=== PATIENT | female | born 1985 | race Hispanic/Latino ===

== ENCOUNTER 2019-07-13 08:30 | Outpatient (CLI) | payer OTHER, SELFPAY ==
--- NOTE | ~2019-07-13 | US_ITS ---
EXAMINATION: US OB <= 14 weeks fetus DATE: 07/13/2019 09:09 INDICATION: First trimester dating TECHNIQUE: Real-time pelvic transabdominal and transvaginal ultrasound was performed. COMPARISON: None. FINDINGS: The uterus measures 11.1 x 7.2 x 6.0 cm. There is an intrauterine gestational sac. There i s a 1.8 x 2.0 x 1.7 cm hypoechoic area adjacent to the gestational sac. A yolk sac is identified. Fet al heart motion is identified measuring 159 beats per minute (bpm) by M-mode Doppler. The crown rump length measures 1.4 cm , which correlates with an estimated gestational age of 7 weeks and 4 da y(s) (+/-) 5 day(s). The right ovary measures 4.1 x 2.9 x 3.4 cm. The left ovary measures 2.7 x 3.1 x 2.6 cm. There is no free fluid in the pelvis. IMPRESSION: 1. Live intrauterine with an estimated gestational age of 7 weeks and 4 day(s) (+/-) 5 day( s) and an estimated delivery date of 02/25/2020. Reviewed, dictated and finalized at location A. ERN VAULT CLERK IMPRESSION: 1. Live intrauterine with an estimated gestational age of 7 weeks and 4 day(s) (+/-) 5 day(s) and an estimated delivery date of 02/25/2020.
== END 2019-07-13 08:31 | disposition home or self-care (01) ==
PROVIDERS: PCP Family Medicine; Visit Provider Student in an Organized Health Care Education/Training Program
DX: Z34.90 Encounter for supervision of normal pregnancy, unspecified, unspecified trimester (principal); Z3A.01 Less than 8 weeks gestation of pregnancy
CPT/HCPCS: 76801

== ENCOUNTER 2019-07-29 12:18 | Emergency (ER) | payer OTHER, SELFPAY ==
--- NOTE | ~2019-07-29 | US_ITS ---
EXAMINATION: US OB <= 14 weeks fetus DATE: 07/29/2019 15:33 INDICATION: Cramping. TECHNIQUE: Real-time transabdominal pelvic ultrasound was performed. COMPARISON: Ultrasound 07/13/2019 FINDINGS: The uterus measures 11.3 x 7.8 x 8.5 cm. There is an intrauterine gestational sac. A yolk sac is cheng ntified. The crown rump length measures 3.2 cm, which correlates with an estimated gestational age of 10 weeks and 1 day(s) (+/-) 6 day(s). heart motion is identified measuring 176 beats pe r minute (bpm) by M-mode Doppler. The right ovary measures 3.4 x 1.9 x 2.8 cm. There is a 3.3 cm cyst in right ovary, likely a follicular cyst. The left ovary measures 2.2 x 1.9 x 1.5 cm. There is no fr ee fluid in the pelvis. IMPRESSION: 1. Single living intrauterine gestation with estimated date of delivery of 02/25/2020 based on the ul trasound from 07/13/2019. Reviewed, dictated and finalized at location A. IMPRESSION: 1. Single living intrauterine gestation with estimated date of delivery of 02/25/2020 based on the ultrasound from 07/13/2019.
[2019-07-29 12:38] VITALS: BP 115/57; PULSE 73; RESP 18; TEMP 36.8; O2SAT 99
--- NOTE | 2019-07-29 12:49 | PC.NURSE ---
Pt states she has L lower abd cramping x 4 days. Pt states she has also had an upper respiratory infection that has no been treated. Pt states she has been taking Tylenol with no relief. Pt states OB told to come to ER for evaluation. Pt states she has no discharge or bleeding. Pt appears in NAD. Pt states she is 10 wks . Pt has family and call light in reach
--- NOTE | 2019-07-29 13:18 | ED.PREGNANCY ---
HPI - General Chief complaint: OB/Uterine Contractions Stated complaint: cramping/10 weeks Time Seen by Provider: 07/29/19 13:17 Source: patient Mode of arrival: ambulatory Limitations: no limitations History of Present Illness HPI Narrative: The pt is a 33 y/o female who presents to the ED c/o left-sided ABD pain onset one day ago. Pt describes it as a cramping pain. She notes that it was intermittent before, but has been constant for the past hour. Pt notes that she last took Tylenol one hour ago. Pt reports diarrhea and chills, but denies N/V, fever, vaginal bleeding, and vaginal discharge. Pt notes that she is 10 weeks , and has been seeing Dr. Kaykay Weiss. Pt states that she had a US performed at 7 weeks. Pt notes that she is with one . Pt states that she has a URI currently. Pt also reports a PSHx of cholecystectomy and appendectomy. MD Complaint: abdominal pain Onset (ago): day(s) (1) Pain Consistency: constant (Now, was intermittent before) Location: abdomen Quality: Cramping Associated symptoms: other (Diarrhea, chills) Vaginal discharge: none Vaginal bleeding: none OB History - Current : no complications Related Data Allergies Allergy/AdvReac Type Severity Reaction Status Date / Time acetaminophen [From Vicodin] AdvReac Other Verified 07/29/19 12:41 hydrocodone [From Vicodin] AdvReac Other Verified 07/29/19 12:41 Review of Systems Review of Systems: All systems reviewed & are unremarkable except as noted in HPI and below Constitutional: Constitutional: Reports chills and Denies fever(s) Gastrointestinal: Gastrointestinal: Reports abdominal pain (Left-sided, cramping, intermittent now), Reports diarrhea, Denies nausea and Denies vomiting Genitourinary: Genitourinary: Denies abnormal vaginal bleeding and Denies vaginal discharge [facility] Past Medical History Medical History (Updated 07/29/19 @ 15:27 by John Snider MD) Upper respiratory infection Surgical History Surgical History (Updated 07/29/19 @ 13:42 by Corby Medrano) History of appendectomy History of cholecystectomy Social History Social History (Updated 04/20/19 @ 17:10 by Barney Avalos) Additional occupation/education comments: Day care Gender identity (if verbalized by the patient): Female Comments PCP: Dr. Perez FLAKER TENDER: Dr. Weiss Exam Narrative: Exam Narrative: General appearance: Well-developed, well-nourished Skin: Normal color Head: Normocephalic, nontraumatic Eyes: Clear conjunctiva ENT: Oropharynx normal, ears normal, nose normal Neck: Supple, nontender Chest and respiratory: Airway patent, no respiratory distress, no accessory muscle use Heart: Regular rate/rhythm Abdomen: Soft, mild to moderate tenderness left lower quadrant r, no organomegaly, quiet bowel sounds Vascular: Normal peripheral pulses, normal capillary refill. Musculoskeletal: Normal range of motion, nontender back Neurologic: Alert and oriented ?3, VEHICLE FARE COLLECTOR is normal as tested, no gross motor deficit Course Course Emergency Course: Improving Vital Signs Vital signs: Vital Signs Temperature 36.8 C 07/29/19 12:38 Pulse Rate 73 07/29/19 12:38 Respiratory Rate 18 07/29/19 12:38 Blood Pressure 115/57 L 07/29/19 12:38 Pulse Oximetry 99 07/29/19 12:38 Temperature 36.8 C 07/29/19 12:38 Pulse Rate 73 07/29/19 12:38 Respiratory Rate 18 07/29/19 12:38 Blood Pressure 115/57 L 07/29/19 12:38 Pulse Oximetry 99 07/29/19 12:38 MDM - OB/Uterine Contractions MDM Narrative Medical decision making narrative: Left lower quadrant pain in a woman. My concern is urinar
[2019-07-29 13:41] LABS: Basophils Percent Auto 0.3 % (0.2-1.2); Eosinophils Absolute Auto 0.1 K/mm3 (0-0.3); Hematocrit 37.9 % (37.0-47.0); Hemoglobin 12.6 g/dL (12.0-15.0); Immature Granulocyte Absolute 0.02 K/mm3 (0.00-0.031); Immature Granulocyte Percent A 0.3 % (0-0.5); Lymphocytes Absolute Auto 1.81 K/mm3 (0.9-3.2); Mean Corpuscular HGB Conc 33.2 g/dl (32-36); Mean Corpuscular Hemoglobin 30.5 pg (26-34); Mean Corpuscular Volume 91.8 fl (80-100); Mean Platelet Volume 10.8 fl (7.4-10.4); Monocytes Absolute Auto 0.4 K/mm3 (0.1-0.6); Monocytes Percent Auto 5.1 % (2.6-8.5); Neutrophils Absolute Auto 4.9 K/mm3 (1.3-6.7); Neutrophils Percent Auto 68.3 % (45.5-73.1); Platelet Count Result 245 k/mm3 (150-375); Red Blood Count 4.13 M/mm3 (4.2-5.4); Red Cell Distribution Width 12.1 % (11.5-14.5); White Blood Count 7.2 K/mm3 (4.5-10.0)
[2019-07-29 13:54] LABS: Alanine Aminotransferase 19 U/L (4-35); Albumin Level 3.9 g/dL (3.5-5.1); Alkaline Phosphatase 51 U/L (38-126); Aspartate Amino Transferase 18 U/L (14-36); Bilirubin,Total 0.8 mg/dL (0.2-1.3); Blood Urea Nitrogen 5 mg/dL (7-17); Carbon Dioxide 25 mmol/L (22-30); Chloride 103 mmol/L (98-107); Estimated CRCL calculation 105 ml/min; Estimated Glomerular Filt Rate > 60; Glucose 81 mg/dL (65-105); Lipase 34 U/L (23-300); Potassium 3.6 mmol/L (3.4-5.0); Sodium 135 mmol/L (137-145)
[2019-07-29 15:22] LABS: Add Urine Microscopic? YES; Appearance Urine Clear (Clear); Bacteria Urine Trace /hpf; Bilirubin Urine Negative (Negative); Blood Urine Negative (Negative); Color Urine Yellow (Yellow); Glucose Urine UA Negative (Negative); Ketones Urine Negative (Negative); Leukocyte Esterase Ur Negative LEU/UL (Negative); Mucus Urine Rare /lpf; Nitrate Urine Negative (Negative); Protein Urine Negative (Negative); RBC Urine 0-2 /hpf (0-2); Specific Grav Ur 1.021 (1.001-1.035); Squamous Epithelial Cell Urine Few /hpf (Few); Urobilinogen Urine Negative mg/dL (<2.0); WBC Urine 0-3 /hpf
== END 2019-07-29 12:49 | disposition home or self-care (01) ==
PROVIDERS: Emergency Provider Emergency Medicine; PCP Family Medicine
DX: O26.891 Other specified pregnancy related conditions, first trimester (principal); R10.32 Left lower quadrant pain
CPT/HCPCS: 36415; 76801; 80053; 81001; 83690; 84702; 85025; 99284

== ENCOUNTER 2019-12-16 10:53 | Observation (INO) | payer OTHER, SELFPAY ==
[2019-12-16 12:14] LABS: Add Urine Microscopic? YES; Appearance Urine Clear (Clear); Bacteria Urine Trace /hpf; Bilirubin Urine Negative (Negative); Blood Urine Negative (Negative); Color Urine Yellow (Yellow); Glucose Urine UA Negative (Negative); Ketones Urine Negative (Negative); Leukocyte Esterase Ur Trace LEU/UL (Negative); Mucus Urine Rare /lpf; Nitrate Urine Negative (Negative); Protein Urine Negative (Negative); RBC Urine 0-2 /hpf (0-2); Specific Grav Ur 1.018 (1.001-1.035); Squamous Epithelial Cell Urine Many /hpf (Few); Urobilinogen Urine Negative mg/dL (<2.0)
[2019-12-16 12:40] LABS: Fetal Fibronectin Negative
[2019-12-16] MEDS: NIFEdipine 10 MG CAPSULE PO ×2 (13:59→15:56)
[2019-12-16 16:22] LABS: Basophils Percent Auto 0.3 % (0.2-1.2); Eosinophils Absolute Auto 0.1 K/mm3 (0-0.3); Hematocrit 36.7 % (37.0-47.0); Hemoglobin 12.2 g/dL (12.0-15.0); Immature Granulocyte Absolute 0.02 K/mm3 (0.00-0.031); Immature Granulocyte Percent A 0.3 % (0-0.5); Lymphocytes Percent Auto 22.6 % (18.3-44.2); Mean Corpuscular HGB Conc 33.2 g/dl (32-36); Mean Corpuscular Hemoglobin 30.6 pg (26-34); Mean Platelet Volume 11.2 fl (7.4-10.4); Monocytes Absolute Auto 0.4 K/mm3 (0.1-0.6); Monocytes Percent Auto 5.1 % (2.6-8.5); Neutrophils Percent Auto 70.7 % (45.5-73.1); Platelet Count Result 206 k/mm3 (150-375); Red Blood Count 3.99 M/mm3 (4.2-5.4); Red Cell Distribution Width 13.1 % (11.5-14.5); White Blood Count 7.1 K/mm3 (4.5-10.0)
[2019-12-16 16:32] LABS: Partial Thromboplastin Time 25.2 SECONDS (22.3-36.8)
[2019-12-16 16:34] LABS: Alanine Aminotransferase 9 U/L (4-35); Albumin Level 3.7 g/dL (3.5-5.1); Alkaline Phosphatase 82 U/L (38-126); Anion Gap 10.7 mmol/L (7-16); Aspartate Amino Transferase 14 U/L (14-36); Bilirubin,Total 0.8 mg/dL (0.2-1.3); Blood Urea Nitrogen 5 mg/dL (7-17); Calcium 8.8 mg/dL (8.4-10.2); Carbon Dioxide 23 mmol/L (22-30); Chloride 105 mmol/L (98-107); Estimated Glomerular Filt Rate > 60; Glucose 133 mg/dL (65-105); Potassium 3.7 mmol/L (3.4-5.0); Sodium 135 mmol/L (137-145)
[2019-12-16 16:46] VITALS: RESP 20; TEMP 36.6
[2019-12-16 17:04] LABS: INR 0.9; Prothrombin Time 11.9 Seconds (11.1-14.7)
[2019-12-16 17:10] LABS: Fibrinogen 283 mg/dl (215-510)
[2019-12-16 18:25] LABS: Amphetamine Screen Urine Negative (Negative); Barbiturate Screen Urine Negative (Negative); Benzodiazepines Screen Urine Negative (Negative); Cannabinoid Screen Urine Negative (Negative); Cocaine Screen Urine Negative (Negative); Methadone Screen Urine Negative (Negative); Opiate Screen Urine Negative (Negative); Phencyclidine Screen Urine Negative (Negative)
--- NOTE | 2020-01-19 12:38 | PM.OBTRLD ---
OB - Triage/Final Diagnosis Evaluation Laboratory results: Laboratory Tests 12/16/19 12/16/19 12/16/19 11:51 11:54 16:15 WBC RBC Hgb Hct MCV MCH MCHC RDW Plt Count MPV Immature Gran % (Auto) Neut % (Auto) Lymph % (Auto) [place] % (Auto) Eos % (Auto) Baso % (Auto) Lymph # (Auto) [place] # (Auto) Eos # (Auto) Baso # (Auto) Abs Immat Gran (auto) Absolute Neuts (auto) Absolute Nucleated RBC Nucleated RBC % PT INR APTT 25.2 Fibrinogen Sodium Potassium Chloride Carbon Dioxide Anion Gap BUN Creatinine Estim Creat Clear Calc Estimated GFR Glucose Calcium Total Bilirubin AST ALT Alkaline Phosphatase Total Protein Albumin Urine Color Yellow Urine Appearance Clear Urine pH 6.0 Ur Specific [place] 1.018 Urine Protein Negative Urine Glucose (UA) Negative Urine Ketones Negative Ur Blood (Man) Negative Urine Nitrate Negative Urine Bilirubin Negative Urine Urobilinogen Negative Leukocyte Esterase Rfl Trace H Urine RBC 0-2 Urine WBC 4-6 H Ur Squamous Epith Cells Many H Urine Bacteria Trace Urine Mucus Rare Urine Opiates Screen Urine Methadone Screen Ur Barbiturates Screen Ur Phencyclidine Scrn Ur Amphetamine Screen U Benzodiazepines Scrn Urine Cocaine Screen U Cannabinoids Screen Fibronectin Negative KB Hemoglobin 12/16/19 12/16/19 12/16/19 16:15 16:15 16:15 WBC 7.1 RBC 3.99 L Hgb 12.2 Hct 36.7 L MCV 92.0 MCH 30.6 MCHC 33.2 RDW 13.1 Plt Count 206 MPV 11.2 H Immature Gran % (Auto) 0.3 Neut % (Auto) 70.7 Lymph % (Auto) 22.6 [place] % (Auto) 5.1 Eos % (Auto) 1.0 Baso % (Auto) 0.3 Lymph # (Auto) 1.60 [place] # (Auto) 0.4 Eos # (Auto) 0.1 Baso # (Auto) 0.0 Abs Immat Gran (auto) 0.02 Absolute Neuts (auto) 5.0 Absolute Nucleated RBC 0.0 Nucleated RBC % 0.0 PT 11.9 INR 0.9 APTT Fibrinogen 283 Sodium Potassium Chloride Carbon Dioxide Anion Gap BUN Creatinine Estim Creat Clear Calc Estimated GFR Glucose Calcium Total Bilirubin AST ALT Alkaline Phosphatase Total Protein Albumin Urine Color Urine Appearance Urine pH Ur Specific [place] Urine Protein Urine Glucose (UA) Urine Ketones Ur Blood (Man) Urine Nitrate Urine Bilirubin Urine Urobilinogen Leukocyte Esterase Rfl Urine RBC Urine WBC Ur Squamous Epith Cells Urine Bacteria Urine Mucus Urine Opiates Screen Urine Methadone Screen Ur Barbiturates Screen Ur Phencyclidine Scrn Ur Amphetamine Screen U Benzodiazepines Scrn Urine Cocaine Screen U Cannabinoids Screen Fibronectin KB Hemoglobin Negative 12/16/19 12/16/19 16:15 17:32 WBC RBC Hgb Hct MCV MCH MCHC RDW Plt Count MPV Immature Gran % (Auto) Neut % (Auto) Lymph % (Auto) [place] % (Auto) Eos % (Auto) Baso % (Auto) Lymph # (Auto) [place] # (Auto) Eos # (Auto) Baso # (Auto) Abs Immat Gran (auto) Absolute Neuts (auto) Absolute Nucleated RBC Nucleated RBC % PT INR APTT Fibrinogen Sodium 135 L Potassium 3.7 Chloride 105 Carbon Dioxide 23 Anion Gap 10.7 BUN 5 L Creatinine 0.50 L Estim Creat Clear Calc Not Reportable Estimated GFR > 60 Glucose 133 H Calcium 8.8 Total Bilirubin 0.8 AST 14 ALT 9 Alkaline Phosphatase 82 Total Protein 7.0 Albumin 3.7 Urine Color Urine Appearance Urine pH Ur Specific [place] Urine Protein Urine Glucose (UA) Urine Ketones Ur Blood (Man) Urine Nitrate Urine Bilirubin Urine Urobilinogen Leukocyte Esterase Rfl Urine RBC Urine WBC Ur Squamous Epith Cells Urine Ba
== END 2019-12-16 17:53 | disposition home or self-care (01) ==
PROVIDERS: Admitting Provider Obstetrics & Gynecology; PCP Family Medicine; Visit Provider Obstetrics & Gynecology
DX: O99.89 Other specified diseases and conditions complicating pregnancy, childbirth and the puerperium (principal); M54.9 Dorsalgia, unspecified; Z3A.00 Weeks of gestation of pregnancy not specified
CPT/HCPCS: 36415; 80053; 80307; 81001; 82731; 85025; 85384; 85460; 85610; 85730; A9270; G0378; G0379

== ENCOUNTER 2020-01-13 15:01 | Observation (INO) | payer OTHER, SELFPAY ==
[2020-01-13] VITALS (11 sets, daily range): BP systolic 94–114; BP diastolic 34–61; PULSE 71–89; TEMP 36.3; BMI 31.1
[2020-01-13] MEDS: ONDANSETRON INJ 4 MG/2 ML VIAL IV PUSH (16:18)
[2020-01-13] MEDS: TERBUTALINE SULFATE 1 MG/ML VIAL 0.25 MG SUB-Q (16:20)
--- NOTE | 2020-01-13 16:26 | OBADM ---
This patient, Xiomara Gonsalves, admitted to the OB room OB Post 116 for observation. Patient/family oriented to hospital policies and general routines including ID bracelet, bed and alarms, visiting hours, pain management, procedures, bathroom and other care routines, personal items, smoking policy, room service/diet, and visiting hours. Patient/Family are encouraged to report perceived risks to care and to ask questions if they do not understand what they are told or what they should do. Pt. reports ctxns, h/a, dizziness, nausea, pelvic pain and back pain since approx. midnight last night. She reports that she takes procardia q 6h for ctxns, but then she started feeling really bad last night.
[2020-01-13] MEDS: ACETAMINOPHEN 500 MG TABLET 1000 MG PO (18:00)
--- NOTE | 2020-02-02 14:11 | PM.OBTRLD ---
OB - Triage/Final Diagnosis Final Diagnosis (1) contractions: Code(s): O47.9 - False labor, unspecified Status: Acute
== END 2020-01-13 18:23 | disposition home or self-care (01) ==
PROVIDERS: Admitting Provider Student in an Organized Health Care Education/Training Program; PCP Family Medicine; Visit Provider Student in an Organized Health Care Education/Training Program
DX: O47.03 False labor before 37 completed weeks of gestation, third trimester (principal); Z3A.34 34 weeks gestation of pregnancy
CPT/HCPCS: 96372; 96374; A9270; G0378; G0379; J2405; J3105

== ENCOUNTER 2020-01-28 10:29 | Outpatient (CLI) | payer OTHER, SELFPAY ==
--- NOTE | ~2020-01-28 | US_ITS ---
US breast LT complete 01/28/2020 10:54 Indication: Palpable left breast lump. Patient is 36 weeks . Procedure: High-resolution bilateral breast ultrasound. Comparison: No prior studies for comparison. Findings: At 4:00, 6 cm from the nipple, there is an oval circumscribed hypoechoic mass without poste rior features, internal vascularity. There is parallel orientation. The mass measures 6 x 5 x 3 mm. A t 9:00, 5 cm from the nipple, there is a slightly lobulated hypoechoic mass with parallel orientation , no significant posterior features or internal vascularity measuring 2.2 x 1.8 x 1.2 cm. Impression: 1: 2.2 cm left breast mass at 9:00, 5 cm from the nipple. Additional smaller 6 mm masses likely benig n. Six-month follow-up recommended. BI-RADS CATEGORY 4-SUSPICIOUS ABNORMALITY RECOMMENDATION: Ultrasound-guided left breast biopsy recommended. Reviewed, dictated and finalized at location A. Impression: 1: 2.2 cm left breast mass at 9:00, 5 cm from the nipple. Additional smaller 6 mm masses likely benign. Six-month follow-up recommended. BI-RADS CATEGORY 4-SUSPICIOUS ABNORMALITY RECOMMENDATION: Ultrasound-guided left breast biopsy recommended.
== END 2020-01-28 10:30 | disposition home or self-care (01) ==
PROVIDERS: PCP Family Medicine; Visit Provider Student in an Organized Health Care Education/Training Program
DX: O92.29 Other disorders of breast associated with pregnancy and the puerperium (principal); D24.2 Benign neoplasm of left breast
CPT/HCPCS: 76641

== ENCOUNTER 2020-02-09 10:40 | Observation (INO) | payer OTHER, SELFPAY ==
[2020-02-09] VITALS (41 sets, daily range): BP systolic 111–128; BP diastolic 62–75; PULSE 51–90; TEMP 36.4–36.9; O2SAT 93–100; BMI 31.8
--- NOTE | 2020-02-09 11:30 | OBADM ---
This patient, Xiomara Gonsalves, admitted to the OB room Labor/Delivery/Recovery 101 at 1040 for observation for contractions. Patient/family oriented to hospital policies and general routines including ID bracelet, bed and alarms, visiting hours, pain management, procedures, bathroom and other care routines, personal items, smoking policy, room service/diet, and visiting hours. Patient/Family are encouraged to report perceived risks to care and to ask questions if they do not understand what they are told or what they should do.
[2020-02-09] MEDS: hydrOXYzine HCl 50 MG/ML VIAL IM (15:27)
--- NOTE | 2020-03-03 14:11 | PM.OBTRLD ---
OB - Triage/Final Diagnosis Final Diagnosis (1) False labor: Code(s): O47.9 - False labor, unspecified Status: Acute
== END 2020-02-09 19:19 | disposition home or self-care (01) ==
PROVIDERS: Admitting Provider Student in an Organized Health Care Education/Training Program; PCP Family Medicine; Visit Provider Student in an Organized Health Care Education/Training Program
DX: O47.9 False labor, unspecified (principal); Z3A.00 Weeks of gestation of pregnancy not specified
CPT/HCPCS: 96372; G0378; G0379; J3410

== ENCOUNTER 2020-02-10 20:48 | Observation (INO) | payer OTHER, SELFPAY ==
--- NOTE | 2020-02-10 21:49 | LDADM ---
This patient, Xiomara Gonsalves, was admitted to Labor/Delivery/Recovery 108 on 02/10/20 at 20:48. Plans for labor, pain management and were discussed with patient. Patient/family oriented to hospital policies and general routines including ID bracelet, bed and alarms, visiting hours, pain management, procedures, bathroom and other care routines, personal items, smoking policy, room service/diet and guest tray routines, infant security routines, and visiting hours. Patient/Family are encouraged to report perceived risks to care and to ask questions if they do not understand what they are told or what they should do. See OBIX for further documentation.
--- NOTE | 2020-03-03 14:13 | PM.OBTRLD ---
OB - Triage/Final Diagnosis Final Diagnosis (1) False labor: Code(s): O47.9 - False labor, unspecified Status: Acute
== END 2020-02-10 21:40 | disposition home or self-care (01) ==
PROVIDERS: Admitting Provider Student in an Organized Health Care Education/Training Program; PCP Family Medicine; Visit Provider Student in an Organized Health Care Education/Training Program
DX: O47.9 False labor, unspecified (principal); Z3A.00 Weeks of gestation of pregnancy not specified
CPT/HCPCS: G0378; G0379

== ENCOUNTER 2020-02-13 03:41 | Inpatient (IN) | payer OTHER, SELFPAY ==
[2020-02-13] VITALS (57 sets, daily range): BP systolic 79–132; BP diastolic 31–103; PULSE 25–134; RESP 16–20; TEMP 36.4–37; O2SAT 91–100; BMI 31.8
--- NOTE | 2020-02-13 03:41 | LDADM ---
This patient, Xiomara Gonsalves, was admitted to Labor/Delivery/Recovery 105 on 02/13/20 at 03:41. Plans for labor, pain management and were discussed with patient. Patient/family oriented to hospital policies and general routines including ID bracelet, bed and alarms, visiting hours, pain management, procedures, bathroom and other care routines, personal items, smoking policy, room service/diet and guest tray routines, infant security routines, and visiting hours. Patient/Family are encouraged to report perceived risks to care and to ask questions if they do not understand what they are told or what they should do. See OBIX for further documentation.
[2020-02-13] MEDS: LACTATED RINGERS 1,000 ML 125 ML IV CONT ×3 (04:15→05:45)
[2020-02-13 04:27] LABS: Basophils Percent Auto 0.1 % (0.2-1.2); Eosinophils Absolute Auto 0.1 K/mm3 (0-0.3); Hematocrit 36.2 % (37.0-47.0); Hemoglobin 12.4 g/dL (12.0-15.0); Immature Granulocyte Absolute 0.02 K/mm3 (0.00-0.031); Immature Granulocyte Percent A 0.3 % (0-0.5); Lymphocytes Absolute Auto 2.84 K/mm3 (0.9-3.2); Lymphocytes Percent Auto 39.3 % (18.3-44.2); Mean Corpuscular HGB Conc 34.3 g/dl (32-36); Mean Corpuscular Hemoglobin 30.7 pg (26-34); Mean Corpuscular Volume 89.6 fl (80-100); Mean Platelet Volume 12.2 fl (7.4-10.4); Monocytes Absolute Auto 0.4 K/mm3 (0.1-0.6); Monocytes Percent Auto 5.7 % (2.6-8.5); Neutrophils Absolute Auto 3.9 K/mm3 (1.3-6.7); Neutrophils Percent Auto 53.6 % (45.5-73.1); Platelet Count Result 150 k/mm3 (150-375); Red Blood Count 4.04 M/mm3 (4.2-5.4); Red Cell Distribution Width 13.4 % (11.5-14.5); White Blood Count 7.2 K/mm3 (4.5-10.0)
--- NOTE | 2020-02-13 04:38 | WPDANESEPP ---
Anes - Eval Pre Procedure Procedure: labor pain Date/Time: 02/13/20 04:38 Surgeon: sherly Pre Op Diagnosis: CTX Patient Data Age: 34 Gender: F Height: Weight: Last Vital Signs Temp 37.0 C 02/13/20 03:50 Pulse 81 02/13/20 04:30 BP 132/73 02/13/20 04:30 Allergies Allergy/AdvReac Type Severity Reaction Status Date / Time hydrocodone Allergy Severe shortness Verified 02/10/20 10:42 of breath Home Medications Medication Instructions Recorded Confirmed Type vits 75-iron 28 mg-folic 1 pkg PO DAILY 07/02/19 02/09/20 History acid 800 mcg-omega-3 oral combo pack cholecalciferol (vitamin D3) 50 50 mcg PO DAILY #90 cap 09/16/19 02/09/20 Rx mcg (2,000 unit) capsule Laboratory Tests 02/13/20 02/13/20 04:17 04:17 WBC 7.2 K/mm3 K/mm3 (4.5-10.0) RBC 4.04 M/mm3 L M/mm3 (4.2-5.4) Hgb 12.4 g/dL g/dL (12.0-15.0) Hct 36.2 % L % (37.0-47.0) MCV 89.6 fl fl (80-100) MCH 30.7 pg pg (26-34) MCHC 34.3 g/dl g/dl (32-36) RDW 13.4 % % (11.5-14.5) Plt Count 150 k/mm3 k/mm3 (150-375) MPV 12.2 fl H fl (7.4-10.4) Immature Gran % (Auto) 0.3 % % (0-0.5) Neut % (Auto) 53.6 % % (45.5-73.1) Lymph % (Auto) 39.3 % % (18.3-44.2) [place] % (Auto) 5.7 % % (2.6-8.5) Eos % (Auto) 1.0 % % (0-4.4) Baso % (Auto) 0.1 % L % (0.2-1.2) Lymph # (Auto) 2.84 K/mm3 K/mm3 (0.9-3.2) [place] # (Auto) 0.4 K/mm3 K/mm3 (0.1-0.6) Eos # (Auto) 0.1 K/mm3 K/mm3 (0-0.3) Baso # (Auto) 0.0 K/mm3 K/mm3 (0.0-0.1) Abs Immat Gran (auto) 0.02 K/mm3 K/mm3 (0.00-0.031) Absolute Neuts (auto) 3.9 K/mm3 K/mm3 (1.3-6.7) Absolute Nucleated RBC 0.0 K/mm3 K/mm3 (0.0-0.012) Nucleated RBC % 0.0 % % (0.0-0.2) RPR Pending Patient hx anesthesia problems: none Family hx anesthesia problems: [facility] Social History Social History Social History: Smoking status: Never smoker Second hand tobacco smoke exposure: No Alcohol intake: former Substance use: never Substance use type: does not use Additional occupation/education comments: Day care Gender identity (if verbalized by the patient): Female Spiritual care concerns: No Exam Day of Procedure 02/13/20 04:38
--- NOTE | 2020-02-13 06:02 | PM.IMHP ---
H&P: HPI History of Present Illness Date/Time: 02/13/20 06:02 Pt is a 34yo with LMP 05/18/19. She is currently 38w4d with NICHOLAS 02/23/20. She is dated by LMP consistent with an US on 07/13/19 at 7w gestation. Pt has been experiencing contractions for past several weeks. Reports an increase in frequency and intensity of contractions a few hours ago. She denies any vaginal bleeding or leakage of fluid. Reports good movement. Pt has a history of delivery () at 36w following unexplained bleeding and IOL. Also had two uncomplicated full term NSVDs at 38w. She has a history of a missed ab at approx. 8 weeks gestation that she passed on her own without intervention. Chief complaint: CTX Narrative: Xiomara Gonsalves is a 34 year old female Review of Systems Review of Systems: All systems reviewed & are unremarkable except as noted in HPI and below Constitutional: Constitutional: Reports as per HPI, Reports no additional constitutional complaints, Denies chills, Denies fever(s), Denies headache(s) and Denies night sweats Eyes: Eyes: Reports as per HPI and Reports no additional eye complaints ENT: Reports system reviewed and no additional complaints, except as documented, Reports as per HPI, Reports Normal hearing present and Denies headache(s) Cardiovascular: Cardiovascular: Reports as per HPI, Reports no additional cardiovascular complaints, Denies chest pain and Denies dyspnea Respiratory: Respiratory: Reports as per HPI, Reports no additional respiratory complaints, Denies cough and Denies dyspnea Gastrointestinal: Gastrointestinal: Reports as per HPI, Reports no additional gastrointestinal complaints, Denies abdominal pain, Denies change in bowel habits, Denies change in stool character, Denies nausea and Denies vomiting Genitourinary: Genitourinary: Reports no additional female genitourinary complaints, Reports as per HPI, Denies abnormal vaginal bleeding, Denies genital lesions, Denies hot flashes, Denies dyspareunia, Denies pelvic pain, Denies sexual dysfunction, Denies urinary incontinence, Denies vaginal discharge, Denies vaginal dryness and Denies vaginal odor Musculoskeletal: Musculoskeletal: Reports no additional musculoskeletal complaints and Reports as per HPI Integumentary/Breasts: Skin/Breast: Reports system reviewed and no additional complaints, except as docu, Reports as per HPI, Denies breast pain and Denies nipple discharge Neurologic: Reports system reviewed and no additional complaints, except as documented, Reports as per HPI, Reports Normal hearing present and Denies headache(s) Psychiatric: Psychiatric: Reports no additional psychiatric complaints, Reports as per HPI, Denies anxiety and Denies depression Endocrine: Endocrine: Reports no additional endocrine complaints and Reports as per HPI Hematologic/Lymphatic: Hematologic/Lymphatic: Reports no additional hematologic/lymphatic complaints and Reports as per HPI Allergic/Immunologic: Allergic/Immunologic: Reports no additional allergic/immunologic complaints and Reports as per HPI PMFSH Past Medical History Medical History ASCUS (atypical squamous cells of undetermined significance) on gynecologic Papanicolaou smear complicating , antepartum HPV test positive Upper respiratory infection Vaginal delivery x 3 Surgical History Surgical History History of appendectomy History of appendectomy History of cholecystectomy History of cholecystectomy Family History Family History Mother Family history of hypercholesterolemia Family history of coronary artery disease Hypertension H/O: hysterectomy Social History Social History Social History: Smoking status: Never smoker Second hand tobacco smoke exposure: No Al
--- NOTE | 2020-02-13 06:09 | WPDHPUPDATE1 ---
History and Physical Update Update Date/Time: 02/13/20 06:09 History and Physical has been reviewed, including an updated exam of the patient. There are NO changes in the patient's condition. Risks, benefits, and alternatives have been discussed and questions answered. Patient agrees to proceed with procedure.
--- NOTE | 2020-02-13 06:30 | P.PCNOB_ITS ---
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 Patient was noted to be rose uncomfortably and was approximately 5 cm dilated upon presentation. She began making cervical change and was admitted to labor and delivery in active labor. Patient requested an epidural for pain management which was placed without difficulty. Patient continued to make cervical change on her own and was noted to be fully dilated at 5:57 a.m. Artificial rupture membranes was performed at this time. Clear amniotic fluid was noted. Patient was encouraged to push and found to be pushing well. She was prepped and draped in usual sterile fashion for delivery. At 6:14 a.m., infant's head was delivered in JATIN presentation atraumatically and without difficulty. Occiput restituted to maternal right side. With subsequent push, the infant's neck, shoulders, and rest of body were delivered without difficulty. was crying spontaneously. 's nose and mouth were suctioned with bulb suction. The was placed on maternal abdomen where care was assumed by awaiting nursing staff. Delayed cord clamping was performed for approximately 60 seconds. The cord was clamped and cut. A segment of cord was collected for cord gases. Cord blood was also obtained. The placenta was delivered spontaneously and intact. On inspection, no lacerations were noted. The uterus was noted to be firm with bimanual massage. The patient was cleansed and dried. Estimated blood loss for entire delivery was 200 cc. The infant was a live born male , Apgars 9 and 9, weighing 8 lb 2 oz. Both mother and baby doing well and delivered. Intrapartal events: None Delivery monitor: external FHT and external uterine Route of delivery: Episiotomy description: None Laceration description: None Specimen: No Estimated blood loss (mL): 200 Anesthesia type: Epidural Disposition: floor Complications: No immediate complications [place] Baby Date of : 02/13/20 Time of : 06:14 Weeks of gestation at delivery: 38 (38.4) gender: Male Weight (pounds): 8 Weight (ounces): 2 presentation: vertex position: Right Occiput Anterior Placenta delivery description: Spontaneous cord vessel description: 3 Vessels and Clamped/Cut score one minute: 9 score five minutes: 9
[2020-02-13] MEDS: OXYTOCIN 30 UNITS/NS 500 ML 30 UNITS/500 ML BAG 125 UNITS IV CONT (06:47)
[2020-02-13 07:26] LABS: HIV 1/2 Ab P24 Ag Result Negative (Negative)
--- NOTE | 2020-02-13 08:48 | PC.NURSE ---
Patient transferred to post room #290 per wheelchair from labor and delivery. Support person present. Oriented to unit, room, information board, rooming in, admission packet and security measures. Patient verbalizes understanding.
[2020-02-13] MEDS: MULTIVIT/MIN/PREN/FOL AC/IRON TABLET 1 TAB PO (10:03)
[2020-02-13] MEDS: ACETAMINOPHEN 325 MG TABLET 650 MG (10:03)
[2020-02-13] MEDS: IBUPROFEN 600 MG TABLET PO ×2 (11:46→18:46)
[2020-02-13] MEDS: ACETAMINOPHEN 325 MG TABLET 650 MG PO (18:46)
[2020-02-14] MEDS: ACETAMINOPHEN 325 MG TABLET 650 MG PO (03:59)
[2020-02-14] MEDS: IBUPROFEN 600 MG TABLET PO (03:59)
[2020-02-14 04:31] LABS: Hematocrit 27.9 % (37.0-47.0); Hemoglobin 9.1 g/dL (12.0-15.0)
[2020-02-14] MEDS: DOCUSATE SODIUM 100 MG CAPSULE PO (08:08)
[2020-02-14] MEDS: MULTIVIT/MIN/PREN/FOL AC/IRON TABLET 1 TAB PO (08:08)
[2020-02-14] MEDS: POLYSACCHARIDE IRON COMPLEX 150 MG CAPSULE PO (08:08)
[2020-02-14] MEDS: LANOLIN (LANSINOH) 7.5 GM CREAM 1 APPLIC TOPICAL (08:09)
[2020-02-14 08:20] VITALS: BP 107/56; PULSE 58; RESP 18; TEMP 37.2; O2SAT 100
--- NOTE | 2020-02-14 10:45 | P.PNOB_ITS ---
OB - PN: Subj Subjective Date/time seen: 02/14/20 10:45 Interval history: Doing well. Pain well controlled Tolerating regular diet Ambulating and urinating without difficulty Lochia less than her menses. Patient comments: no complaints, pain well controlled, tolerating diet and flatus present [place] baby status: doing well and nursing well feeding status: exclusively breast feeding OB - PN: Obj Data Labs CBC & Chem 7: 02/14/20 03:58 Labs: Laboratory Results - last 24 hr 02/14/20 03:58 Hgb 9.1 L D Hct 27.9 L OB - PN A/P Plan day: 1 Plan: routine care, discharge home and follow up 6 weeks Comments: Desires to go home later today Desires infant to be circumcised. Discussed procedure in detail as well as risk i.e infection/bleeding/injury to penis. pt voiced verbalized. Informed consent obtained. Time Spent With Patient Time: Total time spent is greater than 50% in coordination of care (as documented) at patient's floor/unit and/or counseling patient: Time with patient: 15 - 25 minutes Review of Systems Constitutional: Constitutional: Reports as per HPI, Reports no additional constitutional complaints, Denies chills and Denies headache(s) Cardiovascular: Cardiovascular: Reports as per HPI and Reports no additional cardiovascular complaints Respiratory: Respiratory: Reports as per HPI, Denies no additional respiratory complaints, Denies cough and Denies dyspnea Genitourinary: Genitourinary: Reports no additional female genitourinary complaints, Denies hematuria and Denies dysuria Exam 2 Const: General: comfortable, no acute distress, alert and awake Orientation/consciousness: patient oriented x3 Resp: Effort & Inspection: normal respiratory effort Auscultation: clear to auscultation bilaterally Cardio: Rate: regular rate GI: Auscultation: normal bowel sounds Psych: Appearance: grossly normal Mental Status: mental status grossly no rmal Affect: normal affect Attitude: cooperative Judgement: Good judgement present (Psych)
--- NOTE | 2020-02-14 10:48 | P.DS_ITS ---
DS: Admitting Diagnosis Admitting Diagnosis Admitting Diagnosis: CTX OB - DS: Summary OB Procedures : None OB Procedures Intrapartum: Spontaneous Vag Delivery OB Procedures: : None Peripartum Data Delivery Method: Natural Vaginal complications: none Status at Discharge Functional status at discharge: independent ambulation Overall status at discharge: patient is progressing back to baseline Time Spent with Patient Time attestation: Total time spent providing and/or coordinating discharge services: Time spent: Less than 30 minutes Exam Const: General: comfortable, no acute distress, alert and awake Orientation /consciousness: patient oriented x3 Limitations: no limitations Resp: Effort & Inspection: normal respiratory effort Auscultation: clear to auscultation bilaterally Cardio: Rate: regular rate GI: Inspection: non-distended GI Palp: Yes Soft to palpation, Yes Firmness to palpation present (GI) and No Tenderness to palpation present (GI) Auscultation: normal bowel sounds Other: Fundus firm below umbilicus Psych: Appearance: grossly normal Mental Status: mental status grossly normal Affect: normal affect Attitude: cooperative Thought content: Yes Normal thought content present Judgement: Good judgement present (Psych) DS: Data Data Completed and Pending Labs on day of discharge: Labs from last 24 hours 02/14/20 03:58 Hgb 9.1 L D Hct 27.9 L Discharge Plan Discharge Attending physician on discharge: Lolita Medina Discharging Clinician: Lolita Medina Patient Disposition: Home, Self-Care Activity: may drive after 2 weeks, as tolerated and pelvic rest Diet: regular Patient Instructions: Antibiotic Form Stand Alone Forms: General Discharge Information Follow-up/Referrals: Kaykay Weiss MD [Physician] - Discharge Medications: New docusate sodium 100 mg Capsule 100 mg PO BID PRN (Reason: Constipation) Qty: 60 RF: 0 ibuprofen 600 mg Tablet 600 mg PO Q6H PRN (Reason: Cramping) Qty: 60 RF: 0 Gsn-U-Sydtxd Cream 1 applic topical PRN PRN (Reason: Sore Nipples) Qty: 60 RF: 1 Continued One A Day Women's DHA 28 mg iron- 800 mcg combo pack 1 pkg PO DAILY RF: 0 cholecalciferol (vitamin D3) 50 mcg (2,000 unit) capsule 50 mcg PO DAILY Qty: 90 RF: 0 Date of admission: 02/13/20 03:41 Primary Care Provider: Lisa Perez Admitting Provider: Kaykay Weiss Attending physician on admission: Kaykay Weiss
[2020-02-14 11:43] LABS: Rapid Plasma Reagin Non-Reactive (NonReactive)
--- NOTE | 2020-02-14 14:35 | PC.NURSE ---
Patient instructed on viewing the discharge video Mother & Baby Care, The First Two Weeks online. Patient was given the opportunity and encouraged to ask questions. Patient verbalized understanding of information shared and has been given the mother/baby guide for home reference.
[2020-02-16 14:51] VITALS: BP 114/67; PULSE 82; RESP 20; O2SAT 99
== END 2020-02-14 14:35 | disposition home or self-care (01) | DRG 807 ==
LOC: ANHLDR 04:15 → ANHOB2 02-14 10:50 → ANHLDR 02-15 12:55 → ANHOB2 02-15 12:55
PROVIDERS: Admitting Provider Student in an Organized Health Care Education/Training Program; PCP Family Medicine; Visit Provider Obstetrics & Gynecology
DX: O80 Encounter for full-term uncomplicated delivery (principal); Z37.0 Single live birth; Z3A.38 38 weeks gestation of pregnancy
CPT/HCPCS: 36415; 85014; 85018; 85025; 86592; 86703; 86850; 86900; 86901; A9270; G0432; J2590; J2795; J7120

== ENCOUNTER 2021-06-29 08:47 | Outpatient (CLI) | payer OTHER, SELFPAY ==
--- NOTE | ~2021-06-29 | XR_ITS ---
EXAMINATION: XR chest 2V EXAM DATE: 06/29/2021 09:10 INDICATION: R05.9 - Persistent Cough. Covid 2 Wks Ago. Nonsmoker TECHNIQUE: Frontal and lateral projections of the chest obtained and reviewed. There is no prior pedro dy for comparison. FINDINGS: The lungs are clear. There are no pleural effusions. The cardiomediastinal silhouette is within normal limits. There is no pneumothorax suspected. The bones and soft tissues are unremarkab le. There are cholecystectomy clips. IMPRESSION: Normal chest x-ray exam. Reviewed, dictated and finalized at location B. [facility] LASTER IMPRESSION: Normal chest x-ray exam.
== END 2021-06-29 08:48 | disposition home or self-care (01) ==
LOC: ANHIMG 08:53
PROVIDERS: PCP Family Medicine; Visit Provider Family Medicine
DX: R05.9 Cough, unspecified (principal)
CPT/HCPCS: 71046

== ENCOUNTER 2021-10-31 15:37 | Emergency (ER) | payer OTHER, SELFPAY ==
--- NOTE | ~2021-10-31 | CT_ITS ---
EXAMINATION: CT abdomen pelvis wo con DATE: 10/31/2021 17:34 INDICATION: hematuria and abdominal pain TECHNIQUE: Computed tomography (CT) of the abdomen and pelvis was performed without intravenous contr ast. Automated exposure control and iterative reconstruction technique were employed. The dose-length product was 251.36 mGy-cm. COMPARISON: None FINDINGS: Lower thorax: Unremarkable Liver: Normal. Biliary/Gallbladder: Gallbladder is absent. No bile duct dilation. Pancreas: No mass or duct dilation. Spleen: Normal. Adrenals:No mass. Kidneys: No mass, stone, or hydronephrosis. GI tract: No small or large bowel dilation. Surgically absent. Mesentery/Peritoneum: No ascites, mass, or free air. Retroperitoneum: No mass. Pelvis: Pelvic organs are within normal limits. Distal ureters are poorly visualized. 5 mm coarse waylon culus in the right pelvis, most likely vascular and not related to the ureter. Soft Tissues: Soft tissues and body wall unremarkable. Bones: No acute osseous finding. IMPRESSION: No acute abdominopelvic process detected. Reviewed, dictated and finalized at location K.
[2021-10-31 15:40] VITALS: BP 112/58; PULSE 71; RESP 18; TEMP 36.7; O2SAT 100
[2021-10-31 15:57] VITALS: BP 109/62; PULSE 83; RESP 16; O2SAT 98
[2021-10-31 16:08] LABS: Basophils Percent Auto 0.3 % (0.2-1.2); Eosinophils Absolute Auto 0.1 K/mm3 (0-0.3); Eosinophils Percent Auto 1.9 % (0-4.4); Hematocrit 37.9 % (37.0-47.0); Hemoglobin 12.4 g/dL (12.0-15.0); Immature Granulocyte Absolute 0.01 K/mm3 (0.00-0.031); Immature Granulocyte Percent A 0.2 % (0-0.5); Lymphocytes Absolute Auto 2.03 K/mm3 (0.9-3.2); Lymphocytes Percent Auto 35.4 % (18.3-44.2); Mean Corpuscular HGB Conc 32.7 g/dl (32-36); Mean Corpuscular Hemoglobin 29.6 pg (26-34); Mean Corpuscular Volume 90.5 fl (80-100); Mean Platelet Volume 10.7 fl (7.4-10.4); Monocytes Absolute Auto 0.4 K/mm3 (0.1-0.6); Monocytes Percent Auto 6.4 % (2.6-8.5); Neutrophils Absolute Auto 3.2 K/mm3 (1.3-6.7); Neutrophils Percent Auto 55.8 % (45.5-73.1); Platelet Count Result 230 k/mm3 (150-375); Red Blood Count 4.19 M/mm3 (4.2-5.4); Red Cell Distribution Width 12.5 % (11.5-14.5); White Blood Count 5.7 K/mm3 (4.5-10.0)
--- NOTE | 2021-10-31 16:09 | ED.ABDPAIN ---
HPI - Abdominal Pain General Chief Complaint: Abdominal Pain Stated Complaint: ABD Pain Since Yesterday Time Seen by Provider: 10/31/21 15:54 Source: patient History of Present Illness HPI narrative: Patient presents with abdominal pain that started yesterday. Her symptoms are getting progressively worse so she came to the ER for evaluation. Her pain is primarily in her upper abdomen achy, constant, radiates across her entire upper abdomen, she reports her pain is improved after she urinates. Reports she is on her menses and is having some cramping but she does not typically have cramping in her upper abdomen. She denies any nausea vomiting or diarrhea. She denies any urinary symptoms such as dysuria or hematuria. Denies any fevers, cough, congestion. Patient reports a history of appendectomy and cholecystectomy Related Data Home Medications Medication Instructions Recorded Confirmed No Home Medications 10/23/21 10/31/21 Allergies Allergy/AdvReac Type Severity Reaction Status Date / Time hydrocodone Allergy Severe shortness Verified 10/31/21 15:49 of breath Review of Systems Review of Systems: CONSTITUTIONAL: Denies fever, chills, or sweats. EYES: Denies visual changes, redness, or discharge. ENT: Denies rhinorrhea, congestion, sore throat, or otalgia. CARDIOVASCULAR: Denies chest pain, palpitations, or edema. RESPIRATORY: Denies cough or dyspnea. GASTROINTESTINAL: Denies nausea, vomiting, or diarrhea. GENITOURINARY: Denies dysuria or hematuria. SKIN: Denies rash or itching. MUSCULOSKELETAL: Denies back pain, joint pain, or myalgia. NEUROLOGIC: Denies headache, numbness, dizziness, or weakness. PSYCHIATRIC: Denies anxiety or depression. All systems reviewed & are unremarkable except as noted in HPI and below PMFSH Past Medical History Medical History ASCUS (atypical squamous cells of undetermined significance) on gynecologic Papanicolaou smear complicating , antepartum HPV test positive Upper respiratory infection Vaginal delivery x 4 Surgical History Surgical History History of appendectomy History of appendectomy History of cholecystectomy History of cholecystectomy Family History Family History Mother Family history of hypercholesterolemia Family history of coronary artery disease Hypertension H/O: hysterectomy Social History Social History Social History: Smoking status: Never smoker Second hand tobacco smoke exposure: No Alcohol intake: former Substance use: never Substance use type: does not use Additional occupation/education comments: Day care Gender identity (if verbalized by the patient): Female Sexual Orientation (if Verbalized by the Patient): Straight or Heterosexual Spiritual care concerns: No Exam Narrative: GENERAL: Well-appearing, well-nourished, and in no acute distress. HEAD: Normocephalic, atraumatic. EYES: PERRLA and EOMI. ENT: Nares clear, no rhinorrhea or epistaxis. Mucous membranes moist. NECK: Supple. No masses. No JVD CHEST: Clear to auscultation. No respiratory distress. No wheezes rales or rhonchi HEART: Regular rate and rhythm. No murmur heard. Normal peripheral pulses. ABDOMEN: Pain most pronounced with palpation in the suprapubic area mild tenderness with palpation of the upper abdomen soft, nondistended, normal active bowel sounds. EXTREMITIES: Normal range of motion. No edema. SKIN: Warm, dry, no rash. NEURO: No focal deficits. Alert and oriented x3. PSYCH: Normal mood and affect. Course Reevaluation(s) Reevaluation #1: Patient feeling somewhat improved results and plan reviewed with patient. Patient is comfortable with outpatient plan. Date: 10/31/21 Time: 17:55 Vital Signs Cheryl
[2021-10-31 16:17] LABS: Alanine Aminotransferase 12 U/L (6-35); Albumin Level 4.5 g/dL (3.5-5.1); Alkaline Phosphatase 63 U/L (38-126); Anion Gap 7 mmol/L (8-16); Aspartate Amino Transferase 16 U/L (14-36); Bilirubin,Total 0.9 mg/dL (0.2-1.3); Blood Urea Nitrogen 12 mg/dL (7-17); Calcium 8.8 mg/dL (8.4-10.2); Carbon Dioxide 24 mmol/L (22-30); Chloride 107 mmol/L (98-107); Estimated CRCL calculation 97 ml/min; Estimated Glomerular Filt Rate > 60; Glucose 86 mg/dL (65-110); Lipase 44 U/L (23-300); Potassium 3.8 mmol/L (3.4-5.0); Sodium 138 mmol/L (137-145)
[2021-10-31 17:11] LABS: Appearance Urine Slightly Cloudy (Clear); Bilirubin Urine Negative (Negative); Blood Urine 3+ (Negative); Color Urine Yellow (Yellow); Glucose Urine UA Negative (Negative); Ketones Urine Negative (Negative); Leukocyte Esterase Ur Trace LEU/UL (Negative); Nitrate Urine Negative (Negative); Protein Urine Negative (Negative); Specific Grav Ur 1.015 (1.001-1.035); Urobilinogen Urine 0.2 mg/dL (<2.0); pH Urine 5.5 (5.0-9.0)
[2021-10-31 17:15] LABS: Add Urine Microscopic? YES; RBC Urine >75 /hpf (0-2)
[2021-10-31] MEDS: MAG HYDROX/AL HYDROX/SIMETH 30 ML UDC PO (17:38)
[2021-10-31] MEDS: LIDOCAINE HCL 2% VISC SOLN 15 ML UDC 20 ML PO (17:38)
== END 2021-10-31 18:05 | disposition home or self-care (01) ==
PROVIDERS: Emergency Provider Emergency Medicine; PCP Family Medicine
DX: R10.9 Unspecified abdominal pain (principal)
CPT/HCPCS: 36415; 74176; 80053; 81001; 81025; 83690; 85025; 99284; A9270

== ENCOUNTER 2022-03-05 12:31 | Emergency (ER) | payer OTHER, SELFPAY ==
[2022-03-05 13:53] VITALS: BP 109/53; PULSE 63; RESP 16; TEMP 36.3; O2SAT 100
--- NOTE | 2022-03-05 14:36 | ED.URI ---
HPI - URI/Sore Throat General Chief Complaint: Upper Respiratory Infection Stated Complaint: diarrhea,vomiting,headache Source: patient Mode of arrival: ambulatory Limitations: no limitations History of Present Illness HPI Narrative: This is a 36 year old that has been complaining of nausea and vomiting and headache. Patient denied taking anything for her symptoms today and she has not vomited today. No fever and no dizziness noted at this time. Related Data Allergies Allergy/AdvReac Type Severity Reaction Status Date / Time hydrocodone Allergy Severe shortness Verified 03/05/22 14:15 of breath Review of Systems Review of Systems: headache , diarrhea, fatigue All systems reviewed & are unremarkable except as noted in HPI and below PMFSH Past Medical History Medical History ASCUS (atypical squamous cells of undetermined significance) on gynecologic Papanicolaou smear complicating , antepartum HPV test positive Upper respiratory infection Vaginal delivery x 4 Surgical History Surgical History History of appendectomy History of appendectomy History of cholecystectomy History of cholecystectomy Family History Family History Mother Family history of hypercholesterolemia Family history of coronary artery disease Hypertension H/O: hysterectomy Social History Social History Social History: Smoking status: Never smoker Second hand tobacco smoke exposure: No Alcohol intake: former Substance use: never Substance use type: does not use Additional occupation/education comments: Day care Gender identity (if verbalized by the patient): Female Sexual Orientation (if Verbalized by the Patient): Straight or Heterosexual Spiritual care concerns: No Comments At time as signature, I have reviewed and agree with nursing past medical, social, surgical and family history. Please see nursing chart for further information. There is no relevant family history pertinent to the presenting complaint. Exam Narrative: GENERAL:Well-appearing, well-nourished, and in no acute distress. HEAD:Normocephalic, atraumatic. EYES: PERRLA ENT: Nares clear, no rhinorrhea or epistaxis. Mucous membranes moist. CHEST: Clear to auscultation. No respiratory distress. HEART: Regular rate and rhythm. Normal peripheral pulses. ABDOMEN: Soft, nontender, nondistended, normal active bowel sounds. EXTREMITIES: Normal range of motion. No edema. SKIN: Warm, dry, no rash. NEURO: No focal deficits. Alert and oriented x3. Course Course Level of Care: Express Care Visit Vital Signs Vital signs: Vital Signs Temperature 97.4 F L 03/05/22 13:53 Pulse Rate 63 03/05/22 13:53 Respiratory Rate 16 03/05/22 13:53 Blood Pressure 109/53 L 03/05/22 13:53 Pulse Oximetry 100 03/05/22 13:53 Oxygen Delivery Room Air 03/05/22 13:53 Temperature 97.4 F L 03/05/22 13:53 Pulse Rate 63 03/05/22 13:53 Respiratory Rate 16 03/05/22 13:53 Blood Pressure 109/53 L 03/05/22 13:53 Pulse Oximetry 100 03/05/22 13:53 Oxygen Delivery Room Air 03/05/22 13:53 MDM - URI/Sore Throat Differential Diagnosis Differential diagnosis: Likely upper respiratory infection, croup, otitis media, sinusitis, viral infection, bronchitis, influenza and pharyngitis Lab Data Labs: Lab Results 03/05/22 Range/Units 14:12 POC SARS CoV-2 Ag Negative (Negative) Influenza A Screen Negative Reference Range: Negative Influenza B Screen Negative Reference Range: Negative Discharge Plan Discharge Clinical Impression: URI (upper respiratory infec
== END 2022-03-05 14:53 | disposition home or self-care (01) ==
PROVIDERS: Emergency Provider Nurse Practitioner Family; PCP Family Medicine
DX: J06.9 Acute upper respiratory infection, unspecified (principal); B34.9 Viral infection, unspecified; Z20.822 Contact with and (suspected) exposure to COVID-19
CPT/HCPCS: 87426; 87804; 99213; C9803; G0463

== ENCOUNTER 2022-08-14 09:59 | Outpatient (CLI) | payer OTHER, SELFPAY ==
[2022-08-14 10:30] LABS: Alanine Aminotransferase 19 U/L (6-35); Albumin Level 4.5 g/dL (3.5-5.1); Alkaline Phosphatase 60 U/L (38-126); Anion Gap 8 mmol/L (8-16); Aspartate Amino Transferase 19 U/L (14-36); Bilirubin,Total 1.1 mg/dL (0.2-1.3); Blood Urea Nitrogen 10 mg/dL (7-17); Calcium 8.9 mg/dL (8.4-10.2); Carbon Dioxide 25 mmol/L (22-30); Chloride 106 mmol/L (98-107); Estimated Glomerular Filt Rate > 60; Glucose 88 mg/dL (65-110); Potassium 4.3 mmol/L (3.4-5.0); Sodium 139 mmol/L (137-145)
[2022-08-14 10:33] LABS: Basophils Percent Auto 0.4 % (0.2-1.2); Eosinophils Absolute Auto 0.1 K/mm3 (0-0.3); Eosinophils Percent Auto 1.7 % (0-4.4); Hematocrit 43.6 % (37.0-47.0); Hemoglobin 14.2 g/dL (12.0-15.0); Immature Granulocyte Absolute 0.01 K/mm3 (0.00-0.031); Immature Granulocyte Percent A 0.2 % (0-0.5); Lymphocytes Absolute Auto 1.97 K/mm3 (0.9-3.2); Lymphocytes Percent Auto 36.5 % (18.3-44.2); Mean Corpuscular HGB Conc 32.6 g/dl (32-36); Mean Corpuscular Hemoglobin 30.5 pg (26-34); Mean Corpuscular Volume 93.8 fl (80-100); Mean Platelet Volume 10.9 fl (7.4-10.4); Monocytes Absolute Auto 0.4 K/mm3 (0.1-0.6); Monocytes Percent Auto 6.5 % (2.6-8.5); Neutrophils Percent Auto 54.7 % (45.5-73.1); Platelet Count Result 253 k/mm3 (150-375); Red Blood Count 4.65 M/mm3 (4.2-5.4); Red Cell Distribution Width 12.3 % (11.5-14.5); White Blood Count 5.4 K/mm3 (4.5-10.0)
== END 2022-08-14 10:00 | disposition home or self-care (01) ==
LOC: ANHLAB 10:00
PROVIDERS: PCP Family Medicine; Visit Provider Physician Assistant
DX: R10.2 Pelvic and perineal pain (principal)
CPT/HCPCS: 36415; 80053; 85025

== ENCOUNTER 2022-08-14 11:41 | Emergency (ER) | payer OTHER, SELFPAY ==
--- NOTE | ~2022-08-14 | US_ITS ---
EXAMINATION: US pelvic complete w TV DATE: 08/14/2022 13:33 INDICATION: Left lower quadrant abdominal pain. Suprapubic pain. TECHNIQUE: Multiple transabdominal and transvaginal sonographic images of the pelvis were obtained. COMPARISON: CT abdomen and pelvis 10/31/2021 FINDINGS: TRANSABDOMINAL ULTRASOUND: The uterus measures 8.6 x 4.5 x 6.2 cm. There is no free fluid in the pelvis. TRANSVAGINAL ULTRASOUND: The endometrial complex measures 5 mm in thickness. There are small nabothian cysts in the cervix. Th e right ovary measures 3.4 x 1.9 x 2.1 cm. The left ovary measures 2.8 x 2.1 x 1.7 cm. There is tyrel l vascular flow in the ovaries. IMPRESSION: 1. No etiology for the patient's symptoms. Reviewed, dictated and finalized at location A.
[2022-08-14 11:45] VITALS: BP 103/59; PULSE 63; RESP 16; TEMP 36.5; O2SAT 100
--- NOTE | 2022-08-14 12:50 | ED.ABDPAIN ---
HPI - Abdominal Pain General Chief Complaint: Abdominal Pain Stated Complaint: abd pain Time Seen by Provider: 08/14/22 12:18 History of Present Illness HPI narrative: This is a 36-year-old female with no pertinent PMH who presents to the ED with chief complaint of abdominal pain x3 days. Abdominal pain is generalized in nature. She states it starts in the periumbilical region and radiates to the suprapubic region. Also notes some intermittent generalized pain. States the pain is worse with certain movements. She was seen in her PCP office today who ordered blood work and urinalysis. They also ordered an ultrasound for further evaluation. Patient was told to come to the ED for an ultrasound if her pain got worse. Patient states her pain worsened after her dog jumped on her stomach today. States she has felt a little bloated over the last couple days. Denies N/V/D. Denies fevers, chills, chest pain, shortness of breath, urinary symptoms, problems with bowel movements. States bowel movements are regular. Patient also states that she started her period a few days ago and felt like the pain may have come on with her period. States periods have been regular. Per chart review patient had a normal CT scan for similar pain last year. Normal laboratory work-up with PCP today including urinalysis, CBC, CMP, negative test. Past surgical history of appendectomy cholecystectomy. Related Data Allergies Allergy/AdvReac Type Severity Reaction Status Date / Time hydrocodone Allergy Severe shortness Verified 08/14/22 09:04 of breath Review of Systems Review of Systems: CONSTITUTIONAL: Denies fever, chills, or sweats. EYES: Denies visual changes, redness, or discharge. ENT: Denies rhinorrhea, congestion, sore throat, or otalgia. CARDIOVASCULAR: Denies chest pain, palpitations, or edema. RESPIRATORY: Denies cough or dyspnea. GASTROINTESTINAL: Endorses abdominal pain. Denies nausea, vomiting, or diarrhea. GENITOURINARY: Denies dysuria or hematuria. SKIN: Denies rash or itching. MUSCULOSKELETAL: Denies back pain, joint pain, or myalgia. NEUROLOGIC: Denies headache, numbness, dizziness, or weakness. PSYCHIATRIC: Denies anxiety or depression. [facility] Past Medical History Medical History ASCUS (atypical squamous cells of undetermined significance) on gynecologic Papanicolaou smear complicating , antepartum HPV test positive Upper respiratory infection Vaginal delivery x 4 Surgical History Surgical History History of appendectomy History of appendectomy History of cholecystectomy History of cholecystectomy Family History Family History Mother Family history of hypercholesterolemia Family history of coronary artery disease Hypertension H/O: hysterectomy Social History Social History Social History: Smoking status: Never smoker Second hand tobacco smoke exposure: No Alcohol intake: former Substance use: never Substance use type: does not use Living arrangements: with family 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 HEAD: Normocephalic, atraumatic. EYES: PERRLA and EOMI. ENT: Nares clear, no rhinorrhea or epistaxis. Mucous membranes moist. Oropharynx without tonsillar hypertrophy exudate or other lesions. NECK: Supple. No adenopathy or masses. CHEST: No respiratory distress. Clear to auscultation. No wheezes rales or rhonchi HEART: Regular rate and rhythm. N
[2022-08-14] MEDS: IBUPROFEN 600 MG TABLET PO (13:00)
[2022-08-14 14:38] VITALS: BP 114/63; PULSE 62; RESP 18; O2SAT 100
== END 2022-08-14 14:39 | disposition home or self-care (01) ==
PROVIDERS: Emergency Provider Physician Assistant; PCP Family Medicine
DX: N94.6 Dysmenorrhea, unspecified (principal)
CPT/HCPCS: 76830; 76856; 99284; A9270

== ENCOUNTER 2022-11-26 04:05 | Day surgery (SDC) | payer OTHER, SELFPAY ==
[2022-11-20 12:10] VITALS: BMI 30.2
--- NOTE | 2022-11-20 12:14 | PC.NURSE ---
Report to the Outpatient Waiting Room, entrance under the green pavilion located off [facility], at time 0715 on date 11/26/22. Planned Procedure Time: 0915. Time changes happen often and if your time is changed the preop area will call you the afternoon before. - You and your visitor will be asked to self-screen and do not enter if you have any COVID symptoms. - A mask is optional within the hospital at this time. Patients may have clear liquids (water, carbonated beverages, clear teas, apple juice) until 3 hours prior to surgery with a maximum of 20 ounces. - No food from midnight until time of surgery Take the following medications with a SIP of water the morning of surgery: TYLENOL IF NEEDED DO NOT STOP ANY OF YOUR OTHER PRESCRIPTION MEDICATIONS PRIOR TO SURGERY ?EXCEPT THE FOLLOWING Medications to discontinue per physician: N/A Date to take last dose: N/A Please no make-up, nail malagasy, hairspray, perfume, deodorant, or body powder the day of surgery. No jewelry (including any body piercings) or valuables the day of surgery, leave them at home. Please take a shower or bath the night before, or the morning of, surgery with an antibacterial soap. Wear comfortable, loose fitting clothing. - Jewelry must be removed prior to entering the operating room. Rings and piercings that are not removed may be cut off. - The hospital will not accept responsibility for valuables. - Please leave all valuables, including medications, at home the day of surgery. If you are going home after surgery, a licensed van driver helper must drive you home. - NO public transportation without another adult if you receive anesthesia. - We recommend that an adult stay with you for 24 hours following discharge. - We also recommend that you do not drive, make important decision, drink alcoholic beverages, or take any drugs that were not prescribed by your health care provider for at least 24 hours after your discharge time. Follow any additional instructions given to you from your surgeon. If you or anyone in your household have experienced Covid symptoms in the past week, please notify your surgeon or the nurse liaison at the phone number below for possible testing. Telephone instructions given to BERNARD BARFIELD and asked if any additional questions and then verbalized understanding. Patient advised to call surgeon office or pre surgery nurse liaison [phone] if any additional questions.
[2022-11-26 07:20] VITALS: BP 113/65; PULSE 66; RESP 20; TEMP 36.2; O2SAT 100
[2022-11-26] MEDS: ACETAMINOPHEN 500 MG TABLET 1000 MG PO (07:42)
[2022-11-26] MEDS: LACTATED RINGERS 1,000 ML 30 ML IV CONT ×2 (07:45→10:22)
--- NOTE | 2022-11-26 07:59 | P.PNAN_ITS ---
Anes - Initial Pre Proc Eval Procedure: Operation Date: 11/26/22 09:15 Proposed Procedures p Hysteroscopy with Milka Endometrial Ablation - Claudia Mojica MD Date/Time: 11/26/22 07:59 Surgeon: Claudia Mojica MD Pre Op Diagnosis: menorrhagia Patient Data Age: 37 Gender: F Height: 1.65 m Weight: 82.55 kg Allergies Allergy/AdvReac Type Severity Reaction Status Date / Time hydrocodone Allergy Severe shortness Verified 11/26/22 07:21 of breath Home Medications Medication Instructions Recorded Confirmed Type acetaminophen 650 mg 650 mg PO Q8H PRN Pain 11/20/22 11/20/22 History tablet,extended release (Tylenol 8 Hour) Patient hx anesthesia problems: none Family hx anesthesia problems: none Results Review: All pre-operative results and documents have been reviewed as part of the pre- operative evaluation. [facility] Past Medical History Medical History ASCUS (atypical squamous cells of undetermined significance) on gynecologic Papanicolaou smear complicating , antepartum HPV test positive Upper respiratory infection Vaginal delivery x 4 Surgical History Surgical History History of appendectomy History of appendectomy History of cholecystectomy History of cholecystectomy Family History Family History Mother Family history of hypercholesterolemia Family history of coronary artery disease Hypertension H/O: hysterectomy Social History Social History Social History: Smoking status: Never smoker Second hand tobacco smoke exposure: No Alcohol intake: current Alcohol use details: [place] Substance use: never Substance use type: does not use Living arrangements: with family 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al Spiritual care concerns: No Anes - Eval Final PreProcedure Day of Procedure 11/26/22 07:59 Patient weight: overweight Heart: regular rate and rhythm Lungs: clear to auscultation Airway: Mallampati scale class II Neurological: alert and oriented Last oral intake: >/= 8 hours ASA classification: II Emergent: no Anesthetic plan: proceed Anesthesia type and monitoring: general GIVS and standard monitoring Results Review: All pre-operative results and documents have been reviewed as part of the pre- operative evaluation. Informed Consent: The patient's anesthetic plan and its attendant risks and benefits were discussed with the patient/family/POA. Questions were solicited and answers provided to the satisfaction of the patient/family/POA.
--- NOTE | 2022-11-26 09:24 | PM.IMHP ---
H&P: HPI History of Present Illness Date/Time: 11/26/22 09:24 Chief Complaint: Heavy vaginal bleeding Narrative: the patient is a 37-year-old female with severe menorrhagia. We have agreed to perform hysteroscopy with endometrial ablation. She understands the procedure. It was explained to her in detail. She understands risks. She understands that injuries may occur the result in hospitalization, more surgery, and severe illness. She understands there is risk of hemorrhage and infection. She denies any chest pain shortness of breath. She denies any nausea, vomiting, fever and chills. Review of Systems Review of Systems: All systems reviewed & are unremarkable except as noted in HPI and below Constitutional: Constitutional: Denies chills, Denies fatigue, Denies fever(s) and Denies weakness Eyes: Eyes: Denies blurry vision, Denies change in vision, Denies loss of peripheral vision, Denies loss of vision, Denies other visual disturbances and Denies eye pain ENT: Denies vertigo, Denies dizziness, Denies hearing loss, Denies mouth pain, Denies nasal obstruction, Denies neck mass and Denies neck pain Cardiovascular: Cardiovascular: Denies chest pain, Denies diaphoresis, Denies syncope, Denies leg edema and Denies dyspnea Respiratory: Respiratory: Denies chest congestion, Denies cough, Denies hemoptysis, Denies dyspnea and Denies wheezing Gastrointestinal: Gastrointestinal: Denies abdominal pain, Denies constipation, Denies diarrhea, Denies nausea and Denies vomiting Genitourinary: Genitourinary: Denies hematuria, Denies change in libido, Denies nocturia, Denies genital lesions, Denies flank pain and Denies urinary urgency Musculoskeletal: Musculoskeletal: Denies abnormal gait, Denies back pain, Denies myalgias, Denies arthralgias, Denies joint swelling, Denies muscle weakness and Denies neck pain Integumentary/Breasts: Skin/Breast: Denies swelling, Denies breast pain, Denies breast mass, Denies dry skin, Denies nipple discharge, Denies unusual bruising and Denies jaundice Neurologic: Denies Neuro-related abnormal movements, Denies Abnormal speech present, Denies abnormal gait, Denies behavioral changes, Denies confusion, Denies vertigo, Denies dizziness, Denies syncope, Denies loss of vision, Denies memory loss, Denies convulsions and Denies weakness Psychiatric: Psychiatric: Denies abnormal sleep pattern, Denies behavioral changes, Denies change in libido, Denies confusion, Denies depression, Denies anhedonia and Denies memory loss Endocrine: Endocrine: Reports no additional endocrine complaints, Denies change in libido and Denies fatigue Hematologic/Lymphatic: Hematologic/Lymphatic: Reports no additional hematologic/lymphatic complaints Allergic/Immunologic: Allergic/Immunologic: Reports no additional allergic/immunologic complaints and Denies wheezing PMFSH Past Medical History Medical History ASCUS (atypical squamous cells of undetermined significance) on gynecologic Papanicolaou smear complicating , antepartum HPV test positive Upper respiratory infection Vaginal delivery x 4 Surgical History Surgical History History of appendectomy History of appendectomy History of cholecystectomy History of cholecystectomy Family History Family History Mother Family history of hypercholesterolemia Family history of coronary artery disease Hypertension H/O: hysterectomy Social History Social History Social History: Smoking status: Never smoker Second hand tobacco smoke exposure: No Alcohol intake: current Alcohol use details: HOL[place]YS Substance use: never Substance use type: does not use Living arrangements: with family Occupation/Education: occupation Additional occupa
--- NOTE | 2022-11-26 09:27 | WPDHPUPDATE1 ---
History and Physical Update Update Date/Time: 11/26/22 09:27 History and Physical has been reviewed, including an updated exam of the patient. There are NO changes in the patient's condition. Risks, benefits, and alternatives have been discussed and questions answered. Patient agrees to proceed with procedure.
[2022-11-26] MEDS: LIDOCAINE HCL 1% LOCAL INJ 10 ML VIAL INFILTRATE (09:49)
[2022-11-26] MEDS: KETOROLAC 30 MG/ML VIAL (*BKC) IV PUSH (10:05)
[2022-11-26 10:25] VITALS: BP 115/59; PULSE 59; RESP 12; O2SAT 100
--- NOTE | 2022-11-26 10:41 | W.PM.PROC2 ---
Procedure Note - Detailed Date of Procedure 11/26/22 Pre-op Diagnosis menorrhagia Post-op Diagnosis Same Procedure Performed endometrial ablation with hysteroscopy d&c , cervical biopsy Surgeon Claudia Mojica MD Anesthesia MAC Indications Severe menorrhagia Findings Normal vulva vagina and cervix. Normal endometrium. Description of Procedure The patient was taken to the operating room. She was prepped and draped in the dorsal lithotomy position after induction of mac anesthesia. A speculum was placed in the vagina. Cervix grasped with a tenaculum. The cervix was dilated to about 1 cm. The hysteroscope was inserted. The above findings were noted. Endometrial curettage was performed with a medium-size curette. All surfaces of the endometrium were affected by the curettage. The specimens were collected and sent to pathology. Measurements were taken of the uterus and cervix. The uterine length was then entered into the hand piece of the Milka device. The device was inserted into the intrauterine cavity. The array of the device was expanded. The balloon cuff was inflated. A good seal was achieved. The energy and safety cycles were initiated and completed. The array was collapsed and the instrument was withdrawn after deflating the balloon cuff. Hysteroscope was reinserted. Above findings were noted. The hysteroscope was removed. Cervical biopsies were performed. A cervical biopsy instrument was used. It was similar to a Tischler biopsy forceps. Two biopsies were taken in the anterior cervical transition zone. Monsel's was applied to make it hemostatic. 0 Vicryl suture [id number] was placed at the anterior cervix where the tenaculum grasped with the cervix. It was bleeding at the end of the procedure. The patient tolerated the procedure well. The speculum and tenaculum were removed. She was taken to recovery in stable condition. Sponge lap and needle counts were correct x2. Estimated Blood Loss 15 Pathology Yes Complications No immediate complications Condition Stable Disposition Same day
[2022-11-26 10:55] VITALS: BP 88/70
[2022-11-26 11:00] VITALS: BP 117/59; PULSE 62
[2022-11-26] MEDS: fentaNYL CITRATE INJ (*CRX) 100 MCG/2 ML VIAL 25 MCG IV PUSH ×4 (11:12→11:35)
[2022-11-26 11:30] VITALS: BP 115/60; PULSE 66
[2022-11-26 12:00] VITALS: BP 116/59
== END 2022-11-26 12:22 | disposition home or self-care (01) ==
PROVIDERS: PCP Family Medicine; Visit Provider Obstetrics & Gynecology
PROC: 0U5B8ZZ Destruction of Endometrium, Via Natural or Artificial Opening Endoscopic (ICD-10-PCS; CPT 58563; principal; 2022-11-26 09:15)
DX: N92.0 Excessive and frequent menstruation with regular cycle (principal); N88.8 Other specified noninflammatory disorders of cervix uteri
CPT/HCPCS: 58563; 88305; A9270; J1200; J1885; J2250; J2405; J2704; J3010; J7120

== ENCOUNTER 2023-09-24 21:38 | Emergency (ER) | payer OTHER, SELFPAY ==
--- NOTE | ~2023-09-24 | XR_ITS ---
EXAMINATION: XR ankle RT min 3V DATE: 09/24/2023 22:03 INDICATION: Ankle pain post injury TECHNIQUE: Anteroposterior, oblique, mortise, and lateral views of the right ankle were obtained. COMPARISON: None. FINDINGS: Alignment is normal. No fracture. Joint spaces are well maintained. No ankle joint effusion. The so ft tissues are unremarkable. IMPRESSION: 1. Negative right ankle radiographs. Reviewed, dictated and finalized at location A.
[2023-09-24 21:41] VITALS: BP 111/53; PULSE 67; RESP 18; TEMP 36.6; O2SAT 99
[2023-09-24] MEDS: IBUPROFEN 400 MG TABLET 800 MG PO (22:02)
--- NOTE | 2023-09-24 22:09 | ED.LOWEXIN ---
HPI - Extremity Injury (Lower) General Chief Complaint: Extremity Injury, Lower Stated Complaint: SPRAINED ANKLE Time Seen by Provider: 09/24/23 21:42 Source: patient Mode of arrival: ambulatory Limitations: no limitations History of Present Illness HPI Narrative: Patient is a 38-year-old female who presents the ED with report of right ankle pain. Patient reports she was playing basketball earlier this evening around 5:00 p.m. and rolled her right ankle. She feels as though it inverted and everted. Complains of pain to her anterior dorsal and lateral foot/ankle. She is able to ambulate, but has pain with this. Took Tylenol just prior to arrival. Denies numbness. Denies any other injuries. Related Data Home Medications Medication Instructions Recorded Confirmed acetaminophen 650 mg 650 mg PO Q8H PRN Pain 11/20/22 11/20/22 tablet,extended release (Tylenol 8 Hour) Allergies Allergy/AdvReac Type Severity Reaction Status Date / Time hydrocodone Allergy Severe shortness Verified 06/20/23 09:38 of breath Review of Systems Review of Systems: CONSTITUTIONAL: Denies fever, chills, or sweats. MUSCULOSKELETAL: See HPI. NEUROLOGIC: Denies headache, dizziness, numbness, or weakness. All systems reviewed & are unremarkable except as noted in HPI and below PMFSH Past Medical History Medical History Abnormal Pap smear of cervix Active labor at term Acute rhinosinusitis ASCUS (atypical squamous cells of undetermined significance) on gynecologic Papanicolaou smear complicating , antepartum ASCUS with positive high risk HPV cervical Breast lump Cough COVID Elevated random blood glucose level Encounter for confirmation of test result with physical examination Encounter for general adult medical examination without abnormal findings Encounter for visit Encounter for supervision of high risk in second trimester, antepartum Encounter for supervision of high risk in third trimester, antepartum Encounter for supervision of normal in multigravida in first trimester Encounter for supervision of normal in multigravida in second trimester False labor HPV test positive Left breast mass Left lower quadrant pain Menorrhagia Placenta previa antepartum in second trimester Polyp at cervical os Post-COVID chronic cough contractions Suprapubic pain Upper respiratory infection URI (upper respiratory infection) Vaginal delivery x 4 Well woman exam with routine gynecological exam Surgical History Surgical History History of appendectomy History of appendectomy History of cholecystectomy History of cholecystectomy Family History Family History Mother Family history of hypercholesterolemia Family history of coronary artery disease Hypertension H/O: hysterectomy Social History Social History Social History: Smoking status: Never smoker Second hand tobacco smoke exposure: No Alcohol intake: current Alcohol use details: [place] Substance use: never Substance use type: does not use Do You Feel Safe in your Home?: Yes Lack of Transportation: No Lack of Food: Never True Current Housing: I Have Housing Concerned About Future Housing: No Difficulty Paying Gas/Electric Bills: No Difficulty Paying for Meds: No Currently Unemployed: No Education: Don't Know Difficulty w/ Childcare or Family Care: No Living arrangements: with family 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
== END 2023-09-24 22:42 | disposition home or self-care (01) ==
PROVIDERS: Emergency Provider Physician Assistant; PCP Family Medicine
DX: S93.401A Sprain of unspecified ligament of right ankle, initial encounter (principal); S96.911A Strain of unspecified muscle and tendon at ankle and foot level, right foot, initial encounter; Z86.16 Personal history of COVID-19; Z90.49 Acquired absence of other specified parts of digestive tract; X50.9XXA Other and unspecified overexertion or strenuous movements or postures, initial encounter; Y93.67 Activity, basketball
CPT/HCPCS: 73610; 99283; A9270

== ENCOUNTER 2024-05-09 06:51 | Emergency (ER) | payer OTHER, SELFPAY ==
[2024-05-09 06:55] VITALS: BP 117/53; PULSE 93; RESP 15; TEMP 36.6; O2SAT 100
--- NOTE | 2024-05-09 08:11 | ED_ITS ---
HPI - General Adult General Chief complaint: Upper Respiratory Infection Stated complaint: bilateral ear pain, flu symptoms Time Seen by Provider: 05/09/24 07:58 History of Present Illness HPI narrative: patient is a 38-year-old female who presents ER with cold symptoms. She has been having cough with runny nose and sore throat for the last 5 days. She coughs up green sputum. No fevers or chills. Has pressure in her ears bilaterally. No dizziness. No nausea or vomiting. Has been taking [id number] cold medications without improvement. No known sick contacts. Related Data Home Medications ?Medication ?Instructions ?Recorded ?Confirmed ?Last Taken ?Type acetaminophen 650 mg 650 mg PO Q8H PRN Pain 11/20/22 12/25/23 Unknown History tablet,extended release (Tylenol 8 Hour) Allergies Allergy/AdvReac Type Severity Reaction Status Date / Time hydrocodone Allergy Severe shortness Verified 05/09/24 08:40 of breath Review of Systems Review of Systems: All systems reviewed & are unremarkable except as noted in HPI and below Constitutional: Constitutional: Reports no additional constitutional complaints ENT: Reports nasal congestion and Reports sore throat Cardiovascular: Cardiovascular: Reports no additional cardiovascular complaints Respiratory: Respiratory: Reports cough, Denies dyspnea and Denies wheezing Gastrointestinal: Gastrointestinal: Reports no additional gastrointestinal complaints [facility] Past Medical History Medical History (Updated 05/09/24 @ 09:41 by Delroy Mahoney MD) Abnormal drug screen Menorrhagia Left lower quadrant pain Suprapubic pain Well woman exam with routine gynecological exam Elevated random blood glucose level Encounter for general adult medical examination without abnormal findings Post-COVID chronic cough Acute rhinosinusitis Cough COVID Encounter for visit False labor Active labor at term Left breast mass Breast lump Upper respiratory infection contractions Encounter for supervision of high risk in third trimester, antepartum ASCUS with positive high risk HPV cervical Encounter for supervision of high risk in second trimester, antepartum Placenta previa antepartum in second trimester Encounter for supervision of normal in multigravida in first trimester Encounter for supervision of normal in multigravida in second trimester URI (upper respiratory infection) Encounter for confirmation of test result with physical examination HPV test positive Vaginal delivery x 4 Polyp at cervical os Abnormal Pap smear of cervix ASCUS (atypical squamous cells of undetermined significance) on gynecologic Papanicolaou smear complicating , antepartum Surgical History Surgical History History of cholecystectomy History of appendectomy History of cholecystectomy History of appendectomy Family History Family History Mother Family history of hypercholesterolemia Family history of coronary artery disease Hypertension H/O: hysterectomy Social History Social History Social History: Smoking status: Never smoker Second hand tobacco smoke exposure: No Alcohol intake: current Alcohol use details: [place] Substance use: never Substance use type: does not use Do You Feel Safe in your Home?: Yes Lack of Transportation: No Lack of Food: Never True Current Housing: I Have Housing Concerned About Future Housing: No Difficulty Paying Gas/Electric Bills: No Difficulty Paying for Meds: No Currently Unemployed: No Education: Don't Know Difficulty w/ Childcare or Family Care: No Living arrangements: with family 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 HEAD: Normocephalic, atraumatic. ENT: TMs normal bilaterally. NECK: Supple. CHEST: Clear to auscultation. No respiratory distress. HEART: Regular rate and rhythm. Normal peripheral pulses. EXTREMITIES: Normal range of motion. no deformity. NEURO: Alert and oriented x3. PSYCH: Normal mood and affect. Course Course Emergency Course: Patient with influenza B. She was treated here with fluids and Toradol. Outside the window for Tamiflu. Discharge. Vital Signs Vital signs: Vital Signs Temperature 97.9 F 05/09/24 06:55 Pulse Rate 93 05/09/24 06:55 Respiratory Rate 15 05/09/24 06:55 Blood Pressure 117/53 L 05/09/24 06:55 Pulse Oximetry 100 05/09/24 06:55 Oxygen Delivery Room Air 05/09/24 06:55 Temperature 97.9 F 05/09/24 06:55 Pulse Rate 93 05/09/24 06:55 Respiratory Rate 15 05/09/24 06:55 Blood Pressure 117/53 L 05/09/24 06:55 Pulse Oximetry 100 05/09/24 08:52 Oxygen Delivery Room Air 05/09/24 08:52 Medical Decision Making Vital Signs Vital Signs: Vital Signs Temperature 97.9 F 05/09/24 06:55 Pulse Rate 93 05/09/24 06:55 Respiratory Rate 15 05/09/24 06:55 Blood Pressure 117/53 L 05/09/24 06:55 Pulse Oximetry 100 05/09/24 06:55 Oxygen Delivery Room Air 05/09/24 06:55 Temperature 97.9 F 05/09/24 06:55 Pulse Rate 93 05/09/24 06:55 Respiratory Rate 15 05/09/24 06:55 Blood Pressure 117/53 L 05/09/24 06:55 Pulse Oximetry 100 05/09/24 08:52 Oxygen Delivery Room Air 05/09/24 08:52 Lab Data Labs: Lab Results 05/09/24 Range/Units 07:58 Influenza A (RT-PCR) Negative (Negative) Influenza B (RT-PCR) Positive A (Negative) RSV (RT-PCR) Negative (Negative) SARS-CoV-2 RNA (RT-PCR) Negative (Negative) Discharge Plan Discharge Clinical Impression: Influenza B Patient Disposition: Home, Self-Care Condition: Stable Instructions: Influenza (ED) Additional Instructions: As discussed you have a viral illness. Unfortunately there are no specific medications we can give you to make the illness end faster. Antibiotics do not work for viral illnesses. However, you can take Acetaminophen or Ibuprofen to help with fevers and pain. Stay well hydrated and rested. Return to the emergency department if your fevers and chills continue to worse after 5 days, if you develop worsening cough with thick sputum, or are unable to stay hydrated. Contact your primary care provider in the next few days for a re-evaluation and to make sure your symptoms are improving. Patient Language: Citizen Of [place] Prescriptions: No Action benzonatate 200 mg capsule 200 mg PO TID Qty: 90 0RF fexofenadine-pseudoephedrine [Linda-D 24 Hour] 180-240 mg tablet extended release 24 hr 1 tablet PO DAILY Qty: 30 0RF acetaminophen [Tylenol 8 Hour] 650 mg Tablet Extended Release 650 mg PO Q8H PRN (Reason: Pain) Follow-up/Referrals: Lisa Perez MD [Primary Care Provider] - 1 Week
[2024-05-09] MEDS: SODIUM CHLORIDE 0.9% IV 1,000 ML 999 ML IV CONT (08:41)
[2024-05-09] MEDS: KETOROLAC 30 MG/ML VIAL (*BKC) IV PUSH (08:41)
[2024-05-09 08:52] VITALS: O2SAT 100
[2024-05-09 09:38] LABS: Influenza A QL RT-PCR Negative (Negative); Influenza B QL RT-PCR Positive (Negative); RSV RNA, RT-PCR Negative (Negative); SARS-CoV-2 RNA PCR Negative (Negative)
[2024-05-09 09:55] VITALS: BP 109/67; PULSE 66; RESP 15; O2SAT 99
--- OUTSIDE RECORDS SUMMARY | 2024-05-16 04:38 | XMS_ITS | Continuity of Care Document ---
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 It does not include entries that were removed or entered in error. Problem Status Onset Date Problem Type Date of Resolution Comments Source indic for care/interven rel to labor/deliv antepartum compl Inactive 05/24/2009 Condition [facility] Headache, unspecified Active Condition DoD Unspecified lump in the right breast, unspecified quadrant Active Condition DoD Allergic rhinitis, unspecified Active Condition DoD gastritis Active Condition DoD headache syndromes Active Condition DoD Cervical Pap Smear Inactive Condition Do D urinary tract infection Active Condition [facility] visit for: administrative purpose Inactive Condition [facility] visit for: refer patient without exam or treatment Inactive Condition DoD vaginitis Inactive Condition DoD Aftercare Following Surgery Active Condition [facility] appendicitis acute Inactive Condition Do D visit for: postsurgical exam Active Condition [facility] visit for: screening exam depression Active Condition [facility] routine history and physical Active Condition [facility] Gynecologic Services Intrauterine Device (IUD) Insertion Inactive Condition DoD vaginal discharge Active Condition DoD cholelithiasis Active Condition DoD diarrhea Active Condition DoD nausea Inactive Condition DoD normal Inactive Condition DoD Need For Vaccination Against Influenza Inactive Condition [facility] insuff wt gain in preg - antepartum cond or prior comp deliv Active Condition [facility] complication: anemia, antepartum condition or prior complicated Active Condition DoD nonspecific abnormal findings screening Active Condition [facility] Supervision Of Normal Inactive Condition DoD constipation functional Inactive Condition DoD preg complications: antepartum cond or prior comp delivery Inactive Condition DoD hyperemesis gravidarum - antepartum cond or prior comp deliv Active Condition DoD visit for: initial exam (at ___ weeks) Inactive Condition [facility] Patient Counseling: Active Condition Do D Test Positive Inactive Condition DoD Medications Combined list of outpatient medications from Department of Defense and Veterans Affairs facilities.Medications provided include 1) outpatient medications from the last 15 months, and 2) patient-reported medications. Medication Details Route Status Patient Instructions Prescription Expires Prescription Number Last Dispense Date Ordering Provider Order Date Order Qty Source AMOXICILLIN (AMOXICILLI N), 875MG, TABLET, ORAL, [employer]UROB[employer]ARM, 100 ea. BOTTLE Active [id number] 2022 20 Pharmac y Data Transac tion Service Facilit y DICLOFENAC SODIUM (DICLOFENAC SODIUM), 75 MG, TABLET DR, ORAL, [place] TECH, 500 ea. BOTTLE Active [id number] 2023 20 Pharmac y Data Transac tion Service Facilit y Allergies, Adverse Reactions, Alerts Combined list of allergies from Department of Defense and Veterans Affairs facilities. It does not include entries that were removed or entered in error. Substance Category Reaction Severity Reaction type Status Date Reported Comments Source VICODIN (HYDROCODON E BIT/ACETAMI NOPHEN) Drug allergy (disorder) Anaphylaxis active 9 [employer] [facility] ([facility] Immunizations Combined list of available immunizations from the Department of Defense and Veterans Affairs facilities. Immunization Series Date Given Administered By Site Reaction Lot Number CVX Code Drug Haunted History Tour Guide Status Comments Source COVID-19, mRNA, LNP-S, PF, 100 mcg or 50 mcg dose 2021 [employer] (MOD) Not Given COVID-19, mRNA, LNP-S, PF, 100 mcg or 50 mcg dose DoD Influenza, injectable, MDCK, preservative free, quadrivalent 2020 ALUL, () Not Given Influenza , injectabl e, MDCK, preservat anny free, quadrival ent DoD Influenza, injectable, MDCK, preservative free, quadrivalent 2019 ALUL, () Not Given Influenza , injectabl e, MDCK, preservat anny free, quadrival ent DoD Influenza, injectable, MDCK, preservative free, quadrivalent 2018 ALUL, () Not Given Influenza , injectabl e, MDCK, preservat anny free, quadrival ent DoD Novel influenza-H1N 1-09, preservative- free, injectable 0 2008 [id number] 126 [employer] Jack. (NOV) complet ed Novel influenza -[id number], preservat anny-free, injectabl e DoD influenza virus vaccine, whole virus 0 2008 Unknown, Provider [id number] 16 Transcribed (TRS) complet ed influenza virus vaccine, whole virus DoD Encounters Combined list of: 1) Encounters from Department of Veterans Affairs facilities going back up to thelast 18 months. 2) Encounters from the Department of Defense facilities going back up to 280 months. Location Location Details Encounter Type Encounter Number Reason For Visit Attending Provider ADM Date DC Date Status Disposition Source [facility](MD Pruner Operation s Center) OUTPATIENT [id number] cg/po devorah ELOYYEHUDA Yemi 09/27 Released w/o Limitations [facility](S D Pruner Operati ons Center) [facility](SD Pruner Operation s Center) TELE CONSULT [id number] [facility] OBEY HOLGUIN Cheryl 10/25 [facility](S D Pruner Operati ons Center) [facility] Pruner Kick Plate Installer) OUTPATIENT [id number] nob 08/28/08 TED THOMAS 11/01 Released w/o Limitations [facility](N TC Pruner Kick Plate Installer ) [facility] Pruner Kick Plate Installer) OUTPATIENT [id number] david 13+week s TED THOMAS 11/29 Released w/o Limitations [facility](N TC Pruner Kick Plate Installer ) [facility] Pruner Kick Plate Installer) OUTPATIENT [id number] david 16wks TED THOMAS 12/21 Released w/o Limitations [facility](N TC Pruner Kick Plate Installer ) [facility] Pruner Kick Plate Installer) OUTPATIENT [id number] david 20 + wks TED THOMAS 01/18 Released w/o Limitations [facility](N TC Pruner Kick Plate Installer ) [facility] Pruner Kick Plate Installer) TELE CONSULT [id number] 24w pt wants to speak with nurse to ask what medicat ion she can take for a cold MARLI PASTOR 02/10 Referred for Appointment [facility](N TC Pruner Kick Plate Installer ) [facility] Pruner Kick Plate Installer) OUTPATIENT [id number] david 24 + wks TED THOMAS 02/15 Released w/o Limitations [facility](N TC Pruner Kick Plate Installer ) [facility] Pruner Kick Plate Installer) OUTPATIENT [id number] TED Triana 03/13 Released w/o Limitations [facility](N TC Pruner Kick Plate Installer ) [facility](NT Pruner Kick Plate Installer) TELE CONSULT [id number] f/u ogtt results TED THOMAS 03/14 [facility](N TC Pruner Kick Plate Installer ) [facility](PMT ) TELE CONSULT [id number] f/u ogtt cbc TED THOMAS 04/03 [facility](P MT) [facility] Pruner Kick Plate Installer) OUTPATIENT [id number] david 32 + wks TED THOMAS 04/11 Released w/o Limitations [facility](N TC Pruner Kick Plate Installer ) [facility](SD Preventiv e Med) OUTPATIENT [id number] H1N1 Vaccine 10 KRISTENTALISHA Jalil 04/26 Released w/o Limitations [facility](S D Prevent anny Med) [facility](SD Pruner L&D Triage) OUTPATIENT [id number] @ 37+5 c/o nausea/ diarrhe a/ headach e CJ, LAURE 05/19 Released w/o Limitations [facility](S D Pruner L&D Triage) [facility] Pruner Kick Plate Installer) OUTPATIENT [id number] david 38 + wks TED THOMAS 05/23 Released w/o Limitations [facility](N TC Pruner Kick Plate Installer ) [facility](NT Pruner Kick Plate Installer) TELE CONSULT [id number] bloody dischar ged, wants to speak with Ms. Thomas. TED THOMAS 05/23 [facility](N TC Pruner Kick Plate Installer ) [facility] DIRECT TO WVF FROM OTHER THAN ER OR APU [id number] SIN NINO W 05/23 DISCHARGED HOME [facility](SD Pruner L&D Triage) OUTPATIENT [id number] @ 38+2wks r/o labor MILI-BR ADDISON, BRISA C 05/24 Admitted [facility](S D Pruner L&D Triage) [facility] DIRECT TO MTF FROM OTHER THAN ER OR [facility] [id number] TOMMYGAGE CORDOVA D 06/29 DISCHARGED HOME 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) OUTPATIENT [id number] POST / IUD TED THOMAS Jalil 07/10 Released w/o Limitations [facility](N TC Casting Wheel Operator Helper Kick Plate Installer ) [facility](SD General Surg) OUTPATIENT [id number] follow up gallsto ne surgery TOMMY GAGE D 07/11 Released w/o Limitations [facility](S D General Surg) [facility](SD General Surg) OUTPATIENT [id number] follow up TOMMY GAGE D 07/12 Released w/o Limitations [facility](S D General Surg) [id number] LEELA BASILIO 08/21 DISCHARGED HOME [facility](SD General Surg) OUTPATIENT [id number] LEELA BASILIO 09/03 Released w/o Limitations [facility](S D General Surg) [facility](SD General Surg) OUTPATIENT [id number] follow up post op LEELA BASILIO 09/04 Released w/o Limitations [facility](S D General Surg) [facility] Family Practice Team 3) OUTPATIENT [id number] eval c/o vaginal burning post interco ANGELLA Cannon 09/21 Released w/o Limitations [facility](N TC Family Practic e Team 3) [facility](Fam Prac-Prim abdirahman Care Grp-[facility]) TELE CONSULT [id number] Results ALBERTA NICHOLE 10/03 Referred for Appointment [facility](F am Prac-Pr imary Care Grp-[facility] ) [facility] Family Practice Team 4) TELE CONSULT [id number] MEDICAL -- UTI S YMPTOMS ALBERTA NICHOLE 10/22 Referred for Appointment [facility](N TC Family Practic e Team 4) [facility] Family Practice Team 3) OUTPATIENT [id number] uti/vag anitis ANGELLA CONROY 10/23 Released w/o Limitations [facility](N Family Practic e Team 3) [facility](Fam Prac-Prim abdirahman Care [facility]) TELE CONSULT [id number] results JOEL MONTALVO 10/25 Referred for Appointment [facility](F am Prac-Pr imary Care [facility] ) [facility] Family Practice Team 3) OUTPATIENT [id number] repeat PAP ANGELLA CONROY 11/06 Released w/o Limitations [facility](N Family Practic e Team 3) [facility] [facility] ([facility]Sco tt Flight Medicine Tm) OUTPATIENT [id number] 5 Pre employm ent EMANUEL KRAFT 11/10 Released w/o Limitations [facility] [employer] [facility] ([facility])(S cott Flight Medicin e Tm) [facility] [employer] [facility] ([facility])(Fam kimi Med Tm B Non-AD BCC) OUTPATIENT [id number] [phone] [email or web address] new patient need referra JEFF Rizzo 05/23 Released w/o Limitations [facility] [employer] [facility] [facility] ([facility]F amily Med Tm B Non-AD BCC) [facility] [employer] [facility] ([facility]Fam kimi Med Tm B Non-AD BCC) TELE CONSULT [id number] 4 Notes Entered by: JEFF SIU 05 Jun 2021 1105 ------- ------- ------- ------- -- f/u TJ Rodriguez 06/05 Released to Self Care [facility] [employer] [facility] [facility] ([facility]F amily Med Tm B Non-AD BCC) Procedures Combined list of: 1) Procedures from Department of Veterans Affairs facilities going back up to thelast 18 months, not all VA non-surgical procedures are included; 2) All procedures from the Department of Defense facilities. Procedure Procedure Type Code Date Francisco Avendaño ngoc Obstetrical Services Care Visit Obstetrical Services Care Visit 0503F 07/10/19 10 TED THOMAS Test Test 98855 07/10/19 10 TED THOMAS Gynecologic Services Intrauterine Device (IUD) Insertion Gynecologic Services Intrauterine Device (IUD) Insertion [id number] 07/10/19 10 TED THOMAS Non-Stre Test (___ 0,2) Non-Stress Test (___ 0,2) 11074 05/24/19 10 ROLAND Doan, BRSIA C Reactive [facility] OB Services Antepartum Care Only Subsequent Single Visit OB Services Antepartum Care Only Subsequent Single Visit 0502F 05/23/19 10 TED THOMAS Non-Stre Test (___ 0,2) Non-Stress Test (___ 0,2) 66087 05/19/19 10 JACEY CORONA [facility] Immunization Administration By Injection, One Vaccine Immunization Administration By Injection, One Vaccine 79563 04/26/20 09 TALISHA PETERSON IM, L deltoid, Pt tolerated well [facility] Influenza Virus Vaccine Pandemic Formulation 04/26/20 09 TALISHA PETERSON Preservative Free [facility] OB Services Antepartum Care Only Subsequent Single Visit OB Services Antepartum Care Only Subsequent Single Visit 0502F 04/11/20 09 TED THOMAS OB Services Antepartum Care Only Subsequent Single Visit OB Services Antepartum Care Only Subsequent Single Visit 0502F 03/13/20 09 TED THOMAS Physician Supervised Injection Intramuscular Physician Supervised Injection Intramuscular 71825 03/13/20 TED THOMAS Immunization Administration By Injection, One Vaccine Immunization Administration By Injection, One Vaccine 34098 03/13/20 09 TED THOMAS Influenza Split Virus Vaccine 0.5mL Dosage Intramuscular 03/13/20 TED THOMAS OB Services Antepartum Care Only Subsequent Single Visit OB Services Antepartum Care Only Subsequent Single Visit 0502F 02/16/20 09 TED THOMAS Non-Physician Phone Call To Patient/Provider Brief (5-10min) Non-Physician Phone Call To Patient/Provider Brief (5-10min) 84953 02/14/20 09 MARLI PASTOR [facility] OB Services Antepartum Care Only Subsequent Single Visit OB Services Antepartum Care Only Subsequent Single Visit 0502F 01/19/20 09 ETD THOMAS OB Services Antepartum Care Only Subsequent Single Visit OB Services Antepartum Care Only Subsequent Single Visit 0502F 12/22/19 09 WILLIAM TED L [facility] Screening papanicolaou smear; obtaining, preparing and conveyance of cervical or vaginal smear to laboratory 11/02/19 WILLIAM TEDRUBEN Alfonso Ultrasound [place] [id number] 11/02/19 WILLIAM TED Jalil Alfonso OB Services Antepartum Care Only First Visit, With Report OB Services Antepartum Care Only First Visit, With Report 0500F 11/02/19 09 WILLIAM TEDRUBEN Alfonso Urine HCG, Test Urine HCG, Test [id number] 09/28/19 09 BUENROSTRO, FLORIJAY NATI DoD Waiver services; not otherwise specified (NOS) MARIERUMA RAMOSRICheryl OPENA DoD WAIVER SERVICES; NOT OTHERWISE SPECIFIED (NOS) 05/24/19 22 DoD LAPAROSCOPIC APPENDECTOMY 08/23/19 11 DoD POSTOPERATIVE FOLLOW-UP VISIT, NORMALLY INCLUDED IN THE SURGICAL PACKAGE, INDICATE THAT EVALUATION & MANAGEMENT SERVICE WAS PERFORMED DURING A POSTOPERATIVE PERIOD REASON RELATED ORIGINAL PROCEDURE 08/23/19 11 DoD LAPAROSCOPY, SURGICAL, APPENDECTOMY 08/22/19 11 DoD INJECTION, PIPERACILLIN SODIUM/TAZOBACTAM SODIUM, 1 GRAM/0.125 GRAMS (1.125 GRAMS) 08/22/19 11 DoD INJECTION, HYDROMORPHONE, UP TO 4 MG 08/21/19 11 [facility] CARE VISIT () 07/10/19 10 [facility] LAPAROSCOPIC CHOLECYSTECTOMY 06/30/19 10 DoD POSTOPERATIVE FOLLOW-UP VISIT, NORMALLY INCLUDED IN THE SURGICAL PACKAGE, INDICATE THAT EVALUATION & MANAGEMENT SERVICE WAS PERFORMED DURING A POSTOPERATIVE PERIOD REASON RELATED ORIGINAL PROCEDURE 06/30/19 10 DoD INJECTION, MORPHINE SULFATE, UP TO 10 MG 06/29/19 10 DoD LAPAROSCOPY, SURGICAL; CHOLECYSTECTOMY 06/29/19 10 DoD SERVICE(S) PROVIDED BETWEEN 10:00 PM AND 8:00 AM AT 24-HOUR FACILITY, IN ADDITION TO BASIC SERVICE 05/26/19 10 DoD OTHER MANUALLY ASSISTED DELIVERY 05/26/19 10 DoD POSTOPERATIVE FOLLOW-UP VISIT, NORMALLY INCLUDED IN THE SURGICAL PACKAGE, INDICATE THAT EVALUATION & MANAGEMENT SERVICE WAS PERFORMED DURING A POSTOPERATIVE PERIOD REASON RELATED ORIGINAL PROCEDURE 05/26/19 10 DoD POSTOPERATIVE FOLLOW-UP VISIT, NORMALLY INCLUDED IN THE SURGICAL PACKAGE, INDICATE THAT EVALUATION & MANAGEMENT SERVICE WAS PERFORMED DURING A POSTOPERATIVE PERIOD REASON RELATED ORIGINAL PROCEDURE 05/25/19 [facility] VAGINAL DELIVERY ONLY (WITH OR WITHOUT EPISIOTOMY AND/OR FORCEPS); 05/24/19 [facility] SUBSEQ CARE VISIT () [EXCLS:PATIENTS WHO ARE SEEN FOR A CONDITION UNREL TO / CARE (EG,AN UP RESPIR INFECT;PATIENTS SEEN FOR CONSULTATION ONLY,NOT FOR CONT CARE)] 05/23/19 [facility] NON-STRESS TEST 05/23/19 [facility] NON-STRESS TEST 05/18/20 [facility] IMMUNIZATION ADMINISTRATION (INCLUDES PERCUTANEOUS, INTRADERMAL, SUBCUTANEOUS, OR INTRAMUSCULAR INJECTIONS); 1 VACCINE (SINGLE OR COMBINATION VACCINE/TOXOID) 04/26/20 [facility] SUBSEQ CARE VISIT () [EXCLS:PATIENTS WHO ARE SEEN FOR A CONDITION UNREL TO / CARE (EG,AN UP RESPIR INFECT;PATIENTS SEEN FOR CONSULTATION ONLY,NOT FOR CONT CARE)] 04/11/20 [facility] SUBSEQ CARE VISIT () [EXCLS:PATIENTS WHO ARE SEEN FOR A CONDITION UNREL TO / CARE (EG,AN UP RESPIR INFECT;PATIENTS SEEN FOR CONSULTATION ONLY,NOT FOR CONT CARE)] 03/13/20 [facility] SUBSEQ CARE VISIT () [EXCLS:PATIENTS WHO ARE SEEN FOR A CONDITION UNREL TO / CARE (EG,AN UP RESPIR INFECT;PATIENTS SEEN FOR CONSULTATION ONLY,NOT FOR CONT CARE)] 02/16/20 [facility] TELE ASSESS & MGT SRV PROV QUAL NONPHYS HLTH CARE PRO TO EST PAT,PARENT,GUARD NOT ORIG REL ASSESS & MGT SRV PROV W/IN PREV 7 DAYS NOR LEAD ASSESS & MGT SRV/PX W/IN NXT 24 HR/SOON APT;5-10 MIN MED DIS 02/11/20 [facility] SUBSEQ CARE VISIT () [EXCLS:PATIENTS WHO ARE SEEN FOR A CONDITION UNREL TO / CARE (EG,AN UP RESPIR INFECT;PATIENTS SEEN FOR CONSULTATION ONLY,NOT FOR CONT CARE)] 01/19/20 [facility] SUBSEQ CARE VISIT () [EXCLS:PATIENTS WHO ARE SEEN FOR A CONDITION UNREL TO / CARE (EG,AN UP RESPIR INFECT;PATIENTS SEEN FOR CONSULTATION ONLY,NOT FOR CONT CARE)] 12/22/19 09 [facility] INITIAL CARE VISIT (REPORT AT 1ST ENCOUN W HEALTH INSURANCE FOLLOW UP SPECIALIST PROVIDING OBSTETRIC CARE. REPORT ALSO DATE OF VISIT &,IN A SEPARATE FIELD,THE DATE OF THE LAST MENSTRUAL PERIOD) 11/02/19 [facility] GONADOTROPIN, CHORIONIC (HCG); QUALITATIVE 09/28/19 [facility] Social History Combined list of available smoking, tobacco, and other social history from Department of Defense and Veterans Affairs facilities. Social History Type Response Date Comment [facility] This section is an empty social history section. DoD
--- OUTSIDE RECORDS SUMMARY | 2024-05-16 04:39 | XMS_ITS | Data Portability ---
Author Organization [facility] Address [address] [place] [address] Care Team Providers Care Mri Technologist Name Role Phone LIZETH VALLEJO Primary Care Provider Assessment No assessment recorded. Plan of Treatment Reminders Order Date Submit Date Provider Last Modified By Organization Details Last Modified Time Details Appointments None recorded. Lab None recorded. Referral None recorded. Procedures None recorded. Surgeries total hysterectom y, laparoscopi c, with bilateral salpingecto my (SURG) [id number] Surgery [facility], [facility] [address], [place], [address], 09:34:23 oophorectom y (SURG) [email or web address], [address], [place], [address], 4 09:34:24 Imaging US, pelvis 2023 [address], [address], [place], [address], 4 16:36:50 US, transvagina l 2023 [address], [address], [place], [address], 16:36:50 Medication Orders None recorded. Patient TargetsNo targets recorded. Patient InstructionsNo instructions recorded. Reason for Referral None Reported. Results Created Date Observation Date Name Description Value Unit Range Abnormal Flag Note LastModifiedBy Organization Detail LastModifiedTime 07/25/19 24 07/25/2023 US, pelvi s No observ ation record ed. [facility] [address], [place], [address], 07/25/2023 15:54:12 07/25/19 24 07/25/2023 US, trans vagin al No observ ation record ed. [facility] [address], [place], [address], 07/25/2023 15:54:22 07/25/19 24 07/25/2023 US, pelvi s No observ ation record ed. [email or web address], [place], [address], 07/25/2023 22:31:05 Result Notes None recorded. Problems Name Problem SNOMED Code Status Onset Date Resolution Date Notes Provider Name and Address Organization Details Recorded Time History of menorrhagia 967291194 [facility] [address], [place], [address], [facility] 3 10:53:37 History of dysmenorrhea 410614690 Active 2022 ALIX Laboy [address], [place], [address], [facility] 3 10:53:03 Problem Notes None recorded. Procedures Surgical History Date Name Laterality Status Provider Name and Address Organization Details Recorded Time 023 HYSTEROSCOPY, WITH ENDOMETRIAL ABLATION (SURG) completed [facility] 11/27/2022 10:12:58 023 HYSTEROSCOPY, WITH ENDOMETRIAL ABLATION (SURG) completed [facility] 11/27/2022 10:28:42 022 Date of Last Pap Smear completed Laury Sommer [facility] [address], [place], [address], [place] [facility] 08/29/2022 11:47:41 013 Cholecystectomy completed Ledy West [facility] 09/09/2022 15:02:05 010 Appendectomy completed Ledy West [facility] 08/29/2022 11:47:41 Imaging Results Imaging Date Name Status LastModified by Organization Details LastModified Time 07/25/2023 US, pelvis completed radha Obrien [address], [place], [address], 07/25/2023 15:54:12 07/25/2023 US, transvaginal completed radha grossman [address], [place], [address], 07/25/2023 15:54:22 07/25/2023 US, pelvis completed [email or web address], [place], [address], 07/25/2023 22:31:05 Procedure Notes None recorded. Medical Equipment None Reported. Allergies Allergen ID Allergen Name Allergen Category Reaction Reaction Severity Criticality Documentation Date Start Date Code Code System Note Provider Name and Address Organization Details Recorded Time acetamino phen / hydrocodo ne medicatio n Not available Not available Not available 08/29/2022 47840 2 RxNorm Ledy rios, [facility] 11:47:59 Medications Name Sig Start Date Stop Date Status Note LastModified by Organization Details LastModified Time celecoxib 200 mg capsule Take 1 tablet PO BID 3 days prior to onset of menses; then may continue 2 additiona l days with onset of menses. 10/03 completed Not Available Not Available Not Available clindamycin HCl 300 mg capsule TAKE 1 CAPSULE BY MOUTH THREE TIMES DAILY FOR 10 DAYS 06/27 completed Not Available Not Available Not Available ibuprofen 800 mg tablet TAKE 1 TABLET BY MOUTH THREE TIMES DAILY NEEDED FOR PAIN 08/29 completed Not Available Not Available Not Available benzonatate 200 mg capsule TAKE 1 CAPSULE BY MOUTH THREE TIMES DAILY 03/29 completed Not Available Not Available Not Available amoxicillin 875 mg tablet TAKE 1 TABLET BY MOUTH TWICE DAILY FOR 10 DAYS 06/27 completed Not Available Not Available Not Available benzonatate 100 mg capsule TAKE 1 CAPSULE BY MOUTH THREE TIMES DAILY NEEDED FOR COUGH 08/29 completed Not Available Not Available Not Available diclofenac sodium 75 mg tablet,raimundo yed release TAKE 1 TABLET BY MOUTH TWICE DAILY 03/29 completed Not Available Not Available Not Available codeine 10 mg-guaifene sin 100 mg/5 mL oral liquid TAKE 5 ML BY MOUTH EVERY 4 HOURS NEEDED 06/27 completed Not Available Not Available Not Available ibuprofen 600 mg tablet TAKE 1 TABLET BY MOUTH THREE TIMES DAILY NEEDED FOR FEVER OR PAIN 08/29 completed Not Available Not Available Not Available methylpredn isolone 4 mg tablets in a dose pack TAKE 6 TABLETS BY MOUTH THE FIRST DAY AND THE REMAINING DIRECTED 06/27 completed Not Available Not Available Not Available ondansetron 4 mg disintegrat ing tablet DISSOLVE 1 TABLET ON THE TONGUE EVERY 8 HOURS NEEDED 10/03 completed Not Available Not Available Not Available loratadine 10 mg tablet TAKE 1 TABLET BY MOUTH EVERY DAY NEEDED 08/29 completed Not Available Not Available Not Available amoxicillin 875 mg-nadia miranda clavulanate 125 mg tablet TAKE 1 TABLET BY MOUTH TWICE DAILY FOR 10 DAYS 06/27 completed Not Available Not Available Not Available ciprofloxac in 0.3 %-dexametha sone 0.1 % ear drops,suspe nsion SHAKE LIQUID AND INSTILL 4 DROPS TO AFFECTED EAR TWICE DAILY FOR 10 DAYS 08/29 completed Not Available Not Available Not Available Twirla 120 mcg-30 mcg/24 hr transdermal patch Apply 1 patch every week by transderm al route for 21 days. 06/27 completed Not Available Not Available Not Available Paxlovid 300 mg (150 mg x 2)-100 mg tablets in a dose pack TAKE 2 NIRMATREL VIR TABLETS AND 1 RITONAVIR TABLET TOGETHER BY MOUTH TWICE DAILY FOR 5 DAYS 03/29 completed Not Available Not Available Not Available Vitals Date Recorded Body height Body mass index (BMI) Body weight Systolic blood pressure Diastolic blood pressure Provider Name and Address Organization Details Last Updated DateTime 12/06/2022 162.56 cm 31.6 kg/m2 69052 g 109 mm[Hg] 69 mm[Hg] [facility] 3 12:09:50 Date Recorded Body height Body mass index (BMI) Body weight Systolic blood pressure Diastolic blood pressure Provider Name and Address Organization Details Last Updated DateTime 06/27/2023 162.56 cm 31.8 kg/m2 60858.59 g 110 mm[Hg] 72 mm[Hg] [facility] 4 10:33:05 Date Recorded Body height Body mass index (BMI) Body weight Systolic blood pressure Diastolic blood pressure Provider Name and Address Organization Details Last Updated DateTime 08/01/2023 162.56 cm 31.4 kg/m2 94749.4 g 109 mm[Hg] 78 mm[Hg] Aydee Vern [facility] 4 10:17:01 Date Recorded Body height Body mass index (BMI) Body weight Systolic blood pressure Diastolic blood pressure Provider Name and Address Organization Details Last Updated DateTime 03/29/2024 162.56 cm 31.6 kg/m2 41844 g 119 mm[Hg] 73 mm[Hg] Christal Mosqueda [facility] 4 15:37:30 Social History Question Answer Notes LastModified by Organizat ion Details LastModified Time Tobacco Smoking Status Never Smoker Erma rios [facility] 12/05/2022 14:41:24 What Is Your Level Of Alcohol Consumption? Occasional [email or web address] Information not available 09/09/2022 Are You Blind Or Do You Have Difficulty Seeing? No [email or web address] Information n ot available 09/09/2022 What Is Your Level Of Caffeine Consumption? Occasional [email or web address] Information not available 09/09/2022 How Much Tobacco Do You Chew? None Information not available 10/03/2022 In The 14 Days Before Symptom Onset, Have You Had Close Contact With A Laboratory-confirm ed COVID-19 While That Case Was Ill? No [email or web address] Information n ot available 09/09/2022 In The 14 Days Before Symptom Onset, Have You Had Close Contact With A Person Who Is Under Investigation For COVID-19 While That Person Was Ill? No [email or web address] Information not available 09/09/2022 Have You Been To An Area Known To Be High Risk For COVID-19? No [email or web address] Information not available 09/09/2022 Are You Deaf Or Do You Have Serious Difficulty Hearing? No [email or web address] Information not available 09/09/2022 What Type Of Diet Are You Following? REGULAR [email or web address] Information n ot available 09/09/2022 What Is The Highest Grade Or Level Of School You Have Completed Or The Highest Degree You Have Received? [id number] Information not available 10/03/2022 What Is Your Occupation? [employer] Information not available 10/03/2022 Are There Any Guns Present In Your Home? Yes Information not available 10/03/2022 Have You Ever Been Counseled For Unhealthy Alcohol Use? No [email or web address] Information not available 12/05/2022 Do You Use Protection During Sex? No Information not available 10/03/2022 Do You Use Your Seat Belt Or Car Seat Routinely? Yes [email or web address] Information not available 09/09/2022 Do You Have Smoke And Carbon Monoxide Detectors In Your Home? Yes [email or web address] Information not available 09/09/2022 How Much Tobacco Do You Smoke? No Information not available 10/03/2022 Do You Feel Stressed (tense, Restless, Nervous, Or Anxious, Or Unable To Sleep At Night)? [id number] [email or web address] Information not available 09/09/2022 Do You Use Any Illicit Or Recreational Drugs? No [email or web address] Information not available 09/09/2022 Do You Use Sunscreen Routinely? No [email or web address] Information not available 10/25/2022 Has Tobacco Cessation Counseling Been Provided? No [email or web address] Information not available 12/05/2022 Have You Used IV Drugs? No Information not available 10/03/2022 Do You Or Have You Ever Used Any Other Forms Of Tobacco Or Nicotine? No [email or web address] Information not available 12/05/2022 Sex: Unknown Functional Status Question Answer Note LastModified by Organizat ion Details LastModified Time Do you have difficulty walking or climbing stairs? No [email or web address] Information not available 12/05/2022 Are you able to walk? [email or web address] Information not available 09/09/2022 Are you able to care for yourself? Yes [email or web address] Information not available 12/05/2022 Do you have difficulty dressing or bathing? No [email or web address] Information not available 12/05/2022 What is your exercise level? Occasional [email or web address] Information not available 09/09/2022 Mental Status None recorded. Family History Nothing Reported. Medical History Condition Response Other N Blood Transfusion N Dermatologic Disorders N Gestational Diabetes N Anxiety Disorder N Autoimmune disease N Arthritis N Polyps N Infertility N Acid Reflux (GERD) N Cancer N Varicosities N Stroke N Neurologic/Epilepsy N Fibromyalgia N Headaches N Kidney Disease N Heart Problems N Kidney or Bladder Problems N Eating Disorder N Art (IVF or FET) N Hepatitis/Liver Disease N No Past Medical History N Urinary Tract Infection N Asthma N Trauma/Violence N Thrombophilias N Allergies (Food, seasonal, environmental ) N Breast Cancer N Drug/Latex Allergies/Reactions Y Lung Disease N Defects or Inherited Disease N Breast Problem N Hematologic disorders N Anesthesia Complications N History of STI Y Deep Vein Thrombosis N Polycystic ovary syndrome N History of abnormal pap N Endometriosis N High Cholesterol N Thyroid Problems N GI Problems N Anemia N Psychiatric Illness N Ovarian Cancer N Diabetes N Pulmonary (TB, Asthma) N Eczema N Abuse/Domestic Violence N Depression/ depression N Heart Disease N Pre-Eclampsia N Hypertension N Osteoporosis N Gynecological History Statement/Question Response Abnormal Pap Yes Date of Last Mammogram Flow Moderate Date of LMP 03/17/2024 Was last menstrual period normal N STIs/STDs Y HPV Vaccine N Duration of Flow (days) 5 Current Control Method Partner Vas ectomy Age at First Child 21 Are cycles usually normal N Frequency of Cycle (Q days) 34 Sexually Active? Y Menses Monthly Y Date of DEXA bone scan Age of first menstrual cycle 15 Date of Last Pap Smear 08/20/2021 Sexual Problems? N Desired Control Method Ablation LMP Definite N Obstetrics History GPAL:G 5 P 4 0 1 4 Type Value Full Term 4 Spontaneous 1 Living 4 Total 5 Past Encounters Encounter ID Performer Location Encounter Start Date Encounter Closed Date Diagnosis/Indication Diagnosis SNOMED-CT Code Diagnosis ICD10 Code [id number] Laury Sommer [facility] [address],[place] [address] 08/29/2022 11:20:09 08/30/2022 17:03:26 Secondary dysmenorrhea 39642828 N94.5 [id number] Laury Sommer [facility] [address],[place] [address] 10/03/2022 10:28:37 10/03/2022 10:54:33 Menorrhagia 109057601 N92.0 N94.5 History of menorrhagia 490201205 Z87.42 [id number] Ariel Mojica MD [facility] [address],[place] [address] 10/25/2022 11:48:53 10/25/2022 13:01:45 Menorrhagia 584494007 N92.0 [id number] Ariel Mojica MD [facility] [address],[place] [address] 12/06/2022 11:39:50 12/08/2022 00:12:44 [id number] Ariel Mojica MD [facility] [address],[place] [address] 06/27/2023 09:42:46 06/27/2023 11:23:46 Postcoital bleeding 12666153 N93.0 Dyspareunia 06903273 N94 .10 [id number] Daniela Patel [facility] [address],[place] [address] 07/25/2023 10:21:21 07/25/2023 11:14:25 Pain in pelvis 92645314 R10.2 N94.10 [id number] Ariel Mojica MD [facility] [address],[place] [address] 08/01/2023 10:08:14 08/04/2023 04:23:18 Dyspareunia 43712204 N94.10 Menorrhagia 685281971 N9 2.0 [id number] Ariel Mojica MD [facility] [address] [address] 03/29/2024 15:26:26 03/29/2024 16:25:44 Dysmenorrhea 816370888 N94.6 Postcoital bleeding 4888 0000 N93.0 Pain in pelvis 01464860 R10.2 N94.10 Dyspareunia 93081130 N94 .10 Menorrhagia 820272696 N9 2.0 Health Concerns Section Related Observation LastModified by Organization Detai ls LastModified Time None Recorded Concern Status LastModified by Organization Details LastModified Time None Recorded Advance Directives Directive None Recorded Payers Encounter Date Sequence Insurance Name Policy Number Policy Bergeron Covered Member ID Bergeron Member ID Guarantor Name 12/06/2022 1 [place] - DOS PRIOR TO 2024 - [employer] () [facility] [id number] [facility] 06/27/2023 1 [place] - DOS PRIOR TO 2024 - [employer] () [facility] [id number] [facility] 07/25/2023 1 [place] - DOS PRIOR TO 2024 - [employer] () [employer] [id number] [facility] 08/01/2023 1 [place] - DOS PRIOR TO 2024 - [employer] () [employer] [employer] [id number] [facility] 03/29/2024 1 [place] - DOS PRIOR TO 2024 - [employer] () [employer] [id number] [facility] Notes Date Note Type Note Provider Name and Address Organization Details Recorded Time 06/27/2023 text/html 37-year-old femcheryl gaspar who presents for postcoital bleeding and pain with intercourse. She has deep penetration pain with intercourse. She has bleeding after intercourse. She is light spotting that is persistent after intercourse. Examination revealed bleeding of the cervix. There was some small blood vessels on the front of the cervix. Abrasion of those lightly with a cotton tip applicator made them bleed. She is some tenderness with deep palpation included the uterus. Made recommendation cauterized in the small blood vessels on her Cervix. Will obtain pelvic ultrasound. She will return to discuss pain with intercourse and bleeding on the anterior cervix. Spent 40 minutes [id number]. Discussed 2 complex topics. Diagnose the postcoital bleeding. recommended treatment. To have ultrasound follow-up with phone call. Ariel Mojica MD [address], [place], [address], [facility] 06/27/2023 11:23:04 08/01/2023 text/html 37-year-old fema le with menorrhagia and dyspareunia. Patient had a recent endometrial ablation. The endometrial ablation appears to have failed. She is pain with intercourse. The pain is with deep penetration. Manipulation of the uterus causes her pain on exam. Patient would like definitive surgical treatment for this problem. The menorrhagia and dyspareunia. Patient initially wanted hysterectomy before the ablation. We intend to proceed with total laparoscopic hysterectomy bilateral salpingectomy. The patient We will contact us when she is ready to go ahead with it. We spent more than 40 minutes [id number] today. More than 50% was counseling. We made a decision to perform surgery. Talked about the details of the surgery. Talked about the recovery, efficacy, some complications. She will return for informed consent process. Ariel Mojica MD [address], [place], [address], [facility] 08/01/2023 17:42:40 03/29/2024 text/html 37-year-old fema le with menorrhagia and dyspareunia. Patient had a recent endometrial ablation. The endometrial ablation appears to have failed. She is pain with intercourse. The pain is with deep penetration. Manipulation of the uterus causes her pain on exam. Patient would like definitive surgical treatment for this problem. The menorrhagia and dyspareunia. Patient initially wanted hysterectomy before the ablation. We intend to proceed with total laparoscopic hysterectomy bilateral salpingectomy with left oophorectomy. The patient We will contact us when she is ready to go ahead with it. I spent more than 30 minutes on her care today More than 50% was counseling. We made a decision to perform surgery. Talked about the details of the surgery. Talked about the recovery, efficacy, some complications. She will return for informed consent process. Ariel Mojica MD [address], [place], [address], [facility] 03/29/2024 16:20:48 OBGyn Episode Ob Episode Information Episode Created Date Number of Fetuses Patient Bloodtype Patient rh Status Prepregnancy Weight lbs Domestic Partner Domestic Partner Phone Father Name Vacuum Kettle Cook Status 09/10/19 23 1 CLOSED Fetus Data First Name Last Name Admitted to NICU Weight (g) Sex Living Outcome Pediatric Complications Fetus ID Race Codes Race Delivery Type 2579.57 7704 F Full Term [id number] Vaginal Delivery Nicholas Calculation NICHOLAS Calculation Method Initial Nicholas Date Initial Exam Date Initial Exam Provider Initial Ultrasound Date Last Menstrual Period Date Ultra Sound Weeks Gestation Conception by IVF Embryo Age at Transfer Date of Transfer 0 Eighteen To Twenty Week Nicholas Update Ultra Sound Date Fundal Height At Umbil Quickening Date Ultra Sound Latest Weeks Gestation Final Nicholas Confirmed By Final Nicholas Confirmed Date Final Nicholas Date Ultra Sound Latest Days Gestation 0 0 Menstrual History Last Menstrual Date Menses Monthly On Bcp Conception Prior Menses Frequency Hcg Plus Date Menarche Onset Age Delivery Information Delivery Date Delivery Type Labor Anesthesia Weeks Gestation Incision Type Labor Labor Length Hrs Delivered By Post Complications Tubal Sterilization Discharge Date Comments 7 36 true Discharge Information Feeding Method Contraceptive Method Maternal HG B and HCT Levels Ob Episode Information Episode Created Date Number of Fetuses Patient Bloodtype Patient rh Status Prepregnancy Weight lbs Domestic Partner Domestic Partner Phone Father Name Vacuum Kettle Cook Status 09/10/19 23 1 CLOSED Fetus Data First Name Last Name Admitted to NICU Weight (g) Sex Living Outcome Pediatric Complications Fetus ID Race Codes Race Delivery Type 3685.43 5 M Full Term 24082 Vaginal Delivery Nicholas Calculation NICHOLAS Calculation Method Initial Nicholas Date Initial Exam Date Initial Exam Provider Initial Ultrasound Date Last Menstrual Period Date Ultra Sound Weeks Gestation Conception by IVF Embryo Age at Transfer Date of Transfer 0 Eighteen To Twenty Week Nicholas Update Ultra Sound Date Fundal Height At Umbil Quickening Date Ultra Sound Latest Weeks Gestation Final Nicholas Confirmed By Final Nicholas Confirmed Date Final Nicholas Date Ultra Sound Latest Days Gestation 0 0 Menstrual History Last Menstrual Date Menses Monthly On Bcp Conception Prior Menses Frequency Hcg Plus Date Menarche Onset Age Delivery Information Delivery Date Delivery Type Labor Anesthesia Weeks Gestation Incision Type Labor Labor Length Hrs Delivered By Post Complications Tubal Sterilization Discharge Date Comments 0 38 Discharge Information Feeding Method Contraceptive Method Maternal HG B and HCT Levels Ob Episode Information Episode Created Date Number of Fetuses Patient Bloodtype Patient rh Status Prepregnancy Weight lbs Domestic Partner Domestic Partner Phone Father Name Vacuum Kettle Cook Status 09/10/19 23 1 CLOSED Fetus Data First Name Last Name Admitted to NICU Weight (g) Sex Living Outcome Pediatric Complications Fetus ID Race Codes Race Delivery Type 3005.04 7 F Full Term 25807 Vaginal Delivery Nicholas Calculation NICHOLAS Calculation Method Initial Nicholas Date Initial Exam Date Initial Exam Provider Initial Ultrasound Date Last Menstrual Period Date Ultra Sound Weeks Gestation Conception by IVF Embryo Age at Transfer Date of Transfer 0 Eighteen To Twenty Week Nicholas Update Ultra Sound Date Fundal Height At Umbil Quickening Date Ultra Sound Latest Weeks Gestation Final Nicholas Confirmed By Final Nicholas Confirmed Date Final Nicholas Date Ultra Sound Latest Days Gestation 0 0 Menstrual History Last Menstrual Date Menses Monthly On Bcp Conception Prior Menses Frequency Hcg Plus Date Menarche Onset Age Delivery Information Delivery Date Delivery Type Labor Anesthesia Weeks Gestation Incision Type Labor Labor Length Hrs Delivered By Post Complications Tubal Sterilization Discharge Date Comments 0 38 Discharge Information Feeding Method Contraceptive Method Maternal HG B and HCT Levels Ob Episode Information Episode Created Date Number of Fetuses Patient Bloodtype Patient rh Status Prepregnancy Weight lbs Domestic Partner Domestic Partner Phone Father Name Vacuum Kettle Cook Status 09/10/19 23 1 CLOSED Fetus Data First Name Last Name Admitted to NICU Weight (g) Sex Living Outcome Pediatric Complications Fetus ID Race Codes Race Delivery Type 3005.04 7 F Full Term [id number] Vaginal Delivery Nicholas Calculation NICHOLAS Calculation Method Initial Nicholas Date Initial Exam Date Initial Exam Provider Initial Ultrasound Date Last Menstrual Period Date Ultra Sound Weeks Gestation Conception by IVF Embryo Age at Transfer Date of Transfer 0 Eighteen To Twenty Week Nicholas Update Ultra Sound Date Fundal Height At Umbil Quickening Date Ultra Sound Latest Weeks Gestation Final Nicholas Confirmed By Final Nicholas Confirmed Date Final Nicholas Date Ultra Sound Latest Days Gestation 0 0 Menstrual History Last Menstrual Date Menses Monthly On Bcp Conception Prior Menses Frequency Hcg Plus Date Menarche Onset Age Delivery Information Delivery Date Delivery Type Labor Anesthesia Weeks Gestation Incision Type Labor Labor Length Hrs Delivered By Post Complications Tubal Sterilization Discharge Date Comments 6 38 Discharge Information Feeding Method Contraceptive Method Maternal HG B and HCT Levels Ob Episode Information Episode Created Date Number of Fetuses Patient Bloodtype Patient rh Status Prepregnancy Weight lbs Domestic Partner Domestic Partner Phone Father Name Vacuum Kettle Cook Status 09/10/19 23 1 CLOSED Fetus Data First Name Last Name Admitted to NICU Weight (g) Sex Living Outcome Pediatric Complications Fetus ID Race Codes Race Delivery Type , Spontane ous [id number] Nicholas Calculation NICHOLAS Calculation Method Initial Nicholas Date Initial Exam Date Initial Exam Provider Initial Ultrasound Date Last Menstrual Period Date Ultra Sound Weeks Gestation Conception by IVF Embryo Age at Transfer Date of Transfer 0 Eighteen To Twenty Week Nicholas Update Ultra Sound Date Fundal Height At Umbil Quickening Date Ultra Sound Latest Weeks Gestation Final Nicholas Confirmed By Final Nicholas Confirmed Date Final Nicholas Date Ultra Sound Latest Days Gestation 0 0 Menstrual History Last Menstrual Date Menses Monthly On Bcp Conception Prior Menses Frequency Hcg Plus Date Menarche Onset Age Delivery Information Delivery Date Delivery Type Labor Anesthesia Weeks Gestation Incision Type Labor Labor Length Hrs Delivered By Post Complications Tubal Sterilization Discharge Date Comments 5 Discharge Information Feeding Method Contraceptive Method Maternal HG B and HCT Levels
--- OUTSIDE RECORDS SUMMARY | 2024-05-16 04:39 | XMS_ITS | Continuity of Care Document ---
Author Organization [facility] [place] Address [address] [place] [address] [place] [address] Care Team Providers Care Corn Detasseler Machine Operator Name Role Phone LIZETH VALLEJO Primary Care Provider Assessment No assessment recorded. Plan of Treatment Reminders Order Date Submit Date Provider Last Modified By Organization Details Last Modified Time Details Appointments None recorded. Lab None recorded. Referral None recorded. Procedures None recorded. Surgeries total hysterectom y, laparoscopi c, with bilateral salpingecto my (SURG) [address], [facility] [facility], [place], [address], 4 09:34:23 oophorectom y (SURG) 2023 024 [email or web address] [facility], [facility], [place], [address], 4 09:34:24 Imaging None recorded. Medication Orders None recorded. Patient TargetsNo targets recorded. Patient InstructionsNo instructions recorded. Reason for Referral None Reported. Problems Name Problem SNOMED Code Status Onset Date Resolution Date Notes Provider Name and Address Organization Details Recorded Time History of menorrhagia 132258961 Active 2022 Laury Sommer [facility]- [address], [place], [address], [facility] 3 10:53:37 History of dysmenorrhea 161426933 Active 2022 aLury Sommer [facility] [address], [place], [address], [facility] 10:53:03 Problem Notes None recorded. Procedures Surgical History Date Name Laterality Status Provider Name and Address Organization Details Recorded Time 023 HYSTEROSCOPY, WITH ENDOMETRIAL ABLATION (SURG) completed Replaced by [facility] 11/27/2022 10:12:58 023 HYSTEROSCOPY, WITH ENDOMETRIAL ABLATION (SURG) completed Replaced by [facility] 11/27/2022 10:28:42 022 Date of Last Pap Smear completed Laury Sommer [facility] [address], [place], [address], [facility] 08/29/2022 11:47:41 013 Cholecystectomy completed Ledy West [facility] 09/09/2022 15:02:05 010 Appendectomy completed Ledy West [facility] 08/29/2022 11:47:41 Imaging Results None recorded. Procedure Notes None recorded. Medical Equipment None Reported. Allergies Allergen ID Allergen Name Allergen Category Reaction Reaction Severity Criticality Documentation Date Start Date Code Code System Note Provider Name and Address Organization Details Recorded Time acetamino phen / hydrocodo ne medicatio n Not available Not available Not available 08/29/2022 86347 2 RxNorm Ledy rios, [facility] 11:47:59 Medications Name Sig Start Date [...] BY MOUTH TWICE DAILY FOR 5 DAYS 11/11 /2024 completed Not Available Not Available Not Available Vitals Date Recorded Body height Body mass index (BMI) Body weight Systolic blood pressure Diastolic blood pressure Provider Name and Address Organization Details Last Updated DateTime 03/29/2024 162.56 cm 31.6 kg/m2 17486 g 119 mm[Hg] 73 mm[Hg] Christal Mosqueda [facility] 4 15:37:30 Social History Question Answer Notes LastModified by Organizat ion Details LastModified Time Tobacco Smoking Status Never Smoker Erma Martin blanca, [facility] 12/05/2022 14:41:24 What Is Your Level Of Alcohol Consumption? Occasional [email or web address] Information not available 09/09/2022 Are You Blind Or Do You Have Difficulty Seeing? No [email or web address] Information n ot available 09/09/2022 What Is Your Level Of Caffeine Consumption? Occasional [email or web address] Information not available 09/09/2022 How Much Tobacco Do You Chew? None Information not available 10/03/2022 In The 14 Days Before Symptom Onset, Have You Had Close Contact With A Laboratory-confirm ed COVID-19 While That Case Was Ill? No [email or web address] Information n ot available 09/09/2022 In The 14 Days Before Symptom Onset, Have You Had Close Contact With A Person Who Is Under Investigation For COVID-19 While That Person Was Ill? No [email or web address] Information not available 09/09/2022 Have You Been To An Area Known To Be High Risk For COVID-19? No [email or web address] Information not available 09/09/2022 Are You Deaf Or Do You Have Serious Difficulty Hearing? No [email or web address] Information not available 09/09/2022 What Type Of Diet Are You Following? REGULAR [email or web address] Information n ot available 09/09/2022 What Is The Highest Grade Or Level Of School You Have Completed Or The Highest Degree You Have Received? [id number] Information not available 10/03/2022 What Is Your Occupation? [employer] Information not available 10/03/2022 Are There Any Guns Present In Your Home? Yes Information not available 10/03/2022 Have You Ever Been Counseled For Unhealthy Alcohol Use? No [email or web address] Information not available 12/05/2022 Do You Use Protection During Sex? No Information not available 10/03/2022 Do You Use Your Seat Belt Or Car Seat Routinely? Yes [email or web address] Information not available 09/09/2022 Do You Have Smoke And Carbon Monoxide Detectors In Your Home? Yes [email or web address] Information not available 09/09/2022 How Much Tobacco Do You Smoke? No Information not available 10/03/2022 Do You Feel Stressed (tense, Restless, Nervous, Or Anxious, Or Unable To Sleep At Night)? [id number] [email or web address] Information not available 09/09/2022 Do You Use Any Illicit Or Recreational Drugs? No [email or web address] Information not available 09/09/2022 Do You Use Sunscreen Routinely? No [email or web address] Information not available 10/25/2022 Has Tobacco Cessation Counseling Been Provided? No [email or web address] Information not available 12/05/2022 Have You Used IV Drugs? No Information not available 10/03/2022 Do You Or Have You Ever Used Any Other Forms Of Tobacco Or Nicotine? No [email or web address] Information not available 12/05/2022 Sex: Unknown Functional Status Question Answer Note LastModified by Organizat ion Details LastModified Time Do you have difficulty walking or climbing stairs? No [email or web address] Information not available 12/05/2022 Are you able to walk? YESWOREST [email or web address] Information not available 09/09/2022 Are you able to care for yourself? Yes [email or web address] Information not available 12/05/2022 Do you have difficulty dressing or bathing? No [email or web address] Information not available 12/05/2022 What is your exercise level? Occasional [email or web address] Information not available 09/09/2022 Mental Status None [...] Diagnosis/Indication Diagnosis SNOMED-CT Code Diagnosis ICD10 Code [id number] Ariel Mojica MD [facility] [address] [address] 03/29/2024 15:26:26 03/29/2024 16:25:44 Dysmenorrhea 928283278 N94.6 Postcoital bleeding 4888 0000 N93.0 Pain in pelvis 12502382 R10.2 N94.10 Dyspareunia 14625681 N94 .10 Menorrhagia 029101189 N9 2.0 Health Concerns Section Related Observation LastModified by Organization Detai ls LastModified Time None Recorded Concern Status LastModified by Organization Details LastModified Time None Recorded Payers Encounter Date Sequence Insurance Name Policy Number Policy Bergeron Covered Member ID Bergeron Member ID Guarantor Name 03/29/2024 1 EAST - DOS PRIOR TO 2024 - HUMAN () [facility] [id number] [facility] Notes Date Note Type Note Provider Name and Address Organization Details Recorded Time 03/29/2024 text/html 37-year-old fema le with menorrhagia [...] informed consent process. Ariel Mojica MD [address], [place], [address], [place] [facility] 03/29/2024 16:20:48 OBGyn Episode No OBEpisode recorded.
--- OUTSIDE RECORDS SUMMARY | 2024-05-16 04:40 | XMS_ITS | Encounter Summary ---
Author Organization [facility] Address [address] [place] [address] Phone Care Team Providers Care Wood Stock Blank Handler Name Role Phone Lisa Perez MD Primary Care Provider Encounter Details Date Type Department Care Team (Late st Contact Info) Description 09/26/2021 Telephone [facility] 5th [place] [address] [place] [address] Eufemia Barr RMA Social History Tobacco Use Types Packs/Day Years Used Date Smoking Tobacco: Never Comments Unknown Sex and Gender Information Value Date Recorded Sex Assigned at Not on file Legal Sex Female 2:58 PM CDT Gender Identity Not on file Sexual Orientation Not on file documented as of this encounter Miscellaneous Notes * Telephone Encounter - Eufemia Barr RMA - 09/26/2021 11:28 AM CDT I returned the pt's call and lmom documented in this encounter Plan of Treatment Not on file documented as of this encounter Visit Diagnoses Not on filedocumented in this encounter Care Teams Wood Stock Blank Handler Relationship Specialty Start Date End Date Lisa Perez MD [address] [facility] [address] [place] [address] PCP - General Family Medicine 02/01/20 documented as of this encounter
--- OUTSIDE RECORDS SUMMARY | 2024-05-16 04:40 | XMS_ITS | Encounter Summary ---
Author Organization [facility] Address [address] [place] [address] Care Team Providers Care Shower Doors And Panels Fabricator Name Role Phone Lisa Perez MD Primary Care Provider +1- [phone] Encounter Details Date Type Department Care Team (Late st Contact Info) Description 01/08/2024 External Device Data ST[facility] ABSTRACTION Provider, Abstract NO ADDRESS ON FILE Social History Tobacco Use Types Packs/Day Years Used Date Smoking Tobacco: Never Assessed Sex and Gender Information Value Date Recorded Sex Assigned at Not on file Gender Identity Not on file Sexual Orientation Not on file documented as of this encounter Plan of Treatment Not on file documented as of this encounter Visit Diagnoses Not on filedocumented in this encounter Care Teams Shower Doors And Panels Fabricator Relationship Specialty Start Date End Date Lisa Perez MD PCP - General Family Practice 10/04/19 documented as of this encounter
--- OUTSIDE RECORDS SUMMARY | 2024-05-16 04:40 | XMS_ITS | Referral Summary ---
Author Organization [facility] Address [address] [place] [address] Care Team Providers Care Salesperson Hosiery Name Role Phone Lisa Perez MD Primary Care Provider Allergies Active Allergy Reactions Criticality Noted Date Comments Hydrocodone-Acetaminophen Anaphylaxis High 0 Medications vit 59-ohxf-ffojg-dh a 27mg iron- 800 mcg-250 mg capsule Take by mouth Active vit D3-vit N-nowotyrjy-ursf [id number] sxqq-jji-js-mg tablet Take by mouth Active Active Problems Problem Noted Date Diagnosed Date Left breast lump 02/25/2020 Abnormal finding on breast imaging 02/25/2020 Social History Tobacco Use Types Packs/Day Years Used Date Smoking Tobacco: Never Personal Safety Answer Date Recorded Getting School Help Needed Not on file 08/02 Comments Unknown Sex and Gender Information Value Date Recorded Sex Assigned at Not on file Legal Sex Female 2:58 PM CDT Gender Identity Not on file Sexual Orientation Not on file Last Filed Vital Signs Vital Sign Reading Time Taken Comments Blood Pressure - - Pulse - - Temperature - - Respiratory Rate - - Oxygen Saturation - - Inhaled Oxygen Concentration - - Weight 78.9 kg (174 lb) 02/25/2020 8:38 AM CDT Height 165.1 cm (5' 5 ) 02/25/2020 8:38 AM CDT Body Mass Index 28.96 02/25/2020 8:38 AM CDT Plan of Treatment Not on file Insurance [facility] Care Teams Salesperson Hosiery Relationship Specialty Start Date End Date Lisa Perez MD [address] [facility] [address] [place] [address] PCP - General Family Medicine 02/01/20
--- OUTSIDE RECORDS SUMMARY | 2024-05-16 04:40 | XMS_ITS | Encounter Summary ---
Author Organization [facility] Address [address] Attn: Epic Prelude ADT [place] [address] Care Team Providers Care Civilian Jail Officer Name Role Phone Lisa Perez MD Primary Care Provider +1- [phone] Encounter Details Date Type Department Care Team (Latest Contact Info) Description 11/16/2019 Travel Social History Tobacco Use Types Packs/Day Years Used Date Smoking Tobacco: Never Assessed Sex and Gender Information Value Date Recorded Sex Assigned at Not on file Gender Identity Not on file Sexual Orientation Not on file COVID-19 Exposure Response Date Recorded In the last month, have you been in contact with someone who was confirmed or suspected to have Coronavirus / COVID-19? No / Unsure 11/16/2019 8:43 AM CDT documented as of this encounter Plan of Treatment Not on file documented as of this encounter Visit Diagnoses Not on filedocumented in this encounter Care Teams Civilian Jail Officer Relationship Specialty Start Date End Date Lisa Perez MD PCP - General Family Practice 10/04/19 documented as of this encounter
--- OUTSIDE RECORDS SUMMARY | 2024-05-16 04:40 | XMS_ITS | Encounter Summary ---
Author Organization [facility] Address [address] [place] [address] Care Team Providers Care Surveillance Operator Name Role Phone Lisa Perez MD Primary Care Provider +1- [phone] Encounter Details Date Type Department Care Team (Late st Contact Info) Description 11/18/2023 External Device Data [facility] ABSTRACTION Provider, Abstract [...] on filedocumented in this encounter Care Teams Surveillance Operator Relationship Specialty Start Date End Date Lisa Perez MD PCP - General Family Practice 10/04/19 documented as of this encounter
--- OUTSIDE RECORDS SUMMARY | 2024-05-16 04:40 | XMS_ITS | Encounter Summary ---
Author Organization [email or web address] Address [address] [place] [address] Care Team Providers Care Daycare Manager Name Role Phone Lisa Perez MD Primary Care Provider +1- [phone] Encounter Details Date Type Department Care Team [...] on filedocumented in this encounter Care Teams Daycare Manager Relationship Specialty Start Date End Date Lisa Perez MD PCP - General Family Practice 10/04/19 documented as of this encounter
--- OUTSIDE RECORDS SUMMARY | 2024-05-16 04:40 | XMS_ITS | Encounter Summary ---
Author Organization [facility] Address [address] [place] [address] Phone Care Team Providers Care Wallpaper Installer Name Role Phone Lisa Perez MD Primary Care Provider Encounter Details Date Type Department Care Team (Late st Contact Info) Description 09/24/2021 Telephone [facility] Surgery [facility] 5th [place] [address] [place] [address] Eufemia Barr RMA Social History Tobacco Use Types Packs/Day Years Used Date Smoking Tobacco: Never Comments Unknown Sex and Gender Information Value Date Recorded Sex Assigned at Not on file Legal Sex Female 2:58 PM CDT Gender Identity Not on file Sexual Orientation Not on file documented as of this encounter Miscellaneous Notes * Telephone Encounter - Eufemia Barr RMA - 09/24/2021 10:40 AM CDT I returned the pt's call and lmom documented in this encounter Plan of Treatment Not on file documented as of this encounter Visit Diagnoses Not on filedocumented in this encounter Care Teams Wallpaper Installer Relationship Specialty Start Date End Date Lisa Perez MD [address] [facility] [address] [place] [address] PCP - General Family Medicine 02/01/20 documented as of this encounter
--- OUTSIDE RECORDS SUMMARY | 2024-05-16 04:40 | XMS_ITS | Encounter Summary ---
Author Organization [facility] Address [address] [place] [address] Phone Care Team Providers Care Slip Dumper Name Role Phone Lisa Perez MD Primary Care Provider Encounter Details Date Type Department Care Team (Late st Contact Info) Description 08/25/2020 Telephone [facility] Surgery [facility] 5th [place] [address] [place] [address] Eufemia Barr RMA Social History Tobacco Use Types Packs/Day Years Used Date Smoking Tobacco: Never Comments Unknown Sex and Gender Information Value Date Recorded Sex Assigned at Not on file Legal Sex Female 2:58 PM CDT Gender Identity Not on file Sexual Orientation Not on file documented as of this encounter Miscellaneous Notes * Telephone Encounter - Eufemia Barr RMA - 08/25/2020 10:57 AM CDT The pt requested to rsc via my chart. I called her and lmom. documented in this encounter Plan of Treatment Not on file documented as of this encounter Visit Diagnoses Not on filedocumented in this encounter Care Teams Slip Dumper Relationship Specialty Start Date End Date Lisa Perez MD [address] [facility] [address] [place] [address] PCP - General Family Medicine 02/01/20 documented as of this encounter
--- OUTSIDE RECORDS SUMMARY | 2024-05-16 04:40 | XMS_ITS | Encounter Summary ---
Author Organization [facility] Address [address] [place] [address] Care Team Providers Care Chairman President And Chief Executive Officer Name Role Phone Lisa Perez MD Primary Care Provider +1- [phone] Encounter Details Date Type Department Care Team (Late st Contact Info) Description 09/02/2023 External Device Data [facility] ABSTRACTION Provider, Abstract [...] on filedocumented in this encounter Care Teams Chairman President And Chief Executive Officer Relationship Specialty Start Date End Date Lisa Perez MD PCP - General Family Practice 10/04/19 documented as of this encounter
--- OUTSIDE RECORDS SUMMARY | 2024-05-16 04:40 | XMS_ITS | Encounter Summary ---
Author Organization [facility] Address [address] [place] [address] Care Team Providers Care Seed And Fertilizer Specialist Name Role Phone Lisa Perez MD Primary Care Provider +1- [phone] Encounter Details Date Type Department Care Team (Late st Contact Info) Description 03/02/2024 External Device Data STL ABSTRACTION Provider, Abstract [...] on filedocumented in this encounter Care Teams Seed And Fertilizer Specialist Relationship Specialty Start Date End Date Lisa Perez MD PCP - General Family Practice 10/04/19 documented as of this encounter
--- OUTSIDE RECORDS SUMMARY | 2024-05-16 04:40 | XMS_ITS | Encounter Summary ---
Author Organization [facility] Address [address] [place] [address] Care Team Providers Care Slurry Man Name Role Phone Lisa Perez MD Primary Care Provider +1- [phone] Encounter Details Date Type Department Care Team (Late st Contact Info) Description 02/17/2024 External Device Data STL ABSTRACTION Provider, Abstract [...] on filedocumented in this encounter Care Teams Slurry Man Relationship Specialty Start Date End Date Lisa Perez MD PCP - General Family Practice 10/04/19 documented as of this encounter
--- OUTSIDE RECORDS SUMMARY | 2024-05-16 04:40 | XMS_ITS | Encounter Summary ---
Author Organization [facility] Address [address] [place] [address] Phone Care Team Providers Care Lab Animal Technician Name Role Phone Lisa Perez MD Primary Care Provider Reason for Visit * Consultation (Routine) - Closed Specialty Diagnoses / Procedures Referred By Contrick t Referred To Contact Surgery / Breast Surgery Diagnoses Abnormal mammogram Kaykay Weiss MD [address] [facility] [address] [place] [address] Phone: tel: fax: [facility] (All Locations) Referral ID Status Reason Start Date Expiration Date V isits Requested Visits Authorized [id number] Closed Specialty Services Required 02/01/2020 03/02/2021 99 99 Encounter Details Date Type Department Care Team (Late st Contact Info) Description 02/25/2020 8:45 AM CDT Office Visit [facility] Surgery [address] [facility] Advanced Medicine 5th [place] [address] [place] [address] Josie Leon NP [address] [place] [address] Left breast lump (Primary Dx); Abnormal finding on breast imaging Social History Tobacco Use Types Packs/Day Years Used Date Smoking Tobacco: Never Comments Unknown Sex and Gender Information Value Date Recorded Sex Assigned at Not on file Legal Sex Female 2:58 PM CDT Gender Identity Not on file Sexual Orientation Not on file documented as of this encounter Last Filed Vital Signs Vital Sign Reading Time Taken Comments Blood Pressure - - Pulse - - Temperature - - Respiratory Rate - - Oxygen Saturation - - Inhaled Oxygen Concentration - - Weight 78.9 kg (174 lb) 02/25/2020 8:38 AM CDT Height 165.1 cm (5' 5 ) 02/25/2020 8:38 AM CDT Body Mass Index 28.96 02/25/2020 8:38 AM CDT documented in this encounter Progress Notes * Josie Leon NP - 02/25/2020 8:45 AM CDT NAME: Xiomara Gonsalves : 1985 DATE: 02/25/2020 REFERRING MD: Kaykay Weiss MD CHIEF COMPLAINT: Evaluation of a left breast lump HISTORY OF PRESENT ILLNESS: Xiomara Gonsalves is a 34 y.o. woman referred by Kaykay Weiss MD whorequested that I evaluate her for her left breast lump. She first noted the lump approximately one month ago. She presented to her oil burner mechanic, who ordered imaging. She underwent a left breast ultrasound and ultimately was recommended to undergo a biopsy. She presents today for a second opinion regarding this. The patient states that she is currently lactating and she noticed that the mass became very prominent at one point when her breasts became engorged. She reports that the mass is now it is approximately the same size as when she first noted it. It is non-tender. She denies erythema. She denies any abnormal masses in the right breast. She denies any change in the appearance of her breasts other than those related to lactating. She denies any changes to the skin of her breasts. She denies abnormal nipple discharge bilaterally. She delivered a healthy full-term infant nearly two weeks ago. She has no other systemic complaints and otherwise feels well today. This is a pleasant 34 y.o. woman who underwent menarche at 14 years of age. She has had 5 pregnancies and 4 live births, the first of which was at age 21. She did breastfeed her children. She is currently lactating. Her last menstrual period was 05/18/2019. She has never been on hormone replacementtherapy. She has not used oral contraception in the past. She has not undergone any previous breastbiopsies. She has not had any breast surgeries. She denies family history of cancer. History reviewed. No pertinent past medical history. History reviewed. No pertinent surgical history. HOME MEDICATIONS : vit 18-wulr-yuoyy-dha 27mg iron- 800 mcg-250 mg capsule vit D3-vit F-dllilayji-bwdr [id number] eoxo-qgh-lg-mg tablet Allergies Allergen Reactions ??? Vicodin [Hydrocodone-Acetaminophen] Anaphylaxis Social History Socioeconomic History ??? Marital status: Spouse name: Not on file ??? Number of children: Not on file ??? Years of education: Not on file ??? Highest education level: Not on file Occupational History ??? Not on file Social Needs ??? Financial resource strain: Not on file ??? Food insecurity Worry: Not on file Inability: Not on file ??? Transportation needs Medical: Not on file Non-medical: Not on file Tobacco Use ??? Smoking status: Never Smoker Substance and Sexual Activity ??? Alcohol use: Not on file ??? Drug use: Not on file ??? Sexual activity: Not on file Lifestyle ??? Physical activity Days per week: Not on file Minutes per session: Not on file ??? Stress: Not on file Relationships ??? Social connections Talks on phone: Not on file Gets together: Not on file Attends hinduism service: Not on file Active member of club or organization: Not on file Attends meetings of clubs or organizations: Not on file Relationship status: Not on file ??? Intimate partner violence Fear of current or ex partner: Not on file Emotionally abused: Not on file Physically abused: Not on file Forced sexual activity: Not on file Other Topics Concern ??? Not on file Social History Narrative ??? Not on file History reviewed. No pertinent family history. The patient's review of systems were reviewed as per the chart today and no other findings were noted. The patient's past medical history, social history, and family history are listed on their questionnaire and has been reviewed and can be found in the chart. PHYSICAL EXAMINATION: GENERAL: She is a well-developed, well-nourished woman in no acute distress. HEENT: Within normal limits. NECK: Neck is supple without lymphadenopathy or thyromegaly. LUNGS: Clear. HEART: Regular. ABDOMEN: Soft without organomegaly. EXTREMITIES: Warm without edema. NEUROLOGICAL: She is alert and oriented x 3. BREAST EXAMINATION: Bilateral breast examination reveals normal breasts bilaterally. Generalized firmness noted bilaterally consistent with . Examination of the left breast reveals a 1 cm firm mass at the 10 o'clock position approximately 3 cm from the nipple areolar border. The left breast is without skin changes, abnormal nipple discharge, or axillary adenopathy. The right breast is without any dominant masses, skin changes, abnormal nipple discharge, or axillary adenopathy. IMAGING: I personally reviewed all of the imaging performed, including the left breast ultrasound performed at the outside facility. Today she underwent a bilateral diagnostic mammogram and a bilateral breast ultrasound. The left breast was given a 4A due to a 2.4 x 1.9 x 1.9 cm irregular, hypoechoic mass in the left breast correlating to the palpable area of concern. Ultrasound-guided biopsy is recommended. The right breast was given a category 3 due to a 3.9 x 2.9 x 2.2 cm oval, circumscribedhyperechoic mass, which is probably benign, possibly a lactating adenoma. Short interval follow up with a right breast ultrasound is also recommended. ?? IMPRESSION/RECOMMENDATION: Xiomara Gonsalves is a 34 y.o. woman who presents today for a consultation regarding a left breast lump. I reviewed the clinical and imaging findings with her today. We discussed the fact that this is an indeterminate finding and we would recommend a definitive tissue diagnosis. I have made arrangements for an ultrasound-guided left breast biopsy in our Radiology Department on 03/14/2020. I should have the final pathology approximately 2-3 days later, and I will contact her with these results. At that time, we will discuss the recommendations and plan going forward. She will also need to return in six months for short interval follow up with a right breast ultrasound for the category 3 finding in her right breast. I answered all of her and her 's questions today and she is in agreement with the plan. I encouraged her to contact me in the interim if any new questions or concerns arise. Josie Leon NP NOTE: I called the patient once she was home to review her imaging and recommendations, as I was needed at a different office location before she returned. We discussed the findings in detail and therecommendation for an ultrasound-guided biopsy of the left breast. We also discussed the likely bening finding in the right breast and the recommendation for follow up with right breast ultrasound insix months. I advised that I will contact her as soon as the biopsy results are back. She will callin the interim with any questions or concerns. ADDENDUM 03/15/2020: I called the patient and discussed with her the benign left breast biopsy results, which includes Nodular lactational hyperplasia (lactating adenoma) and was without malignancy or atypia. Dr. Nation reviewed the path for Xiomara Gonsalves as benign and concordant. I do want to see her back in August 2020 for short interval follow up for the right breast mass (category 3 finding). She is aware that our office will be calling to schedule this. documented in this encounter Miscellaneous Notes * Addendum Note - Josie Leon NP - 02/25/2020 8:45 AM CDTAddended by: JOSIE LEON on: 03/15/2020 03:09 PM Modules accepted: Orders documented in this encounter Plan of Treatment Not on file documented as of this encounter Visit Diagnoses Diagnosis Left breast lump- Primary Abnormal finding on breast imaging documented in this encounter Historical Medications * This list may reflect changes made after this encounter. vit D3-vit D-ncruevdee-rqky [id number] hduv-kcn-dt-mg tablet Take by mouth vit 38-eflt-knzzq-dha 27mg iron- 800 mcg-250 mg capsule Take by mouth added in this encounter Care Teams Lab Animal Technician Relationship Specialty Start Date End Date Lisa Perez MD [address] [facility] [address] [place], [place] [id number] PCP - General Family Medicine 02/01/20 documented as of this encounter
--- OUTSIDE RECORDS SUMMARY | 2024-05-16 04:40 | XMS_ITS | Encounter Summary ---
Author Organization [facility] Address [address] [place] [address] Care Team Providers Care Anesthesia Resident Name Role Phone Lisa Perez MD Primary Care Provider [phone] Encounter Details Date Type Department Care Team [...] on filedocumented in this encounter Care Teams Anesthesia Resident Relationship Specialty Start Date End Date Lisa Perez MD PCP - General Family Practice 10/04/19 documented as of this encounter
--- OUTSIDE RECORDS SUMMARY | 2024-05-16 04:40 | XMS_ITS | Encounter Summary ---
Author Organization [facility] Address [address] [place] [address] Care Team Providers Care Administrative Resident Name Role Phone Lisa Perez MD Primary Care Provider Encounter Details Date Type Department Care Team (Latest Contact Info) Description 02/24/2020 2:59 PM CDT - 02/24/2020 11:59 PM CDT Hospital Encounter [facility] [address] [place] [phone] Discharge Disposition: Discharge to home or self care Social History Tobacco Use Types Packs/Day Years Used Date Smoking Tobacco: Never Assessed Comments Unknown Sex and Gender Information Value Date Recorded Sex Assigned at Not on file Legal Sex Female 2:58 PM CDT Gender Identity Not on file Sexual Orientation Not on file documented as of this encounter Discharge Disposition Disposition Code Departure Means Destination Discharge to home or self care documented in this encounter Plan of Treatment Not on file documented as of this encounter Procedures Procedure Name Priority Date/Time Associated Diagnosis Comments BREAST IMAGING OUTSIDE REFERENCE Schedule Routine, Read Routine (OP Routine) 02/24/2020 2:59 PM CDT Breast lump in female documented in this encounter Results * Breast Imaging Outside Reference (02/24/2020 2:59 PM CDT) Impressions RAD_MAMMO[facility] - 02/24/2020 2:59 PM CDT These images are for Reference purposes only and have not been reviewed by [facility] Radiology. ??There will be no report generated by a [facility] Radiologist. Narrative RAD_MAMMO[facility] - 02/24/2020 2:59 PM CDT EXAMINATION: ??Images For Reference Purposes Only us Josie Leon AIRLINE MANAGERIAL SUPERVISOR IMG MAMMO PROCEDURES Fin al Result [facility]MO[facility] documented in this encounter Visit Diagnoses Not on filedocumented in this encounter Care Teams Administrative Resident Relationship Specialty Start Date End Date Lisa Perez MD [address] [facility] [address] [place] [id number] PCP - General Family Medicine 02/01/20 documented as of this encounter
--- OUTSIDE RECORDS SUMMARY | 2024-05-16 04:40 | XMS_ITS | Encounter Summary ---
Author Organization [facility] Healthcare Address [address] [place] [address] Care Team Providers Care Wafer Cutter Name Role Phone Lisa Perez MD Primary Care Provider Encounter Details Date Type Department Care Team (Late st Contact Info) Description 03/13/2020 Telephone [facility] Advanced Medicine Breast Imaging [facility] Advanced Medicine ([facility]) [address] [place] [address] [address] Social History Tobacco Use Types Packs/Day Years Used Date Smoking Tobacco: Never Comments Unknown Sex and Gender Information Value Date Recorded Sex Assigned at Not on file Legal Sex Female 2:58 PM CDT Gender Identity Not on file Sexual Orientation Not on file documented as of this encounter Miscellaneous Notes * Telephone Encounter - Nga Sabillon - 03/13/2020 1:33 PM CDT REVIEWED COVID SCREENING QUESTIONS AND APPT INFO WITH PT documented in this encounter Plan of Treatment Not on file documented as of this encounter Visit Diagnoses Not on filedocumented in this encounter Care Teams Wafer Cutter Relationship Specialty Start Date End Date Lisa Perez MD [address] [facility] [address] [place] [address] PCP - General Family Medicine 02/01/20 documented as of this encounter
--- OUTSIDE RECORDS SUMMARY | 2024-05-16 04:40 | XMS_ITS | Encounter Summary ---
Author Organization [facility] Address [address] [place] [address] Phone Care Team Providers Care Mechanical Systems Designer Name Role Phone Lisa Perez MD Primary Care Provider Encounter Details Date Type Department Care Team (Late st Contact Info) Description 02/24/2020 Telephone [facility] Surgery [id number] 5th [place] [address] [place] [address] Heidi Simpson Social History Tobacco Use Types Packs/Day Years Used Date Smoking Tobacco: Never Assessed Comments Unknown Sex and Gender Information Value Date Recorded Sex Assigned at Not on file Legal Sex Female 2:58 PM CDT Gender Identity Not on file Sexual Orientation Not on file documented as of this encounter Miscellaneous Notes * Telephone Encounter - Heidi Simpson - 02/24/2020 10:20 AM CDT confirmed mask protocol and neg for covid concerns. documented in this encounter Plan of Treatment Not on file documented as of this encounter Visit Diagnoses Not on filedocumented in this encounter Care Teams Mechanical Systems Designer Relationship Specialty Start Date End Date Lisa Perez MD [address] [place] [address] [place] [address] PCP - General Family Medicine 02/01/20 documented as of this encounter
--- OUTSIDE RECORDS SUMMARY | 2024-05-16 04:40 | XMS_ITS | Encounter Summary ---
Author Organization [facility] Address [address] [place] [address] Phone Care Team Providers Care Petroleum Refinery Laborer Name Role Phone Lisa Perez MD Primary Care Provider Reason for Referral * Diagnostic Imaging (Routine) - Closed Specialty Diagnoses / Procedures Referred By Ellie lopez Referred To Contact Diagnoses Breast lump in female Procedures Diagnostic Mammogram Bilateral W Josie Fajardo NP Phone: tel: fax: [facility] [address] [place] [address] Referral ID Status Reason Start Date Expiration Date Visits Re quested Visits Authorized [id number] Closed 02/14/2020 03/15/2021 1 1 Encounter Details Date Type Department Care Team (Late st Contact Info) Description 02/14/2020 Orders Only [facility] [address] [facility] Advanced Medicine 5th [place] [address] [place] [address] Josie Leon NP [address] [place], [place] [id number] Breast lump in female (Primary Dx) Social History Tobacco Use Types Packs/Day Years Used Date Smoking Tobacco: Never Assessed Comments Unknown Sex and Gender Information Value Date Recorded Sex Assigned at Not on file Legal Sex Female 2:58 PM CDT Gender Identity Not on file Sexual Orientation Not on file documented as of this encounter Plan of Treatment Not on file documented as of this encounter Results * Diagnostic Mammogram Bilateral [place] (02/25/2020 9:48 AM CDT) Anatomical Region Laterality Modality Breast Bilateral Mammography 02/25/2020 11:5 6 AM CDT Impressions 02/25/2020 12:27 PM CDT 1. ??Irregular, hypoechoic mass in the LEFT breast correlating to the palpable area of concern is at low suspicion for malignancy. Ultrasound-guided biopsy is recommended. 2. ??Oval, circumscribed mass in the RIGHT breast is probably benign, possible lactating adenoma. ??Recommend follow-up ultrasound in 6 months to assess for stability. ??This is similar in appearance to the left breast 4:00 mass seen on outside ultrasound for which short-term follow-up was recommended at the outside institution. OVERALL FINAL ASSESSMENT: SUSPICIOUS. ??BI-RADS Category 4A: Low suspicion for malignancy. Dr. Malone discussed the above findings and recommendations with the patient. ??She has been scheduled to return to the [facility] for biopsy on 03/14/2020 at 8:30 AM. ??This facility will contact the referring clinician's office for an order. Dictated by: Jeff Malone M.D. The radiology attending physician has personally reviewed this study, and had reviewed and/or edited this written report and agrees with it. Electronically signed by: Cristina Carbajal M.D. Narrative 02/25/2020 12:27 PM CDT EXAMINATION: 1. ??BILATERAL DIGITAL DIAGNOSTIC MAMMOGRAM INCLUDING CAD AND BILATERAL DIGITAL BREAST TOMOSYNTHESIS 2. ??BILATERAL BREAST SONOGRAM HISTORY: 34-year-old woman who is 2 weeks presenting with palpable area of concern in the LEFT breast for one month. ??This was evaluated at an outside hospital on 01/28/2020 with ultrasound reportedly showing a hypoechoic mass at the palpable area of concern that was assigned a BI-RADS Category 4. ??She is currently breast-feeding. COMPARISON: outside hospital ultrasound from 01/28/2020 TECHNIQUE: ?? Full field digital mammographic views of BOTH breasts were performed, including computer aided detection (CAD) and BILATERAL digital breast tomosynthesis (DBT). ??Directed ultrasound evaluation of BOTH breasts was performed. BREAST PARENCHYMAL COMPOSITION: The breasts are heterogenously dense, which may obscure small masses. MAMMOGRAM FINDINGS: At the site of the triangle skin marker denoting the palpable area of concern in the upper inner quadrant of the LEFT breast at anterior depth, there is an irregular, isodense mass. ?? In the lower central RIGHT breast, there is an oval isodense 3.7 cm mass with partially circumscribed and partially obscured margins mass. Multiple additional similar appearing masses are noted bilaterally. SONOGRAM FINDINGS: At the 10 o'clock position, 6 cm from the nipple correlating to the palpable area concern in the LEFT breast there is a irregular, hypoechoic mass with microlobulated margins in a parallel orientation. ??No significant internal vascularity or posterior features. ??The mass measures 2.4 x 1.9 x 1.9 cm, similar to the outside hospital ultrasound performed on 01/28/2020. At the 6 o'clock position, 3 cm from the nipple in the RIGHT breast and corresponding to the mammographic area of concern there is a 3.9 x 2.9 x 2.2 cm oval, circumscribed hyperechoic mass in a parallel orientation without significant internal vascularity. Procedure Note Cristina Carbajal MD - 02/25/2020 EXAMINATION: 1. BILATERAL DIGITAL DIAGNOSTIC MAMMOGRAM INCLUDING CAD AND BILATERAL DIGITAL BREAST TOMOSYNTHESIS 2. BILATERAL BREAST SONOGRAM HISTORY: 34-year-old woman who is 2 weeks presenting with palpable area of concern in the LEFT breast for one month. This was evaluated at an outside hospital on 01/28/2020 with ultrasound reportedly showing a hypoechoic mass at the palpable area of concern that was assigned a BI-RADS Category 4. She is currently breast-feeding. COMPARISON: outside hospital ultrasound from 01/28/2020 TECHNIQUE: Full field digital mammographic views of BOTH breasts were performed, including computer aided detection (CAD) and BILATERAL digital breast tomosynthesis (DBT). Directed ultrasound evaluation of BOTH breasts was performed. BREAST PARENCHYMAL COMPOSITION: The breasts are heterogenously dense, which may obscure small masses. MAMMOGRAM FINDINGS: At the site of the triangle skin marker denoting the palpable area of concern in the upper inner quadrant of the LEFT breast at anterior depth, there is an irregular, isodense mass. In the lower central RIGHT breast, there is an oval isodense 3.7 cm mass with partially circumscribed and partially obscured margins mass. Multiple additional similar appearing masses are noted bilaterally. SONOGRAM FINDINGS: At the 10 o'clock position, 6 cm from the nipple correlating to the palpable area concern in the LEFT breast there is a irregular, hypoechoic mass with microlobulated margins in a parallel orientation. No significant internal vascularity or posterior features. The mass measures 2.4 x 1.9 x 1.9 cm, similar to the outside hospital ultrasound performed on 01/28/2020. At the 6 o'clock position, 3 cm from the nipple in the RIGHT breast and corresponding to the mammographic area of concern there is a 3.9 x 2.9 x 2.2 cm oval, circumscribed hyperechoic mass in a parallel orientation without significant internal vascularity. IMPRESSION: 1. Irregular, hypoechoic mass in the LEFT breast correlating to the palpable area of concern is at low suspicion for malignancy. Ultrasound-guided biopsy is recommended. 2. Oval, circumscribed mass in the RIGHT breast is probably benign, possible lactating adenoma. Recommend follow-up ultrasound in 6 months to assess for stability. This is similar in appearance to the left breast 4:00 mass seen on outside ultrasound for which short-term follow-up was recommended at the outside institution. OVERALL FINAL ASSESSMENT: SUSPICIOUS. BI-RADS Category 4A: Low suspicion for malignancy. Dr. Malone discussed the above findings and recommendations with the patient. She has been scheduled to return to the [facility] for biopsy on 03/14/2020 at 8:30 AM. This facility will contact the referring clinician's office for an order. Dictated by: Jeff Malone M.D. The radiology attending physician has personally reviewed this study, and had reviewed and/or edited this written report and agrees with it. Electronically signed by: Cristina Carbajal M.D. Josie Leon NP IMG MAMMO PROCEDURES Fin al Result documented in this encounter Visit Diagnoses Diagnosis Breast lump in female- Primary Lump or mass in breast Breast lump in female Lump or mass in breast documented in this encounter Care Teams Petroleum Refinery Laborer Relationship Specialty Start Date End Date Lisa Perez MD [address] [facility] [address] [place] [address] PCP - General Family Medicine 02/01/20 documented as of this encounter
--- OUTSIDE RECORDS SUMMARY | 2024-05-16 04:40 | XMS_ITS | Clinical Summary ---
Author Organization [facility] Address [address] [place] [address] Phone Care Team Providers Care Kitchen Steward Name Role Phone Lisa Perez MD Primary Care Provider +1- [phone] Encounters Date Type Department Care Team Description 03/02/2024 External Device Data [facility] ABSTRACTION Provider, Abstract 02/17/2024 External Device Data [facility] ABSTRACTION Provider, Abstract from Last 3 Months Social History Tobacco Use Types Packs/Day Years Used Date Smoking Tobacco: Never Assessed Sex and Gender Information Value Date Recorded Sex Assigned at Not on file Gender Identity Not on file Sexual Orientation Not on file Plan of Treatment Health Maintenance Due Date Last Done Comments Pre-Diabetes and Diabetes Screening 1987 DTAP/TDAP/TD VACCINES (1 - Tdap) 08/31/2006 HEPATITIS B VACCINES (1 of 3 - 19+ 3-dose series) 08/31/2006 CERVICAL CANCER SCREENING 08/31/2017 INFLUENZA VACCINE (#1) 2023 HPV VACCINES Aged Out No longer eligi ble based on patient's age to complete this topic PNEUMOCOCCAL VACCINE 0-64 YEARS Aged Out No longer eligible based on patient's age to complete this topic Care Teams Kitchen Steward Relationship Specialty Start Date End Date Lisa Perez MD PCP - General Family Practice 10/04/19
--- OUTSIDE RECORDS SUMMARY | 2024-05-16 04:40 | XMS_ITS | Encounter Summary ---
Author Organization [facility] Address [address] [place] [address] Phone Care Team Providers Care Oven Stripper Name Role Phone Lisa Perez MD Primary Care Provider Encounter Details Date Type Department Care Team (Late st Contact Info) Description 03/13/2021 Telephone [facility] 5th [place] [address] [place] [address] Raine Thompson Social History Tobacco Use Types Packs/Day Years Used Date Smoking Tobacco: Never Comments Unknown Sex and Gender Information Value Date Recorded Sex Assigned at Not on file Legal Sex Female 2:58 PM CDT Gender Identity Not on file Sexual Orientation Not on file documented as of this encounter Miscellaneous Notes * Telephone Encounter - Raine Thompson - 03/13/2021 1:03 PM CDT I left a detailed voice message patient needs appointment with Josie Leon with imaging. Patient is overdue for her 6 moths follow up. documented in this encounter Plan of Treatment Not on file documented as of this encounter Visit Diagnoses Not on filedocumented in this encounter Care Teams Oven Stripper Relationship Specialty Start Date End Date Lisa Perez MD [address] [facility] [address] [place] [address] PCP - General Family Medicine 02/01/20 documented as of this encounter
--- OUTSIDE RECORDS SUMMARY | 2024-05-16 04:40 | XMS_ITS | Encounter Summary ---
Author Organization [facility] Address [address] [place] [address] Care Team Providers Care Cosmetic Sales Consultant Name Role Phone Lisa Perez MD Primary Care Provider +1- [phone] Encounter Details Date Type Department Care Team (Late st Contact Info) Description 11/25/2023 External Device Data [facility] ABSTRACTION Provider, Abstract [...] on filedocumented in this encounter Care Teams Cosmetic Sales Consultant Relationship Specialty Start Date End Date Lisa Perez MD PCP - General Family Practice 10/04/19 documented as of this encounter
--- OUTSIDE RECORDS SUMMARY | 2024-05-16 04:40 | XMS_ITS | Encounter Summary ---
Author Organization [facility] Address [address] [place] [address] Care Team Providers Care Office Workforce Planner Name Role Phone Lisa Perez MD Primary Care Provider +1- [phone] Encounter Details Date Type Department Care Team (Late st Contact Info) Description 12/23/2023 External Device Data [facility] ABSTRACTION Provider, Abstract [...] on filedocumented in this encounter Care Teams Office Workforce Planner Relationship Specialty Start Date End Date Lisa Perez MD PCP - General Family Practice 10/04/19 documented as of this encounter
--- OUTSIDE RECORDS SUMMARY | 2024-05-16 04:40 | XMS_ITS | Clinical Summary ---
Author Organization [facility] Address [address] [place] [address] Care Team Providers Care Barometers Calibrator Name Role Phone Lisa Perez MD Primary Care Provider Allergies Active Allergy Reactions Criticality Noted Date Comments Hydrocodone-Acetaminophen Anaphylaxis High 0 Medications vit 61-weuh-yqqdg-dh a 27mg iron- 800 mcg-250 mg capsule Take by mouth Active vit D3-vit M-odlqkontb-qqrc [id number] ktyh-tjp-dm-mg tablet Take by mouth Active Active Problems Problem Noted Date Diagnosed Date Left breast lump 02/25/2020 Abnormal finding on breast imaging 02/25/2020 Surgical History Surgery Date Site/Laterality Comments BREAST BIOPSY 03/14/2020 Left Social History Tobacco Use Types Packs/Day Years Used Date Smoking Tobacco: Never Personal Safety Answer Date Recorded Getting School Help Needed Not on file 08/02 Comments Unknown Sex and Gender Information Value Date Recorded Sex Assigned at Not on file Legal Sex Female 2:58 PM CDT Gender Identity Not on file Sexual Orientation Not on file Obstetrics History Last Filed Vital Signs Vital Sign Reading [...] Plan of Treatment Not on file Insurance [facility] CLAIMS Care Teams Barometers Calibrator Relationship Specialty Start Date End Date Lisa Perez MD [address] [facility] [address] [place] [address] PCP - General Family Medicine 02/01/20
--- OUTSIDE RECORDS SUMMARY | 2024-05-16 04:40 | XMS_ITS | Encounter Summary ---
Author Organization [facility] Address [address] [place] [address] Phone Care Team Providers Care International Controller Name Role Phone Lisa Perez MD Primary Care Provider Reason for Visit * Reason Onset Date Comments Appointment 09/20/2020 Encounter Details Date Type Department Care Team (Late st Contact Info) Description 09/20/2020 Telephone [facility] Surgery [address] [facility] [address]th [place] [address] [place] [id number] Josie Leon NP [address] [place] [address] Appointment Social History Tobacco Use Types Packs/Day Years Used Date Smoking Tobacco: Never Comments Unknown Sex and Gender Information Value Date Recorded Sex Assigned at Not on file Legal Sex Female 2:58 PM CDT Gender Identity Not on file Sexual Orientation Not on file documented as of this encounter Miscellaneous Notes * Telephone Encounter - Dallas Patel - 09/20/2020 8:58 AM CDT Per Marian Trevizo (pre arrival), Annemarie at [facility] office is unable to process a referral until patient contacts to update [facility] information on their end. Called patient and left a message, also reached out and spoke with her spouse. Spouse is aware we are canceling appointment until a referral has been processed. Patient to call back and reschedule at that time. documented in this encounter Plan of Treatment Not on file documented as of this encounter Visit Diagnoses Not on filedocumented in this encounter Care Teams International Controller Relationship Specialty Start Date End Date Lisa Perez MD [address] [facility] [address] [place] [address] PCP - General Family Medicine 02/01/20 documented as of this encounter
--- OUTSIDE RECORDS SUMMARY | 2024-05-16 04:40 | XMS_ITS | Encounter Summary ---
Author Organization [facility] Address [address] [place] [address] Care Team Providers Care Brazer Electronic Name Role Phone Lisa Perez MD Primary Care Provider Reason for Referral * Diagnostic Imaging (Routine) - Closed Specialty Diagnoses / Procedures Referred By Ellie lopez Referred To Contact Diagnoses Breast lump in female Procedures Diagnostic Mammogram Bilateral W Josie Fajardo NP Phone: tel: fax: [address] [address] Referral ID Status Reason Start Date Expiration Date Visits Re quested Visits Authorized [id number] Closed 02/14/2020 03/15/2021 1 1 Reason for Visit * Diagnostic Imaging (Routine) - Closed Specialty Diagnoses / Procedures Referred By Ellie lopez Referred To Contact Diagnoses Breast lump in female Procedures Diagnostic Mammogram Bilateral W Josie Fajardo NP Phone: tel: fax: [address] [address] Referral ID Status Reason Start Date Expiration Date Visits Re quested Visits Authorized [id number] Closed 02/14/2020 03/15/2021 1 1 Encounter Details Date Type Department Care Team (Late st Contact Info) Description 02/25/2020 9:00 AM CDT - 02/25/2020 11:59 PM CDT Hospital Encounter [facility] [address] [place] [address] Aft, Georgiana Ohara MD PhD [address] [place] [address] Josie Leon NP [address] [place] [address] Breast lump in female Discharge Disposition: Discharge to home or self care Social History Tobacco Use Types Packs/Day Years Used Date Smoking Tobacco: Never Comments Unknown Sex and Gender Information Value Date Recorded Sex Assigned at Not on file Legal Sex Female 2:58 PM CDT Gender Identity Not on file Sexual Orientation Not on file documented as of this encounter Medications at Time of Discharge vit 13-ywlm-rhdrp-dha 27mg iron- 800 mcg-250 mg capsule Take by mouth vit D3-vit P-bolpiqsum-bztj [phone] gbda-yhz-jy-mg tablet Take by mouth documented as of this encounter Discharge Disposition Disposition Code Departure Means Destination Discharge to home or self care documented in this encounter Plan of Treatment Not on file documented as of this encounter Procedures Procedure Name Priority Date/Time Associated Diagnosis Comments US BREAST BILATERAL LIMITED Schedule Routine, Read Routine (OP Routine) 02/25/2020 10:44 AM CDT Breast lump in female DIAGNOSTIC MAMMOGRAM BILATERAL W MANFRED Schedule Routine, Read Routine (OP Routine) 02/25/2020 9:48 AM CDT Breast lump in female documented in this encounter Results * US Breast Bilateral Limited (02/25/2020 10:44 AM CDT) Anatomical Region Laterality Modality Breast Bilateral Ultrasound 02/25/2020 11:5 6 AM CDT Impressions 02/25/2020 [...] has been scheduled to return to the [facility] for biopsy on 03/14/2020 at 8:30 AM. [...] has been scheduled to return to the [facility] for biopsy on 03/14/2020 at 8:30 AM. This facility will contact the referring clinician's office for an order. Dictated by: Jeff Malone M.D. The radiology attending physician has personally reviewed this study, and had reviewed and/or edited this written report and agrees with it. Electronically signed by: Cristina Carbajal M.D. us Josie Leon ASSISTANT OPERATIONS MANAGER IMG MAMMO PROCEDURES Fin al Result * Diagnostic Mammogram Bilateral W [place] (02/25/2020 [...] has been scheduled to return to the [facility] for biopsy on 03/14/2020 at 8:30 AM. [...] has been scheduled to return to the [facility] for biopsy on 03/14/2020 at 8:30 AM. This facility will contact the referring clinician's office for an order. Dictated by: Jeff Malone M.D. The radiology attending physician has personally reviewed this study, and had reviewed and/or edited this written report and agrees with it. Electronically signed by: Cristina Carbajal M.D. Josie Leon ASSISTANT OPERATIONS MANAGER IMG MAMMO PROCEDURES Fin al Result documented in this encounter Visit Diagnoses Diagnosis Breast lump in female Lump or mass in breast documented in this encounter Care Teams Brazer Electronic Relationship Specialty Start Date End Date Lisa Perez MD [address] [facility] [address] [place] [address] PCP - General Family Medicine 02/01/20 documented as of this encounter
--- OUTSIDE RECORDS SUMMARY | 2024-05-16 04:40 | XMS_ITS | Encounter Summary ---
Author Organization [facility] Address [address] [place] [id number] Care Team Providers Care Statistical Reporting Analyst Name Role Phone Lisa Perez MD Primary Care Provider Reason for Referral * Diagnostic Imaging (Routine) - Closed Specialty Diagnoses / Procedures Referred By Contac t Referred To Contact Diagnoses Abnormal ultrasound of breast Procedures Mammo Post Clip Placement Left Josie Leon NP Phone: tel: fax: [facility] Referral ID Status Reason Start Date Expiration Date Visits Re quested Visits Authorized [id number] Closed 03/14/2020 04/13/2021 1 1 * Diagnostic Imaging (Routine) - Closed Specialty Diagnoses / Procedures Referred By Contac t Referred To Contact Diagnoses Abnormal ultrasound of breast Procedures US Guided Breast Biopsy Left Josie Leon NP Phone: tel: fax: [address] [address] Referral ID Status Reason Start Date Expiration Date Visits Re quested Visits Authorized [id number] Closed 02/25/2020 03/26/2021 1 1 Reason for Visit * Diagnostic Imaging (Routine) - Closed Specialty Diagnoses / Procedures Referred By Contac t Referred To Contact Diagnoses Abnormal ultrasound of breast Procedures US Guided Breast Biopsy Left Josie Leon NP Phone: tel: fax: [facility] [address] [place] [address] Referral ID Status Reason Start Date Expiration Date Visits Re quested Visits Authorized [id number] Closed 02/25/2020 03/26/2021 1 1 Encounter Details Date Type Department Care Team (Late st Contact Info) Description 03/14/2020 8:14 AM CDT - 03/14/2020 11:59 PM CDT Hospital Encounter [facility] [address] [place] [address] Amanda Tran MD [address] [id number] Josie Leon NP [address] [place], [place] [id number] Abnormal ultrasound of breast Discharge Disposition: Discharge to home or self care Social History Tobacco Use Types Packs/Day Years Used Date Smoking Tobacco: Never Comments Unknown Sex and Gender Information Value Date Recorded Sex Assigned at Not on file Legal Sex Female 2:58 PM CDT Gender Identity Not on file Sexual Orientation Not on file documented as of this encounter Discharge Instructions * Discharge Instructions* Shantell Crockett RDMS - 03/14/2020 9:30 AM CDT [facility] Discharge Instructions Activity: ?? Avoid exercise for 24 hours after biopsy. ?? Do not lift objects heavier than 5-10 lbs for 24 hours after biopsy. ?? Other instructions: Medication: ?? Remain on your usual medications; check with your regualr doctor for any questions. ?? You may take Tylenol (acetaminophen) 500mg, 2 tablest aevery 6 hours fr pain of needed (and no allergy exists). You should avoid using Aspirin (Excedrin), Ibuprofen (Motrin, Advil)or Aleve for 48 hours after thebiopsy. ?? Other instructions Wound care: Wear your bra all day today, and consider sleeping in one tonight. You may take a bath or shower after on ?? Tegaderm Dressing: Remove the outer dressing after you bath or shower. Don ot remove the steri strips. They will fall off in 5-10 days. ?? Dermabond: Do not scratch, rub or pick at the wound adhesive. It will naturally fall off in 5-10days. Avoid swimming pools, hot tubs, and tub soaks for 7 days after biopsy. Apply an ice pack to the biopsy site every 2 hours today (for 20 minutes each time) until bedtime. Do not place ice directly on the skin. You will experience some bruising. Special instructions: Please call the [facility] nurses at [phone] or the [facility] at [phone] (8am to 5 pm*) if you experience: ?? Extreme redness, bruising, swelling, severe pain or unusual drainage at the biopsy site ?? Fever of 101.5 F ?? If there are any signs of bleeding, lie down and apply firm pressure for 20 minutes. If bleedingpersists call the [facility] or your physician. * If it is after hours, a weekend or holiday, please call your breast surgeon or referring physician. Results: You should receive your biopsy results within 3 working days. If you have not been informed of yourresults after this time please call: ?? The breast imaging nurse in the [facility] at [phone]. ?? The breast surgeon's office at . ?? The referring physicians office documented in this encounter Medications at Time of Discharge vit 61-spxy-ajdcr-dha 27mg iron- 800 mcg-250 mg capsule Take by mouth vit D3-vit Q-nvwlhslgp-jdqw [phone] cyca-lbm-hh-mg tablet Take by mouth documented as of this encounter Discharge Disposition Disposition Code Departure Means Destination Discharge to home or self care documented in this encounter Miscellaneous Notes * Post-Procedure Note - Vel Guerra MD - 03/14/2020 8:30 AM CDT Radiology Brief Post Procedure Note Attending: Dr. Nation Fine Grade Bulldozer Operator: Dr. Mari Richardson Sedation/Anesthesia: Local Pre-Op/Pre-Procedure Diagnosis: Left breast mass Post-Op/Post-Procedure Diagnosis: Left breast mass Procedure Performed: US guided left breast biopsy and clip placement Procedure Findings: Successful US guided left breast biopsy Complications: None Estimated Blood Loss: < 30 ml Specimens: 3 core specimens were obtained Condition: Stable Full report to follow. documented in this encounter Plan of Treatment Not on file documented as of this encounter Procedures Procedure Name Priority Date/Time Associated Diagnosis Comments MAMM POST CLIP PLACEMENT LEFT Schedule Routine, Read Routine (OP Routine) 03/14/2020 9:40 AM CDT Abnormal ultrasound of breast US GUIDED BREAST BIOPSY LEFT Schedule Routine, Read Routine (OP Routine) 03/14/2020 9:30 AM CDT Abnormal ultrasound of breast SURGICAL PATHOLOGY Routine 03/14/2020 9:18 AM CDT Abnormal ultrasound of breast documented in this encounter Results * Mammo Post Clip Placement Left (03/14/2020 9:40 AM CDT) Anatomical Region Laterality Modality Breast Left Mammography 03/14/2020 9:50 AM CDT Addenda Addendum by Jocy Nation MD on 03/17/2020 9:01 AM CDT ADDENDUM Addendum #1 issued at 03/16/2020 1:21 PM by LANA Stiles, RN for Dr. 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 ??There are no atypical or malignant findings. This is benign and concordant with image findings. It is recommended for patient to return in 6 months for RIGHT breast ultrasound. The patient was informed of the biopsy results and recommendations by referring provider Josie Leon APRN, [facility] on 03/15/20. Edited by: Briana Alcantar Correction to IMPRESSION: ??should say: Successful core needle biopsy of the LEFT breast. (not RIGHT) Dictated by: Mary Seo M.D. The radiology attending physician has personally reviewed this study, and had reviewed and/or edited this written report and agrees with it. Electronically signed by: Jocy Nation M.D. Impressions 03/14/2020 4:04 PM CDT Successful core needle biopsy of the RIGHT breast. ??Pathology is pending. Dictated by: Mary Seo M.D. The radiology attending physician has personally reviewed this study, and had reviewed and/or edited this written report and agrees with it. Electronically signed by: Jocy Nation M.D. Narrative 03/14/2020 4:04 PM CDT EXAMINATION: LEFT BREAST CORE BIOPSY UTILIZING SONOGRAPHIC GUIDANCE, PLACEMENT OF A BIOPSY TISSUE MARKER CLIP, AND LEFT FULL FIELD DIGITAL POST-PROCEDURE MAMMOGRAM HISTORY: ??Abnormal breast imaging. ??34-year-old lactating woman presented with palpable left breast abnormality which correlated to a 1.9 cm hypoechoic mass with microlobulated margins. ??Ultrasound guided core needle biopsy is requested to evaluate for malignancy. COMPARISON: 02/25/2020 PROCEDURE AND FINDINGS: The risks and potential benefits of the procedures were discussed with the patient and written informed consent was obtained. After sterile preparation of the skin, 1% lidocaine was utilized for local anesthesia. ??A small skin incision was made with a #11 scalpel blade. ??A 14-gauge spring-loaded ??biopsy needle was then advanced through the skin incision to the edge of the lesion of interest at the 10:00 location from a superolateral approach utilizing sonographic guidance. A total of 3 tissue cores were obtained through the lesion. ??An UltraClip ribbon-shaped tissue marker clip was then placed at the biopsy site. Hemostasis was achieved. ??Dermabond and an ice pack were applied. ??The tissue cores were submitted to surgical pathology in formalin for histologic analysis. The patient tolerated the procedure well and without evidence of significant immediate complication. The patient was given verbal as well as written post procedural instructions prior to release from the department. A two-view LEFT digital mammogram obtained post procedure demonstrates that the tissue marker clip is in expected position. The attending radiologist, Dr. Jocy Nation M.D. , was present throughout the entire procedure. ??Dr. Seo (breast imaging fellow) and Dr. Guerra (diagnostic radiology nurse) also participated in this examination. Procedure Note Jocy Nation MD - 03/14/2020 EXAMINATION: LEFT BREAST CORE BIOPSY UTILIZING SONOGRAPHIC GUIDANCE, PLACEMENT OF A BIOPSY TISSUE MARKER CLIP, AND LEFT FULL FIELD DIGITAL POST-PROCEDURE MAMMOGRAM HISTORY: Abnormal breast imaging. 34-year-old lactating woman presented with palpable left breast abnormality which correlated to a 1.9 cm hypoechoic mass with microlobulated margins. Ultrasound guided core needle biopsy is requested to evaluate for malignancy. COMPARISON: 02/25/2020 PROCEDURE AND FINDINGS: The risks and potential benefits of the procedures were discussed with the patient and written informed consent was obtained. After sterile preparation of the skin, 1% lidocaine was utilized for local anesthesia. A small skin incision was made with a #11 scalpel blade. A 14-gauge spring-loaded biopsy needle was then advanced through the skin incision to the edge of the lesion of interest at the 10:00 location from a superolateral approach utilizing sonographic guidance. A total of 3 tissue cores were obtained through the lesion. An UltraClip ribbon-shaped tissue marker clip was then placed at the biopsy site. Hemostasis was achieved. Dermabond and an ice pack were applied. The tissue cores were submitted to surgical pathology in formalin for histologic analysis. The patient tolerated the procedure well and without evidence of significant immediate complication. The patient was given verbal as well as written post procedural instructions prior to release from the department. A two-view LEFT digital mammogram obtained post procedure demonstrates that the tissue marker clip is in expected position. The attending radiologist, Dr. Jocy Nation M.D. , was present throughout the entire procedure. Dr. Seo (breast imaging fellow) and Dr. Guerra (diagnostic radiology nurse) also participated in this examination. IMPRESSION: Successful core needle biopsy of the RIGHT breast. Pathology is pending. Dictated by: Mary Seo M.D. The radiology attending physician has personally reviewed this study, and had reviewed and/or edited this written report and agrees with it. Electronically signed by: Jocy Nation M.D. us Josie Leon [facility] IMG MAMMO PROCEDURES Brett viki Result - Final * US Guided Breast Biopsy Left (03/14/2020 9:30 AM CDT) Anatomical Region Laterality Modality Breast Left Mammography 03/14/2020 9:50 AM CDT Addenda Addendum by Jocy Nation MD on 03/17/2020 9:01 AM CDT ADDENDUM Addendum #1 issued at 03/16/2020 1:21 PM by LANA Stiles, RN for Dr. 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 ??There are no atypical or malignant findings. This is benign and concordant with image findings. It is recommended for patient to return in 6 months for RIGHT breast ultrasound. The patient was informed of the biopsy results and recommendations by referring provider Josie Leon APRN, AGPCNP- on 03/15/20. Edited by: Briana Alcantar Correction to IMPRESSION: ??should say: Successful core needle biopsy of the LEFT breast. (not RIGHT) Dictated by: Mary Seo M.D. The radiology attending physician has personally reviewed this study, and had reviewed and/or edited this written report and agrees with it. Electronically signed by: Jocy Nation M.D. Impressions 03/14/2020 4:04 PM CDT Successful core needle biopsy of the RIGHT breast. ??Pathology is pending. Dictated by: Mary Seo M.D. The radiology attending physician has personally reviewed this study, and had reviewed and/or edited this written report and agrees with it. Electronically signed by: Jocy Nation M.D. Narrative 03/14/2020 4:04 PM CDT EXAMINATION: LEFT BREAST CORE BIOPSY UTILIZING SONOGRAPHIC GUIDANCE, PLACEMENT OF A BIOPSY TISSUE MARKER CLIP, AND LEFT FULL FIELD DIGITAL POST-PROCEDURE MAMMOGRAM HISTORY: ??Abnormal breast imaging. ??34-year-old lactating woman presented with palpable left breast abnormality which correlated to a 1.9 cm hypoechoic mass with microlobulated margins. ??Ultrasound guided core needle biopsy is requested to evaluate for malignancy. COMPARISON: 02/25/2020 PROCEDURE AND FINDINGS: The risks and potential benefits of the procedures were discussed with the patient and written informed consent was obtained. After sterile preparation of the skin, 1% lidocaine was utilized for local anesthesia. ??A small skin incision was made with a #11 scalpel blade. ??A 14-gauge spring-loaded ??biopsy needle was then advanced through the skin incision to the edge of the lesion of interest at the 10:00 location from a superolateral approach utilizing sonographic guidance. A total of 3 tissue cores were obtained through the lesion. ??An UltraClip ribbon-shaped tissue marker clip was then placed at the biopsy site. Hemostasis was achieved. ??Dermabond and an ice pack were applied. ??The tissue cores were submitted to surgical pathology in formalin for histologic analysis. The patient tolerated the procedure well and without evidence of significant immediate complication. The patient was given verbal as well as written post procedural instructions prior to release from the department. A two-view LEFT digital mammogram obtained post procedure demonstrates that the tissue marker clip is in expected position. The attending radiologist, Dr. Jocy Nation M.D. , was present throughout the entire procedure. ??Dr. Seo (breast imaging fellow) and Dr. Guerra (diagnostic radiology nurse) also participated in this examination. Procedure Note Jocy Nation MD - 03/14/2020 EXAMINATION: LEFT BREAST CORE BIOPSY UTILIZING SONOGRAPHIC GUIDANCE, PLACEMENT OF A BIOPSY TISSUE MARKER CLIP, AND LEFT FULL FIELD DIGITAL POST-PROCEDURE MAMMOGRAM HISTORY: Abnormal breast imaging. 34-year-old lactating woman presented with palpable left breast abnormality which correlated to a 1.9 cm hypoechoic mass with microlobulated margins. Ultrasound guided core needle biopsy is requested to evaluate for malignancy. COMPARISON: 02/25/2020 PROCEDURE AND FINDINGS: The risks and potential benefits of the procedures were discussed with the patient and written informed consent was obtained. After sterile preparation of the skin, 1% lidocaine was utilized for local anesthesia. A small skin incision was made with a #11 scalpel blade. A 14-gauge spring-loaded biopsy needle was then advanced through the skin incision to the edge of the lesion of interest at the 10:00 location from a superolateral approach utilizing sonographic guidance. A total of 3 tissue cores were obtained through the lesion. An UltraClip ribbon-shaped tissue marker clip was then placed at the biopsy site. Hemostasis was achieved. Dermabond and an ice pack were applied. The tissue cores were submitted to surgical pathology in formalin for histologic analysis. The patient tolerated the procedure well and without evidence of significant immediate complication. The patient was given verbal as well as written post procedural instructions prior to release from the department. A two-view LEFT digital mammogram obtained post procedure demonstrates that the tissue marker clip is in expected position. The attending radiologist, Dr. Jocy Nation M.D. , was present throughout the entire procedure. Dr. Seo (breast imaging fellow) and Dr. Guerra (diagnostic radiology nurse) also participated in this examination. IMPRESSION: Successful core needle biopsy of the RIGHT breast. Pathology is pending. Dictated by: Mary Seo M.D. The radiology attending physician has personally reviewed this study, and had reviewed and/or edited this written report and agrees with it. Electronically signed by: Jocy Nation M.D. Josie Leon NP IMG MAMMO PROCEDURES Brett viki Result - Final * Surgical pathology (03/14/2020 9:18 AM CDT) Tissue (Breast biopsy, needle core) 03/14/2020 9:18 AM CDT Comment:LEFT breast palpable mass, 10:00 6cmfn, BI-RADS 4A, 3 passes, ribbon clip Narrative PATHOLOGY [facility] - 03/15/2020 1:04 PM CDT EPIC results best viewed via link to PDF [facility] [place] [address] SURGICAL PATHOLOGY REPORT FINAL Patient Name: ?? XIOMARA BARFIELD Gender: ??F : ??1985 (Age: 34) Address: ??[address] [place] [id number] Hospital #: ??[id number] Taken:03/14/2020 Received:03/14/2020 Reported: 03/15/2020 Patient Type: [facility] Ancillary ?? Service: Radiology BJ Location: [facility] Physician(s): ??Jocy Nation M.D. Josie Leon, ANP Lisa Perez M.D. Diagnosis: A. ??Breast, left, ultrasound-guided needle core biopsy ? - Nodular lactational hyperplasia (lactating adenoma) - No atypical or malignant findings px/03/15/2020 10:20 By this signature, I attest that the above diagnosis is based upon my personal examination of the slides(and/or other material indicated in the diagnosis). Alma Puentes M.D., Ph.D. Report Electronically Reviewed and Signed Out By ??Alma Puentes M.D., Ph.D. 03/15/2020 13:04:40 Microscopic Description and Comment: Microscopic examination substantiates the above cited diagnosis. Saúl Sullivan M.D. History: The patient is a 34-year-old woman who presents with a left palpable breast mass, 10 o'clock 6 cm from nipple, BIRADS 4A, three passes, ribbon clip. ??Operative procedure: Left breast biopsy. Specimen(s) Received: A: Left breast at 10 o' clock, 6cm from nipple Gross Description: The specimen is received in a single formalin filled container labeled with the patient's name and left breast 10 o'clock 6 cm from nipple and consists of multiple jeff-pink to yellow core fragments of soft tissue ranging from 0.2-1.7 cm in greatest dimension. ??Labeled A1 and A2. ??Jar 0 Formalin fixation time: 8.5 hours sxb/03/14/2020 12:53 PA(s): Josie Munoz, MS, PA (ASCP) By this signature, I attest that the above diagnosis is based upon my personal examination of the slides(and/or other material). Addenda/Procedures The performance characteristics of some immunohistochemical stains, fluorescence in-situ hybridization tests and immunophenotyping by flow cytometry cited in this report (if any) were determined by the Surgical Pathology Department at [facility] as part of an ongoing quality assurance associate program and in compliance with federally mandated regulations drawn from the Clinical Laboratory Improvement Act of 1988 (CLIA '88). ??Some of these tests rely on the use of analyte specific reagents and are subject to specific labeling requirements by the US Food and Drug Administration. ??Such diagnostic tests may only be performed in a facility that is certified by the Department of Health and Human Services as a high complexity laboratory under CLIA '88. ??The FDA has determined that such clearance or approval is not necessary. ??This test is used for clinical purposes. ??It should not be regarded as investigational or for research. ??Nevertheless, federal rules concerning the medical use of analyte specific reagents require that the following disclaimer be attached to the report: This test was developed and its performance characteristics determined by the Surgical Pathology Department of [facility]. ??It has not been cleared or approved by the U. S. Food and Drug Administration. IMAGES AND SCANNED DOCUMENTS, IF INCLUDED, ONLY VIEWABLE IN PDF VERSION OF REPORT Josie Leon NP LAB PATHOLOGY ORDERABLES Final Result PATHOLOGY [facility] [address] Floor [place], [place] [phone] documented in this encounter Visit Diagnoses Diagnosis Abnormal ultrasound of breast documented in this encounter Administered Medications Inactive Administered Medications - up to 3 most recent administrations Medication Order MAR Action Action Date Dose Rate Site lidocaine (XYLOCAINE) 10 mg/mL (1 %) injection Code/trauma/sedation medication, Starting on Fri03/14/20 at 0917, Intra-Procedure (IR), Indications: Administration of Local AnesthesiaIndications:Administ ration of Local Anesthesia Given 03/14/2020 9:17 AM CDT 5 mL Left Breast documented in this encounter Orders Medications Ordered That Yovanny ht Not Have Been Administered Count Last Ordered Date First Ordered Date lidocaine (XYLOCAINE) 10 mg/ mL (1 %) injection 1 03/14/2020 documented in this encounter Care Teams Statistical Reporting Analyst Relationship Specialty Start Date End Date Lisa Perez MD [address] [facility] [address] [place] [address] PCP - General Family Medicine 02/01/20 documented as of this encounter
--- OUTSIDE RECORDS SUMMARY | 2024-05-16 04:40 | XMS_ITS | Encounter Summary ---
Author Organization [facility] Address [address] [facility] Attn: Epic Prelude ADT [place] [address] Care Team Providers Care Project Management Manager Name Role Phone Unavailable Primary Care Provider Unavailabl e Encounter Details Date Type Department Care Team (Latest Contact Info) Description 09/20/2019 Travel Social History Tobacco Use Types Packs/Day [...] have Coronavirus / COVID-19? No / Unsure 09/20/2019 9:58 AM CDT documented as of this encounter Plan of Treatment Not on file documented as of this encounter Visit Diagnoses Not on filedocumented in this encounter
--- OUTSIDE RECORDS SUMMARY | 2024-05-16 04:40 | XMS_ITS | Encounter Summary ---
Author Organization [facility] Address [address] [place] [address] Care Team Providers Care Label Coder Name Role Phone Lisa Perez MD Primary Care Provider [phone]- [phone] Encounter Details Date Type Department Care Team [...] on filedocumented in this encounter Care Teams Label Coder Relationship Specialty Start Date End Date Lisa Perez MD PCP - General Family Practice 10/04/19 documented as of this encounter
--- OUTSIDE RECORDS SUMMARY | 2024-05-16 04:40 | XMS_ITS | Encounter Summary ---
Author Organization [facility] Address [address] [place] [address] Care Team Providers Care Garment Form Assembler Name Role Phone Lisa Perez MD Primary Care Provider [phone]- [phone] Encounter Details Date Type Department Care Team [...] on filedocumented in this encounter Care Teams Garment Form Assembler Relationship Specialty Start Date End Date Lisa Perez MD PCP - General Family Practice 10/04/19 documented as of this encounter
--- OUTSIDE RECORDS SUMMARY | 2024-05-16 04:40 | XMS_ITS | Encounter Summary ---
Author Organization [facility] Address [address] [place] [address] Phone Care Team Providers Care Precision Instrument Maker Name Role Phone Lisa Perez MD Primary Care Provider Encounter Details Date Type Department Care Team (Late st Contact Info) Description 09/27/2021 Telephone [facility] Surgery [facility] 5th [place] [address] [place] [address] Eufemia Barr RMA Social History Tobacco Use Types Packs/Day Years Used Date Smoking Tobacco: Never Comments Unknown Sex and Gender Information Value Date Recorded Sex Assigned at Not on file Legal Sex Female 2:58 PM CDT Gender Identity Not on file Sexual Orientation Not on file documented as of this encounter Miscellaneous Notes * Telephone Encounter - Eufemia Barr RMA - 09/27/2021 4:00 PM CDT I returned the pt's call and the line was busy, tried several times documented in this encounter Plan of Treatment Not on file documented as of this encounter Visit Diagnoses Not on filedocumented in this encounter Care Teams Precision Instrument Maker Relationship Specialty Start Date End Date Lisa Perez MD [address] [place] [address] PCP - General Family Medicine 02/01/20 documented as of this encounter
--- OUTSIDE RECORDS SUMMARY | 2024-05-16 04:40 | XMS_ITS | Encounter Summary ---
Author Organization [employer] [facility] Address [address] [place] [address] Care Team Providers Care Visual Coordinator Name Role Phone Lisa Perez MD Primary Care Provider [phone]- [phone] Reason for Referral * Radiology Services (Routine) - Closed Specialty Diagnoses / Procedures Referred By Contac t Referred To Contact Diagnoses Encounter for ultrasound to assess growth Procedures US OB FOLLOW UP PER FETUS ~11/15 [facility] ko Kaykay García MD [address] [address] Referral ID Status Reason Start Date Expiration Date V isits Requested Visits Authorized [id number] Closed [facility] CTS 11/12/2019 12/12/2019 1 1 Reason for Visit * Auth/Cert Specialty Diagnoses / Procedures Referred By Contac t Referred To Contact Radiology [facility] [address] [place] [address] Referral ID Status Reason Start Date Expiration Date Visits Re quested Visits Authorized [id number] 1 1 Encounter Details Date Type Department Care Team (Latest Contact Info) Description 11/16/2019 8:44 AM CDT - 11/16/2019 11:59 PM CDT [facility] [address] [address] [place] [address] Kaykay García MD [address] [address] Discharge Disposition: Home or Self Care Social History Tobacco Use Types Packs/Day Years [...] Name Priority Date/Time Associated Diagnosis Comments US OB FOLLOW UP PER FETUS Routine 11/16/2019 9:44 AM CDT Encounter for ultrasound to assess growth documented in this encounter Results * US OB FOLLOW UP PER FETUS (11/16/2019 9:44 AM CDT) Anatomical Region Laterality Modality Pelvis Ultrasound 11/16/2019 9:14 AM CDT Impressions 11/16/2019 9:58 AM CDT IMPRESSION ----- 1. Single living fetus with a gestational age of 25 w 6 d, based on the reported clinical dates. 2. Current growth parameters are consistent with the stated EDC. The size is appropriate for gestational age at 73 rd percentile. 3. Unremarkable limited anatomy noted. A detailed anatomy cannot be performed secondary to advanced gestational age. However, there are no gross structural abnormalities noted. Previously unseen heart views appear normal. 4. The amniotic fluid is normal for gestational age. 5. Placenta is no longer low lying. Comments: I had the pleasure of seeing your patient in follow-up for the above mentioned indications. We reviewed the overall sonographic findings and the limitations associated with ultrasound evaluations. Recommendations: - Further ultrasounds as clinically indicated. Thank you for allowing us to participate in the care of this patient. Narrative 11/16/2019 9:58 AM CDT ST[facility] Follow Up ----- Pat. Name: ZACKARY BARFIELD Study Date: 11/16/2019 9:14am Pat. NO: [id number] Referring ??MD: KAYKAY GARCÍA MD Site: [facility] [employer] Panelboard Operator: JEANNE ANDERSON : 1985 Age: 34 ----- INDICATION ----- Placenta Previa without Hemorrhage CODING ----- Diagnosis ? O44.02: Placenta previa specified as without hemorrhage ?Z3A.25: Weeks Gestation of Procedures ?15514: OB follow-up/Target per fetus HISTORY ----- OB History ? 5. Para 3 ?Miscarriages 1 ?A1 MATERNAL ASSESSMENT ----- Physical Exam ? Weight 81 kg. BMI 29.62 kg/m?. Blood pressure 108 / 57 mmHg. Heart rate 69 bpm. METHOD ----- Transabdominal ultrasound examination ----- Gaines . Number of fetuses: 1. DATING ----- LMP on: 05/19/2019 Cycle: regular cycle GA by LMP 25 w + 6 d NICHOLAS by LMP: 02/23/2020 Ultrasound examination on: 11/16/2019 GA by U/S based upon: AC, BPD, EFW, Femur, HC GA by U/S 26 w + 4 d NICHOLAS by U/S: 02/18/2020 Method of dating: Restore dating from previous exam Assigned: Dating performed on 10/04/2019, based on the LMP Assigned GA 25 w + 6 d Assigned NICHOLAS: 02/23/2020 BIOMETRY ----- Main Biometry: BPD ? 66.5 ? mm ? 26w 6d ?73% ? Hadlock OFD ? 86.2 ? mm ? 27w 6d ?94% ? Misty HC ?243.9 ?mm ? 26w 3d ?48% ? Hadlock AC ?228.7 ?mm ? 27w 2d ?82% ? Hadlock Femur ? 47.5 ? mm ? 25w 6d ?36% ? Hadlock HC / AC ? 1.07 ?22% ? Nicolaides Weight Calculation: EFW ? 967 ?g ?26w 3d ?73% ? Hadlock EFW (lb,oz) ? 2 lb 2 ? oz EFW by ? Hadlock ([id number]-FL) Head / Face / Neck Biometry: Cephalic index ?0.77 ?34% ? Nicolaides Extremities / Bony Struc Biometry: FL / BPD ?0.71 ? FL / HC ? 0.19 ? FL / AC ? 0.21 ? Other Structures Biometry: AF MVP ?6.2 ?cm ? REX ? 22.0 ? cm ? 94% ? Crowley FHR ? 153 ?bpm ? GENERAL EVALUATION ----- Cardiac activity present. FHR 153 bpm. movements present. Presentation breech. Placenta Placental site: posterior. Umbilical cord Cord vessels: 3 vessel cord. Cord insertion: placental insertion: normal. Amniotic fluid Amount of AF: normal amount. MVP 6.2 cm. REX 22.0 cm. Q1 5.4 cm, Q2 5.7 cm, Q3 4.8 cm, Q4 6.2 cm. ANATOMY ----- The following structures appear normal: Head / Neck ? Cranium. Lateral ventricles. Choroid plexus. Midline falx. Cavum septi pellucidi. Cerebellum. Cisterna ?magna. Face ?Lips. Profile. Nose. Heart / Thorax ?4-chamber view. RVOT view. LVOT view. High short axis view. 4-djezte-vscrqme view. ?Diaphragm. Abdomen ? Stomach. Kidneys. Bladder. Gender: male. COMMENT ----- Patient's name and date of were verified by the casino investigator prior to the exam Procedure Note Cathleen Dietz MD - 11/16/[address] [facility] Follow Up ----- Pat. Name:Jeff BARFIELD Date:11/16/2019 9:14am Pat. NO: [id number] MD:AKYKAY GARCÍA MD [facility] AND[facility] :1985Age:34 ----- INDICATION ----- Placenta Previa without Hemorrhage CODING ----- Diagnosis O44.02: Placenta previa specified as withouthemorrhage Z3A.25: Weeks Gestation of Procedures 78455: OB follow-up/Target per fetus HISTORY ----- OB History 5. Para 3 Miscarriages 1 A1 MATERNAL ASSESSMENT ----- Physical Exam Weight 81 kg. BMI 29.62 kg/m?. Blood [id number] / 57 mmHg. Heart rate 69 bpm. METHOD ----- Transabdominal ultrasound examination ----- Gaines . Number of fetuses: 1. DATING ----- LMP on:05/19/2019 Cycle:regular cycle GA by LMP25 w + 6 d NICHOLAS by LMP:02/23/2020 Ultrasound examination on:11/16/2019 GA by U/S based upon:AC, BPD, EFW, Femur, HC GA by U/S26 w + 4 d NICHOLAS by U/S:02/18/2020 Method of dating:Restore dating from previous exam Assigned:Dating performed on 10/04/2019, based on the LMP Assigned GA25 w + 6 d Assigned NICHOLAS:02/23/2020 BIOMETRY ----- Main Biometry: BPD 66.5 mm 26w 6d73% Hadlock OFD 86.2 mm 27w 6d94% Misty HC 243.9 mm 26w 3d48% Hadlock AC 228.7 mm 27w 2d82% Hadlock Femur 47.5 mm 25w 6d36% Hadlock HC / AC 1.0722% Nicolaides Weight Calculation: EFW 967 g 26w 3d73% Hadlock EFW (lb,oz) 2 lb 2 oz EFW by Hadlock ([id number]) Head / Face / Neck Biometry: Cephalic index 0.7734% Nicolaides Extremities / Bony Struc Biometry: FL / BPD 0.71 FL / HC 0.19 FL / AC 0.21 Other Structures Biometry: AF MVP 6.2 cm REX 22.0 cm94% Crowley FHR 153 bpm GENERAL EVALUATION ----- Cardiac activity present. FHR 153 bpm. movements present. Presentation breech. Placenta Placental site: posterior. Umbilical cord Cord vessels: 3 vessel cord. Cord insertion: placentalinsertion: normal. Amniotic fluid Amount of AF: normal amount. MVP 6.2 cm. REX 22.0 cm. Q15.4 cm, Q2 5.7 cm, Q3 4.8 cm, Q4 6.2 cm. ANATOMY ----- The following structures appear normal: Head / Neck Cranium. Lateral ventricles. Choroid plexus.Midline falx. Cavum septi pellucidi. Cerebellum. Cisterna magna. Face Lips. Profile. Nose. Heart / Thorax 4-chamber view. RVOT view. LVOT view. High shortaxis view. 4-liiwcd-khlpmwp view. Diaphragm. Abdomen Stomach. Kidneys. Bladder. Gender: male. COMMENT ----- Patient's name and date of were verified by the casino investigator prior tothe exam IMPRESSION ----- 1. Single living fetus with a gestational age of 25 w 6 d, based on thereported clinical dates. 2. Current growth parameters are consistent with the stated EDC. The fetalsize is appropriate for gestational age at 73 rd percentile. 3. Unremarkable limited anatomy noted. A detailed anatomycannot be performed secondary to advanced gestational age. However, there are no gross structural abnormalities noted.Previously unseen heart views appear normal. 4. The amniotic fluid is normal for gestational age. 5. Placenta is no longer low lying. Comments: I had the pleasure of seeing your patient in follow-up for theabove mentioned indications. We reviewed the overall sonographic findings and the limitations associated with ultrasoundevaluations. Recommendations: - Further ultrasounds as clinically indicated. Thank you for allowing us to participate in the care of this patient. Kaykay García MD US ORDERABLES documented in this encounter Visit Diagnoses Diagnosis Encounter for ultrasound to assess growth documented in this encounter Care Teams Visual Coordinator Relationship Specialty Start Date End Date Lisa Perez MD PCP - General Family Practice 10/04/19 documented as of this encounter
--- OUTSIDE RECORDS SUMMARY | 2024-05-16 04:40 | XMS_ITS | Encounter Summary ---
Author Organization [facility] Address [address] [place] [address] Care Team Providers Care Food Preparer Name Role Phone Lisa Perez MD Primary Care Provider +1- [phone] Reason for Referral * Radiology Services (Routine) - Closed Specialty Diagnoses / Procedures Referred By Contac t Referred To Contact Diagnoses Encounter for anatomic survey Procedures US OB 14+ WKS SINGLE Kaykay Putnam MD [address] [address] Referral ID Status Reason Start Date Expiration Date V isits Requested Visits Authorized [id number] Closed [facility] CTS 09/20/2019 10/20/2020 1 1 Reason for Visit * Radiology Services (Routine) - Closed Specialty Diagnoses / Procedures Referred By Contac t Referred To Contact Diagnoses Encounter for anatomic survey Procedures US OB 14+ WKS SINGLE Kaykay Putnam MD [address] [address] Referral ID Status Reason Start Date Expiration Date V isits Requested Visits Authorized [id number] Closed [facility] CTS 09/20/2019 10/20/2020 1 1 Encounter Details Date Type Department Care Team (Latest Contact Info) Description 10/04/2019 8:54 AM CDT - 10/04/2019 11:59 PM CDT Hospital Encounter [facility] [address] [place] [address] Kaykay García MD [address] [place] [address] [address] [place] [address] Discharge Disposition: Home or Self Care [...] have Coronavirus / COVID-19? No / Unsure 10/04/2019 8:59 AM CDT documented as of this encounter Plan of Treatment Not on file documented as of this encounter Procedures Procedure Name Priority Date/Time Associated Diagnosis Comments US OB 14+ WKS SINGLE GEST Routine 10/04/2019 10:23 AM CDT Encounter for anatomic survey documented in this encounter Results * US OB 14+ WKS SINGLE GEST (10/04/2019 10:23 AM CDT) Anatomical Region Laterality Modality Pelvis Ultrasound 10/04/2019 9:17 AM CDT Impressions 10/04/2019 10:23 AM CDT IMPRESSION ----- Gaines intrauterine with positive cardiac activity. The fetus is in the transverse lie. The biometry is in the high normal range for the assigned gestational age. The anatomic survey is somewhat limited due to lie and position. The four-chamber view was suboptimally evaluated today due to position and lie. The amniotic fluid volume appears normal for gestational age. The posterior placental crosses the internal cervical os and reaches the anterior lower uterine segment. This will need to be followed in order to assess whether or not this resolves in order to provide for a trial of vaginal delivery. Discussion: The case management assistant did alert the patient to the placenta crossing the internal cervical os and need for a follow-up sonogram in approximately 6 weeks. At that time, the anatomic survey and growth will be reassessed. The patient has been asked to refrain from sexual intercourse until further notified. Narrative 10/04/2019 10:23 AM CDT STL Basic ----- Pat. Name: ZACKARY BARFIELD Study Date: 10/04/2019 9:17am Pat. NO: [id number] Referring ??MD: KAYKAY GARCÍA MD Site: [place] Account Financial Manager: Kadie Judd : 1985 Age: 34 ----- INDICATION ----- Encounter for anatomic survey ?Low Risk NIPT CODING ----- Diagnosis ? Z36: Encounter for screening of mother ?Z3A.19: Weeks Gestation of Procedures ?57308: OB greater than 14 wks (1st Basic) HISTORY ----- OB History ? 5. Para 3 ?Miscarriages 1 ?A1 MATERNAL ASSESSMENT ----- Physical Exam ? Weight 81 kg. BMI 29.62 kg/m?. METHOD ----- Transabdominal ultrasound examination ----- Gaines . Number of fetuses: 1. DATING ----- Method of dating: based on the LMP LMP on: 05/19/2019 Cycle: regular cycle GA by LMP 19 w + 5 d NICHOLAS by LMP: 02/23/2020 Ultrasound examination on: 10/04/2019 GA by U/S based upon: AC, BPD, EFW, Femur, HC GA by U/S 20 w + 0 d NICHOLAS by U/S: 02/21/2020 Assigned: Dating performed on 10/04/2019, based on the LMP Assigned GA 19 w + 5 d Assigned NICHOLAS: 02/23/2020 BIOMETRY ----- Main Biometry: BPD ? 45.6 ? mm ? 19w 5d ?53% ? Hadlock OFD ? 62.3 ? mm ? 21w 2d ?93% ? Misty HC ?173.3 ?mm ? 19w 6d ?50% ? Hadlock Cerebellum tr ? 20.4 ? mm ? 20w 1d ?65% ? Quiroz AC ?160.4 ?mm ? 21w 1d ?87% ? Hadlock Femur ? 29.8 ? mm ? 19w 1d ?25% ? Hadlock Humerus ? 33.1 ? mm ? 21w 1d ?93% ? Misty HC / AC ? 1.08 ?6% ?Nicolaides Weight Calculation: EFW ? 338 ?g ?20w 1d ?72% ? Hadlock EFW (lb,oz) ? 0 lb 12 ?oz EFW by ? Hadlock ([id number]-FL) Head / Face / Neck Biometry: Cephalic index ?0.73 ?5% ?Nicolaides Casino Operations Supervisor ?6.0 ?mm ? CM ?3.9 ?mm ? 18% ? Nicolaides Outer IOD ? 31.0 ? mm ? 20w 0d ?32% ? Misty Nuchal fold ? 4.7 ?mm ? Extremities / Bony Struc Biometry: FL / BPD ?0.65 ?16% ? Hadlock FL / HC ? 0.17 ?7% ?Hadlock FL / AC ? 0.19 ?<1% ? Hadlock Other Structures Biometry: AF MVP ?5.2 ?cm ? FHR ? 151 ?bpm ? GENERAL EVALUATION ----- Cardiac activity present. FHR 151 bpm. movements visualized. Presentation transverse. Placenta Placental site: posterior, previa. Umbilical cord Cord vessels: 3 vessel cord. Cord insertion: placental insertion: normal. Amniotic fluid Amount of AF: normal amount. MVP 5.2 cm. ANATOMY ----- The following structures appear normal: Head / Neck ? Cranium. Lateral ventricles. Choroid plexus. Midline falx. Cavum septi pellucidi. Cerebellum. Cisterna ?magna. ?Nuchal fold. Face ?Lips. Profile. Nose. Palate. Orbits. Heart / Thorax ?RVOT view. LVOT view. Situs. Aortic arch view. Ductal arch view. Superior vena cava. Inferior vena cava. ?3-vessel view. Cardiac rhythm. ?Diaphragm. Abdomen ? Abdominal wall. Stomach. Kidneys. Bladder. Spine ? Cervical spine. Thoracic spine. Lumbar spine. Sacral spine. Extremities / ? Right hand. Left hand. Right foot. Left foot. Skeleton The following structures could not be adequately visualized: Heart / Thorax ?4-chamber view. High short axis view. 9-zoxtny-zimtrfs view. Gender: male. MATERNAL STRUCTURES ----- Cervix ?Visualized ?Approach - Transabdominal: Cervical length 37.2 mm Right Ovary ? Normal ?Size 28 mm x 26 mm x 19 mm. Mean 2.4 cm. Vol 7.1 cm? Left Ovary ?Not visualized COMMENT ----- Patient's name and date of were confirmed by the case management assistant prior to the exam FOLLOW-UP ----- Recommendations: Consider a follow-up sonogram in approximately 6 weeks to reassess growth and reassess the location of the placenta. An earlier sonogram can be completed as clinically indicated. Procedure Note Jena Ugalde MD - 10/04/2019 [facility] Basic ----- Pat. Name:Jeff BARFIELD Date:10/04/2019 9:17am Pat. NO: [id number] :KAYKAY GARCÍA MD [facility]:Kadie Judd :1985Age:34 ----- INDICATION ----- Encounter for anatomic survey Low Risk NIPT CODING ----- Diagnosis Z36: Encounter for screening of mother Z3A.19: Weeks Gestation of Procedures 76518: OB greater than 14 wks (1st Basic) HISTORY ----- OB History 5. Para 3 Miscarriages 1 A1 MATERNAL ASSESSMENT ----- Physical Exam Weight 81 kg. BMI 29.62 kg/m?. METHOD ----- Transabdominal ultrasound examination ----- Gaines . Number of fetuses: 1. DATING ----- Method of dating:based on the LMP LMP on:05/19/2019 Cycle:regular cycle GA by LMP19 w + 5 d NICHOLAS by LMP:02/23/2020 Ultrasound examination on:10/04/2019 GA by U/S based upon:AC, BPD, EFW, Femur, HC GA by U/S20 w + 0 d NICHOLAS by U/S:02/21/2020 Assigned:Dating performed on 10/04/2019, based on the LMP Assigned GA19 w + 5 d Assigned NICHOLAS:02/23/2020 BIOMETRY ----- Main Biometry: BPD 45.6 mm 19w 5d53% Hadlock OFD 62.3 mm 21w 2d93% Misty HC 173.3 mm 19w 6d50% Hadlock Cerebellum tr 20.4 mm 20w 1d65% Quiroz AC 160.4 mm 21w 1d87% Hadlock Femur 29.8 mm 19w 1d25% Hadlock Humerus 33.1 mm 21w 1d93% Misty HC / AC 1.08 6%Nicolaides Weight Calculation: EFW 338 g 20w 1d72% Hadlock EFW (lb,oz) 0 lb 12 oz EFW by Hadlock ([id number]-FL) Head / Face / Neck Biometry: Cephalic index 0.73 5%Nicolaides Casino Operations Supervisor 6.0 mm CM 3.9 mm18% Nicolaides Outer IOD 31.0 mm 20w 0d32% Misty Nuchal fold 4.7 mm Extremities / Bony Struc Biometry: FL / BPD 0.6516% Hadlock FL / HC 0.17 7%Hadlock FL / AC 0.19<1% Hadlock Other Structures Biometry: AF MVP 5.2 cm FHR 151 bpm GENERAL EVALUATION ----- Cardiac activity present. FHR 151 bpm. movements visualized. Presentation transverse. Placenta Placental site: posterior, previa. Umbilical cord Cord vessels: 3 vessel cord. Cord insertion: placentalinsertion: normal. Amniotic fluid Amount of AF: normal amount. MVP 5.2 cm. ANATOMY ----- The following structures appear normal: Head / Neck Cranium. Lateral ventricles. Choroid plexus.Midline falx. Cavum septi pellucidi. Cerebellum. Cisterna magna. Nuchal fold. Face Lips. Profile. Nose. Palate. Orbits. Heart / Thorax RVOT view. LVOT view. Situs. Aortic arch view.Ductal arch view. Superior vena cava. Inferior vena cava. 3-vessel view. Cardiac rhythm. Diaphragm. Abdomen Abdominal wall. Stomach. Kidneys. Bladder. Spine Cervical spine. Thoracic spine. Lumbar spine.Sacral spine. Extremities / Right hand. Left hand. Right foot. Left foot. Skeleton The following structures could not be adequately visualized: Heart / Thorax 4-chamber view. High short axis view.4-nqwoax-zswrvyp view. Gender: male. MATERNAL STRUCTURES ----- Cervix Visualized Approach - Transabdominal: Cervical length 37.2mm Right Ovary Normal Size 28 mm x 26 mm x 19 mm. Mean 2.4 cm. Vol 7.1cm? Left Ovary Not visualized COMMENT ----- Patient's name and date of were confirmed by the case management assistant priorto the exam FOLLOW-UP ----- Recommendations: Consider a follow-up sonogram in approximately 6 weeks to reassess fetalgrowth and reassess the location of the placenta. An earlier sonogram can be completed as clinically indicated. IMPRESSION ----- Gaines intrauterine with positive cardiac activity. The fetus is in the transverse lie. The biometry is in the high normal range for the assignedgestational age. The anatomic survey is somewhat limited due to lie andposition. The four-chamber view was suboptimally evaluated today due to position and lie. The amniotic fluid volume appears normal for gestational age. The posterior placental crosses the internal cervical os and reaches theanterior lower uterine segment. This will need to be followed in order to assess whether or not thisresolves in order to provide for a trial of vaginal delivery. Discussion: The case management assistant did alert the patient to the placenta crossing theinternal cervical os and need for a follow-up sonogram in approximately 6 weeks. At that time, the anatomic survey and fetalgrowth will be reassessed. The patient has been asked to refrain from sexual intercourse untilfurther notified. Kaykay García MD US ORDERABLES documented in this encounter Visit Diagnoses Diagnosis Encounter for anatomic survey documented in this encounter Care Teams Food Preparer Relationship Specialty Start Date End Date Lisa Perez MD PCP - General Family Practice 10/04/19 documented as of this encounter
--- OUTSIDE RECORDS SUMMARY | 2024-05-16 04:40 | XMS_ITS | Encounter Summary ---
Author Organization [facility] Address [address] [place] [address] Care Team Providers Care Pipe Cleaning Machine Operator Name Role Phone Lisa Perez MD Primary Care Provider [phone]- [phone] Reason for Visit * MRI (Routine) - Closed Specialty Diagnoses / Procedures Referred By Ellie t Referred To Contact Diagnoses Strain of lumbar region, initial encounter Procedures MRI LUMBAR WO CONTRAST MRI LUMBAR W WO CONTRAST Vincent Frias MD [address] [place] [address] Referral ID Status Reason Start Date Expiration Date Visits Re quested Visits Authorized [id number] Closed 08/28/2023 08/28/2023 1 1 Encounter Details Date Type Department Care Team (Latest Contact Info) Description 08/28/2023 7:30 AM CDT Ancillary Procedure [employer] [address] [address] Vincent Frias MD [address] [place] [address] Strain of lumbar region, initial encounter Social History Tobacco Use Types Packs/Day Years Used Date Smoking Tobacco: Never Assessed Sex and Gender Information Value Date Recorded Sex Assigned at Not on file Gender Identity Not on file Sexual Orientation Not on file documented as of this encounter Plan of Treatment Not on file documented as of this encounter Procedures Procedure Name Priority Date/Time Associated Diagnosis Comments MRI LUMBAR WO CONTRAST Routine 08/28/2023 7:52 AM CDT Strain of lumbar region, initial encounter documented in this encounter Results * MRI LUMBAR WO CONTRAST (08/28/2023 7:52 AM CDT) Anatomical Region Laterality Modality Spine Magnetic Resonan ce 08/28/2023 7:52 AM CDT Impressions 08/28/2023 8:03 AM CDT IMPRESSION: No focal disc herniation in the lumbar spine. Narrative 08/28/2023 8:03 AM CDT EXAM: MRI LUMBAR WO CONTRAST STUDY DATE: 08/28/2023 7:52 AM CLINICAL INDICATION: Low back pain for the past three months COMPARISON: None CONTRAST: None PROCEDURE: Axial and sagittal MR images of the lumbar spine are obtained without intravenous contrast. FINDINGS: The lumbar vertebral bodies demonstrate satisfactory height. ??There is normal alignment of the lumbar spine with no significant anterior or posterior subluxation of the vertebral bodies. No acute fracture. No abnormal signal in the bone marrow. The disc heights are well maintained in the lumbar spine. The sagittal sequences extend medially up to T11 vertebral body and demonstrate no significant spinal canal stenosis and incidentally visualized lower thoracic spine. At L1-L2, there is no focal disc herniation, spinal canal stenosis or neural foraminal narrowing At L2-L3, there is no focal disc herniation, spinal canal stenosis or neural foraminal narrowing. At L3-L4, there is no focal disc herniation, spinal canal stenosis or neural foraminal narrowing. At L4-L5, there is no focal disc herniation, spinal canal stenosis or neural foraminal narrowing. At L5-S1, there is no focal disc herniation, spinal canal stenosis or neural foraminal narrowing. The conus medullaris terminates at L1-L2. There are Tarlov cysts in the sacrum. Procedure Note Kaye Frias MD - 08/28/2023 EXAM: MRI LUMBAR WO CONTRAST STUDY DATE: 08/28/2023 7:52 AM CLINICAL INDICATION: Low back pain for the past three months COMPARISON: None CONTRAST: None PROCEDURE: Axial and sagittal MR images of the lumbar spine are obtained without intravenous contrast. FINDINGS: The lumbar vertebral bodies demonstrate satisfactory height. There is normal alignment of the lumbar spine with no significant anterior or posterior subluxation of the vertebral bodies. No acute fracture. No abnormal signal in the bone marrow. The disc heights are well maintained in the lumbar spine. The sagittal sequences extend medially up to T11 vertebral body and demonstrate no significant spinal canal stenosis and incidentally visualized lower thoracic spine. At L1-L2, there is no focal disc herniation, spinal canal stenosis or neural foraminal narrowing At L2-L3, there is no focal disc herniation, spinal canal stenosis or neural foraminal narrowing. At L3-L4, there is no focal disc herniation, spinal canal stenosis or neural foraminal narrowing. At L4-L5, there is no focal disc herniation, spinal canal stenosis or neural foraminal narrowing. At L5-S1, there is no focal disc herniation, spinal canal stenosis or neural foraminal narrowing. The conus medullaris terminates at L1-L2. There are Tarlov cysts in the sacrum. IMPRESSION: No focal disc herniation in the lumbar spine. Vincent Frias MD MR ORDERABLES documented in this encounter Visit Diagnoses Diagnosis Strain of lumbar region, initial encounter documented in this encounter Care Teams Pipe Cleaning Machine Operator Relationship Specialty Start Date End Date Lisa Perez MD PCP - General Family Practice 10/04/19 documented as of this encounter
--- OUTSIDE RECORDS SUMMARY | 2024-05-16 04:40 | XMS_ITS | Encounter Summary ---
Author Organization [facility] Address [address] Attn: Epic Prelude ADT [place] [address] Care Team Providers Care Industrial Arts Teacher Name Role Phone Lisa Perez MD Primary Care Provider [phone]- [phone] Encounter Details Date Type Department Care Team (Latest Contact Info) Description 10/04/2019 Travel Social History Tobacco Use Types Packs/Day [...] on filedocumented in this encounter Care Teams Industrial Arts Teacher Relationship Specialty Start Date End Date Lisa Perez MD PCP - General Family Practice 10/04/19 documented as of this encounter
--- OUTSIDE RECORDS SUMMARY | 2024-05-16 06:38 | XMS_ITS | Continuity of Care Document ---
Author Name [facility] Organization [facility] Care Team Providers Care Gasoline Plant Operator Name Role Phone [facility] Unavailable Unavailable Problems Combined list of problems from Department of Defense and Veterans Affairs facilities. It does not include entries that were removed or entered in error. Problem Status Onset Date Problem Type Date of Resolution Comments Source indic for care/interven rel to labor/deliv antepartum compl Inactive 05/24/2009 Condition [facility] Headache, unspecified Active Condition DoD Unspecified lump in the right breast, unspecified quadrant Active Condition DoD Allergic rhinitis, unspecified Active Condition DoD gastritis Active Condition DoD headache syndromes Active Condition DoD Cervical Pap Smear Inactive Condition Do D urinary tract infection Active Condition [facility] visit for: administrative purpose Inactive Condition [facility] visit for: refer patient without exam or treatment Inactive Condition DoD vaginitis Inactive Condition DoD Aftercare Following Surgery Active Condition [facility] appendicitis acute Inactive Condition Do D visit for: postsurgical exam Active Condition [facility] visit for: screening exam depression Active Condition [facility] routine history and physical Active Condition [facility] Gynecologic Services Intrauterine Device (IUD) Insertion Inactive Condition DoD vaginal discharge Active Condition DoD cholelithiasis Active Condition DoD diarrhea Active Condition DoD nausea Inactive Condition DoD normal Inactive Condition DoD Need For Vaccination Against Influenza Inactive Condition [facility] insuff wt gain in preg - antepartum cond or prior comp deliv Active Condition [facility] complication: anemia, antepartum condition or prior complicated Active Condition DoD nonspecific abnormal findings screening Active Condition [facility] Supervision Of Normal Inactive Condition DoD constipation functional Inactive Condition DoD preg complications: antepartum cond or prior comp delivery Inactive Condition DoD hyperemesis gravidarum - antepartum cond or prior comp deliv Active Condition DoD visit for: initial exam (at ___ weeks) Inactive Condition [facility] Patient Counseling: Active Condition Do D [...] ORAL, AUROBINDO PHARM, 100 ea. BOTTLE Active [id number] 2022 20 Pharmac y Data Transac tion Service Facilit y DICLOFENAC SODIUM (DICLOFENAC SODIUM), 75 MG, TABLET DR, ORAL, [place] TECH, 500 ea. BOTTLE Active [id number] 2023 20 Pharmac y Data Transac [...] active 9 [employer] Balta CALIX ([facility]) Immunizations Combined list of available immunizations from the Department of Defense and Veterans Affairs facilities. Immunization Series Date Given Administered By Site Reaction Lot Number CVX Code Drug Site Monitor Status Comments Source COVID-19, mRNA, LNP-S, PF, 100 mcg or 50 mcg dose 2021 [employer] (MOD) Not Given COVID-19, mRNA, LNP-S, [...] influenza-H1N 1-09, preservative- free, injectable 0 2008 [id number] P 126 [employer] (NOV) complet ed Novel influenza -X0R1-88, preservat anny-free, injectabl e DoD influenza virus vaccine, whole virus 0 2008 Unknown, Provider [id number] 16 Transcribed (TRS) complet ed influenza [...] ADM Date DC Date Status Disposition Source [facility]([place] [facility]) OUTPATIENT [id number] cg/po devorah ELOYYEHUDA Yemi 09/27 Released w/o Limitations [facility](S D [facility] Operati ons Center) [facility]([place] [facility]) TELE CONSULT [id number] [facility] OBEY HOLGUIN Cheryl 10/25 [facility](S D [facility] Operati ons Center) [facility] Ply Bander Hogshead Mat Inspector) OUTPATIENT [id number] nob 08/28/08 TED THOMAS 11/01 Released w/o Limitations [facility](N TC [employer]ander Hogshead Mat Inspector ) [facility] Ply Bander Hogshead Mat Inspector) OUTPATIENT [id number] david 13+week s TED THOMAS 11/29 Released w/o Limitations [facility](N TC [employer] Hogshead Mat Inspector ) [facility] Ply Bander Hogshead Mat Inspector) OUTPATIENT [id number] david 16wks TED THOMAS 12/21 Released w/o Limitations [facility](N TC [employer] Hogshead Mat Inspector ) [facility] Ply Bander Hogshead Mat Inspector) OUTPATIENT [id number] david 20 + wks TED THOMAS 01/18 Released w/o Limitations [facility](N TC [employer] Hogshead Mat Inspector ) [facility] Ply Bander Hogshead Mat Inspector) TELE CONSULT [id number] 24w pt wants to speak with nurse to ask what medicat ion she can take for a cold MARLI PASTOR 02/10 Referred for Appointment [facility](N TC [employer] Hogshead Mat Inspector ) [facility] Ply Bander Hogshead Mat Inspector) OUTPATIENT [id number] david 24 + wks TED THOMAS 02/15 Released w/o Limitations [facility](N TC [employer] Hogshead Mat Inspector ) [facility] Ply [employer]ander Hogshead Mat Inspector) OUTPATIENT [id number] TED Triana 03/13 Released w/o Limitations [facility](N TC [employer] Hogshead Mat Inspector ) [facility]([place] [employer] Hogshead Mat Inspector) TELE CONSULT [id number] f/u ogtt results TED THOMAS 03/14 [facility](N TC [employer] Hogshead Mat Inspector ) [facility](PMT ) TELE CONSULT [id number] f/u ogtt cbc TED THOMAS 04/03 [facility](P MT) [facility] Ply Bander Hogshead Mat Inspector) OUTPATIENT [id number] david 32 + wks TED THOMAS 04/11 Released w/o Limitations [facility](N TC [employer] Hogshead Mat Inspector ) [facility](SD Preventiv e Med) OUTPATIENT [id number] H1N1 Vaccine 10 KRISTENTALISHA Jalil 04/26 Released w/o Limitations [facility](S D Prevent anny Med) [facility]([place] [employer] Bander L&D Triage) OUTPATIENT [id number] @ 37+5 c/o nausea/ diarrhe a/ headach e CJ, LAURE 05/19 Released w/o Limitations [facility](S D Ply Bander L&D Triage) [facility] Ply [employer]ander Hogshead Mat Inspector) OUTPATIENT [id number] david 38 + wks TED THOMAS 05/23 Released w/o Limitations [facility](N TC [employer] Hogshead Mat Inspector ) [facility]([place] [employer] Hogshead Mat Inspector) TELE CONSULT [id number] bloody dischar ged, wants to speak with Ms. Thomas. TED THOMAS 05/23 [facility](N TC [employer] Hogshead Mat Inspector ) [facility] DIRECT TO NYF FROM OTHER THAN ER OR [facility] [id number] SIN NINO W 05/23 DISCHARGED HOME [facility]([place] [employer] [facility]ander L&D Triage) OUTPATIENT [id number] @ 38+2wks r/o labor MILI-BR ADDISON, BRISA C 05/24 Admitted [facility](S D [employer] Bander L&D Triage) [facility] DIRECT TO MTF FROM OTHER THAN ER OR [facility] [id number] TOMMYGAGE CORDOVA D 06/29 DISCHARGED HOME [facility] Solar Pool Heating Installer Hogshead Mat Inspector) OUTPATIENT [id number] POST / IUD TED THOMAS Jalil 07/10 Released w/o Limitations [facility](N TC Solar Pool Heating Installer Hogshead Mat Inspector ) [facility](SD General Surg) OUTPATIENT [id number] follow up gallsto ne surgery TOMMY GAGE D 07/11 Released w/o Limitations [facility](S D General Surg) [facility](SD General Surg) OUTPATIENT [id number] follow up TOMMY GAGE D 07/12 Released w/o Limitations [facility](S D General Surg) [id number] LEELA BASILIO 08/21 DISCHARGED HOME [facility](SD General Surg) OUTPATIENT [id number] LEELA BASILIO 09/03 Released w/o Limitations [facility](S D General Surg) [facility](SD General Surg) OUTPATIENT [id number] follow up post op LEELA BASILIO 09/04 Released w/o Limitations [facility](S D General Surg) [facility] Family Practice Team 3) OUTPATIENT [id number] eval c/o vaginal burning post interco ANGELLA Cannon 09/21 Released w/o Limitations [facility](N TC Family Practic e Team 3) [facility](Fam Prac-Prim abdirahman Care Grp-[facility]) TELE CONSULT [id number] Results ALBERTA NICHOLE 10/03 Referred for Appointment [facility](F am Prac-Pr imary Care Grp-[facility] ) [facility] Family Practice Team 4) TELE CONSULT [id number] MEDICAL -- UTI S YMPTOMS ALBERTA NICHOLE 10/22 Referred for Appointment [facility](N TC Family Practic e Team 4) [facility] Family Practice Team 3) OUTPATIENT [id number] uti/vag anitis ANGELLA CONROY 10/23 Released w/o Limitations [facility](N Family Practic e Team 3) [facility](Fam Prac-Prim abdirahman Care [facility]) TELE CONSULT [id number] results JOEL MONTALVO 10/25 Referred for Appointment [facility](F am Prac-Pr imary Care [facility] ) [facility] Family Practice Team 3) OUTPATIENT [id number] repeat PAP ANGELLA CONROY 11/06 Released w/o Limitations [facility](N Family Practic e Team 3) [facility] [employer] [facility] ([facility])(Sco tt Flight Medicine Tm) OUTPATIENT [id number] 5 Pre employm ent EMANUEL KRAFT 11/10 Released w/o Limitations [facility] [employer] [facility] ([facility])(S cott Flight Medicin e Tm) [facility] [employer] ([facility])(Fam kimi Med Tm B Non-AD BCC) OUTPATIENT [id number] [phone] [email or web address] need referra JEFF Rizzo 05/23 Released w/o Limitations [facility] [employer] [facility] ([facility])(F amily Med Tm B Non-AD BCC) [facility] [employer] ([facility])(Fam kimi Med Tm B Non-AD BCC) TELE CONSULT [id number] 4 Notes Entered by: JEFF SIU 05 Jun 2021 1105 ------- ------- ------- ------- -- f/u TJ Rodriguez 06/05 Released to Self Care [facility] [employer] [facility] ([facility])(F amily Med Tm B Non-AD BCC) Procedures [...] 0503F 07/10/19 10 TED THOMAS Test Test 12620 07/10/19 10 TED THOMAS Gynecologic Services Intrauterine Device (IUD) Insertion Gynecologic Services Intrauterine Device (IUD) Insertion 92010 07/10/19 10 TED THOMAS Non-Stre Test (___ 0,2) Non-Stress Test (___ 0,2) 23939 05/24/19 10 ROLAND Doan, BRISA C Reactive [facility] OB Services Antepartum Care Only Subsequent Single Visit OB Services Antepartum Care Only Subsequent Single Visit 0502F 05/23/19 10 TED THOMAS Non-Stre Test (___ 0,2) Non-Stress Test (___ 0,2) 73645 05/19/19 10 JACEY CORONA [facility] Immunization Administration By Injection, One Vaccine Immunization Administration By Injection, One Vaccine 62643 04/26/20 09 TALISHA PETERSON IM, L deltoid, Pt tolerated well [facility] Influenza Virus Vaccine Pandemic Formulation 04/26/20 09 TALISHA PETERSON Preservative Free [facility] OB Services Antepartum Care Only Subsequent Single Visit OB Services Antepartum Care Only Subsequent Single Visit 0502F 04/11/20 09 TED THOMAS OB Services Antepartum Care Only Subsequent Single Visit OB Services Antepartum Care Only Subsequent Single Visit 0502F 03/13/20 09 TED THOMAS Physician Supervised Injection Intramuscular Physician Supervised Injection Intramuscular 11105 03/13/20 TED THOMAS Immunization Administration By Injection, One Vaccine Immunization Administration By Injection, One Vaccine 50901 03/13/20 09 TED THOMAS Influenza Split Virus Vaccine 0.5mL Dosage Intramuscular 03/13/20 TED THOMAS OB Services Antepartum Care Only Subsequent Single Visit OB Services Antepartum Care Only Subsequent Single Visit 0502F 02/16/20 09 TED THOMAS Non-Physician Phone Call To Patient/Provider Brief (5-10min) Non-Physician Phone Call To Patient/Provider Brief (5-10min) 10479 02/14/20 09 MARLI PASTOR [facility] OB Services Antepartum Care Only Subsequent Single Visit OB Services Antepartum Care Only Subsequent Single Visit 0502F 01/19/20 09 TED THOMAS OB Services Antepartum Care Only Subsequent Single Visit OB Services Antepartum Care Only Subsequent Single Visit 0502F 12/22/19 09 WILLIAM TED L [facility] Screening papanicolaou smear; obtaining, preparing and conveyance of cervical or vaginal smear to laboratory 11/02/19 WILLIAM TEDRUBEN Alfonso Ultrasound [place] [address] 11/02/19 WILLIAM TED Jalil Alfonso OB Services Antepartum Care Only First Visit, With Report OB Services Antepartum Care Only First Visit, With Report 0500F 11/02/19 09 WILLIAM TEDRUBEN Alfonso Urine HCG, Test Urine HCG, Test 35056 09/28/19 09 BUENROSTRO, FLORIJAY NATI DoD Waiver [...] HYDROMORPHONE, UP TO 4 MG 08/21/19 11 [facility] CARE VISIT () 07/10/19 10 [facility] LAPAROSCOPIC CHOLECYSTECTOMY 06/30/19 10 DoD POSTOPERATIVE [...] POSTOPERATIVE PERIOD REASON RELATED ORIGINAL PROCEDURE 05/25/19 [facility] VAGINAL DELIVERY ONLY (WITH OR WITHOUT EPISIOTOMY AND/OR FORCEPS); 05/24/19 [facility] SUBSEQ CARE VISIT () [EXCLS:PATIENTS WHO ARE SEEN FOR A CONDITION UNREL TO / CARE (EG,AN UP RESPIR INFECT;PATIENTS SEEN FOR CONSULTATION ONLY,NOT FOR CONT CARE)] 05/23/19 [facility] NON-STRESS TEST 05/23/19 [facility] NON-STRESS TEST 05/18/20 [facility] IMMUNIZATION ADMINISTRATION (INCLUDES PERCUTANEOUS, INTRADERMAL, SUBCUTANEOUS, OR INTRAMUSCULAR INJECTIONS); 1 VACCINE (SINGLE OR COMBINATION VACCINE/TOXOID) 04/26/20 [facility] SUBSEQ CARE VISIT () [EXCLS:PATIENTS WHO ARE SEEN FOR A CONDITION UNREL TO / CARE (EG,AN UP RESPIR INFECT;PATIENTS SEEN FOR CONSULTATION ONLY,NOT FOR CONT CARE)] 04/11/20 [facility] SUBSEQ CARE VISIT () [EXCLS:PATIENTS WHO ARE SEEN FOR A CONDITION UNREL TO / CARE (EG,AN UP RESPIR INFECT;PATIENTS SEEN FOR CONSULTATION ONLY,NOT FOR CONT CARE)] 03/13/20 [facility] SUBSEQ CARE VISIT () [EXCLS:PATIENTS WHO ARE SEEN FOR A CONDITION UNREL TO / CARE (EG,AN UP RESPIR INFECT;PATIENTS SEEN FOR CONSULTATION ONLY,NOT FOR CONT CARE)] 02/16/20 [facility] TELE ASSESS & MGT SRV PROV QUAL NONPHYS HLTH CARE PRO TO EST PAT,PARENT,GUARD NOT ORIG REL ASSESS & MGT SRV PROV W/IN PREV 7 DAYS NOR LEAD ASSESS & MGT SRV/PX W/IN NXT 24 HR/SOON APT;5-10 MIN MED DIS 02/11/20 [facility] SUBSEQ CARE VISIT () [EXCLS:PATIENTS WHO ARE SEEN FOR A CONDITION UNREL TO / CARE (EG,AN UP RESPIR INFECT;PATIENTS SEEN FOR CONSULTATION ONLY,NOT FOR CONT CARE)] 01/19/20 [facility] SUBSEQ CARE VISIT () [EXCLS:PATIENTS WHO ARE SEEN FOR A CONDITION UNREL TO / CARE (EG,AN UP RESPIR INFECT;PATIENTS SEEN FOR CONSULTATION ONLY,NOT FOR CONT CARE)] 12/22/19 09 [facility] INITIAL CARE VISIT (REPORT AT 1ST ENCOUN W HEALTH CURTAIN MENDER PROVIDING OBSTETRIC CARE. REPORT ALSO DATE OF VISIT &,IN A SEPARATE FIELD,THE DATE OF THE LAST MENSTRUAL PERIOD) 11/02/19 [facility] GONADOTROPIN, CHORIONIC (HCG); QUALITATIVE 09/28/19 [facility] Social History Combined list of available smoking, tobacco, and other social history from Department of Defense and Veterans Affairs facilities. Social History Type Response Date Comment [facility] e This section is an empty social history section. DoD
--- OUTSIDE RECORDS SUMMARY | 2024-05-16 06:39 | XMS_ITS | Encounter Summary ---
Author Organization [facility] Address [address] [place] [address] Care Team Providers Care Worm Raiser Name Role Phone Lisa Perez MD Primary Care Provider +1- [phone] Encounter Details Date Type Department Care Team [...] on filedocumented in this encounter Care Teams Worm Raiser Relationship Specialty Start Date End Date Lisa Perez MD PCP - General Family Practice 10/04/19 documented as of this encounter
--- OUTSIDE RECORDS SUMMARY | 2024-05-16 06:39 | XMS_ITS | Encounter Summary ---
Author Organization [facility] Address [address] [place] [address] Phone Care Team Providers Care Lithography Contact Worker Name Role Phone Lisa Perez MD Primary Care Provider Encounter Details Date Type Department Care Team (Late st Contact Info) Description 09/26/2021 Telephone [facility] 5th [place] [address] [place] [address] Eufemia Barr RMA Social History [...] on filedocumented in this encounter Care Teams Lithography Contact Worker Relationship Specialty Start Date End Date Lisa Perez MD [address] [facility] [address] [place] [address] PCP - General Family Medicine 02/01/20 documented as of this encounter
--- OUTSIDE RECORDS SUMMARY | 2024-05-16 06:39 | XMS_ITS | Encounter Summary ---
Author Organization [facility] Address [address] [facility] Attn: Epic Prelude ADT KHARI WALL [address] Care Team Providers Care Warehouse Guard Name Role Phone Unavailable Primary Care Provider [...]
--- OUTSIDE RECORDS SUMMARY | 2024-05-16 06:39 | XMS_ITS | Encounter Summary ---
Author Organization [facility] Address [address] [place] [address] Care Team Providers Care Bottle Assembler Name Role Phone Lisa Perez MD Primary Care Provider +1- [phone] Encounter Details Date Type Department Care Team [...] on filedocumented in this encounter Care Teams Bottle Assembler Relationship Specialty Start Date End Date Lisa Perez MD PCP - General Family Practice 10/04/19 documented as of this encounter
--- OUTSIDE RECORDS SUMMARY | 2024-05-16 06:39 | XMS_ITS | Encounter Summary ---
Author Organization [facility] Address [address] [place] [address] Care Team Providers Care Dye Operator Name Role Phone Lisa Perez MD Primary Care Provider +1- [phone] Encounter Details Date Type Department Care Team [...] on filedocumented in this encounter Care Teams Dye Operator Relationship Specialty Start Date End Date Lisa Perez MD PCP - General Family Practice 10/04/19 documented as of this encounter
--- OUTSIDE RECORDS SUMMARY | 2024-05-16 06:39 | XMS_ITS | Encounter Summary ---
Author Organization [facility] Address [address] [place] [address] Care Team Providers Care Tooling Mechanic Name Role Phone Lisa Perez MD Primary Care Provider +1- [phone] Encounter Details Date Type Department Care Team [...] on filedocumented in this encounter Care Teams Tooling Mechanic Relationship Specialty Start Date End Date Lisa Perez MD PCP - General Family Practice 10/04/19 documented as of this encounter
--- OUTSIDE RECORDS SUMMARY | 2024-05-16 06:39 | XMS_ITS | Encounter Summary ---
Author Organization [facility] Address [address] [place] [address] Care Team Providers Care Historical Records Administrator Name Role Phone Lisa Perez MD Primary Care Provider +1- [phone] Encounter Details Date Type Department Care Team [...] on filedocumented in this encounter Care Teams Historical Records Administrator Relationship Specialty Start Date End Date Lisa Perez MD PCP - General Family Practice 10/04/19 documented as of this encounter
--- OUTSIDE RECORDS SUMMARY | 2024-05-16 06:39 | XMS_ITS | Clinical Summary ---
Author Organization [facility] Address [address] [place] [address] Phone Care Team Providers Care Roller Gold Leaf Name Role Phone Lisa Perez MD Primary Care Provider +1- [phone] Encounters Date Type Department Care Team Description [...] age to complete this topic Care Teams Roller Gold Leaf Relationship Specialty Start Date End Date Lisa Perez MD PCP - General Family Practice 10/04/19
--- OUTSIDE RECORDS SUMMARY | 2024-05-16 06:39 | XMS_ITS | Encounter Summary ---
Author Organization [facility] Address [address] [place] [address] Phone Care Team Providers Care Contract Management Specialist Name Role Phone Lisa Perez MD Primary Care Provider Reason for Visit * Reason Onset Date Comments Appointment 09/20/2020 Encounter Details Date Type Department Care Team (Late st Contact Info) Description 09/20/2020 Telephone [facility] Surgery [address] [facility] 5th [place] [address] [place] [address] Josie Leon NP [address] [place] [address] Appointment Social History Tobacco Use Types Packs/Day [...] on filedocumented in this encounter Care Teams Contract Management Specialist Relationship Specialty Start Date End Date Lisa Perez MD [address] [facility] [address] [place] [address] PCP - General Family Medicine 02/01/20 documented as of this encounter
--- OUTSIDE RECORDS SUMMARY | 2024-05-16 06:39 | XMS_ITS | Encounter Summary ---
Author Organization [facility] Address [address] [place] [address] Care Team Providers Care Criminal Investigator Name Role Phone Lisa Perez MD Primary Care Provider +1- [phone] Encounter Details Date Type Department Care Team [...] on filedocumented in this encounter Care Teams Criminal Investigator Relationship Specialty Start Date End Date Lisa Perez MD PCP - General Family Practice 10/04/19 documented as of this encounter
--- OUTSIDE RECORDS SUMMARY | 2024-05-16 06:39 | XMS_ITS | Encounter Summary ---
Author Organization [facility] Address [address] [place] [address] Care Team Providers Care Costume Specialist Name Role Phone Lisa Perez MD Primary Care Provider Reason for Referral * Diagnostic Imaging (Routine) - Closed Specialty Diagnoses / Procedures Referred By Ellie lopez Referred To Contact Diagnoses Breast lump in female Procedures Diagnostic Mammogram Bilateral W Josie Fajardo NP Phone: tel: fax: [address] [address] Referral ID Status Reason Start Date Expiration Date Visits Re quested Visits Authorized [id number] Closed 02/14/2020 03/15/2021 1 1 Reason for Visit * Diagnostic Imaging (Routine) - Closed Specialty Diagnoses / Procedures Referred By Ellie lopez Referred To Contact Diagnoses Breast lump in female Procedures Diagnostic Mammogram Bilateral W Josie Fajardo NP Phone: tel: fax: [address] [address] Referral ID Status Reason Start Date Expiration Date Visits Re quested Visits Authorized [id number] Closed 02/14/2020 03/15/2021 1 1 Encounter Details Date Type Department Care Team (Late st Contact Info) Description 02/25/2020 9:00 AM CDT - 02/25/2020 11:59 PM CDT Hospital Encounter [facility] [address] [place] [address] Aft, Georgiana Ohara MD PhD [address] [place] [address] Josie Leon NP [address] [place] [address] Breast lump in female Discharge Disposition: Discharge [...] encounter Medications at Time of Discharge vit 27-dvjx-gohau-dha 27mg iron- 800 mcg-250 mg capsule Take by mouth vit D3-vit S-rwwszwncp-jqak [id number] eefa-xqk-pm-mg tablet Take by mouth documented as of [...] has been scheduled to return to the [facility] for biopsy on 03/14/2020 at 8:30 AM. [...] has been scheduled to return to the [facility] for biopsy on 03/14/2020 at 8:30 AM. This facility will contact the referring clinician's office for an order. Dictated by: Jeff Malone M.D. The radiology attending physician has personally reviewed this study, and had reviewed and/or edited this written report and agrees with it. Electronically signed by: Cristina Carbajal M.D. us Josie Leon SENIOR ENGINEERING SPECIALIST IMG MAMMO PROCEDURES Fin al Result * [...] has been scheduled to return to the [facility] for biopsy on 03/14/2020 at 8:30 AM. [...] has been scheduled to return to the [facility] for biopsy on 03/14/2020 at 8:30 AM. This facility will contact the referring clinician's office for an order. Dictated by: Jeff Malone M.D. The radiology attending physician has personally reviewed this study, and had reviewed and/or edited this written report and agrees with it. Electronically signed by: Cristina Carbajal M.D. Josie Leon SENIOR ENGINEERING SPECIALIST IMG MAMMO PROCEDURES Fin al Result documented in this encounter Visit Diagnoses Diagnosis Breast lump in female Lump or mass in breast documented in this encounter Care Teams Costume Specialist Relationship Specialty Start Date End Date Lisa Perez MD [address] [facility] [address] [place] [address] PCP - General Family Medicine 02/01/20 documented as of this encounter
--- OUTSIDE RECORDS SUMMARY | 2024-05-16 06:39 | XMS_ITS | Encounter Summary ---
Author Organization [facility] Address [address] [facility] Attn: Epic Prelude ADT [place] [address] Care Team Providers Care Manager Health Name Role Phone Lisa Perez MD Primary Care Provider +1- [phone] Encounter Details Date Type Department Care Team [...] on filedocumented in this encounter Care Teams Manager Health Relationship Specialty Start Date End Date Lisa Perez MD PCP - General Family Practice 10/04/19 documented as of this encounter
--- OUTSIDE RECORDS SUMMARY | 2024-05-16 06:39 | XMS_ITS | Clinical Summary ---
Author Organization [facility] Address [address] [place] [address] Care Team Providers Care Research Kennel Supervisor Name Role Phone Lisa Perez MD Primary Care Provider Allergies Active Allergy Reactions Criticality Noted Date Comments Hydrocodone-Acetaminophen Anaphylaxis High 0 Medications vit 65-ixnb-gjtxs-dh a 27mg iron- 800 mcg-250 mg capsule Take by mouth Active vit D3-vit Q-bxfgwdhga-svdu [id number] roki-dpj-ix-mg tablet Take by mouth Active Active Problems [...] Plan of Treatment Not on file Insurance [facility] CLAIMS Care Teams Research Kennel Supervisor Relationship Specialty Start Date End Date Lisa Perez MD [address] [facility] [address] [place] [address] PCP - General Family Medicine 02/01/20
--- OUTSIDE RECORDS SUMMARY | 2024-05-16 06:39 | XMS_ITS | Encounter Summary ---
Author Organization [facility] Address [address] [place] [address] Phone Care Team Providers Care Ambulatory Nurse Name Role Phone Lisa Perez MD Primary Care Provider Encounter Details Date Type Department Care Team (Late st Contact Info) Description 08/25/2020 Telephone [facility] 5th [place] [address] [place] [address] Eufemia Barr RMA Social History [...] on filedocumented in this encounter Care Teams Ambulatory Nurse Relationship Specialty Start Date End Date Lisa Perez MD [address] [facility] [address] [place] [address] PCP - General Family Medicine 02/01/20 documented as of this encounter
--- OUTSIDE RECORDS SUMMARY | 2024-05-16 06:39 | XMS_ITS | Encounter Summary ---
Author Organization [facility] Address [address] [place] [address] Phone Care Team Providers Care Esthetician/Skin Therapist Name Role Phone Lisa Perez MD Primary Care Provider Encounter Details Date Type Department Care Team (Late st Contact Info) Description 09/24/2021 Telephone [facility] 5th [place] [address] [place] [address] Eufemia Barr RMA Social History [...] on filedocumented in this encounter Care Teams Esthetician/Skin Therapist Relationship Specialty Start Date End Date Lisa Perez MD [address] [facility] [address] [place] [address] PCP - General Family Medicine 02/01/20 documented as of this encounter
--- OUTSIDE RECORDS SUMMARY | 2024-05-16 06:39 | XMS_ITS | Encounter Summary ---
Author Organization [facility] Address [address] [place] [address] Care Team Providers Care Experimental Machinist Name Role Phone Lisa Perez MD Primary Care Provider +1- [phone] Encounter Details Date Type Department Care Team [...] on filedocumented in this encounter Care Teams Experimental Machinist Relationship Specialty Start Date End Date Lisa Perez MD PCP - General Family Practice 10/04/19 documented as of this encounter
--- OUTSIDE RECORDS SUMMARY | 2024-05-16 06:39 | XMS_ITS | Encounter Summary ---
Author Organization [facility] Address [address] [facility] Attn: Epic Prelude ADT [place] [address] Care Team Providers Care Director Broadcast Name Role Phone Lisa Perez MD Primary Care Provider +1- [phone] Encounter Details Date Type Department Care Team [...] on filedocumented in this encounter Care Teams Director Broadcast Relationship Specialty Start Date End Date Lisa Perez MD PCP - General Family Practice 10/04/19 documented as of this encounter
--- OUTSIDE RECORDS SUMMARY | 2024-05-16 06:39 | XMS_ITS | Referral Summary ---
Author Organization [facility] Address [address] [place] [address] Care Team Providers Care Cigarette Book Maker Name Role Phone Lisa Perez MD Primary Care Provider Allergies Active Allergy Reactions Criticality Noted Date Comments Hydrocodone-Acetaminophen Anaphylaxis High 0 Medications vit 44-armm-ntkpr-dh a 27mg iron- 800 mcg-250 mg capsule Take by mouth Active vit D3-vit M-grdhrjtnk-kkkw [phone] ctnh-djf-rm-mg tablet Take by mouth Active Active Problems [...] Plan of Treatment Not on file Insurance [facility] CLAIMS Care Teams Cigarette Book Maker Relationship Specialty Start Date End Date Lisa Perez MD [address] [facility] [address] [place] [address] PCP - General Family Medicine 02/01/20
--- OUTSIDE RECORDS SUMMARY | 2024-05-16 06:39 | XMS_ITS | Encounter Summary ---
Author Organization [facility] Address [address] [place] [address] Phone Care Team Providers Care Information Resources Manager Name Role Phone Lisa Perez MD Primary Care Provider Encounter Details Date Type Department Care Team (Late st Contact Info) Description 09/27/2021 Telephone [facility] Surgery [facility] 5th [place] [address] [place] [address] Eufemia Barr RMA Social History [...] on filedocumented in this encounter Care Teams Information Resources Manager Relationship Specialty Start Date End Date Lisa Perez MD [address] [facility] [address] [place] [address] PCP - General Family Medicine 02/01/20 documented as of this encounter
--- OUTSIDE RECORDS SUMMARY | 2024-05-16 06:39 | XMS_ITS | Encounter Summary ---
Author Organization [employer] [facility] Address [address] [place] [address] Care Team Providers Care Potato Sorter Name Role Phone Lisa Perez MD Primary Care Provider +1- [phone] Reason for Referral * Radiology Services (Routine) - Closed Specialty Diagnoses / Procedures Referred By Contac t Referred To Contact Diagnoses Encounter for ultrasound to assess growth Procedures US OB FOLLOW UP PER FETUS ~11/15 [facility] ko Kaykay García MD [address] [address] Referral ID Status Reason Start Date Expiration Date V isits Requested Visits Authorized [id number] Closed [facility] CTS 11/12/2019 12/12/2019 1 1 Reason for Visit * Auth/Cert Specialty Diagnoses / Procedures Referred By Contac t Referred To Contact [facility]iology [facility] [address] [place] [address] Referral ID Status Reason Start Date Expiration Date Visits Re quested Visits Authorized [id number] 1 1 Encounter Details Date Type Department Care Team (Latest Contact Info) Description 11/16/2019 8:44 AM CDT - 11/16/2019 11:59 PM CDT [facility] [address] [place] [address] [place] [address] Kaykay García MD [address] [address] Discharge Disposition: Home or Self [...] [place] Study Date: 11/16/2019 9:14am Pat. NO: [id number] Referring ??MD: KAYKAY GARCÍA MD Site: [facility] Stencil Machine Operator: JEANNE ANDERSON : 1985 Age: 34 ----- INDICATION ----- Placenta Previa without Hemorrhage CODING ----- Diagnosis ? O44.02: Placenta previa specified as without hemorrhage ?Z3A.25: Weeks Gestation of Procedures ?52032: OB follow-up/Target per fetus HISTORY ----- OB [...] 2 ? oz EFW by ? Hadlock ([id number]) Head / Face / Neck Biometry: Cephalic [...] view. LVOT view. High short axis view. 5-okhovq-wqtcfrc view. ?Diaphragm. Abdomen ? Stomach. Kidneys. Bladder. Gender: male. COMMENT ----- Patient's name and date of were verified by the case management specialist prior to the exam Procedure Note Cathleen Dietz MD - 11/16/2019 [facility] Follow Up ----- Pat. Name:Jeff BARFIELD Date:11/16/2019 9:14am Pat. NO: [id number] MD:KAYKAY GARCÍA MD [facility]:JEANNE ANDERSON :1985Age:34 ----- INDICATION ----- Placenta Previa without Hemorrhage CODING ----- Diagnosis O44.02: Placenta previa specified as withouthemorrhage Z3A.25: Weeks Gestation of Procedures 13422: OB follow-up/Target per fetus HISTORY ----- OB History 5. Para 3 Miscarriages 1 A1 MATERNAL ASSESSMENT ----- Physical Exam Weight 81 kg. BMI 29.62 kg/m?. Blood cjxtksid932 / 57 mmHg. Heart rate 69 bpm. [...] 2 lb 2 oz EFW by Hadlock ([id number]-QD-FL) Head / Face / Neck Biometry: Cephalic [...] RVOT view. LVOT view. High shortaxis view. 3-yvdepv-gjxvder view. Diaphragm. Abdomen Stomach. Kidneys. Bladder. Gender: male. COMMENT ----- Patient's name and date of were verified by the case management specialist prior tothe exam IMPRESSION ----- 1. Single [...] growth documented in this encounter Care Teams Potato Sorter Relationship Specialty Start Date End Date Lisa Perez MD PCP - General Family Practice 10/04/19 documented as of this encounter
--- OUTSIDE RECORDS SUMMARY | 2024-05-16 06:39 | XMS_ITS | Encounter Summary ---
Author Organization [facility] Address [address] [place] [address] Care Team Providers Care Commercial Artist Lettering Name Role Phone Lisa Perez MD Primary Care Provider +1- [phone] Encounter Details Date Type Department Care Team [...] on filedocumented in this encounter Care Teams Commercial Artist Lettering Relationship Specialty Start Date End Date Lisa Perez MD PCP - General Family Practice 10/04/19 documented as of this encounter
--- OUTSIDE RECORDS SUMMARY | 2024-05-16 06:39 | XMS_ITS | Encounter Summary ---
Author Organization [employer] Address [address] [place] [address] Care Team Providers Care Cma Name Role Phone Lisa Perez MD Primary Care Provider +1- [phone] Reason for Visit * MRI (Routine) - Closed Specialty Diagnoses / Procedures Referred By Ellie t Referred To Contact Diagnoses Strain of lumbar region, initial encounter Procedures MRI LUMBAR WO CONTRAST MRI LUMBAR W WO CONTRAST Vincent Frias MD [address] [place] [address] Referral ID Status Reason Start Date Expiration Date Visits Re quested Visits Authorized [id number] Closed 08/28/2023 08/28/2023 1 1 Encounter Details Date Type Department Care Team (Latest Contact Info) Description 08/28/2023 7:30 AM CDT Ancillary Procedure [facility] [address] [address] Vincent Frias MD [address] [place] [address] Strain of lumbar region, initial [...] encounter documented in this encounter Care Teams Cma Relationship Specialty Start Date End Date Lisa Perez MD PCP - General Family Practice 10/04/19 documented as of this encounter
--- OUTSIDE RECORDS SUMMARY | 2024-05-16 06:39 | XMS_ITS | Encounter Summary ---
Author Organization [facility] Address [address] [place] [address] Care Team Providers Care Data Communications Software Consultant Name Role Phone Lisa Perez MD Primary Care Provider +1- [phone] Encounter Details Date Type Department Care Team [...] on filedocumented in this encounter Care Teams Data Communications Software Consultant Relationship Specialty Start Date End Date Lisa Perez MD PCP - General Family Practice 10/04/19 documented as of this encounter
--- OUTSIDE RECORDS SUMMARY | 2024-05-16 06:39 | XMS_ITS | Encounter Summary ---
Author Organization [facility] Healthcare Address [address] [place] [address] Care Team Providers Care Bookseamer Blindstitch Name Role Phone Lisa Perez MD Primary Care Provider Reason for Referral * Diagnostic Imaging (Routine) - Closed Specialty Diagnoses / Procedures Referred By Contac t Referred To Contact Diagnoses Abnormal ultrasound of breast Procedures Mammo Post Clip Placement Left Josie Leon NP Phone: tel: fax: [facility] Referral ID Status Reason Start Date Expiration Date Visits Re quested Visits Authorized [id number] Closed 03/14/2020 04/13/2021 1 1 * Diagnostic Imaging (Routine) - Closed Specialty Diagnoses / Procedures Referred By Contac t Referred To Contact Diagnoses Abnormal ultrasound of breast Procedures US Guided Breast Biopsy Left Josie Leon NP Phone: tel: fax: [address] [address] Referral ID Status Reason Start Date Expiration Date Visits Re quested Visits Authorized [id number] Closed 02/25/2020 03/26/2021 1 1 Reason for Visit * Diagnostic Imaging (Routine) - Closed Specialty Diagnoses / Procedures Referred By Contac t Referred To Contact Diagnoses Abnormal ultrasound of breast Procedures US Guided Breast Biopsy Left Josie Leon NP Phone: tel: fax: [facility] [address] [place] [address] Referral ID Status Reason Start Date Expiration Date Visits Re quested Visits Authorized [id number] Closed 02/25/2020 03/26/2021 1 1 Encounter Details Date Type Department Care Team (Late st Contact Info) Description 03/14/2020 8:14 AM CDT - 03/14/2020 11:59 PM CDT Hospital Encounter [facility] [address] [place] [address] Amanda Tran MD [address] [phone] Josie Leon NP [address] [place], [place] [phone] Abnormal ultrasound of breast Discharge Disposition: Discharge [...] some bruising. Special instructions: Please call the [facility] nurses at [phone] or the [facility] at [phone] (8am to 5 pm*) if you experience: ?? Extreme redness, bruising, swelling, severe pain or unusual drainage at the biopsy site ?? Fever of 101.5 F ?? If there are any signs of bleeding, lie down and apply firm pressure for 20 minutes. If bleedingpersists call the [facility] or your physician. * If it is after hours, a weekend or holiday, please call your breast surgeon or referring physician. Results: You should receive your biopsy results within 3 working days. If you have not been informed of yourresults after this time please call: ?? The breast imaging nurse in the [facility] at [phone]. ?? The breast surgeon's office at . ?? The referring physicians office documented in this encounter Medications at Time of Discharge vit 27-nwuz-ljjno-dha 27mg iron- 800 mcg-250 mg capsule Take by mouth vit D3-vit B-nlggqrryc-yvdx [id number] dnhz-lho-zz-mg tablet Take by mouth documented as of this encounter Discharge Disposition Disposition Code Departure Means Destination Discharge to home or self care documented in this encounter Miscellaneous Notes * Post-Procedure Note - Vel Guerra MD - 03/14/2020 8:30 AM CDT Radiology Brief Post Procedure Note Attending: Dr. Nation Wool And Pelt Grader: Dr. Mari Richardson Sedation/Anesthesia: Local Pre-Op/Pre-Procedure Diagnosis: [...] recommendations by referring provider Josie Leon APRN, [facility] on 03/15/20. Edited by: Briana Alcantar Correction [...] imaging fellow) and Dr. Guerra (diagnostic radiology physician assistant) also participated in this examination. Procedure Note [...] imaging fellow) and Dr. Guerra (diagnostic radiology physician assistant) also participated in this examination. IMPRESSION: Successful core needle biopsy of the RIGHT breast. Pathology is pending. Dictated by: Mary Seo M.D. The radiology attending physician has personally reviewed this study, and had reviewed and/or edited this written report and agrees with it. Electronically signed by: Jocy Nation M.D. us Josie Leon TRAVELING CRANE OPERATOR IMG MAMMO PROCEDURES Brett viki Result - [...] imaging fellow) and Dr. Guerra (diagnostic radiology physician assistant) also participated in this examination. Procedure Note [...] imaging fellow) and Dr. Guerra (diagnostic radiology physician assistant) also participated in this examination. IMPRESSION: Successful [...] 4A, 3 passes, ribbon clip Narrative PATHOLOGY [facility] - 03/15/2020 1:04 PM CDT EPIC results best viewed via link to PDF [facility] [place] [address] SURGICAL PATHOLOGY REPORT FINAL Patient Name: ?? XIOMARA BARFIELD Gender: ??F : ??1985 (Age: 34) Address: ??[address] [place] [address] Hospital #: ??[id number] Taken:03/14/2020 Received:03/14/2020 Reported: 03/15/2020 Patient Type: [facility] Ancillary ?? Service: Radiology BJ Location: [facility] Physician(s): ??Jocy Nation M.D. Josie Leon, [...] determined by the Surgical Pathology Department at [facility] as part of an ongoing director quality systems program and in compliance with federally mandated [...] determined by the Surgical Pathology Department of [facility]. ??It has not been cleared or approved by the U. S. Food and Drug Administration. IMAGES AND SCANNED DOCUMENTS, IF INCLUDED, ONLY VIEWABLE IN PDF VERSION OF REPORT Josie Leon NP LAB PATHOLOGY ORDERABLES Final Result PATHOLOGY [facility] 3rd Floor [place], [place] [phone] documented in this encounter Visit Diagnoses Diagnosis [...] 03/14/2020 documented in this encounter Care Teams Bookseamer Blindstitch Relationship Specialty Start Date End Date Lisa Perez MD [address] [facility] [address] [place] [address] PCP - General Family Medicine 02/01/20 documented as of this encounter
--- OUTSIDE RECORDS SUMMARY | 2024-05-16 06:39 | XMS_ITS | Encounter Summary ---
Author Organization [facility] Address [address] [place] [address] Care Team Providers Care Liability Analyst Name Role Phone Lisa Perez MD Primary Care Provider +1- [phone] Encounter Details Date Type Department Care Team [...] on filedocumented in this encounter Care Teams Liability Analyst Relationship Specialty Start Date End Date Lisa Perez MD PCP - General Family Practice 10/04/19 documented as of this encounter
--- OUTSIDE RECORDS SUMMARY | 2024-05-16 06:39 | XMS_ITS | Encounter Summary ---
Author Organization [facility] Address [address] [place] [address] Care Team Providers Care Oil Refinery Operator Name Role Phone Lisa Perez MD Primary Care Provider +1- [phone] Reason for Referral * Radiology Services (Routine) - Closed Specialty Diagnoses / Procedures Referred By Contac t Referred To Contact Diagnoses Encounter for anatomic survey Procedures US OB 14+ WKS SINGLE Kaykay Putnam MD [address] [address] Referral ID Status Reason Start Date Expiration Date V isits Requested Visits Authorized [id number] Closed [facility] 09/20/2019 10/20/2020 1 1 Reason for Visit * Radiology Services (Routine) - Closed Specialty Diagnoses / Procedures Referred By Contac t Referred To Contact Diagnoses Encounter for anatomic survey Procedures US OB 14+ WKS SINGLE Kaykay Putnam MD [address] [address] Referral ID Status Reason Start Date Expiration Date V isits Requested Visits Authorized [id number] Closed [facility] 09/20/2019 10/20/2020 1 1 Encounter Details Date Type Department Care Team (Latest Contact Info) Description 10/04/2019 8:54 AM CDT - 10/04/2019 11:59 PM CDT Hospital Encounter [facility] M[facility] and [facility] [address] [place] [address] Kaykay García MD [address] [place] [address] [address] [place] [address] Discharge Disposition: Home or Self [...] a trial of vaginal delivery. Discussion: The exhibitions curator did alert the patient to the placenta [...] BARFIELD Study Date: 10/04/2019 9:17am Pat. NO: [id number] Referring ??MD: KAYKAY GARCÍA MD Site: [place] Procurement Engineer: Kadie Judd : 1985 Age: 34 ----- INDICATION ----- Encounter for anatomic survey ?Low Risk NIPT CODING ----- Diagnosis ? Z36: Encounter for screening of mother ?Z3A.19: Weeks Gestation of Procedures ?49461: OB greater than 14 wks (1st Basic) [...] lb 12 ?oz EFW by ? Hadlock (CRY-JQ-FB-FL) Head / Face / Neck Biometry: Cephalic index ?0.73 ?5% ?Nicolaides Tire Builder Heavy Service ?6.0 ?mm ? CM ?3.9 ?mm ? [...] Thorax ?4-chamber view. High short axis view. 6-ibvhqc-nrpgyog view. Gender: male. MATERNAL STRUCTURES ----- Cervix ?Visualized ?Approach - Transabdominal: Cervical length 37.2 mm Right Ovary ? Normal ?Size 28 mm x 26 mm x 19 mm. Mean 2.4 cm. Vol 7.1 cm? Left Ovary ?Not visualized COMMENT ----- Patient's name and date of were confirmed by the exhibitions curator prior to the exam FOLLOW-UP ----- Recommendations: Consider a follow-up sonogram in approximately 6 weeks to reassess growth and reassess the location of the placenta. An earlier sonogram can be completed as clinically indicated. Procedure Note Jena Ugalde MD - 10/04/2019 [facility] Basic ----- Pat. Name:Jeff BARFIELD Date:10/04/2019 9:17am Pat. NO: [id number] :KAYKAY GARCÍA MD [facility]Kadie Judd :1985Age:34 ----- INDICATION ----- Encounter for anatomic survey Low Risk NIPT CODING ----- Diagnosis Z36: Encounter for screening of mother Z3A.19: Weeks Gestation of Procedures 20696: OB greater than 14 wks (1st Basic) [...] 0 lb 12 oz EFW by Hadlock (HSQ-CF-DU-FL) Head / Face / Neck Biometry: Cephalic index 0.73 5%Nicolaides [employer] Builder Heavy Service 6.0 mm CM 3.9 mm18% Nicolaides Outer [...] / Thorax 4-chamber view. High short axis view.6-lporxt-xswthkl view. Gender: male. MATERNAL STRUCTURES ----- Cervix Visualized Approach - Transabdominal: Cervical length 37.2mm Right Ovary Normal Size 28 mm x 26 mm x 19 mm. Mean 2.4 cm. Vol 7.1cm? Left Ovary Not visualized COMMENT ----- Patient's name and date of were confirmed by the exhibitions curator priorto the exam FOLLOW-UP ----- Recommendations: Consider [...] a trial of vaginal delivery. Discussion: The exhibitions curator did alert the patient to the placenta [...] survey documented in this encounter Care Teams Oil Refinery Operator Relationship Specialty Start Date End Date Lisa Perez MD PCP - General Family Practice 10/04/19 documented as of this encounter
--- OUTSIDE RECORDS SUMMARY | 2024-05-16 06:39 | XMS_ITS | Encounter Summary ---
Author Organization [facility] Address [address] [place] [address] Phone Care Team Providers Care Farm Machinery Engine Mechanic Name Role Phone Lisa Perez MD Primary Care Provider Encounter Details Date Type Department Care Team (Late st Contact Info) Description 03/13/2021 Telephone [facility] Surgery [facility] 5th [place] [address] [place] [address] Raine Thompson Social History Tobacco [...] on filedocumented in this encounter Care Teams Farm Machinery Engine Mechanic Relationship Specialty Start Date End Date Lisa Perez MD [address] [facility] [address] [place] [address] PCP - General Family Medicine 02/01/20 documented as of this encounter
--- OUTSIDE RECORDS SUMMARY | 2024-05-16 06:39 | XMS_ITS | Encounter Summary ---
Author Organization [facility] Healthcare Address [address] [place] [address] Care Team Providers Care Mattress Spring Encaser Name Role Phone Lisa Perez MD Primary Care Provider Encounter Details Date Type Department Care Team (Late st Contact Info) Description 03/13/2020 Telephone [facility] Advanced Medicine Breast Imaging [facility] ([facility]) [address] [place] [address] N[address] Mcclendon Social History Tobacco Use Types [...] on filedocumented in this encounter Care Teams Mattress Spring Encaser Relationship Specialty Start Date End Date Lisa Perez MD [address] [facility] [address] [place] [address] PCP - General Family Medicine 02/01/20 documented as of this encounter
--- OUTSIDE RECORDS SUMMARY | 2024-05-16 06:39 | XMS_ITS | Encounter Summary ---
Author Organization [facility] Address [address] [place] [address] Care Team Providers Care Supervisor Correspondence Section Name Role Phone Lisa Perez MD Primary Care Provider +1- [phone] Encounter Details Date Type Department Care Team [...] on filedocumented in this encounter Care Teams Supervisor Correspondence Section Relationship Specialty Start Date End Date Lisa Perez MD PCP - General Family Practice 10/04/19 documented as of this encounter
--- OUTSIDE RECORDS SUMMARY | 2024-05-16 06:40 | XMS_ITS | Encounter Summary ---
Author Organization [facility] Address [address] [place] [address] Phone Care Team Providers Care Iron Pellet Tester Name Role Phone Lisa Perez MD Primary Care Provider Encounter Details Date Type Department Care Team (Late st Contact Info) Description 02/24/2020 Telephone [facility] Surgery [facility] 5th [place] [address] [place] [address] Heidi Simpson Social History Tobacco [...] on filedocumented in this encounter Care Teams Iron Pellet Tester Relationship Specialty Start Date End Date Lisa Perez MD [address] [place] [address] [place] [address] PCP - General Family Medicine 02/01/20 documented as of this encounter
--- OUTSIDE RECORDS SUMMARY | 2024-05-16 06:40 | XMS_ITS | Encounter Summary ---
Author Organization [facility] Address [address] [place] [address] Phone Care Team Providers Care Oncology Admin Name Role Phone Lisa Perez MD Primary Care Provider Reason for Referral * Diagnostic Imaging (Routine) - Closed Specialty Diagnoses / Procedures Referred By Ellie lopez Referred To Contact Diagnoses Breast lump in female Procedures Diagnostic Mammogram Bilateral W Josie Fajardo NP Phone: tel: fax: [facility] 1 [place] [address] Referral ID Status Reason Start Date Expiration Date Visits Re quested Visits Authorized [id number] Closed 02/14/2020 03/15/2021 1 1 Encounter Details Date Type Department Care Team (Late st Contact Info) Description 02/14/2020 Orders Only [facility] Surgery [address] [facility] Advanced Medicine 5th [place] [address] [place] [address] Josie Leon NP [address] [place], [place] [phone] Breast lump in female (Primary Dx) Social [...] has been scheduled to return to the [facility] for biopsy on 03/14/2020 at 8:30 AM. [...] has been scheduled to return to the [facility] for biopsy on 03/14/2020 at 8:30 AM. [...] breast documented in this encounter Care Teams Oncology Admin Relationship Specialty Start Date End Date Lisa Perez MD [address] [facility] [address] [place] [address] PCP - General Family Medicine 02/01/20 documented as of this encounter
--- OUTSIDE RECORDS SUMMARY | 2024-05-16 06:40 | XMS_ITS | Encounter Summary ---
Author Organization [facility] Address [address] [place] [address] Phone Care Team Providers Care Addictions Counselor Name Role Phone Lisa Perez MD Primary Care Provider Reason for Visit * Consultation (Routine) - Closed Specialty Diagnoses / Procedures Referred By Contrick t Referred To Contact Surgery / Breast Surgery Diagnoses Abnormal mammogram Kaykay Weiss MD [address] [facility] [address] [place] [address] Phone: tel: fax: [facility] (All Locations) Referral ID Status Reason Start Date Expiration Date V isits Requested Visits Authorized [id number] Closed Specialty Services Required 02/01/2020 03/02/2021 99 99 Encounter Details Date Type Department Care Team (Late st Contact Info) Description 02/25/2020 8:45 AM CDT Office Visit [facility] Surgery [address] [facility] Advanced Medicine 5th [place] [address] [place] [address] Josie Leon NP [address] [place] [address] Left breast lump (Primary Dx); Abnormal finding [...] one month ago. She presented to her director of photography, who ordered imaging. She underwent a left [...] pertinent surgical history. HOME MEDICATIONS : vit 59-rwtd-msdst-dha 27mg iron- 800 mcg-250 mg capsule vit D3-vit N-ladrjbgpd-uguo [id number] mbts-dbt-ym-mg tablet Allergies Allergen Reactions ??? Vicodin [Hydrocodone-Acetaminophen] [...] file Gets together: Not on file Attends scientology service: Not on file Active member of [...] changes made after this encounter. vit D3-vit S-ogithembx-bcru [id number] iqoy-uom-qn-mg tablet Take by mouth vit 99-uidj-yfnwl-dha 27mg iron- 800 mcg-250 mg capsule Take by mouth added in this encounter Care Teams Addictions Counselor Relationship Specialty Start Date End Date Lisa Perez MD [address] [facility] [address] [place], [place] [phone] PCP - General Family Medicine 02/01/20 documented as of this encounter
--- OUTSIDE RECORDS SUMMARY | 2024-05-16 06:40 | XMS_ITS | Encounter Summary ---
Author Organization [facility] Healthcare Address [address] [place] [address] Care Team Providers Care Food Aide Name Role Phone Lisa Perez MD Primary Care Provider Encounter Details Date Type Department Care Team (Latest Contact Info) Description 02/24/2020 2:59 PM CDT - 02/24/2020 11:59 PM CDT Hospital Encounter [facility] Radiology [facility]) [address] [place] [phone] Discharge Disposition: Discharge to home or self [...] only and have not been reviewed by [facility] Radiology. ??There will be no report generated by a [facility] Radiologist. Narrative RAD_MAMMO_[facility] - 02/24/2020 2:59 PM CDT EXAMINATION: ??Images For Reference Purposes Only us Josie Leon JOURNEYMAN ELECTRICIAN IMG MAMMO PROCEDURES Fin al Result RAD_MAMMO[facility] documented in this encounter Visit Diagnoses Not on filedocumented in this encounter Care Teams Food Aide Relationship Specialty Start Date End Date Lisa Perez MD [address] [facility] [address] [place] [id number] PCP - General Family Medicine 02/01/20 documented as of this encounter
== END 2024-05-09 09:56 | disposition home or self-care (01) ==
PROVIDERS: Emergency Provider Emergency Medicine; PCP Family Medicine
DX: J10.1 Influenza due to other identified influenza virus with other respiratory manifestations (principal); Z20.822 Contact with and (suspected) exposure to COVID-19
CPT/HCPCS: 87637; 96361; 96374; 99284; J1885; J7030

== ENCOUNTER 2024-08-13 19:29 | Emergency (ER) | payer OTHER, SELFPAY ==
--- NOTE | ~2024-08-13 | CT_ITS ---
EXAMINATION: CTA chest abdomen pelvis DATE: 08/14/2024 00:16 INDICATION: Shortness of breath. Abdominal pain. TECHNIQUE: Computed tomographic angiography (CTA) of the chest, abdomen, and pelvis was performed wit h 100 mL Omnipaque-350 intravenous contrast. Automated exposure control and iterative reconstruction technique were employed. The dose-length product was 862.22 mGy-cm. Maximum intensity projection 3D-r econstructions of the aorta and other arteries were constructed by the technologist on a separate wor kstation. COMPARISON: CT abdomen and pelvis 10/31/2021 FINDINGS: CHEST CTA: The lungs demonstrate mild atelectasis. No pleural effusion. The heart size is normal. No pericardial effusion. Thoracic aorta is normal. There is no pulmonary embolus. There is mild thoracic spondylosi s. ABDOMEN AND PELVIS CTA: There is diffuse hepatic steatosis. There are changes of cholecystectomy. The spleen, pancreas, and a drenal glands are normal. The kidneys are normal. There are no dilated loops of bowel. There are godwin ges of appendectomy. Abdominal aorta is normal. There is no significant stenosis of celiac axis, supe rior mesenteric artery, the renal arteries, or inferior mesenteric artery. There are no pathologicall y enlarged lymph nodes. There is no free intraperitoneal fluid. IMPRESSION: 1. Normal arteries. 2. Diffuse hepatic steatosis. Reviewed, dictated and finalized at location A.
--- NOTE | ~2024-08-13 | XR_ITS ---
XR chest 2V Ordering provider: Amrik Balbuena MD History: 38 years Female with . SOB, CP . Comparison: June 29, 2021 FINDINGS: MEDIASTINUM: The cardiac silhouette is not enlarged. LUNGS: No infiltrates, effusions or pneumothorax. OTHER: No free air under the diaphragm. IMPRESSION: No acute cardiopulmonary pathology. Reviewed, dictated and finalized at location A.
[2024-08-13 19:30] VITALS: BP 121/53; PULSE 96; RESP 18; TEMP 36.6; O2SAT 100
--- NOTE | 2024-08-13 19:30 | ECG_ITS ---
Test Date: 2024-08-13 19:37:02 Measurements Intervals [place] Rate: 91 P: 35 GA: 142 QRS: 19 QRSD: 76 T: 17 QT: 339 QTc: 417 Interpretive Statements SINUS RHYTHM NONSPECIFIC ST ABNORMALITY ABNORMAL ECG Electronically Signed On 08-14-2024 10:00:04 CDT by Nomi Waters M.D.
--- OUTSIDE RECORDS SUMMARY | 2024-08-13 19:32 | XMS_ITS | Clinical Summary ---
Author Organization [facility] Address [address] [place] [id number] Care Team Providers Care Data Processing Operator Name Role Phone Loretta Guerrero MD Primary Care Provider + Allergies Active Allergy Reactions Criticality Noted Date Comments Hydrocodone-Acetaminophen Anaphylaxis High 9 Medications traZODone (DESYREL) 50 MG tabletIndicatio ns:Primary insomnia Take 1 tablet (50 mg total) by mouth nightly at bedtime for 30 days. 30 tablet 07/15/2024 5 Active Active Problems Problem Noted Date Diagnosed Date ASCUS with positive high risk HPV cervical 06/30 Encounters Date Type Department Care Team Description 07/22/2024 12:06 PM BLANKBOOK FORWARDER - 07/22/2024 11:59 PM [facility] Hospital Encounter [facility] Ultrasound [address] [place] [address] Loretta Guerrero MD Discharge Disposition: Home or Self Care (Routine Discharge) 07/22/2024 Travel 07/15/2024 8:30 AM BLANKBOOK FORWARDER Office Visit [facility] Family Medicine - Be [address] [place] [address] Loretta Guerrero MD New Patient (Here to get established. 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 L ovary pain onset- 2 yrs. Had ablation. Still having pain with intercourse. ); Headache 07/15/2024 Travel 06/30/2024 Scan [facility] Scanned, [facility] from Last 3 Months Immunizations Name Administration Dates Next Due H1N1 Injectable 2009 Influenza 04/11/2009 Influenza (Generic) 02/25/2021,03/13/2009 Influenza Adult (Generic) 03/16/2023,02/20/2020, 02/24/2019 Tdap (Generic) 09/24/2018 Family History * Patient is adopted Medical History Relation Comments No Known Problems Daughter 1 No Known Problems Daughter 2 Autism Daughter 3 No Known Problems Sister 1 No Known Problems Sister 2 No Known Problems Sister 3 No Known Problems Sister 4 Autism Son Relation Status Comments Daughter 1 Alive Daughter 2 Alive Daughter 3 Alive Father Unknown Mother Unknown Sister 1 Alive Sister 2 Alive Sister 3 Alive Sister 4 Alive Son Alive Social History Tobacco Use Types Packs/Day Years Used Date Smoking Tobacco: Never Passive Smoke Exposure: Never Smokeless Tobacco: Never Tobacco Cessation:Counseling Given: No Alcohol Use Standard Drinks/Week Comments Not Currently 1.7 (1 standard drink = 0.6 oz p ure alcohol) rare PHQ-2 Answer Date Recorded Patient Health Questionnaire-2 Score 3 07/15/2024 Comments Unknown Sex and Gender Information Value Date Recorded Sex Assigned at Not on file Legal Sex Female 11:00 AM BLANKBOOK FORWARDER Gender Identity Not on file Sexual Orientation Not on file Last Filed Vital Signs Vital Sign Reading Time Taken Comments Blood Pressure 113/66 07/15/2024 8:36 AM BLANKBOOK FORWARDER Pulse 66 07/15/2024 8:36 AM BLANKBOOK FORWARDER Temperature 35.9 C (96.7 F) 07/15/2024 8:36 AM BLANKBOOK FORWARDER Respiratory Rate - - Oxygen Saturation 99% 07/15/2024 8:36 AM BLANKBOOK FORWARDER Inhaled Oxygen Concentration - - Weight 82.2 kg (181 lb 3.2 oz) 07/15/2024 8:36 A M BLANKBOOK FORWARDER Height 165.1 cm (5' 5 ) 07/15/2024 8:36 AM BLANKBOOK FORWARDER Body Mass Index 30.15 07/15/2024 8:36 AM BLANKBOOK FORWARDER Plan of Treatment Upcoming Encounters Date Type Department Care Team (Late st Contact Info) Description 07/21/2025 8:50 AM BLANKBOOK FORWARDER Office Visit [facility] Medical [facility] Family Medicine - Be [address] [place] [address] [phone] Loretta Guerrero MD [address] [place] [phone] Health Maintenance Due Date Last Done Comments Cervical Cancer Screening Pap Smear (Age 30 to 64) Every 3 Years 1987 Hepatitis C 08/31/2005 Hepatitis B Vaccines (1 of 3 - 19+ 3-dose series) 08/31/2006 COVID-19 Vaccine (3 - season) 2024 07/27/2021, 08/26/2020 Influenza Adult (#1) 2024 03/16/2023, 02/25/2021, 02/20/2020, Additional history exists Cervical Cancer Screening Pap with HPV Testing (Age 30 to 64) Every 5 Years 05/23/2025 05/23/2020 Cervical Cancer Screening with HPV 05/23/2025 Annual Physical 07/15/2025 07/15/2024 DTaP, Tdap and Td Vaccines (2 - Td or Tdap) 09/24/2028 09/24/2018 PHQ-2 (Physician [place]) Completed 07/15/2024 HPV Vaccines Aged Out No longer eligi ble based on patient's age to complete this topic Meningococcal B Vaccine Aged Out No l onger eligible based on patient's age to complete this topic Meningococcal Vaccine Aged Out No mary ann dylon eligible based on patient's age to complete this topic Pneumococcal Vaccine: Pediatrics (0 to 5 Years) and At-Risk Patients (6 to 64 Years) Aged Out No longer eligible based on patient's age to complete this topic RSV Immunizations Under 20 Months Aged Out No longer eligible based on patient's age to complete this topic Procedures Procedure Name Priority Date/Time Associated Diagnosis Comments US PELVIC NON OB COMP TA+TV Routine 07/22/2024 1:00 PM BLANKBOOK FORWARDER Pelvic pain COLLECTION VENOUS BLOOD VENIPUNCTURE Routine 07/15/2024 9:25 AM BLANKBOOK FORWARDER Routine general medical examination at a health care facility HEMOGLOBIN, GLYCOSYLATED Routine 07/15/2024 9:25 AM BLANKBOOK FORWARDER Routine general medical examination at a health care facility LIPID PANEL Routine 07/15/2024 9:25 AM BLANKBOOK FORWARDER Routine general medical examination at a health care facility COMPREHENSIVE METABOLIC PANEL Routine 07/15/2024 9:25 AM BLANKBOOK FORWARDER Pelvic pain CBC W/DIFF AUTOMATED Routine 07/15/2024 9:25 AM BLANKBOOK FORWARDER Pelvic pain TSH W/REFLEX Routine 07/15/2024 9:25 AM BLANKBOOK FORWARDER Pelvic pain OUTSIDE CYTOPATH CERV/VAG INTERPRET (PAP) 05/23/2020 from Last 3 Months or Most Recently Relevant to Health Maintenance Results * US PELVIC NON OB COMP TA+TV (07/22/2024 1:00 PM BLANKBOOK FORWARDER) Anatomical Region Laterality Modality Pelvis Ultrasound 07/27/2024 12:3 0 PM CDT Impressions 07/27/2024 12:38 PM CDT IMPRESSION: 1. Slightly complex left ovarian cyst. Follow-up in 6 weeks.. 2. Grossly normal appearance to the right ovary. No endometrial or myometrial mass. Ordered By: LORETTA GUERRERO Interpreted By: David Cooper, 07/27/2024 12:30 PM Narrative 07/27/2024 12:38 PM CDT [place] [id number] [facility] [place] [address] EXAMINATION: US PELVIC NON OB COMP TA+TV EXAM DATE: 07/22/2024 12:17 PM COMPARISON STUDIES: None CLINICAL HISTORY: pelvic pain, dyspareaunia . Ablation in 2022. Left-sided pelvic pain.. LMP June 24, 2024 FINDINGS: Real time ultrasound examination performed by the electronic assembler of the pelvis through transabdominal and transvaginal approach. The uterus demonstrate normal shape and configuration without evidence of focal lesions. Measures 8.3 x 4.5 x 5.7 cm. Heterogeneous echotexture to the myometrium. with an endometrial lining of 1 cm.. No endometrial mass. No abnormal color flow to the endometrium.. Nabothian cysts within the cervix. The right ovary measures 2.7 x 1.3 x 1.2 cm without evidence of focal lesions. Normal follicles and flow noted. Normal color flow Doppler with spectral and waveform analysis. Few hyperechoic probable calcifications. The left ovary measures 2.6 x 2.4 x 2.2 cm. . Contains a slightly ill-defined complex cyst. Measures 1.4 x 1.2 x 1.3 cm. No abnormal color flow.. Normal color flow Doppler with spectral and waveform analysis. No free fluid noted in the cul-de-sac. Procedure Note Christopher Cooper MD - 07/27/2024 [facility] [address] [place] [address] EXAMINATION: US PELVIC NON OB COMP TA+TV EXAM DATE: 07/22/2024 12:17 PM COMPARISON STUDIES: None CLINICAL HISTORY: pelvic pain, dyspareaunia . Ablation in 2022.Left-sided pelvic pain.. LMP June 24, 2024 FINDINGS: Real time ultrasound examination performed by the electronic [facility] through transabdominal and transvaginal approach. The uterus demonstrate normal shape and configuration without evidence offocal lesions. Measures 8.3 x 4.5 x 5.7 cm. Heterogeneous echotexture tothe myometrium. with an endometrial lining of 1 cm.. No endometrial mass. No abnormalcolor flow to the endometrium.. Nabothian cysts within the cervix. The right ovary measures 2.7 x 1.3 x 1.2 cm without evidence of focallesions. Normal follicles and flow noted. Normal color flow Doppler withspectral and waveform analysis. Few hyperechoic probable calcifications. The left ovary measures 2.6 x 2.4 x 2.2 cm. . Contains a slightlyill-defined complex cyst. Measures 1.4 x 1.2 x 1.3 cm. No abnormal colorflow.. Normal color flow Doppler with spectral and waveform analysis. No free fluid noted in the cul-de-sac. IMPRESSION: 1. Slightly complex left ovarian cyst. Follow-up in 6 weeks.. 2. Grossly normal appearance to the right ovary. No endometrial ormyometrial mass. Ordered By: LORETTA GUERRERO Interpreted By: David Cooper, 07/27/2024 12:30 PM us Loretta Guerrero MD ULTRASOUND Final Re sult * TSH W/REFLEX (07/15/2024 9:25 AM BLANKBOOK FORWARDER) TSH 1.029 0.358 - 3.740 uIU/ML 07/15/2024 3:39 PM BLANKBOOK FORWARDER [facility] 07/15/2024 9:25 AM BLANKBOOK FORWARDER Loretta Guerrero MD LABORATORY Final Re sult Performing Organization Address [facility] Co de Phone Number [address] [address], [place] [phone] * HEMOGLOBIN, GLYCOSYLATED (07/15/2024 9:25 AM BLANKBOOK FORWARDER) HGB A1C 5.3 4.5 - 6.2 % 07/15/2024 3:38 PM BLANKBOOK FORWARDER [facility] ESTIMATED AVG GLUCOSE 105 74 - 106 MG/DL 07/15/2024 3:38 PM BLANKBOOK FORWARDER [facility] 07/15/2024 9:25 AM BLANKBOOK FORWARDER Loretta Guerrero MD LABORATORY Final Re sult Performing Organization Address [facility] Co de Phone Number [address] [address], [place] [phone] * (ABNORMAL) COMPREHENSIVE METABOLIC PANEL (07/15/2024 9:25 AM BLANKBOOK FORWARDER) Pathologist [facility] SODIUM S/P/B 140 136 - 145 MMOL/L 07/15/2024 3:39 PM BLANKBOOK FORWARDER [facility] POTASSIUM S/P/B 4.3 3.5 - 5.1 MMOL/L 07/15/2024 3:39 PM BLANKBOOK FORWARDER [facility] CHLORIDE S/P/B 104 98 - 107 MMOL/L 07/15/2024 3:39 PM BLANKBOOK FORWARDER [facility] CO2 27.3 21 - 32 MMOL/L 07/15/2024 3:39 PM [facility] GLUCOSE 87 70 - 99 MG/DL 07/15/2024 3:39 PM [facility] BUN 10 7 - 18 MG/DL 07/15/2024 3:39 PM [facility] CREATININE S/P/B 0.73 0.55 - 1.02 MG/DL 07/15/2024 3:39 PM [facility] CALCIUM S/P/B 9.3 8.4 - 10.5 MG/DL 07/15/2024 3:39 PM [facility] BILIRUBIN TOTAL S/P/B 1.0 0.2 - 1.0 MG/DL 07/15/2024 3:39 PM [facility] ALKALINE PHOSPHATASE S/P/B 56 37 - 98 U/L 07/15/2024 3:39 PM [facility] AST 13(L) 15 - 37 U/L 07/15/2024 3:39 PM [facility] ALT 18 14 - 59 U/L 07/15/2024 3:39 PM [facility] TOTAL PROTEIN S/P/B 6.9 6.4 - 8.2 G/DL 07/15/2024 3:39 PM [facility] ALBUMIN S/P/B 3.9 3.4 - 5.0 G/DL 07/15/2024 3:39 PM [facility] ANION GAP 8.7 5 - 15 MMOL/L 07/15/2024 3:39 PM [facility] Comment:REFERENCE RANGE NOT ESTABLISHED OSMOLALITY (CALC) 288 MOSM/KG 025 3:39 PM [facility] Comment:REFERENCE RANGE NOT ESTABLISHED GFR ESTIMATE >90 >90 ML/MIN/1. 73 M2 07/15/2024 3:39 PM [facility] GFR NOTES GFR REFERENCE S: 07/15/2024 3:39 PM BLANKBOOK FORWARDER [facility] Comment: THE ESTIMATED GFR IS CALCULATED USING THE 2020 CKD-EPI EQUATION. THE FOLLOWING CATEGORIES FOR GRADING RENAL FUNCTION ARE RECOMMENDED BY THE INTERNATIONAL SOCIETY OF NEPHROLOGY (KDIGO 2012 CLINICAL PRACTICE GUIDELINE). G1,NORMAL OR HIGH: >89 ml/min/1.73 m2 G2,MILDLY DECREASED: 60-89 ml/min/1.73 m2 G3A,MILDLY TO MODERATELY DECREASED: 45-59 ml/min/1.73 m2 G3B,MODERATELY TO SEVERELY DECREASED: 30-44 ml/min/1.73 m2 G4,SEVERELY DECREASED: 15-29 ml/min/1.73 m2 G5,KIDNEY FAILURE: <15 ml/min/1.73 m2 07/15/2024 9:25 AM BLANKBOOK FORWARDER us Loretta Guerrero MD LABORATORY Final Re sult [facility] [address] [place] [address], * LIPID PANEL (07/15/2024 9:25 AM BLANKBOOK FORWARDER) CHOLESTEROL 163 <200 MG/DL 07/15/2024 3:39 PM [facility] TRIGLYCERIDES 117 <150 MG/DL 07/15/2024 3:39 PM [facility] HDL 46 >40 MG/DL 07/15/2024 3:39 PM [facility] LDL-C 94 <100 MG/DL 07/15/2024 3:39 PM [facility] VLDL CALCULATION 23 5 - 28 MG/DL 07/15/2024 3:39 PM [facility] CHOL/HDL RATIO 3.5 0.0 - 4.0 07/15/2024 3:39 PM [facility] LDL/HDL 2.0 0.41 - 2.13 07/15/2024 3:39 PM [facility] NON HDL CHOLESTEROL 117 <140 MG/DL 07/15/2024 3:39 PM [facility]OOK FOR[facility] 07/15/2024 9:25 AM BLANKBOOK FORWARDER Loretta Guerrero MD LABORATORY Final Re sult [facility] [place], [place] [address] [place] [address], * (ABNORMAL) CBC W/DIFF AUTOMATED (07/15/2024 9:25 AM BLANKBOOK FORWARDER) WBC 5.15 4.00 - 10.80 x10'3/uL 07/15/2024 2:44 PM BLANKBOOK FORWARDER [facility] RBC 4.58 4.10 - 5.40 x10'6/uL 07/15/2024 2:44 PM BLANKBOOK FORWARDER [facility] HGB 13.7 12.0 - 16.0 G/DL 07/15/2024 2:44 PM BLANKBOOK FORWARDER [facility] HCT 41.3 36.0 - 47.0 % 07/15/2024 2:44 PM BLANKBOOK FORWARDER [facility] MCV 90.2 78.0 - 100.0 FL 07/15/2024 2:44 PM [facility] MCH 29.9 27.0 - 31.0 PG 07/15/2024 2:44 PM BLANKBOOK FORWARDER [facility] MCHC 33.2 33.0 - 36.0 G/DL 07/15/2024 2:44 PM BLANKBOOK FORWARDER [facility] RDW 12.6 11.5 - 14.5 % 07/15/2024 2:44 PM BLANKBOOK FORWARDER [facility] PLT 267 150 - 350 x10'3/uL 07/15/2024 2:44 PM [facility] MPV 11.3(H) 7.4 - 10.4 FL 07/15/2024 2:44 PM [facility] DIFFERENTIAL TYPE AUTOMATED DIFFERENTIAL 07/15/2024 2:44 PM BLANKBOOK FORWARDER [facility] NEUTROPHILS % 61.4 % 07/15/2024 2:44 PM [facility] LYMPHOCYTES % 30.9 % 07/15/2024 2:44 PM [facility] MONOCYTES % 5.6 % 07/15/2024 2:44 PM [facility] EOSINOPHILS % 1.7 % 07/15/2024 2:44 PM BLANKBOOK FORWARDER [facility] BASOPHILS % 0.2 % 07/15/2024 2:44 PM [facility] IMMATURE GRANS % 0.2 % 07/15/2024 2:44 PM BLANKBOOK FORWARDER [facility] ABS. NEUTROPHILS 3.16 1.60 - 8.30 x10'3/uL 07/15/2024 2:44 PM [facility] ABS. LYMPHOCYTES 1.59 0.80 - 4.70 x10'3/uL 07/15/2024 2:44 PM BLANKBOOK FORWARDER [facility] ABS. MONOCYTES 0.29 0.00 - 1.50 x10'3/uL 07/15/2024 2:44 PM [facility] ABS. EOSINOPHILS 0.09 0.00 - 0.40 x10'3/uL 07/15/2024 2:44 PM [facility] ABS. BASOPHILS 0.01 0.00 - 0.20 x10'3/uL 07/15/2024 2:44 PM [facility] ABS. IMMATURE GRANULOCYTES 0.01 0.00 - 0.03 x10'3/uL 07/15/2024 2:44 PM [facility] 07/15/2024 9:25 AM [facility] us Loretta Guerrero MD LABORATORY Final [facility] [address] [place] [address], * PAP SMEAR WITH HPV (05/23/2020) 05/23/2020 us [facility] Scanned SCANNING Final Resu lt from Last 3 Months or Most Recently Relevant to Health Maintenance Insurance Care Teams Data Processing Operator Relationship Specialty Start Date End Date Loretta Guerrero MD [address] [facility] [place] [id number] PCP - General FAMILY PRACTICE 06/03/24
--- OUTSIDE RECORDS SUMMARY | 2024-08-13 19:32 | XMS_ITS | Referral Summary ---
Author Organization [facility] Address [address] [place] [address] Care Team Providers Care Manufacturing Plant Controller Name Role Phone Lisa Perez MD Primary Care Provider Allergies Active Allergy Reactions Criticality Noted Date Comments Hydrocodone-Acetaminophen Anaphylaxis High 0 Medications vit 30-vssx-zagie-dh a 27mg iron- 800 mcg-250 mg capsule Take by mouth Active vit D3-vit K-lpahhtqul-fzab [phone] ezql-iel-sf-mg tablet Take by mouth Active Active Problems [...] Plan of Treatment Not on file Insurance [facility] CLAIMS Care Teams Manufacturing Plant Controller Relationship Specialty Start Date End Date Lisa Perez MD [address] [facility] [address] [place] [address] PCP - General Family Medicine 02/01/20
--- OUTSIDE RECORDS SUMMARY | 2024-08-13 19:32 | XMS_ITS | Data Portability ---
Author Organization [facility], [id number] Address [address] [place] [address] Assessment Encounter Date Assessment Date Assessment LastModified by Organization Details LastModified Time 08/13/2024 08/13/2024 agrees to EMB in 2w, handout provided. she'll CALL if period is late, as anticipates in 1wk. [email or web address] Not available 08/13/2024 09:52:47 Plan of Treatment Reminders Order Date Submit Date Provider Last Modified By Organization Details Last Modified Time Details Appointments CONSULT 2024 08:45A Lynette DORANTES MD Not available Not available Not available Endo BX 2024 08:45A Lynette DORANTES MD Not available Not available Not available Lab HPV DNA, high-risk - Reflex to genotypin g if HPV Detected 2024 025 [facility] ([facility]), [facility] , [address], [place], [address], 08/13/2024 09:54:59 pap, LB 2024 025 [facility] ([facility]), [facility] , [address], [place], [address], 08/13/2024 09:55:31 Referral None recorded. Procedures None recorded. Surgeries None recorded. Imaging None recorded. Medication Orders None recorded. Patient TargetsNo targets recorded. Patient InstructionsNo instructions recorded. Reason for Referral None Reported. Problems Name Problem SNOMED Code Status Onset Date Resolution Date Notes Provider Name and Address Organization Details Recorded Time Dysmenorrhea 593780977 Active 2024 on this date w 8.3cm ut, 1cm ems, NL ovaries and 1.4cm L ov cyst FLOR DORANTES MD [address], [place], [address], [facility] 5 10:38:00 Low back pain 731645541 Active 2023 MRI on this date, for 3mos of pain, w NL findings /discs. FLOR DORANTES MD [address], [place], [address], [facility] 5 10:39:38 Problem Notes None recorded. Procedures Surgical History Date Name Laterality Status Provider Name and Address Organization Details Recorded Time 05/19/19 23 Date of Last Pap Smear completed Kate Gage [facility] 08/13/2024 09:37:06 05/19/19 21 Date of Last Mammogram completed Kate Gage [facility] 08/13/2024 09:28:11 endometrial ablation completed FLOR DORANTES MD [address], [place], [address], [facility] 08/12/2024 10:37:16 Endometrial Ablation completed [facility]age [facility] 08/13/2024 09:28:17 Other completed [facility] Sowers [facility] 08/13/2024 09:28:17 Appendectomy completed Kate Gage [facility] 08/13/2024 09:28:17 Cholecystectomy completed Kate Gage [facility] 08/13/2024 09:35:47 Imaging Results None recorded. Procedure Notes None recorded. Medical Equipment None Reported. Allergies Allergen ID Allergen Name Allergen Category Reaction Reaction Severity Criticality Documentation Date Start Date Code Code System Note Provider Name and Address Organization Details Recorded Time 868286 hydrocodo ne Not available anaphylax is Not available high 08/10/2024 5489 RxNorm Kateshelby Gage [facility] 15:10:13 Medications Name Sig Start Date Stop Date Status Note LastModified by Organization Details LastModified Time benzonatate 200 mg capsule TAKE 1 CAPSULE BY MOUTH THREE TIMES DAILY 08/13 completed Not Available Not Available Not Available Paxlovid 300 mg (150 mg x 2)-100 mg tablets in a dose pack TAKE 2 NIRMATREL VIR TABLETS AND 1 RITONAVIR TABLET TOGETHER BY MOUTH TWICE DAILY FOR 5 DAYS 08/13 completed Not Available Not Available Not Available Vitals Date Recorded Body weight Body mass index (BMI) Body height Systolic blood pressure Diastolic blood pressure Provider Name and Address Organization Details Last Updated DateTime 08/13/2024 72075.63 g 30 kg/m2 165.1 cm 128 mm[Hg] 76 mm[Hg] Kate Gage [facility] 09:36:56 Social History Question Answer Notes LastModified by Organizat ion Details LastModified Time Tobacco Smoking Status Never Smoker Kate Gage [facility] 08/10/2024 15:14:26 Do You Have An Advance Directive? No [email or web address] Information not available 08/13/2024 What Is Your Level Of Alcohol Consumption? Occasional [email or web address] Information not available 08/13/2024 If You Are , What Was Your Level Of Alcohol Consumption Prior To ? None [email or web address] Information not available 08/13/2024 What Is Your Level Of Caffeine Consumption? Moderate Information not available 08/13/2024 Are You Currently Employed? Yes [email or web address] Information not available 08/13/2024 What Type Of Diet Are You Following? REGULAR [email or web address] Information not available 08/13/2024 What Is Your Relationship Status? [email or web address] Information not available 08/10/2024 Do You Use Any Illicit Or Recreational Drugs? No [email or web address] Information not available 08/10/2024 Sex: Unknown Functional Status None recorded. Mental Status None recorded. Family History Relationship Description Onset Age of this Age Resolved Age Notes LastModified by Organization Details LastModified Time Daughter Autism spectrum disorder [email or web address] Not available 2024 15:14:52 Son Autism spectrum disorder Not available 2024 15:14:56 Medical History Condition Response No diseases or conditions Y Gynecological History Statement/Question Response Date of Last Mammogram 05/19/2020 Flow Moderate History of Fibroids N Date of LMP 07/25/2024 Current Control Method: Vasectomy - Partner History of Recurrent Ovarian Cysts Y Cologuard Testing N Age at first intercourse 20 Date of Last Cholesterol Screening 07/16 12 History of PCOS N History of Infertility N History of Cervical Dysplasia N History of Vulvar Dysplasia N Duration of Flow (days) 5 History of Endometriosis N Sexually Active? Y History of Abnormal PAP Y History of Dysmenorrhea N Menses Monthly Y Date of Last Pap Smear 05/19/2022 Sexual Problems? Y History of Sexually Transmitted Infectio n N Obstetrics History GPAL:G 4 P 4 0 1 4 Type Value Multiple Births 0 Full Term 4 Induced 0 Spontaneous 1 Premature 0 Living 4 Ectopics 0 Total 4 Past Encounters Encounter ID Performer Location Encounter Start Date Encounter Closed Date Diagnosis/Indication Diagnosis SNOMED-CT Code Diagnosis ICD10 Code Diagnosis Note [id number] FLOR DORANTES MD [id number] [facility] [address] [place] [address] 08/13/2024 09:26:01 08/13/2024 09:55:30 Screening for malignant neoplasm of cervix 963707467 Z12.4 Human sayra lloma virus screening 712393584 Z11.51 Dysmenorrhea 445799338 N 94.6 Health Concerns Section Related Observation LastModified by Organization Detai ls LastModified Time None Recorded Concern Status LastModified by Organization Details LastModified Time None Recorded Advance Directives Directive N: Payers Encounter Date Sequence Insurance Name Policy Number Policy Bergeron Covered Member ID Bergeron Member ID Guarantor Name 08/13/2024 1 [facility] () [facility] [id number] [facility] Notes Date Note Type Note Provider Name and Address Organization Details Recorded Time 08/13/2024 text/html mother had hysterectomy for a cyst, but doesn't know more. states asked last gas engine repairer for a hysterectomy for heavy painful periods, but was encoaurged to do ablation instead. did not help. periods monthly, pain can extend to upper abdomen and chest. agrees had abn pap w HPV in past and knows did not have one at last visit, agreed to do one today and included STI screen. vasectomy, but pain and bleeding w sex too. 4 and largest was 8#2, her appendectomy was not ruptured, and both appy and tawnya were Lscope. agrees to EMB after next menses, then may consider eval w ADP for possible robotic hysterectomy. her recent US was NL except for tiny L cyst, which is where she often has pain per pt. no fam hx endometriosis that she's aware of, but states was told her recent US was to investigate that; explained US does not show it, that eosis is pathological diagnosis. FLOR DORANTES MD [address] [facility] [address], [place], [address], [facility] 08/13/2024 09:54:00 OBGyn Episode No OBEpisode recorded.
--- OUTSIDE RECORDS SUMMARY | 2024-08-13 19:32 | XMS_ITS | Clinical Summary ---
Author Organization [facility] Address [address] [place] [address] Care Team Providers Care Digital Marketing Coordinator Name Role Phone Lisa Perez MD Primary Care Provider Allergies Active Allergy Reactions Criticality Noted Date Comments Hydrocodone-Acetaminophen Anaphylaxis High 0 Medications vit 62-byji-qoneg-dh a 27mg iron- 800 mcg-250 mg capsule Take by mouth Active vit D3-vit U-prxogjtvq-flok [id number] vfbw-oky-dn-mg tablet Take by mouth Active Active Problems [...] Plan of Treatment Not on file Insurance [facility] CLAIM[facility] Care Teams Digital Marketing Coordinator Relationship Specialty Start Date End Date Lisa Perez MD [address] [facility] [address] [place] [address] PCP - General Family Medicine 02/01/20
--- OUTSIDE RECORDS SUMMARY | 2024-08-13 19:32 | XMS_ITS | Clinical Summary ---
Author Organization [facility] Address [address] [place] [address] Phone Care Team Providers Care Track Grinder Operator Name Role Phone Lisa Perez MD Primary Care Provider [phone]- [phone] Encounters Date Type Department Care Team Description 08/04/2024 External Device Data [facility]STRACTION Provider, Abstract 08/04/2024 External Device Data [facility] Provider, Abstract 07/24/2024 External Device Data [facility] Provider, Abstract 07/23/2024 External Device Data [facility] Provider, Abstract 07/20/2024 External Device Data [facility] Provider, Abstract 07/06/2024 External Device Data [facility] Provider, Abstract 06/10/2024 External Device Data [facility] Provider, Abstract 06/08/2024 External Device Data [facility] Provider, Abstract 06/01/2024 External Device Data [facility] Provider, Abstract from Last 3 Months Social History Tobacco Use Types Packs/Day Years Used Date Smoking Tobacco: Never Assessed Comments Unknown Sex and Gender Information Value Date Recorded Sex Assigned at Not on file Legal Sex Female 9:56 AM CDT Gender Identity Not on file Sexual Orientation Not on file Plan of Treatment Health Maintenance Due Date Last Done Comments Pre-Diabetes and Diabetes Screening 1987 DTAP/TDAP/TD VACCINES (1 - Tdap) 08/31/2006 HEPATITIS B VACCINES (1 of 3 - 19+ 3-dose series) 08/31/2006 PAP SMEAR 08/31/2008 CERVICAL CANCER SCREENING 08/31/2017 HPV/Cotest (30-65) 08/31/2017 PAP SMEAR 08/31/2017 INFLUENZA VACCINE (#1) 2023 HPV VACCINES Aged Out No longer eligi ble based on patient's age to complete this topic Insurance [facility] * Guarantor: [employer] Account Type Relation to Patient Date of Phone Billing Address [employer] [place] [phone] [employer] Care Teams Track Grinder Operator Relationship Specialty Start Date End Date Lisa Perez MD PCP - General Family Practice 10/04/19
--- OUTSIDE RECORDS SUMMARY | 2024-08-13 19:32 | XMS_ITS | Continuity of Care Document ---
Author Organization [facility], [id number] [facility] Address [address] [place] [address] Assessment Encounter Date Assessment Date Assessment LastModified by Organization Details LastModified Time 08/13/2024 08/13/2024 agrees to EMB in 2w, handout provided. she'll CALL if period is late, as anticipates in 1wk. [email or web address] Not available 08/13/2024 09:52:47 Plan of Treatment Reminders Order Date Submit Date Provider Last Modified By Organization Details Last Modified Time Details Appointments CONSULT 30 2024 08:45A Lynette DORANTES MD Not available Not available Not available Endo BX 2024 08:45A Lynette DORANTES MD Not available Not available Not available Lab HPV DNA, high-risk - Reflex to genotypin g if HPV Detected 2024 025 [facility] ([facility]), [address] [facility] [address] , [address], [place], [address], 08/13/2024 09:54:59 pap, LB 2024 025 [facility] ([facility]), [address] [facility] , [address], [place], [address], 08/13/2024 09:55:31 Referral None recorded. Procedures None recorded. Surgeries None recorded. Imaging None recorded. Medication Orders None recorded. Patient TargetsNo targets recorded. Patient InstructionsNo instructions recorded. Reason for Referral None Reported. Problems Name Problem SNOMED Code Status Onset Date Resolution Date Notes Provider Name and Address Organization Details Recorded Time Dysmenorrhea 958356679 Active 2024 on this date w 8.3cm ut, 1cm ems, NL ovaries and 1.4cm L ov cyst FLOR DORANTES MD [address], [place], [address], [facility] 5 10:38:00 Low back pain 111596517 Active 2023 MRI on this date, for 3mos of pain, w NL findings /discs. FLOR DORANTES MD [address], [place], [address], [facility] 5 10:39:38 Problem Notes None recorded. Procedures Surgical History Date Name Laterality Status Provider Name and Address Organization Details Recorded Time 05/19/19 23 Date of Last Pap Smear completed Kate Gage [facility] 08/13/2024 09:37:06 05/19/19 21 Date of Last Mammogram completed Kate Gage [facility] 08/13/2024 09:28:11 endometrial ablation completed FLOR DORANTES MD [address], [place], [address], [facility] 08/12/2024 10:37:16 Endometrial Ablation completed [facility] 08/13/2024 09:28:17 Other completed [facility] 08/13/2024 09:28:17 Appendectomy completed Kate Gage [facility] 08/13/2024 09:28:17 Cholecystectomy completed Kate Too [facility] 08/13/2024 09:35:47 Imaging Results None recorded. Procedure Notes None recorded. Medical Equipment None Reported. Allergies Allergen ID Allergen Name Allergen Category Reaction Reaction Severity Criticality Documentation Date Start Date Code Code System Note Provider Name and Address Organization Details Recorded Time 245324 hydrocodo ne Not available anaphylax is Not available high 08/10/2024 5489 RxNorm Kate Gage [facility] 15:10:13 Medications Name Sig Start Date Stop [...] Address Organization Details Last Updated DateTime 08/13/2024 95442.63 g 30 kg/m2 165.1 cm 128 mm[Hg] 76 mm[Hg] Kate Gage [facility] 09:36:56 Social History Question Answer Notes LastModified by Organizat ion Details LastModified Time Tobacco Smoking Status Never Smoker Kate Gage [facility] 08/10/2024 15:14:26 Do You Have An Advance Directive? No [email or web address] Information not available 08/13/2024 What Is Your Level Of Alcohol Consumption? Occasional [email or web address] Information not available 08/13/2024 If You Are , What Was Your Level Of Alcohol Consumption Prior To ? None [email or web address] Information not available 08/13/2024 What Is Your Level Of Caffeine Consumption? Moderate [email or web address] Information not available 08/13/2024 Are You Currently Employed? Yes Information not available 08/13/2024 What Type Of Diet Are You Following? REGULAR [email or web address] Information not available 08/13/2024 What Is Your Relationship Status? [email or web address] Information not available 08/10/2024 Do You Use Any Illicit Or Recreational Drugs? No [email or web address] Information not available 08/10/2024 Sex: Unknown Functional Status None recorded. Mental Status None recorded. Family History Relationship Description Onset Age of this Age Resolved Age Notes LastModified by Organization Details LastModified Time Daughter Autism spectrum disorder [email or web address] Not available 2024 15:14:52 Son Autism spectrum disorder [email or web address] Not available 2024 15:14:56 Medical History Condition [...] SNOMED-CT Code Diagnosis ICD10 Code Diagnosis Note [id number] FLOR DORANTES MD [id number] [facility] [address] [place] [address] 08/13/2024 09:26:01 08/13/2024 09:55:30 Screening for malignant neoplasm of cervix 880337393 Z12.4 Human sayra lloma virus screening 593951394 Z11.51 Dysmenorrhea 129699122 N 94.6 Health Concerns Section Related Observation LastModified by Organization Detai ls LastModified Time None Recorded Concern Status LastModified by Organization Details LastModified Time None Recorded Payers Encounter Date Sequence Insurance Name Policy Number Policy Bergeron Covered Member ID Bergeron Member ID Guarantor Name 08/13/2024 1 [facility] () [facility] [id number] [facility] Notes Date Note Type Note Provider Name and Address Organization Details Recorded Time 08/13/2024 text/html mother had hysterectomy for a cyst, but doesn't know more. states asked last tire mold engraver for a hysterectomy for heavy painful periods, [...] is pathological diagnosis. FLOR DORANTES MD [address] [facility] [address], [place], [address], [facility] 08/13/2024 09:54:00 OBGyn Episode No OBEpisode recorded.
--- OUTSIDE RECORDS SUMMARY | 2024-08-13 19:32 | XMS_ITS | Data Portability ---
Author Organization [facility] Address [address] [place] [address] [place] [address] Care Team Providers Care Fiscal Specialist Name Role Phone DAYTON VALLEJOIA Primary Care Provider Assessment No assessment recorded. Plan of Treatment Reminders Order Date Submit Date Provider Last Modified By Organization Details Last Modified Time Details Appointments None recorded. Lab None recorded. Referral None recorded. Procedures None recorded. Surgeries total hysterectom y, laparoscopi c, with bilateral salpingecto my (SURG) [id number] [facility], [facility] [address], [place], [address], 09:34:23 oophorectom y (SURG) [email or web address], [address], [place], [address], 4 09:34:24 Imaging US, pelvis 2023 [address], [address], [place], [address], 4 16:36:50 US, transvagina l [address]23 [address], [address], [place], [address], 16:36:50 Medication Orders None recorded. Patient TargetsNo targets recorded. Patient InstructionsNo instructions recorded. Reason for Referral None Reported. Results Created Date Observation Date Name Description Value Unit Range Abnormal Flag Note LastModifiedBy Organization Detail LastModifiedTime 07/25/19 24 07/25/2023 US, pelvi s No observ ation record ed. [facility] [address], [place], [address], 07/25/2023 15:54:12 07/25/19 24 07/25/2023 US, trans vagin al No observ ation record ed. [facility] [address], [place], [address], 07/25/2023 15:54:22 07/25/19 24 07/25/2023 US, pelvi s No observ ation record ed. [email or web address] [address], [place], [address], 07/25/2023 22:31:05 Result Notes None recorded. Problems Name Problem SNOMED Code Status Onset Date Resolution Date Notes Provider Name and Address Organization Details Recorded Time History of menorrhagia 586553029 [address] [facility] [address], [place], [address], [facility] 3 10:53:37 History of dysmenorrhea 348746533 Active 2022 ALIX Laboy [address], [place], [address], [facility] 3 10:53:03 Problem Notes None recorded. Procedures Surgical History Date Name Laterality Status Provider Name and Address Organization Details Recorded Time 023 HYSTEROSCOPY, WITH ENDOMETRIAL ABLATION (SURG) completed [facility] 11/27/2022 10:12:58 023 HYSTEROSCOPY, WITH ENDOMETRIAL ABLATION (SURG) completed [facility] 11/27/2022 10:28:42 022 Date of Last Pap Smear completed Laury Sommer [facility]- [address], [place], [address], [place] [facility] 08/29/2022 11:47:41 013 Cholecystectomy completed Ledy West [facility] 09/09/2022 15:02:05 010 Appendectomy completed Ledy West [facility] 08/29/2022 11:47:41 Imaging Results Imaging Date Name Status LastModified by Organization Details LastModified Time 07/25/2023 US, pelvis completed radha Obrien [address], [place], [address], 07/25/2023 15:54:12 07/25/2023 US, transvaginal completed radha grossman [address], [place], [address], 07/25/2023 15:54:22 07/25/2023 US, pelvis completed [email or web address] [address], [place], [address], 07/25/2023 22:31:05 Procedure Notes None recorded. Medical Equipment None Reported. Allergies Allergen ID Allergen Name Allergen Category Reaction Reaction Severity Criticality Documentation Date Start Date Code Code System Note Provider Name and Address Organization Details Recorded Time acetamino phen / hydrocodo ne medicatio n Not available Not available Not available 08/29/2022 87635 2 RxNorm Ledy rios, [facility] 11:47:59 Medications Name Sig Start Date [...] Updated DateTime 12/06/2022 162.56 cm 31.6 kg/m2 26790 g 109 mm[Hg] 69 mm[Hg] [facility] 3 12:09:50 Date Recorded Body height Body mass index (BMI) Body weight Systolic blood pressure Diastolic blood pressure Provider Name and Address Organization Details Last Updated DateTime 06/27/2023 162.56 cm 31.8 kg/m2 04927.59 g 110 mm[Hg] 72 mm[Hg] Marian [facility] 4 10:33:05 Date Recorded Body height Body mass index (BMI) Body weight Systolic blood pressure Diastolic blood pressure Provider Name and Address Organization Details Last Updated DateTime 08/01/2023 162.56 cm 31.4 kg/m2 76535.4 g 109 mm[Hg] 78 mm[Hg] Aydee Vern [facility] 4 10:17:01 Date Recorded Body height Body mass index (BMI) Body weight Systolic blood pressure Diastolic blood pressure Provider Name and Address Organization Details Last Updated DateTime 03/29/2024 162.56 cm 31.6 kg/m2 15116 g 119 mm[Hg] 73 mm[Hg] Christal Mosqueda [facility] 4 15:37:30 Social History Question Answer Notes LastModified by Organizat ion Details LastModified Time Tobacco Smoking Status Never Smoker Erma rios [facility] 12/05/2022 14:41:24 What Is Your Level Of Alcohol Consumption? Occasional [email or web address] Information not available 09/09/2022 Are You Blind Or Do You Have Difficulty Seeing? No [email or web address] Information n ot available 09/09/2022 What Is Your Level Of Caffeine Consumption? Occasional [email or web address] Information not available 09/09/2022 How Much Tobacco Do You Chew? None Information not available 10/03/2022 In The 14 Days Before Symptom Onset, Have You Had Close Contact With A Laboratory-confirm ed COVID-19 While That Case Was Ill? No [email or web address] Information n ot available 09/09/2022 In The 14 Days Before Symptom Onset, Have You Had Close Contact With A Person Who Is Under Investigation For COVID-19 While That Person Was Ill? No [email or web address] Information not available 09/09/2022 Have You Been To An Area Known To Be High Risk For COVID-19? No [email or web address] Information not available 09/09/2022 Are You Deaf Or Do You Have Serious Difficulty Hearing? No [email or web address] Information not available 09/09/2022 What Type Of Diet Are You Following? REGULAR [email or web address] Information n ot available 09/09/2022 What Is The Highest Grade Or Level Of School You Have Completed Or The Highest Degree You Have Received? [id number] Information not available 10/03/2022 What Is Your Occupation? [employer] Information not available 10/03/2022 Are There Any Guns Present In Your Home? Yes Information not available 10/03/2022 Have You Ever Been Counseled For Unhealthy Alcohol Use? No [email or web address] Information not available 12/05/2022 Do You Use Protection During Sex? No Information not available 10/03/2022 Do You Use Your Seat Belt Or Car Seat Routinely? Yes [email or web address] Information not available 09/09/2022 Do You Have Smoke And Carbon Monoxide Detectors In Your Home? Yes [email or web address] Information not available 09/09/2022 How Much Tobacco Do You Smoke? No Information not available 10/03/2022 Do You Feel Stressed (tense, Restless, Nervous, Or Anxious, Or Unable To Sleep At Night)? [id number] [email or web address] Information not available 09/09/2022 Do You Use Any Illicit Or Recreational Drugs? No [email or web address] Information not available 09/09/2022 Do You Use Sunscreen Routinely? No [email or web address] Information not available 10/25/2022 Has Tobacco Cessation Counseling Been Provided? No [email or web address] Information not available 12/05/2022 Have You Used IV Drugs? No Information not available 10/03/2022 Do You Or Have You Ever Used Any Other Forms Of Tobacco Or Nicotine? No [email or web address] Information not available 12/05/2022 Sex: Unknown Functional Status Question Answer Note LastModified by Organizat ion Details LastModified Time Do you have difficulty walking or climbing stairs? No [email or web address] Information not available 12/05/2022 Are you able to walk? YESWOREST [email or web address] Information not available 09/09/2022 Are you able to care for yourself? Yes [email or web address] Information not available 12/05/2022 Do you have difficulty dressing or bathing? No [email or web address] Information not available 12/05/2022 What is your exercise level? Occasional [email or web address] Information not available 09/09/2022 Mental Status None recorded. Family History Nothing Reported. Medical History Condition Response Allergies (Food, seasonal, environmental ) N Other N Drug/Latex Allergies/Reactions Y Breast Cancer N Blood Transfusion N Lung Disease N Dermatologic Disorders N Defects or Inherited Disease N Breast Problem N Gestational Diabetes N Hematologic disorders N Anesthesia Complications N History of STI Y Deep Vein Thrombosis N Polycystic ovary syndrome N Anxiety Disorder N Autoimmune disease N Arthritis N Polyps N Infertility N History of abnormal pap N Acid Reflux (GERD) N Cancer N Varicosities N Stroke N Neurologic/Epilepsy N Endometriosis N High Cholesterol N Headaches N Fibromyalgia N Kidney Disease N Heart Problems N Thyroid Problems N Kidney or Bladder Problems N GI Problems N Eating Disorder N Anemia N Art (IVF or FET) N Psychiatric Illness N Ovarian Cancer N Diabetes N Pulmonary (TB, Asthma) N Hepatitis/Liver Disease N No Past Medical History N Eczema N Urinary Tract Infection N Abuse/Domestic Violence N Asthma N Trauma/Violence N Depression/ depression N Heart Disease N Pre-Eclampsia N Hypertension N Osteoporosis N Thrombophilias N Gynecological History Statement/Question Response Abnormal Pap [...] SNOMED-CT Code Diagnosis ICD10 Code Diagnosis Note [id number] Laury Sommer [facility] [address],[place] [address] 08/29/2022 11:20:09 08/30/2022 17:03:26 Secondary dysmenorrhea 95053043 N94.5 Today we discussed trial of Twirla BC patch for assistance with dysmenorrh ea/period regulation . Discussed all control options in great detail. Pt would like to start xulane/Twi rla patch. She is aware of the risks and benefits. Informed her it may not be as effective for contracept ion since her weight is over 198 lbs. She does not have any medical condition that is contraindi cated with the use of estrogen containing control. Pt will place the patch on the first friday following the start of her period and then replace weekly x 2 (total of 3 patches over 3 weeks) and week 4 no patch. She is aware it is not effective for control the first month and may be less effective d/t her weight. She is also aware that she will need to check placement daily to ensure it has not come off. Encouraged use of condoms as the nuvaring does not protect against STD's. Will return in 3 months for med check. Consent was read and signed. Pt verbalized understand ing. We discussed trial of Celebrex during menses for dysmenorrh ea while therapy is being initiated. Time spent in visit is a total of 30 mins with at least 50% of visit consisting of counseling and review of plan of care. [id number] Laury Sommer [facility] [address],[place] [address] 10/03/2022 10:28:37 10/03/2022 10:54:33 Menorrhagia 258984788 N92.0 N94.5 Today we discussed Twirla.She feels it has decreased the flow/dysme norrhea by 50% in 1mo.She feels bloated, gama & jessenia gross. She requests consult for endometria l ablation since her spouse has a vasectomy and she is done having children.H /O given for add'l home review on ablations. consult/Up dated US to be scheduled. Time spent in visit is a total of 15 mins with at least 50% of visit consisting of counseling and review of plan of care. History of menorrhagia 736881499 Z87.42 [id number] Ariel Mojica MD [facility] [address],[place] [address] 10/25/2022 11:48:53 10/25/2022 13:01:45 Menorrhagia 439353489 N92.0 This patient is a 37-year-ol d female presents for heavy vaginal bleeding. She has longstandi ng very heavy bleeding. Her menses are regular. However, they require double protection . Patient has accidents, getting blood on her bedding and clothing. Is affected work. She changes a pad or tampon every hour. She leaks blood around the pad and tampon. This bleeding has a profound impact on her quality of life and her activities of daily living. \ test treatment options in detail. Spent over 40 minutes with the patient. More than 50% was counseling . We agreed to perform surgery. To move forward with endometria l ablation. She has failed combined oral contracept anny pills. [id number] Christal Panda [facility] [address],[place] [address] 11/27/2022 10:34:22 11/27/2022 10:38:17 [id number] Ariel Mojica MD [facility] [address],[place] [address] 12/06/2022 11:39:50 12/08/2022 00:12:44 [id number] Ariel Mojica MD [facility] [address],[place] [address] 06/27/2023 09:42:46 06/27/2023 11:23:46 Postcoital bleeding 70361035 N93.0 Dyspareunia 54007286 N94 .10 37-year-ol d female who presents for postcoital bleeding and pain with intercours e. She has deep penetratio n pain with intercours e. She has bleeding after intercours e. She is light spotting that is persistent after intercours e. Examinatio n revealed bleeding of the cervix. There was some small blood vessels on the front of the cervix. Abrasion of those lightly with a cotton tip applicator made them bleed. She is some tenderness with deep palpation included the uterus. Made recommenda tion cauterized in the small blood vessels on her Cervix. Will obtain pelvic ultrasound . She will return to discuss pain with intercours e and bleeding on the anterior cervix. Spent 40 minutes face-to-fa ce. Discussed 2 complex topics. Diagnose the postcoital bleeding. recommende d treatment. To have ultrasound follow-up with phone call. [id number] [facility] [address],[place] [address] 07/25/2023 10:21:21 07/25/2023 11:14:25 Pain in pelvis 71801819 R10.2 N94.10 [id number] Ariel Mojica MD [facility] [address],[place] [address] 08/01/2023 10:08:14 08/04/2023 04:23:18 Dyspareunia 62331213 N94.10 Menorrhagia 304563647 N9 2.0 37-year-ol d female with menorrhagi a and dyspareuni a. Patient had a recent endometria l ablation. The endometria l ablation appears to have failed. She is pain with intercours e. The pain is with deep penetratio n. Manipulati on of the uterus causes her pain on exam. Patient would like definitive surgical treatment for this problem. The menorrhagi a and dyspareuni a. Patient initially wanted hysterecto my before the ablation. We intend to proceed with total laparoscop ic hysterecto my bilateral salpingect liliane. The patient We will contact us when she is ready to go ahead with it. We spent more than 40 minutes face-to-fa ce today. More than 50% was counseling . We made a decision to perform surgery. Talked about the details of the surgery. Talked about the recovery, efficacy, some complicati ons. She will return for informed consent process. [id number] Ariel Mojica MD [facility] [address] [address] 03/29/2024 15:26:26 03/29/2024 16:25:44 Dysmenorrhea 593322234 N94.6 Postcoital bleeding 4888 0000 N93.0 Pain in pelvis 49592819 R10.2 N94.10 Dyspareunia 82909568 N94 .10 Menorrhagia 048619698 N9 2.0 37-year-ol d female with menorrhagi a and dyspareuni a. Patient had a recent endometria l ablation. The endometria l ablation appears to have failed. She is pain with intercours e. The pain is with deep penetratio n. Manipulati on of the uterus causes her pain on exam. Patient would like definitive surgical treatment for this problem. The menorrhagi a and dyspareuni a. Patient initially wanted hysterecto my before the ablation. We intend to proceed with total laparoscop ic hysterecto my bilateral salpingect liliane with left oophorecto my. The patient We will contact us when she is ready to go ahead with it. I spent more than 30 minutes on her care today More than 50% was counseling . We made a decision to perform surgery. Talked about the details of the surgery. Talked about the recovery, efficacy, some complicati ons. She will return for informed consent process. Health Concerns Section Related Observation LastModified by Organization Detai ls LastModified Time None Recorded Concern Status LastModified by Organization Details LastModified Time None Recorded Advance Directives Directive None Recorded Payers Encounter Date Sequence Insurance Name Policy Number Policy Bergeron Covered Member ID Bergeron Member ID Guarantor Name 12/06/2022 1 [place] - DOS PRIOR TO 2024 - [employer] () [facility] [id number] [facility] 06/27/2023 1 [place] - DOS PRIOR TO 2024 - [employer] () [facility] [id number] [facility] 07/25/2023 1 [place] - DOS PRIOR TO 2024 - [employer] () [facility] [id number] [facility] 08/01/2023 1 [facility] PRIOR TO 05/19/2024 - [employer] () [facility] [id number] [facility] 03/29/2024 1 [facility] PRIOR TO 05/19/2024 - [employer] () [facility] [id number] [facility] Notes Date Note Type Note Provider Name and Address Organization Details Recorded Time 06/27/2023 text/html 37-year-old ivana gaspar who presents for postcoital bleeding and [...] on the anterior cervix. Spent 40 minutes [id number]. Discussed 2 complex topics. Diagnose the postcoital bleeding. recommended treatment. To have ultrasound follow-up with phone call. Ariel Mojica MD [address], [place], [address], [facility] 06/27/2023 11:23:04 08/01/2023 text/html 37-year-old ivana gaspar with menorrhagia and dyspareunia. Patient had a [...] it. We spent more than 40 minutes [id number] today. More than 50% was counseling. We made a decision to perform surgery. Talked about the details of the surgery. Talked about the recovery, efficacy, some complications. She will return for informed consent process. Ariel Mojica MD [address], [place], [address], [facility] 08/01/2023 17:42:40 03/29/2024 text/html 37-year-old fema [...] process. Ariel Mojica MD [address], [place], [address], [facility] 03/29/2024 16:20:48 OBGyn Episode Ob Episode Information Episode Created Date Number of Fetuses Patient Bloodtype Patient rh Status Prepregnancy Weight lbs Domestic Partner Domestic Partner Phone Father Name Art Dealer Status 09/10/19 23 1 CLOSED Fetus Data First Name Last Name Admitted to NICU Weight (g) Sex Living Outcome Pediatric Complications Fetus ID Race Codes Race Delivery Type 2579.57 7704 F Full Term 32421 Vaginal Delivery David Calculation Initial David Date Initial Exam Date Initial Exam Provider Initial Ultrasound Date Last Menstrual Period Date Ultra Sound Weeks Gestation 0 Eighteen To Twenty Week David Update Ultra Sound Date Fundal Height At Umbil Quickening Date Ultra Sound Latest Weeks Gestation Final David Confirmed By Final David Confirmed Date Final David Date Ultra Sound Latest Days Gestation 0 [...] Domestic Partner Domestic Partner Phone Father Name Art Dealer Status 09/10/19 23 1 CLOSED Fetus Data First Name Last Name Admitted to NICU Weight (g) Sex Living Outcome Pediatric Complications Fetus ID Race Codes Race Delivery Type 3685.43 5 M Full Term 06038 Vaginal Delivery David Calculation Initial David Date Initial Exam Date Initial Exam Provider Initial Ultrasound Date Last Menstrual Period Date Ultra Sound Weeks Gestation 0 Eighteen To Twenty Week David Update Ultra Sound Date Fundal Height At Umbil Quickening Date Ultra Sound Latest Weeks Gestation Final David Confirmed By Final David Confirmed Date Final David Date Ultra Sound Latest Days Gestation 0 [...] Domestic Partner Domestic Partner Phone Father Name Art Dealer Status 09/10/19 23 1 CLOSED Fetus Data First Name Last Name Admitted to NICU Weight (g) Sex Living Outcome Pediatric Complications Fetus ID Race Codes Race Delivery Type 3005.04 7 F Full Term 14278 Vaginal Delivery David Calculation Initial David Date Initial Exam Date Initial Exam Provider Initial Ultrasound Date Last Menstrual Period Date Ultra Sound Weeks Gestation 0 Eighteen To Twenty Week David Update Ultra Sound Date Fundal Height At Umbil Quickening Date Ultra Sound Latest Weeks Gestation Final David Confirmed By Final David Confirmed Date Final David Date Ultra Sound Latest Days Gestation 0 [...] Domestic Partner Domestic Partner Phone Father Name Art Dealer Status 09/10/19 23 1 CLOSED Fetus Data First Name Last Name Admitted to NICU Weight (g) Sex Living Outcome Pediatric Complications Fetus ID Race Codes Race Delivery Type 3005.04 7 F Full Term 49646 Vaginal Delivery David Calculation Initial David Date Initial Exam Date Initial Exam Provider Initial Ultrasound Date Last Menstrual Period Date Ultra Sound Weeks Gestation 0 Eighteen To Twenty Week David Update Ultra Sound Date Fundal Height At Umbil Quickening Date Ultra Sound Latest Weeks Gestation Final David Confirmed By Final David Confirmed Date Final David Date Ultra Sound Latest Days Gestation 0 [...] Domestic Partner Domestic Partner Phone Father Name Art Dealer Status 09/10/19 23 1 CLOSED Fetus Data First Name Last Name Admitted to NICU Weight (g) Sex Living Outcome Pediatric Complications Fetus ID Race Codes Race Delivery Type , Spontane ous [id number] David Calculation Initial David Date Initial Exam Date Initial Exam Provider Initial Ultrasound Date Last Menstrual Period Date Ultra Sound Weeks Gestation 0 Eighteen To Twenty Week David Update Ultra Sound Date Fundal Height At Umbil Quickening Date Ultra Sound Latest Weeks Gestation Final David Confirmed By Final David Confirmed Date Final David Date Ultra Sound Latest Days Gestation 0 [...]
[2024-08-13 20:06] LABS: Basophils Percent Auto 0.2 % (0.2-1.2); Eosinophils Absolute Auto 0.1 K/mm3 (0-0.3); Eosinophils Percent Auto 0.7 % (0-4.4); Hematocrit 42.3 % (37.0-47.0); Immature Granulocyte Absolute 0.03 K/mm3 (0.00-0.031); Immature Granulocyte Percent A 0.3 % (0-0.5); Lymphocytes Percent Auto 13.1 % (18.3-44.2); Mean Corpuscular HGB Conc 33.1 g/dl (32-36); Mean Corpuscular Hemoglobin 29.2 pg (26-34); Mean Corpuscular Volume 88.3 fl (80-100); Mean Platelet Volume 10.7 fl (7.4-10.4); Monocytes Absolute Auto 0.6 K/mm3 (0.1-0.6); Monocytes Percent Auto 6.2 % (2.6-8.5); Neutrophils Absolute Auto 7.3 K/mm3 (1.3-6.7); Neutrophils Percent Auto 79.5 % (45.5-73.1); Platelet Count Result 251 k/mm3 (150-375); Red Blood Count 4.79 M/mm3 (4.2-5.4); Red Cell Distribution Width 12.6 % (11.5-14.5); White Blood Count 9.1 K/mm3 (4.5-10.0)
[2024-08-13 20:17] LABS: Prothrombin Time 13.2 Seconds (11.1-14.7)
[2024-08-13 20:18] LABS: Partial Thromboplastin Time 24.9 Seconds (22.3-36.8)
[2024-08-13 20:26] LABS: Alanine Aminotransferase 22 U/L (6-35); Albumin Level 4.6 g/dL (3.5-5.1); Alkaline Phosphatase 58 U/L (38-126); Anion Gap 14 mmol/L (4-12); Aspartate Amino Transferase 16 U/L (14-36); Bilirubin,Total 1.5 mg/dL (0.2-1.3); Blood Urea Nitrogen 15 mg/dL (7-17); Calcium 9.3 mg/dL (8.4-10.2); Carbon Dioxide 19 mmol/L (22-30); Chloride 103 mmol/L (98-107); Estimated CRCL calculation 88 ml/min; Estimated Glomerular Filt Rate > 60; Glucose 120 mg/dL (65-110); Lipase 44 U/L (23-300); Potassium 3.8 mmol/L (3.4-5.0); Sodium 136 mmol/L (137-145)
[2024-08-13 20:38] LABS: Troponin I < 0.012 ng/mL (0.000-0.034)
[2024-08-13 22:20] VITALS: BP 119/61; PULSE 91; RESP 20; TEMP 36.3; O2SAT 100
--- NOTE | 2024-08-13 22:21 | ECG_ITS ---
Test Date: 2024-08-13 22:29:42 Measurements Intervals Lyman Rate: 90 P: 42 [place]: 148 QRS: 29 QRSD: 78 T: 20 QT: 346 QTc: 424 Interpretive Statements SINUS RHYTHM NONSPECIFIC ST ABNORMALITY ABNORMAL ECG Electronically Signed On 08-14-2024 10:01:16 CDT by Nomi Waters M.D.
--- OUTSIDE RECORDS SUMMARY | 2024-08-13 22:52 | XMS_ITS | Clinical Summary ---
Author Organization [facility] Address [address] [place] [address] Phone Care Team Providers Care Professional Bass Fisher Name Role Phone Lisa Perez MD Primary Care Provider [phone] Encounters Date Type Department Care Team Description [...] patient's age to complete this topic Insurance [facility] * Guarantor: AMAZON Account Type Relation to Patient Date of Phone Billing [place] [address] [employer] Care Teams Professional Bass Fisher Relationship Specialty Start Date End Date Lisa Perez MD PCP - General Family Practice 10/04/19
--- OUTSIDE RECORDS SUMMARY | 2024-08-13 22:52 | XMS_ITS | Referral Summary ---
Author Organization [facility] Address [address] [place] [address] Care Team Providers Care Cut Off Operator Scorer Name Role Phone Lisa Perez MD Primary Care Provider Allergies Active Allergy Reactions Criticality Noted Date Comments Hydrocodone-Acetaminophen Anaphylaxis High 0 Medications vit 29-pdrw-gmzez-dh a 27mg iron- 800 mcg-250 mg capsule Take by mouth Active vit D3-vit X-gcsuljhol-vtlx [id number] fnkq-ryc-yf-mg tablet Take by mouth Active Active Problems [...] Treatment Not on file Insurance [facility] CLAIMS Care Teams Cut Off Operator Scorer Relationship Specialty Start Date End Date Lisa Perez MD [address] [facility] [address] [place] [address] PCP - General Family Medicine 02/01/20
--- OUTSIDE RECORDS SUMMARY | 2024-08-13 22:52 | XMS_ITS | Clinical Summary ---
Author Organization [facility] Address [address] [place] [address] Care Team Providers Care Information Technology Professor Name Role Phone Lisa Perez MD Primary Care Provider Allergies Active Allergy Reactions Criticality Noted Date Comments Hydrocodone-Acetaminophen Anaphylaxis High 0 Medications vit 56-fort-tvvjy-dh a 27mg iron- 800 mcg-250 mg capsule Take by mouth Active vit D3-vit U-gwzkndlni-hjrp [id number] zdyt-rdc-qz-mg tablet Take by mouth Active Active Problems [...] Plan of Treatment Not on file Insurance [facility] CLAIMS Care Teams Information Technology Professor Relationship Specialty Start Date End Date Lisa Perez MD [address] [facility] [address] [place] [address] PCP - General Family Medicine 02/01/20
--- OUTSIDE RECORDS SUMMARY | 2024-08-13 22:52 | XMS_ITS | Clinical Summary ---
Author Organization [facility] Address [address] [place] [address] Care Team Providers Care Parking Lot Chauffeur Name Role Phone Loretta Guerrero MD Primary [...] Department Care Team Description 07/22/2024 12:06 PM [employer] - 07/22/2024 11:59 PM [facility] Hospital Encounter [facility] Ultrasound [address] [place] [address] Loretta Guerrero MD Discharge Disposition: Home or Self Care (Routine Discharge) 07/22/2024 Travel 07/15/2024 8:30 AM [employer] Office Visit [facility] Family Medicine - Be [address] [place] [address] Loretta Guerrero MD New Patient (Here to get established. 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 L ovary pain onset- 2 yrs. Had [...] on file Legal Sex Female 11:00 AM [employer] Gender Identity Not on file Sexual Orientation Not on file Last Filed Vital Signs Vital Sign Reading Time Taken Comments Blood Pressure 113/66 07/15/2024 8:36 AM [employer] Pulse 66 07/15/2024 8:36 AM [employer] Temperature 35.9 C (96.7 F) 07/15/2024 8:36 AM [employer] Respiratory Rate - - Oxygen Saturation 99% 07/15/2024 8:36 AM [employer] Inhaled Oxygen Concentration - - Weight 82.2 kg (181 lb 3.2 oz) 07/15/2024 8:36 A M [employer] Height 165.1 cm (5' 5 ) 07/15/2024 8:36 AM [employer] Body Mass Index 30.15 07/15/2024 8:36 AM [employer] Plan of Treatment Upcoming Encounters Date Type Department Care Team (Late st Contact Info) Description 07/21/2025 8:50 AM [employer] Office Visit [facility] Family Medicine - Be [address] [place] [phone] Loretta Guerrero MD [address] [place] [phone] Health Maintenance Due Date Last Done [...] Td or Tdap) 09/24/2028 09/24/2018 PHQ-2 (Physician [place]) Completed 07/15/2024 HPV Vaccines Aged Out No [...] OB COMP TA+TV Routine 07/22/2024 1:00 PM [employer] Pelvic pain COLLECTION VENOUS BLOOD VENIPUNCTURE Routine 07/15/2024 9:25 AM [employer] Routine general medical examination at a health care facility HEMOGLOBIN, GLYCOSYLATED Routine 07/15/2024 9:25 AM [employer] Routine general medical examination at a health care facility LIPID PANEL Routine 07/15/2024 9:25 AM [employer] Routine general medical examination at a health care facility COMPREHENSIVE METABOLIC PANEL Routine 07/15/2024 9:25 AM [employer] Pelvic pain CBC W/DIFF AUTOMATED Routine 07/15/2024 9:25 AM [employer] Pelvic pain TSH W/REFLEX Routine 07/15/2024 9:25 AM [employer] Pelvic pain OUTSIDE CYTOPATH CERV/VAG INTERPRET (PAP) 05/23/2020 from Last 3 Months or Most Recently Relevant to Health Maintenance Results * US PELVIC NON OB COMP TA+TV (07/22/2024 1:00 PM [employer]) Anatomical Region Laterality Modality Pelvis Ultrasound 07/27/2024 12:3 0 PM CDT Impressions 07/27/2024 12:38 PM CDT IMPRESSION: 1. Slightly complex left ovarian cyst. Follow-up in 6 weeks.. 2. Grossly normal appearance to the right ovary. No endometrial or myometrial mass. Ordered By: LORETTA GUERRERO Interpreted By: David Cooper, 07/27/2024 12:30 PM Narrative 07/27/2024 12:38 PM CDT [place] [id number] [facility] [place] [address] EXAMINATION: US PELVIC NON OB COMP TA+TV EXAM DATE: 07/22/2024 12:17 PM COMPARISON STUDIES: None CLINICAL HISTORY: pelvic pain, dyspareaunia . Ablation in 2022. Left-sided pelvic pain.. LMP June 24, 2024 FINDINGS: Real time ultrasound examination performed by the solar sales estimator of the pelvis through transabdominal and transvaginal [...] Procedure Note Christopher Cooper MD - 07/27/2024 [facility] [address] [place] [address] EXAMINATION: US PELVIC NON OB COMP TA+TV EXAM DATE: 07/22/2024 12:17 PM COMPARISON STUDIES: None CLINICAL HISTORY: pelvic pain, dyspareaunia . Ablation in 2022.Left-sided pelvic pain.. LMP June 24, 2024 FINDINGS: Real time ultrasound examination performed [facility] solar sales estimator [facility] and transvaginal approach. The uterus [...] sult * TSH W/REFLEX (07/15/2024 9:25 AM [employer]) TSH 1.029 0.358 - 3.740 uIU/ML 07/15/2024 3:39 PM [employer] [facility] 07/15/2024 9:25 AM [employer] Loretta Guerrero MD LABORATORY Final Re sult Performing Organization Address [facility] Co de Phone Number [address] [address], [place] [phone] * HEMOGLOBIN, GLYCOSYLATED (07/15/2024 9:25 AM [employer]) HGB A1C 5.3 4.5 - 6.2 % 07/15/2024 3:38 PM [employer] [facility] ESTIMATED AVG GLUCOSE 105 74 - 106 MG/DL 07/15/2024 3:38 PM [employer] [facility] 07/15/2024 9:25 AM [employer] Loretta Guerrero MD LABORATORY Final Re sult Performing Organization Address [facility] Co de Phone Number [address] [address], [place] [phone] * (ABNORMAL) COMPREHENSIVE METABOLIC PANEL (07/15/2024 9:25 AM [employer]) Pathologist [facility] SODIUM S/P/B 140 136 - 145 MMOL/L 07/15/2024 3:39 PM [employer] [facility] POTASSIUM S/P/B 4.3 3.5 - 5.1 MMOL/L 07/15/2024 3:39 PM [employer] [facility] CHLORIDE S/P/B 104 98 - 107 MMOL/L 07/15/2024 3:39 PM [employer] [facility] CO2 27.3 21 - 32 MMOL/L 07/15/2024 3:39 PM [facility] GLUCOSE 87 70 - 99 MG/DL 07/15/2024 3:39 PM [facility] BUN 10 7 - 18 MG/DL 07/15/2024 3:39 PM [facility] CREATININE S/P/B 0.73 0.55 - 1.02 MG/DL 07/15/2024 3:39 PM [facility] CALCIUM S/P/B 9.3 8.4 - 10.5 MG/DL 07/15/2024 3:39 PM [facility] BILIRUBIN TOTAL S/P/B 1.0 0.2 - 1.0 MG/DL 07/15/2024 3:39 PM [facility] ALKALINE PHOSPHATASE S/P/B 56 37 - 98 U/L 07/15/2024 3:39 PM [facility] AST 13(L) 15 - 37 U/L 07/15/2024 3:39 PM [facility] ALT 18 14 - 59 U/L 07/15/2024 3:39 PM [facility] TOTAL PROTEIN S/P/B 6.9 6.4 - 8.2 G/DL 07/15/2024 3:39 PM [facility] ALBUMIN S/P/B 3.9 3.4 - 5.0 G/DL 07/15/2024 3:39 PM [facility] ANION GAP 8.7 5 - 15 MMOL/L 07/15/2024 3:39 PM [facility] Comment:REFERENCE RANGE NOT ESTABLISHED OSMOLALITY (CALC) 288 MOSM/KG 025 3:39 PM [facility] Comment:REFERENCE RANGE NOT ESTABLISHED GFR ESTIMATE >90 >90 ML/MIN/1. 73 M2 07/15/2024 3:39 PM [facility] GFR NOTES GFR REFERENCE S: 07/15/2024 3:39 PM [employer] [facility] Comment: THE ESTIMATED GFR IS CALCULATED USING [...] FAILURE: <15 ml/min/1.73 m2 07/15/2024 9:25 AM [employer] us Loretta Guerrero MD LABORATORY Final Re sult [facility] [address] [place] [address], * LIPID PANEL (07/15/2024 9:25 AM [employer]) CHOLESTEROL 163 <200 MG/DL 07/15/2024 3:39 PM [facility] TRIGLYCERIDES 117 <150 MG/DL 07/15/2024 3:39 PM [facility] HDL 46 >40 MG/DL 07/15/2024 3:39 PM [facility] LDL-C 94 <100 MG/DL 07/15/2024 3:39 PM [facility] VLDL CALCULATION 23 5 - 28 MG/DL 07/15/2024 3:39 PM [facility] CHOL/HDL RATIO 3.5 0.0 - 4.0 07/15/2024 3:39 PM [facility] LDL/HDL 2.0 0.41 - 2.13 07/15/2024 3:39 PM [facility] NON HDL CHOLESTEROL 117 <140 MG/DL 07/15/2024 3:39 PM [employer] [facility] 07/15/2024 9:25 AM [employer] Loretta Guerrero MD LABORATORY Final Re sult [facility] [place], [address] [address] [place] [address], * (ABNORMAL) CBC W/DIFF AUTOMATED (07/15/2024 9:25 AM [employer]) WBC 5.15 4.00 - 10.80 x10'3/uL 07/15/2024 2:44 PM [employer] [facility] RBC 4.58 4.10 - 5.40 x10'6/uL 07/15/2024 2:44 PM [employer] [facility] HGB 13.7 12.0 - 16.0 G/DL 07/15/2024 2:44 PM [employer] [facility] HCT 41.3 36.0 - 47.0 % 07/15/2024 2:44 PM [employer] [facility] MCV 90.2 78.0 - 100.0 FL 07/15/2024 2:44 PM [facility] MCH 29.9 27.0 - 31.0 PG 07/15/2024 2:44 PM [employer] [facility] MCHC 33.2 33.0 - 36.0 G/DL 07/15/2024 2:44 PM [employer] [facility] RDW 12.6 11.5 - 14.5 % 07/15/2024 2:44 PM [employer] [facility] PLT 267 150 - 350 x10'3/uL 07/15/2024 2:44 PM [facility] MPV 11.3(H) 7.4 - 10.4 FL 07/15/2024 2:44 PM [facility] DIFFERENTIAL TYPE AUTOMATED DIFFERENTIAL 07/15/2024 2:44 PM [employer] [facility] NEUTROPHILS % 61.4 % 07/15/2024 2:44 PM [facility] LYMPHOCYTES % 30.9 % 07/15/2024 2:44 PM [facility] MONOCYTES % 5.6 % 07/15/2024 2:44 PM [facility] EOSINOPHILS % 1.7 % 07/15/2024 2:44 PM [employer] [facility] BASOPHILS % 0.2 % 07/15/2024 2:44 PM [facility] IMMATURE GRANS % 0.2 % 07/15/2024 2:44 PM [employer] [facility] ABS. NEUTROPHILS 3.16 1.60 - 8.30 x10'3/uL 07/15/2024 2:44 PM [facility] ABS. LYMPHOCYTES 1.59 0.80 - 4.70 x10'3/uL 07/15/2024 2:44 PM [employer] [facility] ABS. MONOCYTES 0.29 0.00 - 1.50 x10'3/uL 07/15/2024 2:44 PM [facility] ABS. EOSINOPHILS 0.09 0.00 - 0.40 x10'3/uL 07/15/2024 2:44 PM [facility] ABS. BASOPHILS 0.01 0.00 - 0.20 x10'3/uL 07/15/2024 2:44 PM [facility] ABS. IMMATURE GRANULOCYTES 0.01 0.00 - 0.03 x10'3/uL 07/15/2024 2:44 PM [facility] 07/15/2024 9:25 AM [facility] us Loretta Guerrero MD LABORATORY Final Re sult [facility] [address] [facility] [place] [address], * PAP SMEAR WITH HPV (05/23/2020) 05/23/2020 us [facility] Scanned SCANNING Final Resu lt from Last 3 Months or Most Recently Relevant to Health Maintenance Insurance Care Teams Parking Lot Chauffeur Relationship Specialty Start Date End Date Loretta Guerrero MD [address] [facility] [place] [address] PCP - General FAMILY PRACTICE 06/03/24
[2024-08-13 23:02] LABS: Troponin I < 0.012 ng/mL (0.000-0.034)
[2024-08-13] MEDS: ASPIRIN 81 MG CHEWABLE TABLET 324 MG PO (23:22)
[2024-08-13] MEDS: KETOROLAC 15 MG/ML VIAL (*BKC) IV PUSH (23:22)
--- NOTE | 2024-08-13 23:33 | ED.SOB ---
HPI - SOB/Dyspnea General Chief Complaint: Shortness of Breath/Dyspnea Stated Complaint: chest pain, SOB Time Seen by Provider: 08/13/24 22:42 History of Present Illness HPI Narrative: Patient is a 38-year-old female who presents to the ER with complaints of shortness of breath, abdominal pain, and headache. She reports earlier today she donated blood and became lightheaded afterwards. Patient reports she sat down but then lost consciousness. She reports staff at the blood donation center cared for her and allowed her to leave after she felt better. This afternoon patient reports she has continued to feel lightheaded but her other symptoms began mid afternoon in the shortness of breath started around 6:00 p.m. She reports it is hard to take a deep breath. Patient denies any recent sick contacts, fevers, chest pain, or lower extremity edema. Patient denies any pertinent medical history relevant this ER visit. Related Data Home Medications ?Medication ?Instructions ?Recorded ?Confirmed ?Last Taken ?Type acetaminophen 650 mg 650 mg PO Q8H PRN Pain 11/20/22 12/25/23 Unknown History tablet,extended release (Tylenol 8 Hour) Allergies Allergy/AdvReac Type Severity Reaction Status Date / Time hydrocodone Allergy Severe shortness Verified 08/13/24 19:31 of breath Review of Systems Review of Systems: All systems reviewed & are unremarkable except as noted in HPI and below PMFSH Past Medical History Medical History Abnormal drug screen Menorrhagia Left lower quadrant pain Suprapubic pain Well woman exam with routine gynecological exam Elevated random blood glucose level Encounter for general adult medical examination without abnormal findings Post-COVID chronic cough Acute rhinosinusitis Cough COVID Encounter for visit False labor Active labor at term Left breast mass Breast lump Upper respiratory infection contractions Encounter for supervision of high risk in third trimester, antepartum ASCUS with positive high risk HPV cervical Encounter for supervision of high risk in second trimester, antepartum Placenta previa antepartum in second trimester Encounter for supervision of normal in multigravida in first trimester Encounter for supervision of normal in multigravida in second trimester URI (upper respiratory infection) Encounter for confirmation of test result with physical examination HPV test positive Vaginal delivery x 4 Polyp at cervical os Abnormal Pap smear of cervix ASCUS (atypical squamous cells of undetermined significance) on gynecologic Papanicolaou smear complicating , antepartum Surgical History Surgical History History of cholecystectomy History of appendectomy History of cholecystectomy History of appendectomy Family History Family History Mother Family history of hypercholesterolemia Family history of coronary artery disease Hypertension H/O: hysterectomy Social History Social History Social History: Smoking status: Never smoker Second hand tobacco smoke exposure: No Alcohol intake: current Alcohol use details: HOL[place] Substance use: never Substance use type: does not use Do You Feel Safe in your Home?: Yes Lack of Transportation: No Lack of Food: Never True Current Housing: I Have Housing Concerned About Future Housing: No Difficulty Paying Gas/Electric Bills: No Difficulty Paying for Meds: No Currently Unemployed: No Education: Don't Know Difficulty w/ Childcare or Family Care: No Living arrangements: with family 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 HEAD: Normocephalic, atraumatic. NECK: Supple. No adenopathy, no masses. RESPIRATORY: Airway patent, respirations nonlabored. Clear to auscultation bilaterally, no rales, rhonchi, wheezing. CARDIOVASCULAR: Regular rate and rhythm without murmurs, rubs, or gallops. Peripheral pulses 2+ and equal bilaterally. ABDOMINAL: Soft, tender LUQ, nondistended, no hepatosplenomegaly. Normoactive BS. MUSCULOSKELETAL: Moves all extremities. Strength/ROM intact without gross deformities. SKIN: Warm, dry, normal color. No rashes. NEURO: A&O X3. Speech clear. Cranial nerves II-XII intact. No ataxic movements. PSYCHIATRIC: Appropriate mood and affect. Normal interaction. Course Vital Signs Vital signs: Vital Signs Temperature 36.6 C 08/13/24 19:30 Pulse Rate 96 08/13/24 19:30 Respiratory Rate 18 08/13/24 19:30 Blood Pressure 121/53 L 08/13/24 19:30 Pulse Oximetry 100 08/13/24 19:30 Temperature 36.3 C L 08/13/24 22:20 Pulse Rate 76 08/14/24 00:51 Respiratory Rate 14 08/14/24 00:51 Blood Pressure 115/61 08/14/24 00:51 Pulse Oximetry 100 08/14/24 00:51 Oxygen Delivery Room Air 08/14/24 00:50 MDM - SOB/Dyspnea MDM Narrative Medical decision making narrative: Patient is a 38-year-old female who presents to the ER with complaints of shortness of breath, abdominal pain, and headache. She reports earlier today she donated blood and became lightheaded afterwards. Patient reports she sat down but then lost consciousness. She reports staff at the blood donation center cared for her and allowed her to leave after she felt better. This afternoon patient reports she has continued to feel lightheaded but her other symptoms began mid afternoon in the shortness of breath started around 6:00 p.m. She reports it is hard to take a deep breath. Patient denies any recent sick contacts, fevers, chest pain, or lower extremity edema. Patient denies any pertinent medical history relevant this ER visit. Labs Ordered: CBC, CMP, lipase, PTT, INR, troponin Imaging Ordered: CTA chest abdomen pelvis, chest x-ray Medications Ordered: Toradol 15 mg IV, 1 L normal saline IV bolus Results: Patient's chemistry indicates a sodium of 136, carbon dioxide of 19, anion gap of 14, glucose of 120, bilirubin of 1.5. Her chest x-ray indicates No acute cardiopulmonary pathology. Patient's CTA chest abdomen pelvis indicates no evidence of pulmonary emboli or acute cardiopulmonary process. She does have fatty infiltration of the liver, but no focal hepatic lesion. Diagnosis: Atypical chest pain, mild dehydration, fatty infiltration of liver Risks: HEART score: low risk HEART Score for Major Cardiac Events from [email or web address] on 08/14/2024 All calculations should be rechecked by clinician prior to use RESULT SUMMARY: 0 points Low Score (0-3 points) Risk of MACE of 0.9-1.7%. INPUTS: History ?> 0 = Slightly suspicious EKG ?> 0 = Normal Age ?> 0 = <45 Risk factors ?> 0 = No known risk factors Initial troponin ?> 0 = <=Normal limit Patient Education/Shared MDM: Results shared with patient. She endorses improvement following medication administration. Patient strongly advised to maintain hydration status upon discharge and follow-up with her PCP as soon as possible. She will be discharged home with no new prescriptions at this time. Strict return precautions provided. Patient verbalized understanding is in agreement with plan. Vital signs stable at time of discharge. All questions answered. Differential Diagnosis Differential diagnosis: Likely community acquired pneumonia and other (Atypical chest pain, mild dehydration, pulmonary embolism ) Lab Data Attestation: I reviewed the patient's lab results. 08/13/24 19:43 08/13/24 19:43 Labs: Lab Results 08/13/24 08/13/24 Range/Units 19:43 22:34 WBC 9.1 (4.5-10.0) K/mm3 RBC 4.79 (4.2-5.4) M/mm3 Hgb 14.0 (12.0-15.0) g/dL Hct 42.3 (37.0-47.0) % MCV 88.3 (80-100) fl MCH 29.2 (26-34) pg MCHC 33.1 (32-36) g/dl RDW 12.6 (11.5-14.5) % Plt Count 251 (150-375) k/mm3 MPV 10.7 H (7.4-10.4) fl Immature Gran % (Auto) 0.3 (0-0.5) % Neut % (Auto) 79.5 H (45.5-73.1) % Lymph % (Auto) 13.1 L (18.3-44.2) % [place] % (Auto) 6.2 (2.6-8.5) % Eos % (Auto) 0.7 (0-4.4) % Baso % (Auto) 0.2 (0.2-1.2) % Lymph # (Auto) 1.20 (0.9-3.2) K/mm3 [place] # (Auto) 0.6 (0.1-0.6) K/mm3 Eos # (Auto) 0.1 (0-0.3) K/mm3 Baso # (Auto) 0.0 (0.0-0.1) K/mm3 Abs Immat Gran (auto) 0.03 (0.00-0.031) K/mm3 Absolute Neuts (auto) 7.3 H (1.3-6.7) K/mm3 Absolute Nucleated RBC 0.000 (0.0-0.012) K/mm3 Nucleated RBC % 0.0 (0.0-0.2) % PT 13.2 (11.1-14.7) Seconds INR 1.0 APTT 24.9 (22.3-36.8) Seconds Sodium 136 L (137-145) mmol/L Potassium 3.8 (3.4-5.0) mmol/L Chloride 103 (98-107) mmol/L Carbon Dioxide 19 L (22-30) mmol/L Anion Gap 14 H (4-12) mmol/L BUN 15 D (7-17) mg/dL Creatinine 0.81 (0.7-1.0) mg/dL Estim Creat Clear Calc 88 ml/min Estimated GFR > 60 (59 - ) Glucose 120 H (65-110) mg/dL Calcium 9.3 (8.4-10.2) mg/dL Total Bilirubin 1.5 H (0.2-1.3) mg/dL AST 16 (14-36) U/L ALT 22 (6-35) U/L Alkaline Phosphatase 58 (38-126) U/L Troponin I < 0.012 < 0.012 (0.000-0.034) ng/mL Total Protein 8.0 (6.3-8.2) g/dL Albumin 4.6 (3.5-5.1) g/dL Lipase 44 (23-300) U/L Imaging Data Attestation: I personally reviewed and interpreted this imaging study as follows: Radiologist's impression: Impressions Chest X-Ray 08/13/24 20:13 IMPRESSION: No acute cardiopulmonary pathology. Discharge Plan Discharge Clinical Impression: Atypical chest pain, Dehydration, mild, Fatty infiltration of liver Patient Disposition: Home, Self-Care Condition: Stable Instructions: Antibiotic Form, Dehydration (ED), Non-Alcoholic Fatty Liver Disease (ED), Noncardiac Chest Pain (ED) Additional Instructions: Please return to the ER with any worsening symptoms. Follow-up with primary care provider as soon as possible. Take all regularly scheduled medications as prescribed. Patient Language: Samoan Prescriptions: No Action benzonatate 200 mg capsule 200 mg PO TID Qty: 90 0RF fexofenadine-pseudoephedrine [Linda-D 24 Hour] 180-240 mg tablet extended release 24 hr 1 tablet PO DAILY Qty: 30 0RF acetaminophen [Tylenol 8 Hour] 650 mg Tablet Extended Release 650 mg PO Q8H PRN (Reason: Pain) Follow-up/Referrals: Carlton,Loretta Reilly MD [Primary Care Provider] - Stand Alone Forms: Work/School Release IP Time of Disposition: 02:36
[2024-08-13 23:52] VITALS: PULSE 87; RESP 16; O2SAT 100
--- NOTE | 2024-08-13 23:57 | PC.NURSE ---
Patient taken to CT at this time.
[2024-08-14] MEDS: SODIUM CHLORIDE 0.9% IV 1,000 ML 999 ML IV CONT (00:40)
[2024-08-14 00:50] VITALS: O2SAT 100
[2024-08-14 00:51] VITALS: BP 115/61; PULSE 76; RESP 14; O2SAT 100
[2024-08-14 03:07] VITALS: BP 115/58; PULSE 81; RESP 17; TEMP 36.4; O2SAT 98
== END 2024-08-14 03:09 | disposition home or self-care (01) ==
PROVIDERS: Emergency Medicine; Emergency Provider Registered Nurse; PCP Student in an Organized Health Care Education/Training Program
DX: R07.89 Other chest pain (principal); E86.0 Dehydration; K76.0 Fatty (change of) liver, not elsewhere classified
CPT/HCPCS: 36415; 71046; 71275; 74174; 80053; 83690; 84484; 85025; 85610; 85730; 93005; 96361; 96374; 99284; A9270; J1885; J7030; Q9967

== ENCOUNTER 2025-01-15 21:01 | Emergency (ER) | payer OTHER, SELFPAY ==
[2025-01-15 21:02] VITALS: BP 124/63; PULSE 64; RESP 16; TEMP 36.4; O2SAT 100
--- OUTSIDE RECORDS SUMMARY | 2025-01-15 21:02 | XMS_ITS | Continuity of Care Document ---
Author Name [facility] Organization [facility] Care Team Providers Care Coin Counter And Wrapper Name Role Phone [facility] Unavailable Unavailable Problems Combined list of problems from Department of Defense and Veterans Affairs facilities. It does not include entries that were removed or entered in error. Problem Status Onset Date Problem Type Date of Resolution Comments Source INDIC FOR CARE/INTERVEN REL TO LABOR/DELIV ANTEPARTUM COMPL Inactive 05/24/2009 Condition DoD Headache, unspecified Active Condition DoD Unspecified lump in the right breast, unspecified quadrant Active Condition DoD Allergic rhinitis, unspecified Active Condition DoD GASTRITIS Active Condition DoD HEADACHE SYNDROMES Active Condition DoD Cervical Pap Smear Inactive Condition Do D URINARY TRACT INFECTION Active Condition DoD visit for: administrative purpose Inactive Condition [facility] visit for: refer patient without exam or treatment Inactive Condition DoD VAGINITIS Inactive Condition DoD Aftercare Following Surgery Active Condition DoD APPENDICITIS ACUTE Inactive Condition Do D visit for: postsurgical exam Active Condition [facility] visit for: screening exam depression Active Condition DoD NORMAL ROUTINE HISTORY AND PHYSICAL - Active Condition [facility] Gynecologic Services Intrauterine Device (IUD) Insertion Inactive Condition DoD VAGINAL DISCHARGE Active Condition DoD CHOLELITHIASIS Active Condition DoD diarrhea Active Condition DoD nausea Inactive Condition DoD NORMAL Inactive Condition DoD Vaccines Prophylactic Need Against Influenza Inactive Condition DoD INSUFF WT GAIN IN PREG - ANTEPARTUM COND OR PRIOR COMP DELIV Active Condition [facility] PREG COMP: ANEMIA- ANTEPARTUM CONDITION OR PRIOR COMPLICATED Active Condition DoD NONSPECIFIC ABNORMAL FINDINGS SCREENING Active Condition DoD Supervision Of Normal Inactive Condition DoD CONSTIPATION FUNCTIONAL Inactive Condition DoD PREG COMPLICATIONS: ANTEPARTUM COND OR PRIOR COMP DELIVERY Inactive Condition DoD HYPEREMESIS GRAVIDARUM - ANTEPARTUM COND OR PRIOR COMP DELIV Active Condition DoD visit for: initial exam (at ____weeks) Inactive Condition [facility] Patient Counseling: Active Condition Do D Test Positive Inactive Condition DoD Allergies, Adverse Reactions, Alerts Combined list of allergies from Department of Defense and Veterans Affairs facilities. It does not include entries that were removed or entered in error. Substance Category Reaction Severity Reaction type Status Date Reported Comments Source VICODIN (HYDROCODON E BIT/ACETAMI NOPHEN) Drug allergy (disorder) Anaphylaxis active [address] [place] [address] Group [facility] [place] [place] Immunizations Combined list of available immunizations from the Department of Defense and Veterans Affairs facilities. Immunization Series Date Given Administered By Site Reaction Lot Number CVX Code Drug Court Crier Status Comments Source COVID-19, mRNA, LNP-S, PF, 100 mcg or 50 mcg dose 2021 [employer] (MOD) Not Given COVID-19, mRNA, LNP-S, [...] influenza-H1N 1-09, preservative- free, injectable 0 2008 [id number] P 126 [employer] aaTag l Jack. (NOV) complet ed Novel influenza -[id number], preservat anny-free, injectabl e DoD influenza virus vaccine, whole virus 0 2008 Unknown, Provider [id number] A 16 Transcribed (TRS) complet ed influenza virus vaccine, whole virus DoD Encounters Combined list of: 1) Encounters from Department of Veterans Affairs facilities going backup to the last 18 months, not all VA inpatient encounters are included; 2) Encounters from the Department of Defense facilities going backup to 280 months. Location Location Details Encounter Type Encounter Number Reason For Visit Attending Provider ADM Date DC Date Status Disposition Source [facility]([place] [facility] OUTPATIENT [id number] cg/po YEHUDA Harrison 09/27 Released w/o Limitations [facility](S D Ophthalmology Technician Operati ons Center) [facility]([place] [facility] TELE CONSULT [id number] [facility] OBEY HOLGUIN 10/25 [facility](S D Ophthalmology Technician Operati ons Center) [facility] Ophthalmology Technician Log Buncher) OUTPATIENT [id number] nob 08/28/08 WILLIAM TED L 11/01 Released w/o Limitations [facility](N TC Ophthalmology Technician Log Buncher ) [facility] Ophthalmology Technician Log Buncher) OUTPATIENT [id number] david 13+week s WILLIAM TED L 11/29 Released w/o Limitations [facility](N TC Ophthalmology Technician Log [employer]uncher ) [facility] Ophthalmology Technician Log Buncher) OUTPATIENT [id number] david 16wks WILLIAM TED L 12/21 Released w/o Limitations [facility](N TC Ophthalmology Technician Log [employer]uncher ) [facility] Ophthalmology Technician Log Buncher) OUTPATIENT [id number] david 20 + wks WILLIAM TED L 01/18 Released w/o Limitations [facility](N TC Ophthalmology Technician Log [employer]uncher ) [facility] Ophthalmology Technician Log [employer]uncher) TELE CONSULT [id number] 24w pt wants to speak with nurse to ask what medicat ion she can take for a cold AFRICATANISHA MARLI 02/10 Referred for Appointment [facility](N TC Ophthalmology Technician Log Buncher ) [facility] Ophthalmology Technician Log Buncher) OUTPATIENT [id number] david 24 + wks WILLIAM TED L 02/15 Released w/o Limitations [facility](N TC Ophthalmology Technician Log [employer]uncher ) [facility] Ophthalmology Technician Log [employer]uncher) OUTPATIENT [id number] david WILLIAM TED L 03/13 Released w/o Limitations [facility](N TC Ophthalmology Technician Log Buncher ) [facility] Ophthalmology Technician Log Buncher) TELE CONSULT [id number] f/u ogtt results WILLIAM TED L 03/14 [facility](N TC Ophthalmology Technician Log Buncher ) [facility](PMT ) TELE CONSULT [id number] f/u ogtt cbc WILLIAM TED L 04/03 [facility](P MT) [facility] Ophthalmology Technician Log Buncher) OUTPATIENT [id number] david 32 + wks WILLIAM TED L 04/11 Released w/o Limitations [facility](N TC Ophthalmology Technician Log [employer]uncher ) [facility](SD Preventiv e Med) OUTPATIENT [id number] H1N1 Vaccine 10 TALISHA PETERSON 04/26 Released w/o Limitations [facility](S D Prevent anny Med) [facility]([place] Ophthalmology Technician L&D Triage) OUTPATIENT [id number] @ 37+5 c/o nausea/ diarrhe a/ headach e CJ LAURE 05/19 Released w/o Limitations [facility](S D Ophthalmology Technician L&D Triage) [facility] Ophthalmology Technician Log Buncher) OUTPATIENT [id number] david 38 + wks TED THOMAS 05/23 Released w/o Limitations [facility](N TC Ophthalmology Technician Log Buncher ) [facility] Ophthalmology Technician Log Buncher) TELE CONSULT [id number] bloody dischar henrik, wants to speak with Montse Thomas. TED THOMAS 05/23 [facility](N TC Ophthalmology Technician Log Buncher ) [facility] DIRECT TO MTF FROM OTHER THAN ER OR APU [id number] SIN NINO 05/23 DISCHARGED HOME [facility]([place] Ophthalmology Techn[place] L&D Triage) OUTPATIENT [id number] @ 38+2wks r/o labor MILI-BRISA RENE 05/24 Admitted [facility](S D Ophthalmology Technician L&D Triage) [facility] DIRECT TO MTF FROM OTHER THAN ER OR APU [id number] GAGE SANDERS 06/29 DISCHARGED HOME [facility] General Assignment Reporter Log Buncher) OUTPATIENT [id number] POST / IUD TED THOMAS 07/10 Released w/o Limitations [facility](N TC General Assignment Reporter Log [employer]uncher ) [facility]([place] General Surg[place] OUTPATIENT [id number] follow up gallsto ne surgery GAGE SANDERS 07/11 Released w/o Limitations [facility](S D General Surg) [facility]([place] General Surg) OUTPATIENT [id number] follow up GAGE SANDERS Yemi 07/12 Released w/o Limitations [facility](S D General Surg) [facility] ER, DIRECT TO [facility] [id number] CHETNA, LAURAGATHA Preciado 08/21 DISCHARGED HOME [facility]([place] General Surg) OUTPATIENT [id number] LEELA BASILIO 09/03 Released w/o Limitations [facility](S D General Surg) [facility]([place] General Surg[place] OUTPATIENT [id number] follow up post op LEELA BASILIO 09/04 Released w/o Limitations [facility](S D General Surg) [facility] Family Practice Team 3) OUTPATIENT [id number] eval c/o vaginal burning post interco urse ANGELLA CONROY 09/21 Released w/o Limitations [facility](N TC Family Practic e Team 3) [facility](Fam Prac-Prim abdirahman Care Grp-[facility]) TELE CONSULT [id number] Results ALBERTA NICHOLE 10/03 Referred for Appointment [facility](F am Prac-Pr imary Care Grp-[facility] ) [facility] Family Practice Team 4) TELE CONSULT [id number] MEDICAL -- UTI S YMPTOMS ALBERTA NICHOLE 10/22 Referred for Appointment [facility](N TC Family Practic e Team 4) [facility] Family Practice Team 3) OUTPATIENT [id number] uti/vag anitis ANGELLA CONROY 10/23 Released w/o Limitations [facility](N TC Family Practic e Team 3) [facility](Fam Prac-Prim abdirahman Care Grp-[facility]) TELE CONSULT [id number] results JOEL MONTALVO 10/25 Referred for Appointment [facility](F am Prac-Pr imary Care Grp-[facility] ) [facility] Family Practice Team 3) OUTPATIENT [id number] repeat PAP ANGELLA CONROY 11/06 Released w/o Limitations [facility](N TC Family Practic e Team 3) [facility] [place] [place]Sco tt Flight Medicine Tm[place] OUTPATIENT [id number] 5 Pre employm ent EMANUEL KRAFT 11/10 Released w/o Limitations [employer] [facility] [place] [place] cott Flight Medicin e Tm[place] [employer] [facility])(Fam kimi Med Tm B Non-AD BCC) OUTPATIENT [id number] [phone] yomi [email or web address] need referra JEFF Rizzo 05/23 Released w/o Limitations [employer])(F amily Med Tm B Non-AD BCC) [employer] [facility])(Fam kimi Med Tm B Non-AD BCC) TELE CONSULT [id number] Notes Entered by: JEFF SIU 05 Jun 2021 1105 ------- ------- ------- ------- -- f/u TJ Rodriguez 06/05 Released to Self [employer] [facility])(F amily Med Tm B Non-AD BCC) Procedures Combined list of: 1) Procedures from Department of Veterans Affairs facilities going back up to thelast 18 months, not all VA non-surgical procedures are included; 2) All procedures from the Department of Defense facilities. Procedure Procedure Type Code Date Perfomer Comments Sour e Obstetrical Services Care Visit Obstetrical Services Care Visit 0503F 07/10/19 10 TED THOMAS Test Test 16174 07/10/19 10 TED THOMAS Gynecologic Services Intrauterine Device (IUD) Insertion Gynecologic Services Intrauterine Device (IUD) Insertion [id number] 07/10/19 10 TED THOMAS Non-Stre Test (___ 0,2) Non-Stress Test (___ 0,2) 74678 05/24/19 10 BRISA CONWAY OB Services Antepartum Care Only Subsequent Single Visit OB Services Antepartum Care Only Subsequent Single Visit 0502F 05/23/19 10 TED THOMAS Non-Stre Test (___ 0,2) Non-Stress Test (___ 0,2) 43244 05/19/19 10 JACEY CORONA E [facility] Immunization Administration One Vaccine Immunization Administration One Vaccine 67795 04/26/20 09 TALISHA PETERSON IM, L deltoid, Pt tolerated well [facility] Influenza Virus Vaccine Pandemic Formulation 04/26/20 09 TALISHA PETERSON Preservative Free Kaden OB Services Antepartum Care Only Subsequent Single Visit OB Services Antepartum Care Only Subsequent Single Visit 0502F 04/11/20 09 TED THOMAS OB Services Antepartum Care Only Subsequent Single Visit OB Services Antepartum Care Only Subsequent Single Visit 0502F 03/13/[address] Supervised Injection Intramuscular Supervised Injection Intramuscular 39956 03/13/20 TED THOMAS Immunization Administration One Vaccine Immunization Administration One Vaccine 69898 03/13/20 TED THOMAS Influenza Split Virus Vaccine Age 3+ Years Intramuscular 03/13/20 TED THOMAS OB Services Antepartum Care Only Subsequent Single Visit OB Services Antepartum Care Only Subsequent Single Visit 0502F 02/16/20 09 TED THOMAS Non-Physician Phone Call To Patient/Provider Brief (5-10min) Non-Physician Phone Call To Patient/Provider Brief (5-10min) 58550 02/14/20 09 MARLI PASTOR [facility] OB Services Antepartum Care Only Subsequent Single Visit OB Services Antepartum Care Only Subsequent Single Visit 0502F 01/19/20 09 TED THOMAS OB Services Antepartum Care Only Subsequent Single Visit OB Services Antepartum Care Only Subsequent Single Visit 0502F 12/22/19 TED THOMAS Screening papanicolaou smear; obtaining, preparing and conveyance of cervical or vaginal smear to laboratory 11/02/19 TED THOMAS Ultrasound [place] [id number] 11/02/19 TED THOMAS OB Services Antepartum Care Only First Visit, With Report OB Services Antepartum Care Only First Visit, With Report 0500F 11/02/19 09 TED THOMAS Urine HCG, Test Urine HCG, Test [id number] 09/28/19 09 BUENROSTROSIMON REIS NATI DoD Waiver services; not otherwise specified (NOS) MARIE, ALRIA OPENA DoD LAPAROSCOPIC APPENDECTOMY 08/23/19 11 DoD POSTOPERATIVE FOLLOW-UP VISIT, NORMALLY INCLUDED IN THE SURGICAL PACKAGE, INDICATE THAT EVALUATION & MANAGEMENT SERVICE WAS PERFORMED DURING A POSTOPERATIVE PERIOD REASON RELATED ORIGINAL PROCEDURE 08/23/19 11 DoD LAPAROSCOPY, SURGICAL, APPENDECTOMY 08/22/19 11 DoD INJECTION, PIPERACILLIN SODIUM/TAZOBACTAM SODIUM, 1 GRAM/0.125 GRAMS (1.125 GRAMS) 08/22/19 11 DoD INJECTION, HYDROMORPHONE, UP TO 4 MG 08/21/19 11 DoD CARE VISIT () 07/10/19 10 DoD LAPAROSCOPIC CHOLECYSTECTOMY 06/30/19 10 DoD POSTOPERATIVE FOLLOW-UP [...] POSTOPERATIVE PERIOD REASON RELATED ORIGINAL PROCEDURE 05/25/19 10 DoD VAGINAL DELIVERY ONLY (WITH OR WITHOUT EPISIOTOMY AND/OR FORCEPS); 05/24/19 10 [facility] SUBSEQ CARE VISIT () [EXCLS:PATIENTS WHO ARE SEEN FOR A CONDITION UNREL TO / CARE (EG,AN UP RESPIR INFECT;PATIENTS SEEN FOR CONSULTATION ONLY,NOT FOR CONT CARE)] 05/23/19 10 DoD NON-STRESS TEST 05/23/19 10 [facility] NON-STRESS TEST 05/18/20 09 DoD IMMUNIZATION ADMINISTRATION (INCLUDES PERCUTANEOUS, INTRADERMAL, SUBCUTANEOUS, OR INTRAMUSCULAR INJECTIONS); 1 VACCINE (SINGLE OR COMBINATION VACCINE/TOXOID) 04/26/20 09 DoD SUBSEQ CARE VISIT () [EXCLS:PATIENTS WHO ARE SEEN FOR A CONDITION UNREL TO / CARE (EG,AN UP RESPIR INFECT;PATIENTS SEEN FOR CONSULTATION ONLY,NOT FOR CONT CARE)] 04/11/20 09 [facility] SUBSEQ CARE VISIT () [EXCLS:PATIENTS WHO ARE SEEN FOR A CONDITION UNREL TO / CARE (EG,AN UP RESPIR INFECT;PATIENTS SEEN FOR CONSULTATION ONLY,NOT FOR CONT CARE)] 03/13/20 [facility] SUBSEQ CARE VISIT () [EXCLS:PATIENTS WHO ARE SEEN FOR A CONDITION UNREL TO / CARE (EG,AN UP RESPIR INFECT;PATIENTS SEEN FOR CONSULTATION ONLY,NOT FOR CONT CARE)] 02/16/20 09 [facility] TELE ASSESS & MGT SRV PROV QUAL NONPHYS HLTH CARE PRO TO EST PAT,PARENT,GUARD NOT ORIG REL ASSESS & MGT SRV PROV W/IN PREV 7 DAYS NOR LEAD ASSESS & MGT SRV/PX W/IN NXT 24 HR/SOON APT;5-10 MIN MED DIS 02/11/20 09 [facility] SUBSEQ CARE VISIT () [EXCLS:PATIENTS WHO ARE SEEN FOR A CONDITION UNREL TO / CARE (EG,AN UP RESPIR INFECT;PATIENTS SEEN FOR CONSULTATION ONLY,NOT FOR CONT CARE)] 01/19/20 [facility] SUBSEQ CARE VISIT () [EXCLS:PATIENTS WHO ARE SEEN FOR A CONDITION UNREL TO / CARE (EG,AN UP RESPIR INFECT;PATIENTS SEEN FOR CONSULTATION ONLY,NOT FOR CONT CARE)] 12/22/19 09 [facility] INITIAL CARE VISIT (REPORT AT 1ST ENCOUN W HEALTH DESIGN/ANIMATION INSTRUCTOR PROVIDING OBSTETRIC CARE. REPORT ALSO DATE OF VISIT &,IN A SEPARATE FIELD,THE DATE OF THE LAST MENSTRUAL PERIOD) 11/02/19 09 DoD GONADOTROPIN, CHORIONIC (HCG); QUALITATIVE 09/28/19 09 DoD WAIVER SERVICES; NOT OTHERWISE SPECIFIED (NOS) 05/24/19 22 DoD Social History Combined list of available smoking, tobacco, and other social history from Department of Defense and Veterans Affairs facilities. Social History Type Response Date Comment Sourc e This section is an empty social history section. DoD
--- OUTSIDE RECORDS SUMMARY | 2025-01-15 21:03 | XMS_ITS | Clinical Summary ---
Author Organization [facility] Address [address] [place] [address] Care Team Providers Care Title Clerk Automobile Name Role Phone Lisa Perez MD Primary Care Provider Allergies Active Allergy Reactions Criticality Noted Date Comments Hydrocodone-Acetaminophen Anaphylaxis High 0 Medications vit 00-kiwj-slrxp-dh a 27mg iron- 800 mcg-250 mg capsule Take by mouth Active vit D3-vit C-gfbondcdo-cibh 196-420-48-370 tpyl-wdt-bj-mg tablet Take by mouth Active Active Problems [...] 8:38 AM CDT Height 165.1 cm (5' 5) 02/25/2020 8:38 AM CDT Body Mass Index 28.96 02/25/2020 8:38 AM CDT Plan of Treatment Not on file Insurance [employer] CLAIM[employer] Care Teams Title Clerk Automobile Relationship Specialty Start Date End Date Lisa Perez MD [address] [facility] [address] [place] [address] PCP - General Family Medicine 02/01/20
--- OUTSIDE RECORDS SUMMARY | 2025-01-15 21:03 | XMS_ITS | Clinical Summary ---
Author Organization [facility] Address [address] [place] [address] Phone Care Team Providers Care Correctional Nurse Name Role Phone Lisa Perez MD Primary Care Provider +1- [phone] Social History Tobacco Use Types Packs/Day Years Used Date Smoking Tobacco: Never Assessed Comments Unknown Sex and Gender Information Value Date Recorded Sex Assigned at Not on file Legal Sex Female 9:56 AM CDT Gender Identity Not on file Sexual Orientation Not on file Plan of Treatment Health Maintenance Due Date Last Done Comments DTAP/TDAP/TD VACCINES (1 - Tdap) 08/31/2006 HEPATITIS B VACCINES (1 of 3 - 19+ 3-dose series) 08/17 HPV/Cotest (21-29) 08/31/2008 HPV VACCINES (1 - 3-dose SCDM series) 08/31/2014 CERVICAL CANCER SCREENING 08/31/2017 HPV/Cotest (30-65) 08/31/2017 PAP SMEAR 08/31/2017 INFLUENZA VACCINE (#1) [address] [place] [place] [id number] [facility] * Guarantor: [employer] Account Type Relation to Patient Date of Phone Billing Address Workers Comp Employer [employer] [id number] [employer] Care Teams Correctional Nurse Relationship Specialty Start Date End Date Lisa Perez MD PCP - General Family Practice 10/04/19
[2025-01-15 21:12] VITALS: O2SAT 98
[2025-01-15 21:13] VITALS: BP 117/66; O2SAT 99
[2025-01-15 21:15] VITALS: O2SAT 100
[2025-01-15 21:16] VITALS: BP 119/73; O2SAT 98
--- NOTE | 2025-01-15 21:27 | ED.EAR ---
HPI - Ear Problem General Chief complaint: Ear Stated complaint: right neck/ear pain few days Time Seen by Provider: 01/15/25 21:27 Source: patient Mode of arrival: ambulatory Limitations: no limitations History of Present Illness HPI Narrative: 39 YEARS OLD FEMALE CAME TO THE ED COMPLAINING OF RIGHT UPPER BACK PAIN, RIGHT-SIDED NECK PAIN IN THE LAST FEW DAYS. ACHING, SPASM, WORSE WITH CERTAIN MOVEMENT AND POSITION, BETTER LAYING STILL. PATIENT IS TELLING ME THAT SHE HAD A 30 LB BOX WHILE WORKING AT [employer] FELL AND LANDED ON THE TOP OF THE RIGHT SHOULDER, 3-4 FEET HIGH. CAUSED PAIN AT THE TOP OF THE RIGHT SHOULDER AND RIGHT UPPER BACK. PATIENT WAS SEEN BY ORTHOPEDIC, SCHEDULED FOR MRI COMING FRIDAY. PATIENT CURRENTLY DOING PHYSICAL THERAPY. PATIENT REPORT HAVING HISTORY OF HYSTERECTOMY NOVEMBER 26 WIPE, WENT BACK TO WORK 4 DAYS AGO. PATIENT IS TELLING ME SHE USED TO BE ON PAIN MEDICATION POST HYSTERECTOMY AND SHE RAN OUT OF IT WHICH PROBABLY CAUSING HER TO HAVE THE WHOLE SYMPTOMS OF RIGHT UPPER BACK PAIN AND RIGHT-SIDED NECK PAIN. PATIENT DENIES ANY WEAKNESS OR NUMBNESS OR TINGLING OF THE RIGHT UPPER EXTREMITY. Related Data Home Medications ?Medication ?Instructions ?Recorded ?Confirmed ?Last Taken ?Type acetaminophen 650 mg 650 mg PO Q8H PRN Pain 11/20/22 12/25/23 Unknown History tablet,extended release (Tylenol 8 Hour) Allergies Allergy/AdvReac Type Severity Reaction Status Date / Time hydrocodone Allergy Severe shortness Verified 08/13/24 19:31 of breath Review of Systems Review of Systems: All systems reviewed & are unremarkable except as noted in HPI and below PMFSH Past Medical History Medical History Abnormal drug screen Menorrhagia Left lower quadrant pain Suprapubic pain Well woman exam with routine gynecological exam Elevated random blood glucose level Encounter for general adult medical examination without abnormal findings Post-COVID chronic cough Acute rhinosinusitis Cough COVID Encounter for visit False labor Active labor at term Left breast mass Breast lump Upper respiratory infection contractions Encounter for supervision of high risk in third trimester, antepartum ASCUS with positive high risk HPV cervical Encounter for supervision of high risk in second trimester, antepartum Placenta previa antepartum in second trimester Encounter for supervision of normal in multigravida in first trimester Encounter for supervision of normal in multigravida in second trimester URI (upper respiratory infection) Encounter for confirmation of test result with physical examination HPV test positive Vaginal delivery x 4 Polyp at cervical os Abnormal Pap smear of cervix ASCUS (atypical squamous cells of undetermined significance) on gynecologic Papanicolaou smear complicating , antepartum Surgical History Surgical History History of cholecystectomy History of appendectomy History of cholecystectomy History of appendectomy Family History Family History Mother Family history of hypercholesterolemia Family history of coronary artery disease Hypertension H/O: hysterectomy Social History Social History Social History: Smoking status: Never smoker Second hand tobacco smoke exposure: No Alcohol intake: current Alcohol use details: [place] Substance use: never Substance use type: does not use Do You Feel Safe in your Home?: Yes Lack of Transportation: No Lack of Food: Never True Current Housing: I Have Housing Concerned About Future Housing: No Difficulty Paying Gas/Electric Bills: No Difficulty Paying for Meds: No Currently Unemployed: No Education: Don't Know Difficulty w/ Childcare or Family Care: No Living arrangements: with family 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al Spiritual care concerns: No Exam Narrative: GENERAL APPEARANCE: WELL-DEVELOPED, WELL-NOURISHED SKIN: NORMAL COLOR HEAD: NORMOCEPHALIC, NONTRAUMATIC EYES: CLEAR CONJUNCTIVA ENT: OROPHARYNX NORMAL, EARS NORMAL, NOSE NORMAL NECK: SUPPLE, NONTENDER CHEST AND RESPIRATORY: AIRWAY PATENT, NO RESPIRATORY DISTRESS, NO ACCESSORY MUSCLE USE HEART: REGULAR RATE/RHYTHM ABDOMEN: SOFT, NONTENDER, NO ORGANOMEGALY, QUIET BOWEL SOUNDS VASCULAR: NORMAL PERIPHERAL PULSES, NORMAL CAPILLARY REFILL. MUSCULOSKELETAL: DIFFUSE TENDERNESS RIGHT SIDE OF NECK AND RIGHT UPPER BACK AND SUPRACLAVICULAR MUSCLES. 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, NO GROSS MOTOR DEFICIT Course Vital Signs Vital signs: Vital Signs Temperature 36.4 C 01/15/25 21:02 Pulse Rate 64 01/15/25 21:02 Respiratory Rate 16 01/15/25 21:02 Blood Pressure 124/63 01/15/25 21:02 Pulse Oximetry 100 01/15/25 21:02 Oxygen Delivery Room Air 01/15/25 21:02 Temperature 36.4 C 01/15/25 21:02 Pulse Rate 64 01/15/25 21:02 Respiratory Rate 16 01/15/25 21:02 Blood Pressure 124/63 01/15/25 21:02 Pulse Oximetry 100 01/15/25 21:02 Oxygen Delivery Room Air 01/15/25 21:02 Medical Decision Making MDM Narrative Medical decision making narrative: MUSCULAR STRAIN/SPRAIN OF THE UPPER BACK AND RIGHT SIDE OF NECK IS MY CONCERN. LABS OR IMAGING ARE NOT RECOMMENDED AT THIS TIME. PATIENT IS SCHEDULED FOR MRI IN 3 DAYS. MY PLAN TO DISCHARGE PATIENT ON ANTI INFLAMMATORY MEDICINE AND MUSCLE RELAXANT. Differential Diagnosis Differential Diagnosis: ABOVE Vital Signs Vital Signs: Vital Signs Temperature 36.4 C 01/15/25 21:02 Pulse Rate 64 01/15/25 21:02 Respiratory Rate 16 01/15/25 21:02 Blood Pressure 124/63 01/15/25 21:02 Pulse Oximetry 100 01/15/25 21:02 Oxygen Delivery Room Air 01/15/25 21:02 Temperature 36.4 C 01/15/25 21:02 Pulse Rate 64 01/15/25 21:02 Respiratory Rate 16 01/15/25 21:02 Blood Pressure 124/63 01/15/25 21:02 Pulse Oximetry 100 01/15/25 21:02 Oxygen Delivery Room Air 01/15/25 21:02 Discharge Plan Discharge Clinical Impression: Cervicalgia Patient Disposition: Home Condition: Stable Additional Instructions: RETURN IF SYMPTOMS ARE WORSENING , CALL YOUR FAMILY PHYSICIAN FOR APPOINTMENT, TAKE TYLENOL NEEDED FOR ACHES AND PAIN, CONTINUE HOME MEDICATIONS. HEATING PAD MASSAGE. Patient Language: Russian Prescriptions: New cyclobenzaprine 10 mg tablet 10 mg PO TID PRN (Reason: muscle spasm) Qty: 20 0RF diclofenac sodium 75 mg tablet,delayed release (DR/EC) 75 mg PO BID PRN (Reason: pain) Qty: 14 0RF No Action benzonatate 200 mg capsule 200 mg PO TID Qty: 90 0RF fexofenadine-pseudoephedrine [Linda-D 24 Hour] 180-240 mg tablet extended release 24 hr 1 tablet PO DAILY Qty: 30 0RF acetaminophen [Tylenol 8 Hour] 650 mg Tablet Extended Release 650 mg PO Q8H PRN (Reason: Pain) Follow-up/Referrals: Carlton,Loretta Reilly MD [Primary Care Provider, Unknown] Stand Alone Forms: Work/School Release IP
[2025-01-15] MEDS: ACETAMINOPHEN 325 MG TABLET 650 MG PO (21:49)
[2025-01-15] MEDS: IBUPROFEN 600 MG TABLET PO (21:50)
== END 2025-01-15 22:09 | disposition home or self-care (01) ==
PROVIDERS: Emergency Provider Emergency Medicine; PCP Student in an Organized Health Care Education/Training Program
DX: S19.9XXA Unspecified injury of neck, initial encounter (principal); Z86.16 Personal history of COVID-19; Z90.710 Acquired absence of both cervix and uterus; Z90.49 Acquired absence of other specified parts of digestive tract; W20.8XXA Other cause of strike by thrown, projected or falling object, initial encounter
CPT/HCPCS: 99283; A9270